=== PATIENT | female | born 1950 | race Caucasian/White ===

== ENCOUNTER 2019-12-04 14:56 | Observation (INO) | payer MEDICARE, MEDICAID, SELFPAY ==
--- NOTE | ~2019-12-04 | XR_ITS ---
EXAMINATION: XR chest 2V DATE: 12/04/2019 16:34 INDICATION: Shortness of breath, cough and intermittent fever TECHNIQUE: frontal and lateral views of the chest were obtained. COMPARISON: None FINDINGS: Fuse increased indistinct interstitial and patchy airspace opacities throughout both lungs. No pleura l effusion or pneumothorax. Cardiomediastinal silhouette within normal limits for AP technique. Debbie cystectomy clips in right upper quadrant. Additional surgical clips project over the right upper lung zone. Instrumented multilevel posterior cervical spinal fusion. IMPRESSION: 1. Bilateral diffuse lung disease which could represent pulmonary edema, pneumonia or combination the reof. Reviewed, dictated and finalized at location [facility] [employer] IMPRESSION: 1. Bilateral diffuse lung disease which could represent pulmonary edema, pneumo ximena or combination thereof.
[2019-12-04 15:00] VITALS: BP 182/77; PULSE 76; RESP 20; TEMP 36.7; O2SAT 96
--- NOTE | 2019-12-04 15:12 | ECG_ITS ---
Measurements Intervals [place] Rate: 66 P: 57 IN: 144 QRS: 50 QRSD: 91 T: 61 QT: 413 QTc: 433 Interpretive Statements SINUS RHYTHM WITH SINUS ARRHYTHMIA NORMAL ECG Electronically Signed On 12-04-2019 15:50:06 BILINGUAL LEGAL ASSISTANT by Rick Bautista D.O.
--- NOTE | 2019-12-04 15:21 | ED.GENADULT ---
HPI - General Adult General Chief complaint: Nausea/Vomiting/Diarrhea Stated complaint: 69 YO female w/ known h.o Steroid and O2 Dependant COPD sec to Tobaccoism sent into ED by [employer] concerned about patient needing to be evalutated for vomiting, and possible pneumonia. Patient was in our ED on 12/01/19 was evaluated w/ COPD w/ mild exacerbation. SHe was discharged to f/u with PMD today. Patient denies fever, chills, Cough, SOB/. She is on her usual baseline need of Oxygen requirement 2-3L when seated and 6-8 L when ambulating. Patient admits to 2 days of N/V associated with ingesting dairy products. Related Data Home Medications Medication Instructions Recorded Confirmed Trelegy Ellipta 1 inh INHALATION DAILY 12/01/19 12/04/19 aspirin [Aspirin Low Dose] 81 mg PO DAILY 12/01/19 12/04/19 baclofen 20 mg PO BID 12/01/19 12/04/19 hydrocodone-acetaminophen [[place]] 1 tablet PO Q6H PRN 12/01/19 12/04/19 lisinopril-hydrochlorothiazide 1 tablet PO DAILY 12/01/19 12/04/19 potassium chloride 20 meq PO EVERY OTHER DAY 12/01/19 12/04/19 pregabalin [Lyrica] 100 mg PO BID 12/01/19 12/04/19 simvastatin 40 mg PO HS 12/01/19 12/04/19 trazodone 50 mg PO HS 12/01/19 12/04/19 albuterol sulfate 90 mcg/actuation 1 puff INHALATION Q4H PRN 12/04/19 12/04/19 aerosol inhaler vortioxetine 20 mg tablet 20 mg PO DAILY 12/04/19 12/04/19 Allergies Allergy/AdvReac Type Severity Reaction Status Date / Time butorphanol [From Stadol] AdvReac Hallucinati Verified 12/10/19 07:04 ng Review of Systems Review of Systems: All systems reviewed & are unremarkable except as noted in HPI and below Constitutional: Constitutional: Reports as per HPI, Reports no additional constitutional complaints, Denies chills, Denies fever(s) and Denies weakness Eyes: Eyes: Reports as per HPI ENT: Reports system reviewed and no additional complaints, except as documented Cardiovascular: Cardiovascular: Reports as per HPI and Denies chest pain Respiratory: Respiratory: Reports as per HPI, Reports no additional respiratory complaints, Denies cough, Reports dyspnea (Chronic on Baseline O2 Requirement) and Denies wheezing Gastrointestinal: Gastrointestinal: Reports as per HPI Genitourinary: Genitourinary: Reports no additional female genitourinary complaints Psychiatric: Psychiatric: Reports no additional psychiatric complaints Endocrine: Endocrine: Reports no additional endocrine complaints PMFSH Past Medical History Medical History Anemia Asthma Chronic pain COPD (chronic obstructive pulmonary disease) COPD with acute exacerbation Dyslipidemia Hypertension Interstitial pulmonary fibrosis Lumbar spondylosis Multiple lung nodules on CT There is a 7 mm right lower lobe nodule. 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 There is an 8 mm right lower lobe nodule Steroid-dependent COPD Surgical History Surgical History H/O abdominoplasty H/O cervical spine surgery H/O: hysterectomy Hx of cholecystectomy Hx of fusion of cervical spine Hx of lumbosacral spine surgery S/P appendectomy Family History Family History Father Acute myocardial infarction Smoker Mother Alzheimer's dementia Social History Social History Social History: quit 3 months ago Smoking packs per day: 1 Smoking cigarettes per day: 20.0 Years smoked: 30 Smoking pack-years: 30.00 Smoking status: Former smoker Tobacco type: cigarettes Second hand tobacco smoke exposure: Yes Alcohol intake: former Substance use: never Substance use type: does not use Additional eduardo
[2019-12-04 15:40] LABS: Basophils Absolute Auto 0.03 K/mm3 (0.00-0.10); Basophils Percent Auto 0.2 % (0.0-1.0); Eosinophils Absolute Auto 0.12 K/mm3 (0.02-0.50); Hemoglobin 10.8 g/dL (11.7-13.8); Immature Granulocyte Absolute 0.08 K/mm3 (0.00-0.00); Immature Granulocyte Percent A 0.7 % (0.0-0.0); Lymphocytes Absolute Auto 2.43 K/mm3 (1.10-4.50); Lymphocytes Percent Auto 20.1 % (18.0-42.0); Mean Corpuscular HGB Conc 30.9 g/dL (32.0-36.0); Mean Corpuscular Hemoglobin 30.5 pg (27.0-31.0); Mean Corpuscular Volume 98.9 fL (78.0-102.0); Mean Platelet Volume 10.2 fl (9.2-11.8); Monocytes Absolute Auto 1.09 K/mm3 (0.10-0.90); Neutrophils Absolute Auto 8.3 K/mm3 (1.7-7.2); Nucleated Red Blood Cells Absolute Auto 0.03 K/mm3 (0.00-0.00); Nucleated Red Blood Cells Perc 0.2 % (0-0.0); Platelet Count Result 287 K/mm3 (150-420); Red Blood Count 3.54 M/mm3 (4.20-5.40); Red Cell Distribution Width 14.3 % (11.6-14.4); White Blood Count 12.1 K/mm3 (4.8-10.8)
[2019-12-04 15:54] LABS: Partial Thromboplastin Time 20.1 SEC (22.3-31.6); Prothrombin Time 10.3 Seconds (9.64-11.0)
[2019-12-04 15:57] LABS: Alanine Aminotransferase 31 U/L (14-59); Alkaline Phosphatase 83 U/L (46-116); Anion Gap 13.7 mmol/L (7-16); Aspartate Amino Transferase 24 U/L (15-37); Bilirubin,Total 0.5 mg/dL (0.00-1.00); Blood Urea Nitrogen 9 mg/dL (7-18); Calcium 8.8 mg/dL (8.5-10.1); Carbon Dioxide 26 mmol/L (21-32); Chloride 105 mmol/L (98-108); Estimated CRCL calculation 64 ml/min; Estimated Glomerular Filt Rate > 60; Glucose 103 mg/dL (70-99); Magnesium 1.8 mg/dL (1.8-2.4); Osmolality Calculated 290 mOsm/kg (285-295); Potassium 3.7 mmol/L (3.5-5.1); Sodium 141 mmol/L (136-145); Total Protein 7.2 g/dL (6.4-8.2)
[2019-12-04 16:01] LABS: BNP 30.8 pg/mL (0-100)
[2019-12-04 16:02] LABS: Troponin I < 0.02 ng/mL (0.00-0.056)
--- NOTE | 2019-12-04 16:10 | PC.NURSE ---
IV attempt x3 to [facility] AC unsuccessful. Lab attempt for ABG x3 by 2 different techs unsuccessful. Pt refusing additional ABG attempts. Dr Reyes aware of inability to obtain IV access in the AC for CTA as well as pt refusal for additional ABG attempts. Verbal order Dr Reyes- Hold additional IV and ABG attempts until review of lab results and CXR. Pt aware, is agreeable to plan.
[2019-12-04 16:18] LABS: Lactic Acid 1.1 mmol/L (0.4-2.0)
[2019-12-04 16:48] VITALS: BP 149/79; PULSE 65; RESP 20; O2SAT 97
--- NOTE | 2019-12-04 17:07 | PC.NURSE ---
Dr Reyes at bedside discussing at length pt's results and plan for dc. Pt and family verbalize understanding and are agreeable to plan.
--- NOTE | 2019-12-04 17:23 | PC.NURSE ---
IV attempt R hand unsuccessful at this time. Pt refuses additional IV attempts. Requesting central line placment. Dr Eric mata.
--- NOTE | 2019-12-04 18:15 | PC.NURSE ---
Awaiting admission orders and central line placement.
--- NOTE | 2019-12-04 19:24 | PC.NURSE ---
Multiple attempts to place central line to bilateral groind by Dr Reyes unsuccessful.
[2019-12-04 19:25] VITALS: BP 179/79; PULSE 85; RESP 20; O2SAT 92
[2019-12-04 19:27] VITALS: BP 147/74; PULSE 70; RESP 20; O2SAT 95
[2019-12-04 20:00] VITALS: BP 132/74; PULSE 70; RESP 20; TEMP 36.1; O2SAT 96
[2019-12-04] MEDS: ONDANSETRON HCL ODT 4 MG TABLET PO (20:10)
[2019-12-04] MEDS: TRAZODONE HCL 50 MG TABLET PO (21:54)
[2019-12-04] MEDS: BACLOFEN 10 MG TABLET 20 MG PO (21:54)
[2019-12-04] MEDS: IPRATROPIUM 0.5 MG/ALBUTEROL SULFATE 2.5 MG AMPUL.NEB 3 ML INHALATION (21:54)
[2019-12-04] MEDS: predniSONE 20 MG TABLET 60 MG PO (21:54)
[2019-12-04] MEDS: SIMVASTATIN 10 MG TABLET 40 MG PO (21:55)
--- NOTE | 2019-12-04 22:00 | PC.NURSE ---
Patient took HS meds and then asked this nurse what dose of Trazodone she is taking. Responded with 50mg. Patient not happy @ all and says she takes 300mg every night. Patient says she has her pills with her and she'll just take hers instead. Told patient that her home meds need to be locked up in med room while she's here and she refused to give them to nurse. This nurse then asked to see the bottle of her Trazodone and patient refused. Explained to patient that all nurse needs to do is look @ the prescription on the bottle and patient still refused. Nurse told patient that patient could hold the bottle and nurse would read the bottle that way and patient continued to refuse. Charge nurse notified of all.
--- NOTE | 2019-12-04 22:15 | PC.NURSE ---
Charge nurse entered room to talk to patient about seeing her medication bottles and that staff needs to lock them in the medication room. Patient lifted up her plastic bag of medications and as nurse attempted to take tne bag she pulled back and yelled don't touch me. Nurse then stated that nurse did not touch her just the bag of medications. Patient then went on to say that the medications were hers and staff had no right to take them. Nurse attempted again to explain that the medications needed to be locked in medication room. Patient again refused to allow nurse to lock meds in medication room. notified of patient behaviors. New orders received.
--- NOTE | 2019-12-04 23:28 | PC.NURSE ---
Notified [facility] to clarify and reorder pt's trazadone and melatonin medications.
--- NOTE | 2019-12-04 23:39 | ADMGEN ---
This patient, Clari Ledesma, was admitted to 2nd Floor Room 205-2. Patient oriented to hospital policies and general routines including ID bracelet, bed and alarms, visiting hours, pain management, procedures, bathroom and other care routines, personal items, smoking policy, room service/diet, and visiting hours. Valuables list includes purse with no wallet, clothing, jacket, glasses, dentures, cell phone and medications in a sack.. Information on how to activate the Rapid Response Team has been discussed. Patient are encouraged to report perceived risks to care and to ask questions if they do not understand what they are told or what they should do.
[2019-12-05] VITALS (13 sets, daily range): BP systolic 104–123; BP diastolic 45–68; PULSE 62–114; RESP 16–20; TEMP 36.3–36.6; O2SAT 84–96; BMI 30.2
[2019-12-05] MEDS: TRAZODONE HCL 50 MG TABLET 150 MG PO (00:34)
--- NOTE | 2019-12-05 00:39 | PC.NURSE ---
Called [facility] again to update and verify orders for melatonin, trazadone and zofran.
[2019-12-05] MEDS: IPRATROPIUM 0.5 MG/ALBUTEROL SULFATE 2.5 MG AMPUL.NEB 3 ML INHALATION ×3 (01:16→11:35)
[2019-12-05 05:14] LABS: Basophils Absolute Auto 0.01 K/mm3 (0.00-0.10); Basophils Percent Auto 0.1 % (0.0-1.0); Hematocrit 29.6 % (35.0-42.0); Hemoglobin 9.4 g/dL (11.7-13.8); Immature Granulocyte Absolute 0.06 K/mm3 (0.00-0.00); Immature Granulocyte Percent A 0.7 % (0.0-0.0); Lymphocytes Absolute Auto 0.85 K/mm3 (1.10-4.50); Lymphocytes Percent Auto 9.7 % (18.0-42.0); Mean Corpuscular HGB Conc 31.8 g/dL (32.0-36.0); Mean Corpuscular Hemoglobin 30.6 pg (27.0-31.0); Mean Corpuscular Volume 96.4 fL (78.0-102.0); Mean Platelet Volume 9.2 fl (9.2-11.8); Monocytes Percent Auto 1.1 % (2.0-11.0); Neutrophils Absolute Auto 7.8 K/mm3 (1.7-7.2); Neutrophils Percent Auto 88.4 % (50.0-70.0); Platelet Count Result 291 K/mm3 (150-420); Red Blood Count 3.07 M/mm3 (4.20-5.40); Red Cell Distribution Width 14.4 % (11.6-14.4); White Blood Count 8.8 K/mm3 (4.8-10.8)
[2019-12-05] MEDS: ASPIRIN 81 MG ENTERIC TABLET PO (09:17)
[2019-12-05] MEDS: MIRABEGRON 25 MG ER TABLET PO (09:17)
[2019-12-05] MEDS: predniSONE 20 MG TABLET 60 MG PO (09:17)
[2019-12-05] MEDS: PREGABALIN 25 MG CAPSULE 100 MG PO (09:18)
[2019-12-05] MEDS: BACLOFEN 10 MG TABLET 20 MG PO (09:18)
[2019-12-05] MEDS: hydroCHLOROthiazide 25 MG TABLET 12.5 MG PO (09:18)
[2019-12-05] MEDS: lisinopriL 20 MG TABLET PO (09:18)
[2019-12-05] MEDS: ENOXAPARIN 40 MG/0.4 ML SYRINGE SUB-Q (09:19)
[2019-12-05 09:46] LABS: Lipase 160 U/L (73-393)
--- NOTE | 2019-12-05 10:31 | PM.IMHP ---
H&P: HPI History of Present Illness Chief complaint: vomiting, possible pneumonia <Roberta Todd NP - Last Filed: 12/05/19 14:28> Narrative: Clari Ledesma is a 69 year old female was admitted yesterday with Nausea, Vomiting, and Diarrhea. Clari was seeing her new primary care provider Blanca Peña NP yesterday, when they sent her to the ED for her 2 days of nausea, vomiting, diarrhea, and possible pneumonia. Patient denied fever, chills, Cough, SOB. She is on her usual baseline need of Oxygen requirement 2-3L when seated and 6-8 L when ambulating. On her CXR in the ED yesterday, she was found to have interstitial and patchy airspace opacities throughout both lungs, bilateral diffuse lung disease which could represent pulmonary edema, pneumonia or combination thereof. She denies ever having a cardiac workup, an ECHO, or a GI work up. In the ED, patient was admitted for N/V, possibly associated with ingesting dairy products. Patient was also in [facility] ED on 12/01/19 found to have COPD-mild exacerbation. She was also recently seen at [facility] and discharged from there on 11/20/2019 for Acute Gastritis, Dehdyration, Multilobar lung infiltrates, Emphysema, Anemia, and HTN. She was treated with Antibx.(Zosyn and Azithr switched to Vanc/Cefepime/Levaquin), steroids, breathing txs. She lives with her sister and has [facility] Home Health services including RN/PT/Aide. She gets her home oxygen supply from [facility] and is ORDERED to be on 2L O2 NC while at rest and 8L O2 NC with exertion/ambulation. TODAY: She had a soft formed BM this morning and had 1 episode of nausea that required PRN zofran for resolution. She has had no vomiting since her admission, none overnight or today. Patient stated that she doesn't think that she has a Lactose intolerance and is wanting Regular Diet now. She denies having had an ECHO, ordered one for today. She wants her Nebulizer and O2 supply to come from [facility] now and feels that she is requiring less than 8L O2 with ambulation, ordered Home O2 study to check her current O2 requirements. Planning for discharge later this afternoon, will have her follow up with [employer] Founder (Dr. Mahoney's office) and [employer]ocomotive Operator (Dr. Higgins's office). She prefers to stay in [place], as close to home as possible, either [place], [place] or [place], [place]. I have given her Specialist provider contact information and she needs to Follow up with these specialist to possibly avoid these multiple hospitalizations for similar s/s. <Roberta Todd NP - Last Filed: 12/05/19 14:28> Review of Systems Review of Systems: Narrative: Clari reported that she is weighing herself DAILY on the scale that the Home Health RN brought to her and that her weight fluctuates greatly day to day. <Roberta Todd NP - Last Filed: 12/05/19 14:28> All systems reviewed & are unremarkable except as noted in HPI and below <Roberta Todd NP - Last Filed: 12/05/19 14:28> Constitutional: Constitutional: Reports as per HPI and Reports no additional constitutional complaints <Roberta Todd NP - Last Filed: 12/05/19 14:28> Eyes: Eyes: Reports as per HPI <Roberta Todd NP - Last Filed: 12/05/19 14:28> ENT: Reports as per HPI, Reports Normal hearing present, Denies nasal congestion and Denies nasal discharge <Roberta Todd NP - Last Filed: 12/05/19 14:28> Cardiovascular: Cardiovascular: Reports as per HPI, Denies chest pain, Denies pedal edema, Denies leg edema and Denies lightheadedness <Roberta Todd NP - Last Filed: 12/05/19 14:28> Respiratory: Respiratory: Reports as per HPI, Reports chest congestion, Denies cough, Denies hemoptysis, Denies dyspnea, Reports dyspnea on exertion and Denies wheezing <Roberta Todd NP - Last Filed: 12/05/19 14:28> Gastrointestinal: Gastrointestinal: Reports as per HPI, Reports abdominal pain, Denies melena, Reports bloating, Denies hematochezia, Denies cons
[2019-12-05 10:43] LABS: Thyroid Stimulating Hormone 0.39 uIU/mL (0.36-3.74)
[2019-12-05 10:44] LABS: Iron 27 ug/dL (50-170); Percent Iron Saturation 10 % (12-57)
[2019-12-05] MEDS: FUROSEMIDE 40 MG TABLET PO (11:04)
[2019-12-05] MEDS: ONDANSETRON HCL ODT 4 MG TABLET PO (11:04)
--- NOTE | 2019-12-05 12:15 | PC.NURSE ---
Patient having ECHO performed at present in bed in room.
--- NOTE | 2019-12-05 12:40 | ECHO_ITS ---
Patient Info Name: Clari Ledesma Age: 69 years : 1950 Gender: Female Ht: 66 in Wt: 187 lbs BSA: 2.01 m2 HR: 73 bpm BP: 140 / 60 mmHg Technical Quality: Good Exam Date: 12/05/2019 12:09 PM Exam Location: [facility] Patient Status: Outpatient Admit Date: 12/04/2019 Staff Ordering Physician: Roberta Todd NP Outdoor Illuminating Engineer: Valeriano Todd, HARSHAD, RT Attending Provider: Bhupinder Reyes MD Referring Physician: Perez KAY; Exam Type: CA echo doppler color flow Study Info Indications R06.02 - Shortness of breath Complete two-dimensional, color flow and Doppler transthoracic echocardiogram is performed. Summary 1. Left ventricular chamber dimension is normal. 2. Left ventricular systolic function is normal, estimated at 60-65%. 3. The left ventricular diastolic function is normal. 4. Tissue doppler is not performed to assess diastolic function. 5. There is mild aortic valve sclerosis. 6. Mild mitral annular calcification. Left Ventricle Tissue doppler is not performed to assess diastolic function. Left ventricular chamber dimension is normal. Left ventricular systolic function is normal, estimated at 60-65%. The left ventricular diastolic function is normal. Right Ventricle Right ventricular chamber dimension is normal. Right ventricular systolic function is normal. Left Atria Left atrial chamber dimension is normal. Right Atria Right atrial chamber dimension is normal. Aortic Valve The aortic valve is trileaflet. There is mild aortic valve sclerosis. There is no aortic valve stenosis. There is no aortic valve regurgitation. Pulmonic Valve There is no pulmonic regurgitation. Mitral Valve Mild mitral annular calcification. There is no mitral valve stenosis. There is no mitral valve regurgitation. Tricuspid Valve There is no tricuspid valve regurgitation. Pericardium/Pleural There is no pericardial effusion. Inferior Vena Cava Normal inferior vena cava with >50% collapse upon inspiration consistent with normal right atrial pressure, 5 mmHg. Aorta The aortic root size at the sinus of Valsalva is normal. Left Ventricular Outflow Tract Name Value Normal LVOT 2D LVOT Diameter 2.1 cm LVOT Doppler LVOT Peak Gradient 3 mmHg LVOT Mean Gradient 2 mmHg LVOT VTI 18 cm LVOT VTI/AV VTI Ratio 0.5 LVOT Stroke Volume 64 ml LVOT CI 0.0 l/min/m2 Pulmonic Valve Name Value Normal PV Doppler PV Peak Gradient 5 mmHg Mitral Valve Name Value Normal MV D
[2019-12-05 13:20] LABS: Add Urine Microscopic? NO; Appearance Urine Clear (Clear); Bilirubin Urine Negative (Negative); Blood Urine Negative (Negative); Color Urine Yellow (Yellow); Glucose Urine UA Negative (Negative); Ketones Urine Negative (Negative); Leukocyte Esterase Ur Negative LEU/UL (Negative); Nitrate Urine Negative (Negative); Protein Urine Negative (Negative); Specific Grav Ur 1.015 (1.010-1.020); Urobilinogen Urine 0.2 mg/dL (0.2-1.0); pH Urine 6.5 (5.0-8.0)
[2019-12-05 13:32] LABS: Amphetamine Screen Urine Negative (Negative); Barbiturate Screen Urine Negative (Negative); Benzodiazepines Screen Urine Negative (Negative); Cannabinoid Screen Urine Negative (Negative); Cocaine Screen Urine Negative (Negative); Methadone Screen Urine Negative (Negative); Opiate Screen Urine Positive (Negative); Phencyclidine Screen Urine Negative (Negative)
[2019-12-05] MEDS: POLYSACCHARIDE IRON COMPLEX 150 MG CAPSULE PO (13:41)
[2019-12-05] MEDS: PANTOPRAZOLE 40 MG TABLET PO (13:42)
[2019-12-05] MEDS: FAMOTIDINE 20 MG TABLET PO (13:42)
--- NOTE | 2019-12-05 13:53 | HOMEO2EVAL ---
Home Oxygen Evaluation RC: Home Oxygen (O2) Evaluation Start: 12/05/19 14:00 Freq: ONCE Status: Active Protocol: RPE Activity Type Activity Date Activity User E-Sign Co-Sign Detail Recorded Client Recorded Date Recorded By Document 12/05/19 13:19 SJB [id number] 12/05/19 13:53 SJB Document 12/05/19 13:20 SJB [id number] 12/05/19 13:53 SJB Document 12/05/19 13:22 SJB [id number] 12/05/19 13:53 SJB Document 12/05/19 13:24 SJB [id number] 12/05/19 13:53 SJB Document 12/05/19 13:43 SJB [id number] 12/05/19 13:53 SJB 12/05/19 12/05/19 12/05/19 13:19 13:20 13:22 Home O2 Evaluation Test Phase Resting Resting Exercise Oxygen Delivery Room Air Nasal Cannula Oxygen Flow Rate (L/min) 2 2 Pulse Oximetry (90-100 %) 84 L 92 88 L Pulse Rate (60-100 beats/min) 106 H 93 114 H Activity Tolerance Fair Fair Rating of Perceived Dyspnea (PD) +2 Mild, Some Difficulty, Noticeable to the Observer Rate of Perceived Exertion (PE) 12 Ambulation Distance (feet) 100 Home Oxygen Evaluation Comments Pt's Sp02 is 92 Pt stopped % on 2 lpm, after 100 ft will begin walk due to 88% Sp02 now. on 2 lpm during exercise . Will now increase oxygen to 3 lpm. Treatment Charges O2 Evaluation 12/05/19 12/05/19 13:24 13:43 Home O2 Evaluation Test Phase Exercise Exercise Oxygen Delivery Nasal Cannula Nasal Cannula Oxygen Flow Rate (L/min) 3 4 Pulse Oximetry (90-100 %) 88 L 92 Pulse Rate (60-100 beats/min) 113 H 112 H Activity Tolerance Fair Fair Rating of Perceived Dyspnea (PD) +3 Moderate +3 Moderate Difficulty, But Difficulty, But Can Continue Can Continue Rate of Perceived Exertion (PE) 13 Somewhat 13 Somewhat Hard Hard Ambulation Distance (feet) 190 350 Home Oxygen Evaluation Comments Pt stopped at Pt completed 190 ft due to the rest of the Sp02 dropping walk on 4 lpm to 88%. Will with a total now increase to distance of 350 4 lpm. ft. Sp02 stayed at 92 % and HR between 111-117. Treatment Charges
--- NOTE | 2019-12-05 14:35 | PM.DS ---
DS: Diagnosis Admitting Diagnosis Admitting Diagnosis: Noninfective gastroenteritis and colitis, unspecified <Roberta Todd NP - Last Filed: 12/05/19 14:38> DS: Summary Time Spent with Patient Time attestation: Total time spent providing and/or coordinating discharge services:>60minutes <Roberta Todd NP - Last Filed: 12/05/19 14:38> Exam Const: General: comfortable and no acute distress <Roberta Todd NP - Last Filed: 12/05/19 14:38> HENMT: Mouth: Yes moist mucous membranes <Roberta Todd NP - Last Filed: 12/05/19 14:38> Eyes: General: appearance normal, both eyes and all related structures <Roberta Todd NP - Last Filed: 12/05/19 14:38> Pupils: Equal, round and reactive pupils present <Roberta Todd NP - Last Filed: 12/05/19 14:38> Resp: Auscultation: clear to auscultation bilaterally and diminished lung sounds <Roberta Todd NP - Last Filed: 12/05/19 14:38> Cardio: Rate: regular rate <Roberta Todd NP - Last Filed: 12/05/19 14:38> Rhythm: regular rhythm <Roberta Todd NP - Last Filed: 12/05/19 14:38> Heart sounds: no murmurs <Roberta Todd NP - Last Filed: 12/05/19 14:38> GI: Inspection: non-distended <Roberta Todd NP - Last Filed: 12/05/19 14:38> GI Palp: Yes Soft to palpation, No Tenderness to palpation present (GI) and No Guarding due to palpation present (GI) <Roberta Todd NP - Last Filed: 12/05/19 14:38> Auscultation: normal bowel sounds <Roberta Todd NP - Last Filed: 12/05/19 14:38> Skin: General skin exam: normal color and no rashes or lesions noted <Roberta Todd NP - Last Filed: 12/05/19 14:38> Neuro: Other: Generalized weakness, in Home Health PT. <Roberta Todd NP - Last Filed: 12/05/19 14:38> Extrem: General: normal to inspection, no edema and no pedal edema <Roberta Todd NP - Last Filed: 12/05/19 14:38> Psych: Appearance: grossly normal <Roberta Todd NP - Last Filed: 12/05/19 14:38> Mental Status: mental status grossly normal <Roberta Todd NP - Last Filed: 12/05/19 14:38> Speech and movement: Normal speech and movement present <Roberta Todd NP - Last Filed: 12/05/19 14:38> Affect: normal affect <Roberta Todd NP - Last Filed: 12/05/19 14:38> Thought content: Yes Normal thought content present <Roberta Todd NP - Last Filed: 12/05/19 14:38> DS: Data Data Completed and Pending Labs on day of discharge: Labs from last 24 hours 12/05/19 12/05/19 12/05/19 13:07 13:07 05:08 WBC RBC Hgb Hct MCV MCH MCHC RDW Plt Count MPV Immature Gran % (Auto) Neut % (Auto) Lymph % (Auto) [place] % (Auto) Eos % (Auto) Baso % (Auto) Lymph # (Auto) [place] # (Auto) Eos # (Auto) Baso # (Auto) Abs Immat Gran (auto) Absolute Neuts (auto) Absolute Nucleated RBC Nucleated RBC % PT INR APTT Sodium Potassium Chloride Carbon Dioxide Anion Gap BUN Creatinine Estim Creat Clear Calc Estimated GFR Glucose Calculated Osmolality Lactic Acid Calcium Magnesium Iron 27 L TIBC 271 % Saturation 10 L Total Bilirubin AST ALT Alkaline Phosphatase Troponin I B-Natriuretic Peptide Total Protein Albumin Lipase Procalcitonin TSH Urine Color Yellow Urine Appearance Clear Urine pH 6.5 Ur Specific [place] 1.015 Urine Protein Negative Urine Glucose (UA) Negative Urine Ketones Negative Ur Blood (Man) Negative Urine Nitrate Negative Urine Bilirubin Negative Urine Urobilinogen 0.2 Leukocyte Esterase Rfl Negative Urine Opiates Screen Positive A Urine Methadone Screen Negative Ur Barbiturates Screen Negative Ur Phencyclidine Scrn Negative Ur Amphetamine Screen Negative U Benzodiazepines Scrn Negative Urine Cocaine Screen Negative U Cannabinoids Screen Negative 12/05/19 12/05/19 12/05/19 05:08 05:08
--- NOTE | 2019-12-06 12:59 | PC.NURSE ---
Discharge call Back Wrong number recorded in the patient chart.
[2019-12-09 09:51] LABS: Procalcitonin <0.10 ng/mL (<0.10)
== END 2019-12-05 16:55 | disposition home health service (06) ==
LOC: CHSED 18:10 → CHS2ND 18:22
PROVIDERS: Nurse Practitioner; Admitting Provider Family Medicine; Emergency Provider Family Medicine; PCP Nurse Practitioner Family; Visit Provider Family Medicine
DX: K52.9 Noninfective gastroenteritis and colitis, unspecified (principal); J44.1 Chronic obstructive pulmonary disease with (acute) exacerbation; J84.10 Pulmonary fibrosis, unspecified; J81.1 Chronic pulmonary edema; D64.9 Anemia, unspecified; E78.5 Hyperlipidemia, unspecified; I10 Essential (primary) hypertension; R91.8 Other nonspecific abnormal finding of lung field; Z99.81 Dependence on supplemental oxygen; Z79.52 Long term (current) use of systemic steroids; Z98.1 Arthrodesis status; Z87.891 Personal history of nicotine dependence; Z79.899 Other long term (current) drug therapy
CPT/HCPCS: C1751; 36415; 36556; 36600; 71046; 80053; 80307; 81003; 83540; 83550; 83605; 83690; 83735; 83880; 84145; 84443; 84484; 85025; 85610; 85730; 87040; 87077; 87086; 87088; 87186; 93005; 93306; 94618; 94640; 96372; 99283; 99285; A9270; G0378; J1650; J7512

== ENCOUNTER 2019-12-24 17:34 | Emergency (ER) | payer MEDICARE, SELFPAY ==
--- NOTE | ~2019-12-24 | CT_ITS ---
EXAMINATION: CT abdomen pelvis w con DATE: 12/24/2019 18:39 INDICATION: Nausea, vomiting and fever. Generalized abdominal pain. TECHNIQUE: Computed tomography (CT) of the abdomen and pelvis was performed with 100 mL Omnipaque-350 intravenous contrast. Automated exposure control and iterative reconstruction technique were employe d. The dose-length product was 454.12 mGy-cm. COMPARISON: 12/01/2019 FINDINGS: Scarring along a suture line at the anterior right middle lobe. Interval improvement in groundglass, reticular and tree-in-bud opacities in the bilateral lower lobes. Unchanged 10 x 7 mm left lower lobe nodule. Heart size is normal. No pericardial or pleural effusion. Aortic valve calcification. Small sliding-type hiatal hernia. Cholecystectomy clips at gallbladder fossa. Liver, pancreas, bilateral adrenal glands and left kidney are normal. 7 mm low-attenuation cyst at the lower pole of the right kidney. Unchanged 8 mm nodule a long the posterior capsule of the otherwise normal-appearing spleen. Moderate to large amount of stoo l in the mid to distal colon. No abnormal bowel wall thickening or obstruction. The appendix is not v isualized. No pericecal inflammatory change to suggest acute appendicitis. Bladder is normal. The chai glenny is not identified and has likely been surgically resected. No free intraperitoneal gas or fluid. No pathologically enlarged abdominal or pelvic lymphadenopathy. Severe lumbar spondylosis with S1 posterior spinal fusion with bilateral vertical lizzie and pedicle sc rew fixation extending from L2 through L4. Bone graft harvest sites at the bilateral posterior iliac spines. Intrathecal catheter with distal tip in the anterior central canal at the level of T11 which extends to a subcutaneous reservoir at the anterior left upper quadrant. IMPRESSION: 1. Interval improvement in bibasilar interstitial and airspace disease most likely representing resol ving pneumonia and/or pulmonary edema which may be superimposed over more chronic interstitial lung d isease. 2. No acute intra-abdominal/pelvic process. 3. Unchanged 10 x 7 mm left lower lobe nodule. Recommend follow-up low-dose chest CT in 3 months. Reviewed, dictated and finalized at location A. NT SERVICE ASSOCIATE IMPRESSION: 1. Interval improvement in bibasilar interstitial and airspace disease most lik carlin representing resolving pneumonia and/or pulmonary edema which may be superi mposed over more chronic interstitial lung disease. 2. No acute intra-abdominal/pelvic process. 3. Unchanged 10 x 7 mm left lower lobe nodule. Recommend follow-up low-dose tina st CT in 3 months.
[2019-12-24 17:37] VITALS: BP 117/72; PULSE 83; RESP 16; TEMP 36.9; O2SAT 100
--- NOTE | 2019-12-24 17:48 | ED.ABDPAIN ---
HPI - Abdominal Pain General Chief Complaint: Abdominal Pain Stated Complaint: VOMITING Time Seen by Provider: 12/24/19 17:42 Source: patient Mode of arrival: ambulatory Limitations: no limitations History of Present Illness HPI narrative: A 69 y/o female presents to the ED with c/o N/V x 3 weeks. Pt reports RLQ ABD pain and a fever over the last 3 days. Her most recent fever prior to arrival was 102 F but has a temperature of 98.4 in the ED. Pt denies taking any pain medications today and has a PSHx of cholecystectomy. MD elicited complaint: abdominal pain Onset (ago): week(s) (3) Location: RLQ Associated symptoms: nausea, vomiting and fever Related Data Home Medications Medication Instructions Recorded Confirmed aspirin [Aspirin Low Dose] 81 mg PO DAILY 12/01/19 12/04/19 baclofen 20 mg PO BID 12/01/19 12/04/19 hydrocodone-acetaminophen [[place]] 1 tablet PO Q6H PRN 12/01/19 12/04/19 lisinopril-hydrochlorothiazide 1 tablet PO DAILY 12/01/19 12/04/19 potassium chloride 20 meq PO EVERY OTHER DAY 12/01/19 12/04/19 pregabalin [Lyrica] 100 mg PO BID 12/01/19 12/04/19 simvastatin 40 mg PO HS 12/01/19 12/04/19 trazodone 50 mg PO HS 12/01/19 12/04/19 albuterol sulfate 90 mcg/actuation 1 puff INHALATION Q4H PRN 12/04/19 12/04/19 aerosol inhaler prochlorperazine maleate 12/24/19 [Compazine] Allergies Allergy/AdvReac Type Severity Reaction Status Date / Time butorphanol [From Stadol] AdvReac Hallucinati Verified 12/24/19 17:40 ng Review of Systems Review of Systems: All systems reviewed & are unremarkable except as noted in HPI and below Constitutional: Constitutional: Reports fever(s) (102F prior to arrival) Gastrointestinal: Gastrointestinal: Reports abdominal pain (RLQ ), Denies diarrhea, Reports nausea and Reports vomiting PMFSH Past Medical History Medical History Anemia Asthma Chronic pain COPD (chronic obstructive pulmonary disease) COPD with acute exacerbation Dyslipidemia Hypertension Interstitial pulmonary fibrosis Lumbar spondylosis Multiple lung nodules on CT There is a 7 mm right lower lobe nodule. 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 There is an 8 mm right lower lobe nodule Steroid-dependent COPD Surgical History Surgical History H/O abdominoplasty H/O cervical spine surgery H/O: hysterectomy Hx of cholecystectomy Hx of fusion of cervical spine Hx of lumbosacral spine surgery S/P appendectomy Social History Social History Social History: quit 3 months ago Smoking packs per day: 1 Smoking cigarettes per day: 20.0 Years smoked: 30 Smoking pack-years: 30.00 Smoking status: Former smoker Tobacco type: cigarettes Second hand tobacco smoke exposure: Yes Alcohol intake: former Substance use: never Substance use type: does not use Additional living arrangements comments: Lives with sister Gender identity (if verbalized by the patient): Female Spiritual care concerns: No Agree to blood products: Yes Exam Narrative: Exam Narrative: APPEARANCE: No acute distress, nontoxic, resting in bed HEENT: Normocephalic, atraumatic, OMM RESPIRATORY: No respiratory distress, clear to auscultation bilaterally with no rhonchi wheezing or rales CARDIOVASCULAR: RRR s murmur ABDOMINAL: Soft, nondistended, tender palpation in epigastric and right upper quadrant left upper quadrant, no tenderness in right lower quadrant left lower quadrant, no rebound or guard MUSCULOSKELETAl: Moves all extremities. No clubbing, cyanosis or edema. NEURO: Awake and alert. Following commands, speech normal, no focal deficits SKIN:: Warm, dry. N
[2019-12-24] MEDS: ONDANSETRON INJ 4 MG/2 ML VIAL IV PUSH (18:00)
[2019-12-24] MEDS: SODIUM CHLORIDE 0.9% IV 1,000 ML 999 ML IV CONT (18:00)
[2019-12-24 18:03] VITALS: BP 111/41; PULSE 80; RESP 18; O2SAT 95
[2019-12-24 18:15] LABS: Basophils Percent Auto 0.2 % (0.2-1.2); Eosinophils Absolute Auto 0.2 K/mm3 (0-0.3); Eosinophils Percent Auto 1.3 % (0-4.4); Hematocrit 38.4 % (37.0-47.0); Hemoglobin 11.8 g/dL (12.0-15.0); Immature Granulocyte Absolute 0.05 K/mm3 (0.00-0.031); Immature Granulocyte Percent A 0.4 % (0-0.5); Lymphocytes Absolute Auto 2.78 K/mm3 (0.9-3.2); Lymphocytes Percent Auto 22.6 % (18.3-44.2); Mean Corpuscular HGB Conc 30.7 g/dl (32-36); Mean Corpuscular Hemoglobin 29.2 pg (26-34); Mean Platelet Volume 9.9 fl (7.4-10.4); Monocytes Absolute Auto 1.4 K/mm3 (0.1-0.6); Monocytes Percent Auto 11.3 % (2.6-8.5); Neutrophils Absolute Auto 7.9 K/mm3 (1.3-6.7); Neutrophils Percent Auto 64.2 % (45.5-73.1); Platelet Count Result 260 k/mm3 (150-375); Red Blood Count 4.04 M/mm3 (4.2-5.4); Red Cell Distribution Width 14.9 % (11.5-14.5); White Blood Count 12.3 K/mm3 (4.5-10.0)
[2019-12-24 18:27] LABS: Alanine Aminotransferase 28 U/L (4-35); Albumin Level 3.7 g/dL (3.5-5.1); Alkaline Phosphatase 83 U/L (38-126); Aspartate Amino Transferase 35 U/L (14-36); Bilirubin,Total 0.5 mg/dL (0.2-1.3); Blood Urea Nitrogen 17 mg/dL (7-17); Carbon Dioxide 21 mmol/L (22-30); Chloride 102 mmol/L (98-107); Estimated CRCL calculation 55 ml/min; Estimated Glomerular Filt Rate > 60; Glucose 117 mg/dL (65-105); Lipase 110 U/L (23-300); Sodium 132 mmol/L (137-145)
[2019-12-24] MEDS: MORPHINE SULFATE 4 MG/ML INJ IV PUSH (19:27)
[2019-12-24 19:28] LABS: Add Urine Microscopic? YES; Appearance Urine Clear (Clear); Bacteria Urine Trace /hpf; Bilirubin Urine Negative (Negative); Blood Urine 1+ (Negative); Color Urine Yellow (Yellow); Glucose Urine UA Negative (Negative); Ketones Urine Negative (Negative); Leukocyte Esterase Ur Negative LEU/UL (Negative); Mucus Urine Rare /lpf; Nitrate Urine Negative (Negative); Protein Urine 1+ mg/dL (Negative); RBC Urine 21-50 /hpf (0-2); Squamous Epithelial Cell Urine Moderate /hpf (Few); Urobilinogen Urine Negative mg/dL (<2.0); WBC Urine 0-3 /hpf
[2019-12-24 19:30] LABS: Specific Grav Ur > 1.060 (1.001-1.035)
[2019-12-24 21:29] VITALS: BP 147/76; PULSE 79; RESP 18; O2SAT 96
== END 2019-12-24 21:30 | disposition home or self-care (01) ==
PROVIDERS: Emergency Medicine; Emergency Provider Emergency Medicine; PCP Nurse Practitioner Family
DX: R10.9 Unspecified abdominal pain (principal); R11.2 Nausea with vomiting, unspecified; Z87.891 Personal history of nicotine dependence; J44.9 Chronic obstructive pulmonary disease, unspecified; E78.5 Hyperlipidemia, unspecified; I10 Essential (primary) hypertension; Z99.81 Dependence on supplemental oxygen; R91.1 Solitary pulmonary nodule
CPT/HCPCS: 36415; 51701; 74177; 80053; 81001; 83690; 85025; 87804; 96365; 96375; 99284; A9270; J0131; J2270; J2405; J7030; Q9967

== ENCOUNTER 2019-12-30 12:04 | Outpatient (CLI) | payer MEDICARE, MEDICAID, SELFPAY ==
[2019-12-30 12:20] LABS: Basophils Absolute Auto 0.01 K/mm3 (0.00-0.10); Basophils Percent Auto 0.1 % (0.0-1.0); Eosinophils Absolute Auto 0.04 K/mm3 (0.02-0.50); Eosinophils Percent Auto 0.3 % (1.0-6.0); Hematocrit 34.1 % (35.0-42.0); Hemoglobin 11.1 g/dL (11.7-13.8); Immature Granulocyte Absolute 0.04 K/mm3 (0.00-0.00); Immature Granulocyte Percent A 0.3 % (0.0-0.0); Lymphocytes Absolute Auto 2.09 K/mm3 (1.10-4.50); Lymphocytes Percent Auto 17.1 % (18.0-42.0); Mean Corpuscular HGB Conc 32.6 g/dL (32.0-36.0); Mean Corpuscular Hemoglobin 29.6 pg (27.0-31.0); Mean Corpuscular Volume 90.9 fL (78.0-102.0); Mean Platelet Volume 9.1 fl (9.2-11.8); Monocytes Absolute Auto 0.62 K/mm3 (0.10-0.90); Monocytes Percent Auto 5.1 % (2.0-11.0); Neutrophils Absolute Auto 9.4 K/mm3 (1.7-7.2); Neutrophils Percent Auto 77.1 % (50.0-70.0); Platelet Count Result 297 K/mm3 (150-420); Red Blood Count 3.75 M/mm3 (4.20-5.40); Red Cell Distribution Width 14.6 % (11.6-14.4); White Blood Count 12.2 K/mm3 (4.8-10.8)
[2019-12-30 12:30] LABS: Anion Gap 15.5 mmol/L (7-16); Blood Urea Nitrogen 10 mg/dL (7-18); Calcium 8.7 mg/dL (8.5-10.1); Carbon Dioxide 25 mmol/L (21-32); Chloride 104 mmol/L (98-108); Estimated Glomerular Filt Rate > 60; Glucose 128 mg/dL (70-99); Osmolality Calculated 293 mOsm/kg (285-295); Potassium 3.5 mmol/L (3.5-5.1); Sodium 141 mmol/L (136-145)
[2019-12-30] MEDS: SODIUM CHLORIDE 0.9% IV 1,000 ML 500 ML IVPB (12:53)
[2019-12-30] MEDS: ONDANSETRON INJ 4 MG/2 ML VIAL IV PUSH (12:57)
[2019-12-30 13:00] VITALS: BP 113/65; PULSE 80; RESP 16; O2SAT 97
[2019-12-30] MEDS: MORPHINE SULFATE 4 MG/ML INJ IV PUSH (14:55)
--- NOTE | 2019-12-30 15:08 | PC.NURSE ---
[address] CRUZ OFFICE FOR 1L N.S., BENADRYL AND ZOFRAN IVP FOR C/O N/V ABD CRAMPING. SEE JAN. 1399 FLUIDS CONTINUE. PATIENT HAVING NO NAUSEA AT PRESENT, BUT HAVING ABDOMEN PAIN 8 ON 1-[address] CALL TO DR. CRUZ.
--- NOTE | 2019-12-30 15:19 | PC.NURSE ---
1455 ORDERED RECEIVED AND PHARMACY VERIFIED TO GIVE MORPHINE 4 MG IVP X1 FOR ABDOMEN PAIN SEE MAR AND PAIN ASSESSMENT. 1500 1 L INFUSED. SALINE LOCKED. WILL OBSERVE PAIN FOR SHORT AWHILE PRIOR TO DISCHARGE.
== END 2019-12-30 12:05 | disposition home or self-care (01) ==
LOC: CHSLAB 12:08
PROVIDERS: PCP Family Medicine; Visit Provider Family Medicine
DX: R11.2 Nausea with vomiting, unspecified (principal)
CPT/HCPCS: 36415; 80048; 85025; 96360; 96361; 96375; J1200; J2405; J7030

== ENCOUNTER 2020-01-04 03:38 | Observation (INO) | payer MEDICARE, MEDICAID, SELFPAY ==
--- NOTE | ~2020-01-04 | CT_ITS ---
EXAMINATION: CT chest wo con DATE: 01/04/2020 13:06 INDICATION: Pneumonia and pulmonary edema TECHNIQUE: Computed tomography (CT) of the chest was performed without intravenous contrast. Addition al 3D reconstructions utilizing coronal maximum intensity projection (MIP) were performed. Automated exposure control and iterative reconstruction technique were employed. The dose-length product was 33 6.23 mGy-cm. COMPARISON: CT abdomen and pelvis dated 12/24/2019 FINDINGS: Mild to moderate emphysema throughout both lungs. Suture line consistent with likely pulmonary wedge resection along the anterior right middle lobe. Diffuse reticular-nodular and tree-in-bud pattern thr oughout much of the right lung with smaller regions in the left lower lobe. At the lung bases were co mparison can be made to study dated 12/01/2019 the superior to have improved. Several scattered larger pulmonary nodules throughout both lungs the largest in the left lower lobe measuring up to 10 mm. Vo lume and architectural distortion with linear opacities in the right lower lobe converging on a small region of peripheral likely pleural-parenchymal scarring. No pleural effusion or pneumothorax. Heart size is normal. Small amount of atherosclerotic coronary artery calcifications. No pericardial effus ion. Small sliding-type hiatal hernia. No pathologically enlarged thoracic lymphadenopathy. Cholecyst ectomy clips at the gallbladder fossa. Diffuse hepatic steatosis. C5-C7 laminectomies with instrument ed cervicothoracic posterior spinal fusion with bilateral vertical lizzie and lateral mass/pedicle screw s extending from at least C5-T2. IMPRESSION: 1. Diffuse reticulonodular and tree-in-bud patterns throughout much of the right lung and left lower lobe with improvement at the lung bases where recent prior imaging is available for comparison. This could be consistent with improving pneumonia possibly superimposed over chronic interstitial lung dis ease or mild pulmonary edema. 2. Several scattered larger pulmonary nodules, the largest measuring up to 10 mm in the left lower lo be. While likely likely related to pneumonia recommend 3 month follow-up low-dose noncontrast chest C T to document resolution/improvement. 3. Small sliding-type hiatal hernia. Reviewed, dictated and finalized at location A. TOMETER OPERATOR IMPRESSION: 1. Diffuse reticulonodular and tree-in-bud patterns throughout much of the righ t lung and left lower lobe with improvement at the lung bases where recent prio r imaging is available for comparison. This could be consistent with improving pneumonia possibly superimposed over chronic interstitial lung disease or mild pulmonary edema. 2. Several scattered larger pulmonary nodules, the largest measuring up to 10 m m in the left lower lobe. While likely likely related to pneumonia recommend 3 month follow-up low-dose noncontrast chest CT to document resolution/improvemen t. 3. Small sliding-type hiatal hernia.
--- NOTE | ~2020-01-04 | XR_ITS ---
EXAMINATION: XR abdomen obstructive series DATE: 01/05/2020 14:55 INDICATION: Unresolved nausea and vomiting TECHNIQUE: Upright and supine views of the abdomen were obtained. COMPARISON: None. FINDINGS: There are airspace opacities of the visualized lung bases. There is no free intraperitoneal gas or evidence of bowel obstruction. The bowel gas pattern is nonspecific. There are cholecystectom y clips of the right upper quadrant. Lumbar fusion hardware is noted. There is moderate hip osteoarth ritis. IMPRESSION: 1. Nonobstructive bowel gas pattern. Reviewed, dictated and finalized at location A. OR PAINTER
[2020-01-04 04:00] VITALS: BP 140/88; PULSE 80; RESP 16; TEMP 36.6; O2SAT 95
--- NOTE | 2020-01-04 04:17 | ED.GENADULT ---
HPI - General Adult General Chief complaint: Unspecified Stated complaint: sick History of Present Illness HPI narrative: 69 y.o female with abdominal pain, nausea and vomiting which started about 6 weeks ago. Arrived at 4 AM c/o not being able to sleep because of the pain and vomiting. Sometimes it's preceded by burping. Smells and taste's often trigger it. She hasn't been able to use ODT Zofran because the taste causes immediate vomiting. Her abdominal pain is diffuse. C/o being very thirsty; has urinated twice today. Seen by Mike 2 - 3 days ago who arranged for upper endoscopy on 01/07. C/o 5 days of watery, sometimes somewhat formed stools, around 5/day. No blood or mucous. CT abomen and pelvis on 12/24 was negative. Labs over the past 2 weeks have shown minor elevation of WBC, negative lipase, hematuria, negative LFTs. For the last 5 - 6 weeks has been having sudden onset of gripping pain, right side of head, which lasts for a few min.; occurs several times daily. Over that time has also started having tremor in left upper extremity. Related Data Home Medications Medication Instructions Recorded Confirmed aspirin [Aspirin Low Dose] 81 mg PO DAILY 12/01/19 12/04/19 baclofen 20 mg PO BID 12/01/19 12/04/19 hydrocodone-acetaminophen [[place]] 1 tablet PO Q6H PRN 12/01/19 12/04/19 lisinopril-hydrochlorothiazide 1 tablet PO DAILY 12/01/19 12/04/19 potassium chloride 20 meq PO EVERY OTHER DAY 12/01/19 12/04/19 pregabalin [Lyrica] 100 mg PO BID 12/01/19 12/04/19 simvastatin 40 mg PO HS 12/01/19 12/04/19 trazodone 50 mg PO HS 12/01/19 12/04/19 albuterol sulfate 90 mcg/actuation 1 puff INHALATION Q4H PRN 12/04/19 12/04/19 aerosol inhaler prochlorperazine maleate 12/24/19 [Compazine] Allergies Allergy/AdvReac Type Severity Reaction Status Date / Time butorphanol [From Stadol] AdvReac Hallucinati Verified 12/27/19 07:52 ng Review of Systems Constitutional: Constitutional: Denies fever(s) ENT: Denies sore throat Cardiovascular: Cardiovascular: Denies chest pain Respiratory: Respiratory: Denies dyspnea Gastrointestinal: Gastrointestinal: Reports as per HPI Genitourinary: Genitourinary: Denies dysuria Musculoskeletal: Comments: chronic low back pain. Integumentary/Breasts: Skin/Breast: Denies rash Neurologic: Reports system reviewed and no additional complaints, except as documented, Denies Abnormal speech present, Denies abnormal gait, Denies behavioral changes, Denies confusion, Denies syncope, Denies lack of coordination, Denies focal weakness and Denies numbness [facility] Past Medical History Medical History Anemia Asthma Chronic pain COPD (chronic obstructive pulmonary disease) COPD with acute exacerbation Dyslipidemia Epigastric pain Hypertension Interstitial pulmonary fibrosis Lumbar spondylosis Multiple lung nodules on CT There is a 7 mm right lower lobe nodule. 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 There is an 8 mm right lower lobe nodule Steroid-dependent COPD Surgical History Surgical History H/O abdominoplasty H/O cervical spine surgery H/O: hysterectomy Hx of cholecystectomy Hx of fusion of cervical spine Hx of lumbosacral spine surgery S/P appendectomy Family History Family History Father Acute myocardial infarction Smoker Mother Alzheimer's dementia Social History Social History Social History: quit 3 months ago Smoking packs per day: 1 Smoking cigarettes per day: 20.0 Years smoked: 30 Smoking pack-years: 30.00 Smoking status: Former smoker Tobacco
--- NOTE | 2020-01-04 04:42 | PC.NURSE ---
patient animal control officer light several times, I need pain meds & zofran. with another patient explain would be with her as soon as possible. No N/V noted No diarrhea since arrival.
[2020-01-04 04:44] VITALS: BP 148/88; PULSE 78; RESP 16
[2020-01-04 05:18] LABS: Basophils Absolute Auto 0.02 K/mm3 (0.00-0.10); Basophils Percent Auto 0.2 % (0.0-1.0); Eosinophils Absolute Auto 0.06 K/mm3 (0.02-0.50); Eosinophils Percent Auto 0.6 % (1.0-6.0); Hematocrit 32.5 % (35.0-42.0); Hemoglobin 10.7 g/dL (11.7-13.8); Immature Granulocyte Absolute 0.03 K/mm3 (0.00-0.00); Immature Granulocyte Percent A 0.3 % (0.0-0.0); Lymphocytes Absolute Auto 1.82 K/mm3 (1.10-4.50); Lymphocytes Percent Auto 17.6 % (18.0-42.0); Mean Corpuscular HGB Conc 32.9 g/dL (32.0-36.0); Mean Platelet Volume 9.1 fl (9.2-11.8); Monocytes Absolute Auto 0.52 K/mm3 (0.10-0.90); Neutrophils Absolute Auto 7.9 K/mm3 (1.7-7.2); Neutrophils Percent Auto 76.3 % (50.0-70.0); Platelet Count Result 299 K/mm3 (150-420); Red Blood Count 3.57 M/mm3 (4.20-5.40); Red Cell Distribution Width 14.5 % (11.6-14.4); White Blood Count 10.3 K/mm3 (4.8-10.8)
--- NOTE | 2020-01-04 05:22 | PC.NURSE ---
requesting IV in foot, states no veins in hands when dehydrated, cont to request pain meds
[2020-01-04] MEDS: SODIUM CHLORIDE 0.9% IV 1,000 ML 999 ML IV CONT (05:30)
[2020-01-04] MEDS: ONDANSETRON INJ 4 MG/2 ML VIAL IV PUSH ×3 (05:31→18:29)
[2020-01-04 05:35] LABS: Anion Gap 14.4 mmol/L (7-16); Blood Urea Nitrogen 6 mg/dL (7-18); Calcium 8.3 mg/dL (8.5-10.1); Carbon Dioxide 25 mmol/L (21-32); Chloride 105 mmol/L (98-108); Estimated CRCL calculation 56 ml/min; Estimated Glomerular Filt Rate > 60; Glucose 125 mg/dL (70-99); Lipase 195 U/L (73-393); Osmolality Calculated 290 mOsm/kg (285-295); Potassium 3.4 mmol/L (3.5-5.1); Sodium 141 mmol/L (136-145)
--- NOTE | 2020-01-04 05:35 | PC.NURSE ---
Patient construction worker light, wants MD to come talk to her about something personal & private. notified
[2020-01-04 05:36] LABS: CRP 1.9 mg/dL (0.0-0.9)
[2020-01-04] MEDS: METOCLOPRAMIDE HCL INJ 10 MG/2 ML VIAL IV PUSH (05:50)
--- NOTE | 2020-01-04 05:52 | PC.NURSE ---
checking patient, giving medications. Demanding IV morphine or states she will take her home [place], she has to have pain medication routinely. notified
--- NOTE | 2020-01-04 06:07 | PC.NURSE ---
with another patient; Clari transportation associate light demanding pain meds.
--- NOTE | 2020-01-04 07:55 | ED.GENADULT ---
HPI - General Adult General Chief complaint: Unspecified Stated complaint: sick Related Data Home Medications Medication Instructions Recorded Confirmed aspirin [Aspirin Low Dose] 81 mg PO DAILY 12/01/19 01/04/20 baclofen 20 mg PO BID 12/01/19 01/04/20 lisinopril-hydrochlorothiazide 1 tablet PO DAILY 12/01/19 01/04/20 albuterol sulfate 90 mcg/actuation 1 puff INHALATION Q4H PRN 12/04/19 01/04/20 aerosol inhaler atorvastatin [Lipitor] See Rx Instructions .ROUTE .COMPLEX 01/04/20 Allergies Allergy/AdvReac Type Severity Reaction Status Date / Time butorphanol [From Stadol] AdvReac Hallucinati Verified 12/27/19 07:52 ng PMF Past Medical History Medical History Anemia Asthma Chronic pain COPD (chronic obstructive pulmonary disease) COPD with acute exacerbation Dyslipidemia Epigastric pain Hypertension Interstitial pulmonary fibrosis Lumbar spondylosis Multiple lung nodules on CT There is a 7 mm right lower lobe nodule. 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 There is an 8 mm right lower lobe nodule Steroid-dependent COPD Surgical History Surgical History H/O abdominoplasty H/O cervical spine surgery H/O: hysterectomy Hx of cholecystectomy Hx of fusion of cervical spine Hx of lumbosacral spine surgery S/P appendectomy Family History Family History Father Acute myocardial infarction Smoker Mother Alzheimer's dementia Social History Social History Social History: quit 3 months ago Smoking packs per day: 1 Smoking cigarettes per day: 20.0 Years smoked: 30 Smoking pack-years: 30.00 Smoking status: Former smoker Tobacco type: cigarettes Second hand tobacco smoke exposure: Yes Alcohol intake: former Substance use: never Substance use type: does not use Additional living arrangements comments: Lives with sister Gender identity (if verbalized by the patient): Female Spiritual care concerns: No Agree to blood products: Yes Course Vital Signs Vital signs: Vital Signs Temperature 36.6 C 01/04/20 04:00 Pulse Rate 80 01/04/20 04:00 Respiratory Rate 16 01/04/20 04:00 Blood Pressure 140/88 01/04/20 04:00 Pulse Oximetry 95 01/04/20 04:00 Temperature 36.6 C 01/04/20 04:00 Pulse Rate 78 01/04/20 04:44 Respiratory Rate 16 01/04/20 04:44 Blood Pressure 148/88 H 01/04/20 04:44 Pulse Oximetry 95 01/04/20 04:00 Medical Decision Making Vital Signs Vital Signs: Vital Signs Temperature 36.6 C 01/04/20 04:00 Pulse Rate 80 01/04/20 04:00 Respiratory Rate 16 01/04/20 04:00 Blood Pressure 140/88 01/04/20 04:00 Pulse Oximetry 95 01/04/20 04:00 Temperature 36.6 C 01/04/20 04:00 Pulse Rate 78 01/04/20 04:44 Respiratory Rate 16 01/04/20 04:44 Blood Pressure 148/88 H 01/04/20 04:44 Pulse Oximetry 95 01/04/20 04:00 Lab Data Result diagrams: 01/04/20 05:14 01/04/20 05:14 Labs: Lab Results 01/04/20 01/04/20 01/04/20 Range/Units 05:14 05:14 05:14 WBC 10.3 (4.8-10.8) K/mm3 RBC 3.57 L (4.20-5.40) M/mm3 Hgb 10.7 L (11.7-13.8) g/dL Hct 32.5 L (35.0-42.0) % MCV 91.0 (78.0-102.0) fL MCH 30.0 (27.0-31.0) pg MCHC 32.9 (32.0-36.0) g/dL RDW 14.5 H (11.6-14.4) % Plt Count 299 (150-420) K/mm3 MPV 9.1 L (9.2-11.8) fl Immature Gran % (Auto) 0.3 H (0.0-0.0) % Neut % (Auto) 76.3 H (50.0-70.0) % Lymph % (Auto) 17.6 L (18.0-42.0) % [place] % (Auto) 5.0 (2.0-11.0) % Eos % (Auto) 0.6 L (1.0-6.0) %
[2020-01-04 08:20] VITALS: BMI 27.1
[2020-01-04 08:59] LABS: Bilirubin Urine Negative (Negative); Blood Urine Negative (Negative); Color Urine Amber (Yellow); Glucose Urine UA Negative (Negative); Ketones Urine Negative (Negative); Leukocyte Esterase Ur Negative (Negative); Nitrate Urine Negative (Negative); Protein Urine Negative (Negative); Urobilinogen Urine 0.2 mg/dL (0.2-1.0)
[2020-01-04 09:01] LABS: Add Urine Microscopic? NO; Appearance Urine Clear (Clear)
[2020-01-04] MEDS: ENOXAPARIN 40 MG/0.4 ML SYRINGE SUB-Q (10:07)
[2020-01-04] MEDS: DEXTROSE 5%/LACTATED RINGERS 1,000 ML 200 ML IV CONT (10:07)
[2020-01-04] MEDS: MORPHINE SULFATE 2 MG/ML INJ IV PUSH ×4 (10:20→23:34)
--- NOTE | 2020-01-04 11:45 | PC.NURSE ---
Patient sitting up in bed for lunch. Denies any needs. Call light at side.
--- NOTE | 2020-01-04 11:45 | ADMGEN ---
This patient, Clari Ledesma, was admitted to 2nd Floor Room 210-1. Patient/family oriented to hospital policies and general routines including ID bracelet, bed and alarms, visiting hours, pain management, procedures, bathroom and other care routines, personal items, smoking policy, room service/diet, and visiting hours. Valuables list has been completed. Information on how to activate the Rapid Response Team has been discussed. Patient/Family are encouraged to report perceived risks to care and to ask questions if they do not understand what they are told or what they should do.
--- NOTE | 2020-01-04 12:00 | PM.IMHP ---
H&P: HPI History of Present Illness Chief complaint: sick Narrative: Clari Ledesma is a 69 year old female that was admitted for abdominal pain, nausea vomiting . Patient has a past medical history anemia, asthma, chronic back pain, COPD, dyslipidemia, epigastric pain, hypertension, pulmonary fibrosis, pulmonary edema and nodules in the. according to patient over 6 weeks ago she was admitted in the hospital for pneumonia and given several antibiotics since then she has display abdominal pain, nausea vomiting and burping with soft stool. she has been unable to hold down any foods or liquids she is being admitted for nausea and vomiting, abdominal pain and dehydration. She did go to her primary care physician Dr. Raya who referred her to a GI doctor Dr. Weldon, she does have a upper endoscopy scheduled for January 07, 2020 while in the ER her CT indicated that pneumonia was resolving with pulmonary edema and a large to moderate amount of stool her white count on admission was 12.2 and is now 10.3 and c-reaction 1.9. She continues to complain of right-sided abdominal pain with nausea vomiting. Review of Systems Constitutional: Constitutional: Reports weakness Cardiovascular: Cardiovascular: Denies leg ulcers, Denies leg edema, Denies dyspnea on exertion and Denies orthopnea Respiratory: Respiratory: Denies pain with cough, Denies dyspnea, Denies dyspnea on exertion and Denies wheezing Gastrointestinal: Gastrointestinal: Reports abdominal pain ( right lower quad), Denies melena, Denies hematochezia, Denies coffee ground emesis, Reports constipation, Reports diarrhea, Reports nausea and Reports vomiting Genitourinary: Genitourinary: Reports no additional female genitourinary complaints Musculoskeletal: Musculoskeletal: Reports no additional musculoskeletal complaints Integumentary/Breasts: Skin/Breast: Reports system reviewed and no additional complaints, except as docu Psychiatric: Psychiatric: Reports no additional psychiatric complaints [facility] Past Medical History Medical History Anemia Asthma Chronic pain COPD (chronic obstructive pulmonary disease) COPD with acute exacerbation Dyslipidemia Epigastric pain Hypertension Interstitial pulmonary fibrosis Lumbar spondylosis Multiple lung nodules on CT There is a 7 mm right lower lobe nodule. 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 There is an 8 mm right lower lobe nodule Steroid-dependent COPD Surgical History Surgical History H/O abdominoplasty H/O cervical spine surgery H/O: hysterectomy Hx of cholecystectomy Hx of fusion of cervical spine Hx of lumbosacral spine surgery S/P appendectomy Family History Family History Father Acute myocardial infarction Smoker Mother Alzheimer's dementia Social History Social History Social History: quit 3 months ago Smoking packs per day: 1 Smoking cigarettes per day: 20.0 Years smoked: 30 Smoking pack-years: 30.00 Smoking status: Former smoker Tobacco type: cigarettes Second hand tobacco smoke exposure: Yes Smoking end date: 11/20/17 Alcohol intake: never Substance use: never Substance use type: does not use Additional living arrangements comments: Lives with sister Gender identity (if verbalized by the patient): Female Spiritual care concerns: No Agree to blood products: Yes Meds Home Medications and Allergies Home Medications Medication Instructions Recorded Confirmed Type aspirin [Aspirin Low Dose] 81 mg PO DAILY 12/01/19 01/04/20 History baclofen 20 mg PO BID
[2020-01-04] MEDS: PROCHLORPERAZINE MALEATE 5 MG TABLET PO (15:20)
[2020-01-04 15:25] VITALS: BP 126/48; PULSE 78; RESP 18; TEMP 36.2; O2SAT 93
[2020-01-04] MEDS: BACLOFEN 10 MG TABLET 20 MG PO (18:29)
--- NOTE | 2020-01-04 19:20 | PC.NURSE ---
Patient requested/given PRN morphine for right abdominal pain rated @ 8 on 0-10 scale. Denies nausea/vomiting. Call light in reach.
--- NOTE | 2020-01-04 19:50 | PC.NURSE ---
Patient appears to be sleeping by the rise and fall of her chest. No evidence of nausea/vomiting or pain @ this time. No distress noted. Call light in reach.
--- NOTE | 2020-01-04 20:00 | PC.NURSE ---
Assessment done. Patient reports abdominal pain @ 7 on 0-10 scale. Denies nausea/vomiting. No distress noted. Call light in reach.
--- NOTE | 2020-01-04 22:57 | PC.NURSE ---
Denies nausea/vomiting.
--- NOTE | 2020-01-04 22:57 | PC.NURSE ---
Neurocheck done and WNL. Call light in reach.
--- NOTE | 2020-01-04 23:35 | PC.NURSE ---
Patient requested/given PRN morphine for abdominal pain rated @ 8 on 0-10 scale. Patient's IV to right foot infiltrated. Denies nausea/vomiting. Call light in reach.
--- NOTE | 2020-01-04 23:55 | PC.NURSE ---
Infiltrated IV removed from right foot with catheter intact. New #24 IV started in left foot by Dae Wiggins RN on first stick. Patient tolerated well.
[2020-01-05] VITALS: BP 116/63; PULSE 58; RESP 18; TEMP 36.1; O2SAT 92
--- NOTE | 2020-01-05 01:19 | PC.NURSE ---
2355 New IV site started to the left foot with a #24 gauge catheter. Pt tolerated procedure well.
[2020-01-05 05:39] LABS: Hematocrit 29.6 % (35.0-42.0); Hemoglobin 9.6 g/dL (11.7-13.8); Mean Corpuscular HGB Conc 32.4 g/dL (32.0-36.0); Mean Corpuscular Hemoglobin 29.8 pg (27.0-31.0); Mean Corpuscular Volume 91.9 fL (78.0-102.0); Mean Platelet Volume 9.1 fl (9.2-11.8); Platelet Count Result 283 K/mm3 (150-420); Red Blood Count 3.22 M/mm3 (4.20-5.40); Red Cell Distribution Width 14.7 % (11.6-14.4); White Blood Count 8.7 K/mm3 (4.8-10.8)
[2020-01-05] MEDS: PANTOPRAZOLE SODIUM IV 40 MG VIAL IV PUSH (05:42)
[2020-01-05] MEDS: MORPHINE SULFATE 2 MG/ML INJ IV PUSH ×5 (05:42→22:24)
[2020-01-05] MEDS: ONDANSETRON INJ 4 MG/2 ML VIAL IV PUSH ×3 (05:43→18:17)
--- NOTE | 2020-01-05 05:50 | PC.NURSE ---
Patient complaining of pain rated 8 on 0-10 scale and requested/given Morphine. Patient also complaining of nausea and requested/given Zofran. Due to nausea patient was informed that her breakfast will be cancelled. Patient verbalized understanding. Call light in reach.
[2020-01-05 05:51] LABS: Alanine Aminotransferase 20 U/L (14-59); Albumin Level 2.4 g/dL (3.4-5.0); Alkaline Phosphatase 59 U/L (46-116); Anion Gap 14.3 mmol/L (7-16); Aspartate Amino Transferase 16 U/L (15-37); Bilirubin,Total 0.2 mg/dL (0.00-1.00); Blood Urea Nitrogen 6 mg/dL (7-18); CRP 0.6 mg/dL (0.0-0.9); Calcium 7.9 mg/dL (8.5-10.1); Carbon Dioxide 24 mmol/L (21-32); Chloride 110 mmol/L (98-108); Estimated CRCL calculation 55 ml/min; Estimated Glomerular Filt Rate > 60; Glucose 97 mg/dL (70-99); Osmolality Calculated 297 mOsm/kg (285-295); Potassium 3.3 mmol/L (3.5-5.1); Sodium 145 mmol/L (136-145); Total Protein 5.7 g/dL (6.4-8.2)
--- NOTE | 2020-01-05 07:35 | PC.NURSE ---
Patient denies pain, would like to try cream of wheat and toast for breakfast, dietary notified,
[2020-01-05 07:40] VITALS: BP 158/78; PULSE 76; RESP 18; TEMP 36.4; O2SAT 95
--- NOTE | 2020-01-05 08:30 | PC.NURSE ---
Did not eat breakfast due to nausea, no emesis
[2020-01-05] MEDS: lisinopriL 20 MG TABLET PO (09:35)
[2020-01-05] MEDS: BACLOFEN 10 MG TABLET 20 MG PO ×2 (09:35→17:12)
[2020-01-05] MEDS: hydroCHLOROthiazide 12.5 MG CAPSULE PO (09:35)
--- NOTE | 2020-01-05 09:44 | PC.NURSE ---
patient reports that she threw up all night, not documented, advised that would have to let us know and or emesis in bag to measure if vomits, agreeable, refused potassium powder and would prefer pills, doctor notified, requesting pain medication if it is due, laying flat in bed,
[2020-01-05] MEDS: ENOXAPARIN 40 MG/0.4 ML SYRINGE SUB-Q (10:00)
[2020-01-05] MEDS: POTASSIUM CHLORIDE 20 MEQ TABLET 40 MEQ PO (10:02)
--- NOTE | 2020-01-05 10:09 | PC.NURSE ---
right eye itching, redness noted, hospitalist to examine
--- NOTE | 2020-01-05 10:17 | PM.IMPN ---
Progress Note: A&P Assessment and Plan (1) Abdominal pain: Qualifiers: Abdominal location: generalized Qualified Code(s): R10.84 - Generalized abdominal pain Code(s): R10.9 - Unspecified abdominal pain Status: Acute Assessment and Plan: continues to have nausea vomiting possibly secondary to gas gastro paresis vs Crohn's vs colitis vs gastroenteritis - C reactive now within normal limits - continue Zofran and Compazine. patient had a negative reaction to Reglan - patient has upper endoscopy on 01/[address] Weldon (2) Acute dehydration: Code(s): E86.0 - Dehydration Status: Acute Assessment and Plan: secondary to nausea vomiting and diarrhea, diarrhea has resolved - encouraged patient to drink plenty of fluids (3) Nausea & vomiting: Qualifiers: Vomiting Intractability: unspecified Vomiting type: unspecified Qualified Code(s): R11.2 - Nausea with vomiting, unspecified Code(s): R11.2 - Nausea with vomiting, unspecified Status: Acute Assessment and Plan: possibly secondary to gas gastro paresis vs Crohn's vs colitis vs gastroenteritis - C reactive now within normal limits - continue Zofran and Compazine. patient had a negative reaction to Reglan - patient has upper endoscopy on 01/[address] Weldon (4) Pulmonary edema: Code(s): J81.1 - Chronic pulmonary edema Status: Acute Assessment and Plan: previous CT indicated-. Interval improvement in bibasilar interstitial and airspace disease most likely representing resolving pneumonia and/or pulmonary edema which may be superimposed over more chronic interstitial lung disease. 2. No acute intra-abdominal/pelvic process. repeat ct pending repeat CT of the chest indicates: 1. Diffuse reticulonodular and tree-in-bud patterns throughout much of the right lung and left lower lobe with improvement at the lung bases where recent prior imaging is available for comparison. This could be consistent with improving pneumonia possibly superimposed over chronic interstitial lung disease or mild pulmonary edema. 2. Several scattered larger pulmonary nodules, the largest measuring up to 10 mm in the left lower lobe. While likely likely related to pneumonia recommend 3 month follow-up low-dose noncontrast chest CT to document resolution/improvement. 3. Small sliding-type hiatal hernia. (5) DVT prophylaxis: Code(s): Z29.9 - Encounter for prophylactic measures, unspecified Status: Acute Assessment and Plan: continue Lovenox (6) COPD (chronic obstructive pulmonary disease): Code(s): J44.9 - Chronic obstructive pulmonary disease, unspecified Status: Acute Assessment and Plan: stable -continue nebulizer and inhaler - patient uses home O2 continue supplement oxygen - continue pulse ox as ordered (7) Hypertension: Qualifiers: Hypertension type: essential hypertension Qualified Code(s): I10 - Essential (primary) hypertension Code(s): I10 - Essential (primary) hypertension Status: Acute Assessment and Plan: blood pressure 158/78 previously 116/63 will continue to monitor and adjust as needed continue lisinopril hydrochlorothiazide - will adjust as needed - continue vital signs as ordered (8) Multiple lung nodules on CT: Code(s): R91.8 - Other nonspecific abnormal finding of lung field Status: Acute Assessment and Plan: repeat CT of the chest indicates that lung nodules have increased possibly secondary to infection patient will follow-up in [address] of the chest (9) Itchy eyes: Code(s): R68.89 - Other general symptoms and signs Status: Acute Assessment and Plan: possibly secondary to allergies - no erythema noted - prescribed antihistamine eyedrops and Claritin. Subjective Date/time seen: 01/05/20 10:17Patient noted that she continue to have nausea vomiting o
--- NOTE | 2020-01-05 10:31 | PC.NURSE ---
Resting in bed, no vomiting at this time, no evidence of pain at this time
[2020-01-05] MEDS: LORATADINE 10 MG TABLET 5 MG PO (11:08)
--- NOTE | 2020-01-05 11:20 | PC.NURSE ---
No vomiting, no evidence of pain, tolerating fluids well, voiding well
--- NOTE | 2020-01-05 12:20 | PC.NURSE ---
zofran given for nausea, eating lunch at this time
--- NOTE | 2020-01-05 12:48 | PC.NURSE ---
ate about 50% of lunch, no emesis. requesting morphine and IV benadryl, reminded patient IV benadryl for bedtime only and that her morphine was given at 0954 and won't be available till 1354
--- NOTE | 2020-01-05 12:59 | PC.NURSE ---
took gown to patient to change in to for imaging, states she took her bra off, is not sure why she needs to take off her shirt and that her pants do not have buttons zippers or snaps, will not put gown on at this time
--- NOTE | 2020-01-05 13:33 | PC.NURSE ---
Up in room ambulating, no distress, gait steady, advised of delay in getting obstructive series
--- NOTE | 2020-01-05 14:18 | PC.NURSE ---
morphine given for neck back and abdominal pain
--- NOTE | 2020-01-05 15:15 | PC.NURSE ---
No emesis, resting in bed
--- NOTE | 2020-01-05 15:40 | PC.NURSE ---
Given red jello per patient request, no nausea voiced, no emesis this shift
--- NOTE | 2020-01-05 15:59 | PC.NURSE ---
Itching is less, no nausea, no vomiting, given ice cream and gricelda crackers per patient request
[2020-01-05 16:00] VITALS: BP 128/59; PULSE 82; RESP 20; TEMP 36.6; O2SAT 95
--- NOTE | 2020-01-05 16:55 | PC.NURSE ---
No vomiting, evening meds administered, advised nausea and pain med not due till after 6pm, voiced understanding, no emesis this shift
--- NOTE | 2020-01-05 17:55 | PC.NURSE ---
ate about 50% of dinner, no vomiting, laying quietly in bed
--- NOTE | 2020-01-05 18:23 | PC.NURSE ---
pain at 7 right now, no vomiting but requested zofran
--- NOTE | 2020-01-05 18:39 | PC.NURSE ---
visiting with sister, no vomiting this shift, has tolerated food and fluids,
--- NOTE | 2020-01-05 19:10 | PC.NURSE ---
Pt resting in bed, denies any nausea at this time, drinking pepsi and snacking on chips
--- NOTE | 2020-01-05 20:15 | PC.NURSE ---
pt sleeping, no evidence of distress noted, belongings and call light within reach.
--- NOTE | 2020-01-05 21:40 | PC.NURSE ---
pt sleeping, no evidence of distress or n/v at this time
--- NOTE | 2020-01-05 22:20 | PC.NURSE ---
Pt reports pain level of 8 and reports need of Benadryl for her right eye due to itchiness, pt denies any nausea or vomiting at this time
--- NOTE | 2020-01-05 23:13 | PM.EVENT ---
Event Note Event Note Event Note: Patient had some more vomiting overnight in spite of her ability to tolerate a sandwich yesterday and some fluids this morning. Nausea persists. She denies abdominal pain this morning. Lungs are clear and cardiac exam is unremarkable. Abdomen is soft and nontender and has positive bowel sounds. Obstruction series is negative Continued observation and will re-evaluate the need for IV fluids in the morning. I have examined the patient and reviewed the chart. I discussed the patient's care with Glenda Moffett APN and agree with her assessment and plan.
--- NOTE | 2020-01-05 23:38 | PC.NURSE ---
pt sleeping, no evidence of distress noted, no evidence of n/v, call light and belongings within reach.
[2020-01-06] VITALS: BP 135/60; PULSE 72; RESP 20; TEMP 37.4; O2SAT 93
--- NOTE | 2020-01-06 00:05 | PC.NURSE ---
pt sleeping, vitals obtained and pt barely woke up to acknowledge rn, no evidence of distress or n/v
--- NOTE | 2020-01-06 01:36 | PC.NURSE ---
pt sleeping, respirations even and regular, no evidence of distress or n/v noted
--- NOTE | 2020-01-06 02:15 | PC.NURSE ---
pt sleeping, respirations even and regular, no evidence of n/v or distress, call light and belongings within reach.
[2020-01-06] MEDS: ONDANSETRON INJ 4 MG/2 ML VIAL IV PUSH ×2 (03:42→11:45)
[2020-01-06] MEDS: MORPHINE SULFATE 2 MG/ML INJ IV PUSH ×2 (03:42→07:59)
--- NOTE | 2020-01-06 03:56 | PC.NURSE ---
pt given nausea medicine with her pain medicine per request, pt reports no vomiting states she just feels a little nausea denies any other needs at this time.
--- NOTE | 2020-01-06 05:25 | PC.NURSE ---
pt sleeping, respirations even and regular, no evidence of distress noted,
[2020-01-06 06:07] LABS: Hematocrit 31.9 % (35.0-42.0); Hemoglobin 10.4 g/dL (11.7-13.8); Mean Corpuscular HGB Conc 32.6 g/dL (32.0-36.0); Mean Corpuscular Hemoglobin 29.7 pg (27.0-31.0); Mean Corpuscular Volume 91.1 fL (78.0-102.0); Mean Platelet Volume 9.8 fl (9.2-11.8); Platelet Count Result 311 K/mm3 (150-420); Red Cell Distribution Width 14.5 % (11.6-14.4); White Blood Count 10.2 K/mm3 (4.8-10.8)
[2020-01-06 06:08] LABS: Anion Gap 13.5 mmol/L (7-16); Blood Urea Nitrogen 7 mg/dL (7-18); Calcium 8.4 mg/dL (8.5-10.1); Carbon Dioxide 26 mmol/L (21-32); Chloride 106 mmol/L (98-108); Estimated CRCL calculation 56 ml/min; Estimated Glomerular Filt Rate > 60; Glucose 104 mg/dL (70-99); Osmolality Calculated 292 mOsm/kg (285-295); Potassium 3.5 mmol/L (3.5-5.1); Sodium 142 mmol/L (136-145)
--- NOTE | 2020-01-06 06:12 | PC.NURSE ---
pt sleeping, no evidence of distress or nausea present, belongings and call light within reach
[2020-01-06 08:00] VITALS: BP 143/66; PULSE 76; RESP 20; TEMP 36.9; O2SAT 96
[2020-01-06] MEDS: LORATADINE 10 MG TABLET PO (10:02)
[2020-01-06] MEDS: hydroCHLOROthiazide 12.5 MG CAPSULE PO (10:02)
[2020-01-06] MEDS: lisinopriL 20 MG TABLET PO (10:02)
[2020-01-06] MEDS: BACLOFEN 10 MG TABLET 20 MG PO (10:02)
[2020-01-06] MEDS: NAPHAZOLINE/PHENIRAM OP SOLN 15 ML BTL 1 DROP EACH EYE ×2 (10:03→13:25)
[2020-01-06] MEDS: PANTOPRAZOLE SODIUM IV 40 MG VIAL IV PUSH (10:03)
[2020-01-06] MEDS: ENOXAPARIN 40 MG/0.4 ML SYRINGE SUB-Q (10:36)
--- NOTE | 2020-01-06 12:39 | PM.DS ---
DS: Diagnosis Admitting Diagnosis Admitting Diagnosis: Generalized abdominal pain Discharge Diagnosis (1) Abdominal pain: Qualifiers: Abdominal location: generalized Qualified Code(s): R10.84 - Generalized abdominal pain Code(s): R10.9 - Unspecified abdominal pain Status: Acute Assessment and Plan: continues to have nausea possibly secondary to gas gastro paresis vs Crohn's vs colitis vs gastroenteritis - C reactive now within normal limits - Obstructive series negative - will DC with Zofran and Compazine. patient had a negative reaction to Reglan - patient has upper endoscopy on 01/[address] Weldon (2) Acute dehydration: Code(s): E86.0 - Dehydration Status: Acute Assessment and Plan: resolved secondary to nausea vomiting and diarrhea, diarrhea has resolved - encouraged patient to drink plenty of fluids (3) Nausea & vomiting: Qualifiers: Vomiting Intractability: unspecified Vomiting type: unspecified Qualified Code(s): R11.2 - Nausea with vomiting, unspecified Code(s): R11.2 - Nausea with vomiting, unspecified Status: Acute Assessment and Plan: possibly secondary to gas gastro paresis vs Crohn's vs colitis vs gastroenteritis - C reactive now within normal limits - discharge with Zofran and Compazine. patient had a negative reaction to Reglan - patient has upper endoscopy on 01/[address] Weldon (4) Pulmonary edema: Code(s): J81.1 - Chronic pulmonary edema Status: Acute Assessment and Plan: previous CT indicated-. Interval improvement in bibasilar interstitial and airspace disease most likely representing resolving pneumonia and/or pulmonary edema which may be superimposed over more chronic interstitial lung disease. 2. No acute intra-abdominal/pelvic process. repeat ct pending repeat CT of the chest indicates: 1. Diffuse reticulonodular and tree-in-bud patterns throughout much of the right lung and left lower lobe with improvement at the lung bases where recent prior imaging is available for comparison. This could be consistent with improving pneumonia possibly superimposed over chronic interstitial lung disease or mild pulmonary edema. 2. Several scattered larger pulmonary nodules, the largest measuring up to 10 mm in the left lower lobe. While likely likely related to pneumonia recommend 3 month follow-up low-dose noncontrast chest CT to document resolution/improvement. 3. Small sliding-type hiatal hernia. (5) DVT prophylaxis: Code(s): Z29.9 - Encounter for prophylactic measures, unspecified Status: Acute Assessment and Plan: continue Lovenox (6) COPD (chronic obstructive pulmonary disease): Code(s): J44.9 - Chronic obstructive pulmonary disease, unspecified Status: Acute Assessment and Plan: stable -continue nebulizer and inhaler - patient uses home O2 continue supplement oxygen (7) Hypertension: Qualifiers: Hypertension type: essential hypertension Qualified Code(s): I10 - Essential (primary) hypertension Code(s): I10 - Essential (primary) hypertension Status: Acute Assessment and Plan: blood pressure stable continue lisinopril hydrochlorothiazide - follow-up with PCP (8) Multiple lung nodules on CT: Code(s): R91.8 - Other nonspecific abnormal finding of lung field Status: Acute Assessment and Plan: repeat CT of the chest indicates that lung nodules have increased possibly secondary to infection patient will follow-up in [address] of the chest (9) Itchy eyes: Code(s): R68.89 - Other general symptoms and signs Status: Acute Assessment and Plan: possibly secondary to allergies - no erythema noted - prescribed antihistamine eyedrops , clear to a and antibiotic drops DS: Summary Hospital Course Hospital Course: admission H&P from 01/04/2020 Clari Ledesma is
[2020-01-06] MEDS: MORPHINE SULFATE 15 MG TABCR PO (13:08)
--- NOTE | 2020-01-06 13:15 | PC.NURSE ---
Patient requested to see Nurse Tub Attendant Hali Stroud RN attended to patient HENRY since Jim Price RN was off the floor at the time. Patient stated I want the Nurse assistant housekeeping manager not you the charge entry specialist, you are not the normal one I see when I complain here. I explained the Nurse assistant housekeeping manager was off the floor currently and that I was able to help her. Patient stated I asked for pain medication 35 minutes ago and have not gotten it yet. I explained The ANP changed your MSO4 from IVP to PO since you are discharging today and your pain has subsided. The order went in with the wrong time attached to it. I am in the process of getting the order changed but as there are critical patients at the moment its not happening as quickly as I'd like it too. As soon as I can we will get you your pain medication. Patient stated I'm ready for discharge as well, I'd like my papers I'm ready to go home.
[2020-01-06] MEDS: TOBRAMYCIN 0.3% OPHTH SOLN 5 ML 1 DROP EACH EYE (13:25)
--- NOTE | 2020-01-12 22:32 | PC.NURSE ---
IV fluids stopped 01/04/2020 at 6am
--- NOTE | 2020-01-20 14:42 | PC.NURSE ---
Discharge call back [phone] No answer message left.
== END 2020-01-06 14:15 | disposition home or self-care (01) ==
LOC: CHSED 06:45 → CHS2ND 08:03
PROVIDERS: Nurse Practitioner; Admitting Provider Emergency Medicine; Emergency Provider Family Medicine; PCP Family Medicine; Visit Provider Emergency Medicine
DX: R10.84 Generalized abdominal pain (principal); R11.2 Nausea with vomiting, unspecified; E86.0 Dehydration; J44.9 Chronic obstructive pulmonary disease, unspecified; E78.5 Hyperlipidemia, unspecified; I10 Essential (primary) hypertension; J84.10 Pulmonary fibrosis, unspecified; M47.816 Spondylosis without myelopathy or radiculopathy, lumbar region; J81.1 Chronic pulmonary edema; R91.8 Other nonspecific abnormal finding of lung field; Z99.81 Dependence on supplemental oxygen; Z87.891 Personal history of nicotine dependence; H57.89 Other specified disorders of eye and adnexa
CPT/HCPCS: 36415; 71250; 74019; 80048; 80053; 81003; 83690; 85025; 85027; 86140; 96361; 96374; 96375; 96376; 99284; 99285; A9270; C9113; G0378; J1200; J1650; J2270; J2405; J2765; J7030; J7121

== ENCOUNTER 2020-01-07 00:40 | Day surgery (SDC) | payer MEDICARE, MEDICAID, SELFPAY ==
[2020-01-06 11:55] VITALS: BMI 26.6
[2020-01-07 06:49] VITALS: BP 105/62; PULSE 95; RESP 16; TEMP 36.4; O2SAT 94; BMI 26.7
--- NOTE | 2020-01-07 07:14 | WPDANESEPPF ---
Anes - Initial Pre Proc Eval Procedure: Operation Date: 01/07/20 07:30 Proposed Procedures p Esophagogastroduodenoscopy - Mario Rodriguez MD Date/Time: 01/07/20 07:14 Surgeon: Mario Rodriguez MD Pre Op Diagnosis: NAUSEA, VOMITING Patient Data Age: 69 Gender: F Height: 5 ft 6 in Weight: 75.1 kg Last Vital Signs Temp 97.6 F 01/07/20 06:49 Pulse 95 01/07/20 06:49 Resp 16 01/07/20 06:49 BP 105/62 01/07/20 06:49 Pulse Ox 94 01/07/20 06:49 Allergies Allergy/AdvReac Type Severity Reaction Status Date / Time butorphanol [From Stadol] AdvReac Hallucinati Verified 01/06/20 11:44 ng Home Medications Medication Instructions Recorded Confirmed Type aspirin [Aspirin Low Dose] 81 mg PO DAILY 12/01/19 01/06/20 History baclofen 20 mg PO BID 12/01/19 01/06/20 History lisinopril-hydrochlorothiazide 1 tablet PO DAILY 12/01/19 01/06/20 History albuterol sulfate 90 mcg/actuation 1 puff INHALATION Q4H PRN 12/04/19 01/06/20 History aerosol inhaler atorvastatin [Lipitor] 10 mg PO DAILY 01/04/20 01/06/20 History naphazoline-pheniramine [Naphcon-A] 1 drp LEFTEYE QID #1 vial 01/06/20 01/07/20 Rx ondansetron 4 mg PO Q6H PRN #30 tablet 01/06/20 01/07/20 Rx prochlorperazine maleate 5 mg PO Q6H PRN #30 tablet 01/06/20 01/07/20 Rx tobramycin 1 drp LEFTEYE Q4HR 10 Days #1 vial 01/06/20 01/07/20 Rx fluoxetine 10 mg PO DAILY 01/07/20 01/07/20 History furosemide 20 mg PO EVERY OTHER DAY PRN 01/07/20 01/07/20 History hydrocodone-acetaminophen 1 tablet PO QID 01/07/20 01/07/20 History ipratropium-albuterol 1 ml INHALATION QID PRN 01/07/20 01/07/20 History mirabegron [Myrbetriq] 25 mg PO HS 01/07/20 01/07/20 History pantoprazole 40 mg PO DAILY 01/07/20 01/07/20 History potassium chloride 10 meq PO EVERY OTHER DAY PRN 01/07/20 01/07/20 History sucralfate 1 g PO QID 01/07/20 01/07/20 History trazodone 150 mg PO HS 01/07/20 01/07/20 History vortioxetine [Trintellix] mg 01/07/20 History Patient hx anesthesia problems: none Family hx anesthesia problems: none [facility] Past Medical History Medical History (Updated 01/05/20 @ 10:27 by YA Collier-Luis) Anemia Asthma Chronic pain COPD (chronic obstructive pulmonary disease) COPD (chronic obstructive pulmonary disease) COPD with acute exacerbation Dyslipidemia Epigastric pain Hypertension Interstitial pulmonary fibrosis Lumbar spondylosis Multiple lung nodules on CT There is a 7 mm right lower lobe nodule. There is an 8 mm right lower lobe nodule Nicotine dependence in remission quit in 2018 On home oxygen therapy Pulmonary edema Solid nodule of lung greater than 8 mm in diameter There is a 7 mm right lower lobe nodule. There is an 8 mm right lower lobe nodule Steroid-dependent COPD Surgical History Surgical History H/O abdominoplasty H/O cervical spine surgery H/O: hysterectomy Hx of cholecystectomy Hx of fusion of cervical spine Hx of lumbosacral spine surgery S/P appendectomy Social History Social History Social History: quit 3 months ago Smoking packs per day: 1 Smoking cigarettes per day: 20.0 Years smoked: 30 Smoking pack-years: 30.00 Smoking status: Former smoker Tobacco type: cigarettes Second hand tobacco smoke exposure: Yes Smoking end date: 11/20/17 Alcohol intake: never Substance use: never Substance use type: does not use Additional living arrangements comments: Lives with sister Gender identity (if verbalized by the patient): Female Spiritual care concerns: No Agree to blood products: Yes Anes - Eval Final PreProcedure Day of Procedure 01/07/20 07:14 Patient weight: overweight Heart: regular rate and rhythm Lungs: clear to auscultation Airway: Mallampati scale class III Neurological: alert and oriented Last oral intake: >/= 8 hours ASA classification: III
[2020-01-07] MEDS: LACTATED RINGERS 1,000 ML 150 ML IV CONT (07:15)
--- NOTE | 2020-01-07 07:35 | WPDHPUPDATE1 ---
History and Physical Update Update Date/Time: 01/07/20 07:35 History and Physical has been reviewed, including an updated exam of the patient. There are NO changes in the patient's condition. Risks, benefits, and alternatives have been discussed and questions answered. Patient agrees to proceed with procedure.
[2020-01-07 07:39] VITALS: BP 98/57; PULSE 81; RESP 16; O2SAT 96
[2020-01-07 07:49] VITALS: BP 104/57; PULSE 77; RESP 16; O2SAT 92
[2020-01-07 07:59] VITALS: BP 109/47; PULSE 76; RESP 16; O2SAT 93
== END 2020-01-07 08:09 | disposition home or self-care (01) ==
PROVIDERS: PCP Family Medicine; Visit Provider Internal Medicine Gastroenterology
PROC: 0DJ08ZZ Inspection of Upper Intestinal Tract, Via Natural or Artificial Opening Endoscopic (ICD-10-PCS; CPT 43235; principal; 2020-01-07 07:30)
DX: K29.50 Unspecified chronic gastritis without bleeding (principal); K44.9 Diaphragmatic hernia without obstruction or gangrene; J44.9 Chronic obstructive pulmonary disease, unspecified; I10 Essential (primary) hypertension; J84.10 Pulmonary fibrosis, unspecified; E78.5 Hyperlipidemia, unspecified; D64.9 Anemia, unspecified; Z99.81 Dependence on supplemental oxygen; Z79.82 Long term (current) use of aspirin; Z98.1 Arthrodesis status; Z87.891 Personal history of nicotine dependence
CPT/HCPCS: 43239; 88305; J2704; J7120

== ENCOUNTER 2020-01-18 12:21 | Observation (INO) | payer MEDICARE, MEDICAID, SELFPAY ==
[2020-01-18] VITALS (13 sets, daily range): BP systolic 94–143; BP diastolic 44–77; PULSE 74–101; RESP 18–20; TEMP 36.7–37; O2SAT 95–96; BMI 25.9
--- NOTE | ~2020-01-18 | CT_ITS ---
EXAMINATION: CT brain wo con DATE: 01/19/2020 12:04 INDICATION: Right-sided headache. TECHNIQUE: Computed tomography (CT) of the head was performed without intravenous contrast. The mA wa s adjusted according to patient size. Iterative reconstruction technique was employed. The dose-lengt h product was 605.33 mGy-cm. COMPARISON: None FINDINGS: There are scattered areas of low attenuation in the cerebral white matter. There is no intr acranial hemorrhage, acute infarction, or abnormal intracranial mass lesion. The ventricles are bibiana l in size. There is mild mucosal thickening in the paranasal sinuses. The orbits are normal. The mast oid air cells are normal. IMPRESSION: 1. Mild nonspecific cerebral white matter disease, which likely represents chronic small vessel ische buck disease. Reviewed, dictated and finalized at location A. MATION DESIGN ENGINEER IMPRESSION: 1. Mild nonspecific cerebral white matter disease, which likely represents radiator mechanic radha small vessel ischemic disease.
--- NOTE | ~2020-01-18 | XR_ITS ---
EXAMINATION: XR chest 2V DATE: 01/18/2020 13:07 INDICATION: Dyspnea and fever. TECHNIQUE: Frontal and lateral views of the chest were obtained. COMPARISON: Chest 2 views 12/04/2019, chest CT 01/04/2020 FINDINGS: There are lucencies in the lungs, consistent with emphysema. There is mild scarring in righ t lower lung zone. There are mild airspace opacities in the lower lung zones. No pleural effusion or pneumothorax. The heart size is normal. There are changes of posterior fusion procedure in cervicotho racic spine. Surgical clips in the right upper quadrant are likely from cholecystectomy. Surgical cli ps overlie right chest. IMPRESSION: 1. Emphysema. 2. Mild scarring in right lower lung zone. 3. Mild airspace opacities in the lower lung zones, likely pneumonia. Reviewed, dictated and finalized at location A. NER TRANSPORT TECHNICIAN
--- NOTE | 2020-01-18 12:48 | ED.FEVER ---
HPI - Fever General Chief Complaint: Nausea/Vomiting/Diarrhea Stated Complaint: wheezing, vomiting Time Seen by Provider: 01/18/20 12:48 Source: patient and family Mode of arrival: ambulatory Limitations: no limitations History of Present Illness HPI Narrative: 69-year-old woman with a history of COPD comes in today complaining of vomiting and diarrhea, fever and cough that started last evening. She states she is wheezing and short of breath. She denies any chest pain but she has had some right upper quadrant pain. She used her inhaler just prior to arrival and it did not seem to help her very much. She has had the flu vaccine this season. She denies travel and sick contacts. MD elicited complaint: fever Onset (ago): day(s) (1) Exacerbating factors: exertion Relieving factors: nothing Associated symptoms: nasal congestion, cough, shortness of breath, nausea, vomiting and diarrhea Treatments prior to arrival fever: other (inhaler) Related Data Home Medications Medication Instructions Recorded Confirmed aspirin [Aspirin Low Dose] 81 mg PO DAILY 12/01/19 01/18/20 lisinopril-hydrochlorothiazide 1 tablet PO DAILY 12/01/19 01/18/20 albuterol sulfate 90 mcg/actuation 1 puff INHALATION Q4H PRN 12/04/19 01/18/20 aerosol inhaler atorvastatin [Lipitor] 10 mg PO DAILY 01/04/20 01/18/20 fluoxetine 10 mg PO DAILY 01/07/20 01/18/20 furosemide 20 mg PO EVERY OTHER DAY PRN 01/07/20 01/18/20 hydrocodone-acetaminophen 1 tablet PO QID 01/07/20 01/18/20 ipratropium-albuterol 1 ml INHALATION QID PRN 01/07/20 01/18/20 mirabegron [Myrbetriq] 25 mg PO HS 01/07/20 01/18/20 pantoprazole 40 mg PO DAILY 01/07/20 01/18/20 potassium chloride 10 meq PO EVERY OTHER DAY PRN 01/07/20 01/18/20 Allergies Allergy/AdvReac Type Severity Reaction Status Date / Time butorphanol [From Stadol] AdvReac Hallucinati Verified 01/10/20 12:01 ng Review of Systems Constitutional: Constitutional: Denies chills, Reports fatigue and Reports fever(s) Eyes: Eyes: Denies change in vision and Denies photophobia ENT: Denies dysphagia, Reports nasal congestion and Denies sore throat Cardiovascular: Cardiovascular: Denies chest pain, Denies rapid heart rate and Denies radiating jaw, neck or arm pain Respiratory: Respiratory: Reports as per HPI, Reports cough, Reports dyspnea and Reports wheezing Gastrointestinal: Gastrointestinal: Reports abdominal pain, Reports diarrhea, Reports nausea and Reports vomiting Genitourinary: Genitourinary: Denies nocturia and Denies dysuria Musculoskeletal: Musculoskeletal: Reports back pain, Reports myalgias, Denies arthralgias and Denies joint swelling Integumentary/Breasts: Skin/Breast: Denies pruritus, Denies erythema and Denies rash Neurologic: Denies vertigo, Denies dizziness and Denies syncope Psychiatric: Psychiatric: Denies anxiety and Denies depression Endocrine: Endocrine: Denies polydipsia and Denies polyuria Hematologic/Lymphatic: Hematologic/Lymphatic: Denies easy bleeding and Denies easy bruising Allergic/Immunologic: Allergic/Immunologic: Denies lip swelling, Denies throat swelling and Reports wheezing PMFSH Past Medical History Medical History Anemia Asthma Chronic pain COPD (chronic obstructive pulmonary disease) COPD (chronic obstructive pulmonary disease) COPD with acute exacerbation Dyslipidemia Epigastric pain Hypertension Interstitial pulmonary fibrosis Lumbar spondylosis Multiple lung nodules on CT There is a 7 mm right lower lobe nodule. 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 There is an 8 mm right lower lobe nodule Steroid-dependent COPD Surgical History Surgical History H/O abdominoplasty H/O cervic
--- NOTE | 2020-01-18 12:55 | ECG_ITS ---
Measurements Intervals [place] Rate: 92 P: 63 DC: 118 QRS: 73 QRSD: 86 T: 82 QT: 364 QTc: 451 Interpretive Statements SINUS RHYTHM WITH SINUS ARRHYTHMIA WITH SHORT DC INTERVAL NONSPECIFIC T-WAVE ABNORMALITY- ANT/LAT LEADS BORDERLINE ECG Electronically Signed On 01-18-2020 17:50:18 TIRE WORKER by Rick Bautista D.O.
[2020-01-18] MEDS: IPRATROPIUM 0.5 MG/ALBUTEROL SULFATE 2.5 MG AMPUL.NEB 3 ML INHALATION ×2 (13:22→17:37)
[2020-01-18 13:27] LABS: Basophils Absolute Auto 0.02 K/mm3 (0.00-0.10); Basophils Percent Auto 0.2 % (0.0-1.0); Eosinophils Absolute Auto 0.04 K/mm3 (0.02-0.50); Eosinophils Percent Auto 0.3 % (1.0-6.0); Hemoglobin 12.6 g/dL (11.7-13.8); Immature Granulocyte Absolute 0.06 K/mm3 (0.00-0.00); Immature Granulocyte Percent A 0.5 % (0.0-0.0); Lymphocytes Absolute Auto 1.93 K/mm3 (1.10-4.50); Lymphocytes Percent Auto 16.2 % (18.0-42.0); Mean Corpuscular HGB Conc 32.3 g/dL (32.0-36.0); Mean Corpuscular Hemoglobin 28.9 pg (27.0-31.0); Mean Corpuscular Volume 89.4 fL (78.0-102.0); Monocytes Absolute Auto 1.17 K/mm3 (0.10-0.90); Monocytes Percent Auto 9.8 % (2.0-11.0); Neutrophils Absolute Auto 8.7 K/mm3 (1.7-7.2); Platelet Count Result 364 K/mm3 (150-420); Red Blood Count 4.36 M/mm3 (4.20-5.40); Red Cell Distribution Width 14.3 % (11.6-14.4); White Blood Count 11.9 K/mm3 (4.8-10.8)
[2020-01-18 13:31] LABS: Add Urine Microscopic? NO; Appearance Urine Clear (Clear); Bilirubin Urine Negative (Negative); Blood Urine Negative (Negative); Color Urine Yellow (Yellow); Glucose Urine UA Negative (Negative); Ketones Urine Negative (Negative); Leukocyte Esterase Ur Negative LEU/UL (Negative); Nitrate Urine Negative (Negative); Protein Urine Negative (Negative); Specific Grav Ur 1.015 (1.010-1.020); Urobilinogen Urine 0.2 mg/dL (0.2-1.0); pH Urine 8.5 (5.0-8.0)
[2020-01-18] MEDS: ALBUTEROL SULFATE NEB 2.5 MG/3 ML INH INHALATION (13:34)
[2020-01-18 13:39] LABS: Partial Thromboplastin Time 26.8 SEC (22.3-31.6); Prothrombin Time 10.7 Seconds (9.64-11.0)
[2020-01-18 13:46] LABS: Influenza Control Valid (Valid)
[2020-01-18] MEDS: ONDANSETRON INJ 4 MG/2 ML VIAL IV PUSH ×2 (13:49→20:41)
[2020-01-18 13:53] LABS: Alanine Aminotransferase 17 U/L (14-59); Albumin Level 3.3 g/dL (3.4-5.0); Alkaline Phosphatase 76 U/L (46-116); Anion Gap 17.8 mmol/L (7-16); Aspartate Amino Transferase 16 U/L (15-37); Bilirubin,Total 0.3 mg/dL (0.00-1.00); Blood Urea Nitrogen 12 mg/dL (7-18); Calcium 9.2 mg/dL (8.5-10.1); Carbon Dioxide 23 mmol/L (21-32); Chloride 101 mmol/L (98-108); Estimated CRCL calculation 40 ml/min; Estimated Glomerular Filt Rate 48; Glucose 131 mg/dL (70-99); Lipase 251 U/L (73-393); Osmolality Calculated 287 mOsm/kg (285-295); Potassium 3.8 mmol/L (3.5-5.1); Sodium 138 mmol/L (136-145); Total Protein 7.6 g/dL (6.4-8.2)
[2020-01-18 13:54] LABS: Troponin I < 0.02 ng/mL (0.00-0.056)
[2020-01-18] MEDS: SODIUM CHLORIDE 0.9% IV 1,000 ML 999 ML IV CONT (14:12)
[2020-01-18] MEDS: HYDROMORPHONE HCL 2 MG/ML VIAL 0.25 MG IV PUSH (14:12)
[2020-01-18] MEDS: methylPREDNISolone SOD SUCC 125 MG VIAL IV PUSH (15:33)
--- NOTE | 2020-01-18 16:24 | PC.NURSE ---
Admitted for pneumonia, has also had n/v for 7 weeks, colonoscopy done and no results at this time, states thinks will have that on monday, states is hungry and would like something to eat, reminded due to nausea would need to check orders, states dilaudid didn't help her pain hoping he changed to morphine, recent admit 2 weeks ago for same complaint s of nausea and vomiting and now having diarrhea, oriented to room
[2020-01-18] MEDS: SODIUM CHLORIDE 0.9% IV 1,000 ML 100 ML IV CONT (17:23)
--- NOTE | 2020-01-18 17:31 | PC.NURSE ---
refuses scheduled norco, states has been vomiting it up and will not take it demanding morphine, advised that dilaudid was ordered and that we would try that first and if no relief we would call doctor to see if it could be changed
[2020-01-18] MEDS: HYDROMORPHONE HCL 2 MG/ML VIAL 0.5 MG IV PUSH ×2 (17:38→20:42)
--- NOTE | 2020-01-18 19:30 | PC.NURSE ---
pt resting in bed watching tv, denies N/V, requested food told pt she is on clear liquid diet, pt reports feeling hungry now that the Zofran has helped , pt given jello per request
--- NOTE | 2020-01-18 20:05 | PC.NURSE ---
ER NURSE REQUESTED THIS NURSE TO BRING PATIENT'S WALKER UP TO PATIENT'S ASSIGNED ROOM SO ER NURSE JUST HAD TO BRING PATIENT UP. SN OBSERVED THAT PATIENT'S PURSE WAS ON THE WALKER AND ASKED PATIENT IF SHE WOULD LIKE TO KEEP HER PURSE WITH HER. PATIENT LOOKED AT NURSE AND SAID NO YOU CAN TAKE IT, I TRUST YOU. SN TOOK WALKER AND PURSE UP TO 2ND FLOOR. SN PUT PURSE IN LOCKED MEDICATION ROOM UNTIL PATIENT ARRIVED IN HER ROOM. ONCE IN HER ROOM HER SN GAVE HER THE PURSE.
[2020-01-18] MEDS: methylPREDNISolone SOD SUCC 40 MG VIAL IV PUSH (20:41)
--- NOTE | 2020-01-18 21:00 | PC.NURSE ---
pt resting in bed watching tv, no evidence of nausea or vomiting
--- NOTE | 2020-01-18 22:50 | PC.NURSE ---
pt given oral medication (per request) and requested ice cream to go with it, pt tolerated well no N/V
[2020-01-18] MEDS: TRAZODONE HCL 50 MG TABLET 300 MG PO (22:52)
--- NOTE | 2020-01-18 23:25 | PC.NURSE ---
pt still able to keep po meds down, no N/V present
[2020-01-19] VITALS (7 sets, daily range): BP systolic 108–110; BP diastolic 50–64; PULSE 82–92; RESP 16–20; TEMP 36.4–36.6; O2SAT 92–94
[2020-01-19] MEDS: HYDROMORPHONE HCL 2 MG/ML VIAL 0.5 MG IV PUSH ×4 (00:01→09:07)
[2020-01-19] MEDS: IPRATROPIUM 0.5 MG/ALBUTEROL SULFATE 2.5 MG AMPUL.NEB 3 ML INHALATION ×3 (00:01→11:37)
--- NOTE | 2020-01-19 00:17 | PC.NURSE ---
pt given pain medication, denies any N/V, watching tv
--- NOTE | 2020-01-19 01:10 | PC.NURSE ---
pt sleeping, no evidence of distress noted, belongings and call light within reach
--- NOTE | 2020-01-19 01:14 | PCDIET ---
pt sleeping, no evidence of distress noted
--- NOTE | 2020-01-19 02:21 | PC.NURSE ---
pt sleeping, no evidence of distress noted at this time
[2020-01-19] MEDS: SODIUM CHLORIDE 0.9% IV 1,000 ML 100 ML IV CONT (03:03)
--- NOTE | 2020-01-19 03:17 | PC.NURSE ---
Pt has eaten ice cream and still able to tolerate, no N/V noted, pt sitting up in bed watching tv, pain medication given see MAR
--- NOTE | 2020-01-19 04:43 | PC.NURSE ---
pt sleeping, respirations even and regular, no evidence of distress noted
--- NOTE | 2020-01-19 05:44 | PC.NURSE ---
lab at bedside
--- NOTE | 2020-01-19 06:05 | PC.NURSE ---
pt requested pain medication, denies any nausea at this time, has not reported any nausea or vomiting all night long
[2020-01-19 06:14] LABS: Hematocrit 32.2 % (35.0-42.0); Hemoglobin 10.1 g/dL (11.7-13.8); Immature Granulocyte Absolute 0.07 K/mm3 (0.00-0.00); Immature Granulocyte Percent A 0.9 % (0.0-0.0); Lymphocytes Absolute Auto 0.84 K/mm3 (1.10-4.50); Lymphocytes Percent Auto 10.3 % (18.0-42.0); Mean Corpuscular HGB Conc 31.4 g/dL (32.0-36.0); Mean Corpuscular Volume 92.5 fL (78.0-102.0); Mean Platelet Volume 10.4 fl (9.2-11.8); Monocytes Absolute Auto 0.32 K/mm3 (0.10-0.90); Monocytes Percent Auto 3.9 % (2.0-11.0); Neutrophils Absolute Auto 6.9 K/mm3 (1.7-7.2); Neutrophils Percent Auto 84.9 % (50.0-70.0); Platelet Count Result 276 K/mm3 (150-420); Red Blood Count 3.48 M/mm3 (4.20-5.40); Red Cell Distribution Width 14.5 % (11.6-14.4); White Blood Count 8.1 K/mm3 (4.8-10.8)
[2020-01-19 06:32] LABS: Alanine Aminotransferase 15 U/L (14-59); Albumin Level 2.7 g/dL (3.4-5.0); Alkaline Phosphatase 56 U/L (46-116); Anion Gap 14.2 mmol/L (7-16); Aspartate Amino Transferase 12 U/L (15-37); Bilirubin,Total 0.1 mg/dL (0.00-1.00); Blood Urea Nitrogen 9 mg/dL (7-18); Calcium 8.5 mg/dL (8.5-10.1); Carbon Dioxide 23 mmol/L (21-32); Chloride 105 mmol/L (98-108); Estimated CRCL calculation 49 ml/min; Estimated Glomerular Filt Rate > 60; Glucose 177 mg/dL (70-99); Osmolality Calculated 288 mOsm/kg (285-295); Potassium 4.2 mmol/L (3.5-5.1); Sodium 138 mmol/L (136-145); Total Protein 6.4 g/dL (6.4-8.2)
--- NOTE | 2020-01-19 08:04 | PC.NURSE ---
Resting in bed, requesting real food, states not nauseated just having pain, no emesis all night and none this am
--- NOTE | 2020-01-19 09:05 | PC.NURSE ---
discussed with patient diet and pain medication, last IV med given, advised now will switch to oral due to tolerating oral fluids/food and no vomiting since admit, agreeable, also educated on CTA that will be done, due to the contrast can cause nausea, will given IV zofran to prevent this from occurring, patient agreeable to this as well, fluids infusing at this time, does ambulate well on own with walker to bathroom, gait steady, telemetry SR
[2020-01-19] MEDS: ONDANSETRON INJ 4 MG/2 ML VIAL IV PUSH (09:10)
[2020-01-19] MEDS: PANTOPRAZOLE 40 MG TABLET PO (09:12)
[2020-01-19] MEDS: FLUOXETINE HCL 10 MG CAPSULE PO (09:12)
[2020-01-19] MEDS: ATORVASTATIN 10 MG TABLET PO (09:12)
[2020-01-19] MEDS: ASPIRIN 81 MG ENTERIC TABLET PO (09:13)
[2020-01-19] MEDS: NAPHAZOLINE/PHENIRAM OP SOLN 15 ML BTL 1 DROP EACH EYE (09:13)
[2020-01-19] MEDS: hydroCHLOROthiazide 12.5 MG CAPSULE PO (09:13)
[2020-01-19] MEDS: methylPREDNISolone SOD SUCC 40 MG VIAL IV PUSH (09:13)
[2020-01-19] MEDS: lisinopriL 20 MG TABLET PO (09:13)
[2020-01-19] MEDS: TOBRAMYCIN 0.3% OPHTH SOLN 5 ML 1 DROP EACH EYE (09:13)
--- NOTE | 2020-01-19 10:30 | PC.NURSE ---
No distress noted, no emesis
--- NOTE | 2020-01-19 11:28 | PC.NURSE ---
No emesis after breakfast or med pass, states does feel like her breathing might be becoming more labored, no acute distress noted, is able to lay flat
--- NOTE | 2020-01-19 11:59 | PC.NURSE ---
CT head completed, no distress noted, did complain of right occipital pain this am, no vision disturbance, no altered mental status or altered gait
--- NOTE | 2020-01-19 12:28 | PC.NURSE ---
Eating lunch, no emesis
--- NOTE | 2020-01-19 13:21 | PC.NURSE ---
Telemetry discontinued, saline lock discontinued, patient dressed self, tolerated well, sister here to take her home
--- NOTE | 2020-01-19 13:28 | PM.DS ---
DS: Diagnosis Discharge Diagnosis (1) Vomiting: Qualifiers: Nausea presence: with nausea Vomiting Intractability: intractable Vomiting type: unspecified Qualified Code(s): R11.2 - Nausea with vomiting, unspecified <MATILDE Collier - Last Filed: 01/19/20 14:06> Code(s): R11.10 - Vomiting, unspecified <MATILDE Collier - Last Filed: 01/19/20 14:06> Status: Acute <MATILDE Collier - Last Filed: 01/19/20 14:06> Assessment and Plan: Patient has a GI doctor Dr. Weldon- recently completed a EGD indicated gastritis patient will have a follow up gastric emptying study. has an appointment with Dr. Weldon tomorrow for results of biopsy. continue to take Zofran and eat a bland diet. patient thought that her right-sided headache pain could cause her to have nausea vomiting. CT of the head completed and unremarkable patient will follow-up with GI <MATILDE Collier - Last Filed: 01/19/20 14:06> (2) Pneumonia: Qualifiers: Laterality: right Lung location: lower lobe of lung Pneumonia type: due to unspecified organism Qualified Code(s): J18.9 - Pneumonia, unspecified organism <MATILDE Collier - Last Filed: 01/19/20 14:06> Code(s): J18.9 - Pneumonia, unspecified organism <MATILDE Collier - Last Filed: 01/19/20 14:06> Status: Acute <MATILDE Coliler - Last Filed: 01/19/20 14:06> Assessment and Plan: stable - chest x-ray indicated pneumonia - patient will discharge home with antibiotics, steroids, decongestant medication, cough suppressant she will continue her nebulizer treatment - blood cultures pending <MATILDE Collier - Last Filed: 01/19/20 14:06> (3) COPD (chronic obstructive pulmonary disease): Code(s): J44.9 - Chronic obstructive pulmonary disease, unspecified <MATILDE Collier - Last Filed: 01/19/20 14:06> Status: Acute <MATILDE Collier - Last Filed: 01/19/20 14:06> Assessment and Plan: stable -worsened due to pneumonia - continue nebulizers, steroids, antibiotics - blood cultures pending white blood cells within normal limits <MATILDE Collier - Last Filed: 01/19/20 14:06> (4) Abdominal pain: Qualifiers: Abdominal location: generalized Qualified Code(s): R10.84 - Generalized abdominal pain <Jasmin Moffett MATILDE - Last Filed: 01/19/20 14:06> Code(s): R10.9 - Unspecified abdominal pain <Jasmin Bañuelos Zuhair MATILDE - Last Filed: 01/19/20 14:06> Status: Acute <MATILDE Collier - Last Filed: 01/19/20 14:06> Assessment and Plan: possibly related to gastritis patient will follow-up with GI doctor results to EGD pending further testing scheduled continue home pain medication <Jasmin Moffett MATILDE - Last Filed: 01/19/20 14:06> (5) Head pain: Code(s): R51 - Headache <Jasmin Moffett MATILDE - Last Filed: 01/19/20 14:06> Status: Acute <MATILDE Collier - Last Filed: 01/19/20 14:06> Assessment and Plan: patient has chronic head pain. she thought that it could be the cause of her nausea vomiting. CT of the head completed indicate Mild nonspecific cerebral white matter disease, which likely represents chronic small vessel ischemic disease. <Jasmin Moffett MATILDE - Last Filed: 01/19/20 14:06> DS: Summary Hospital Course Reason for hospitalization: admitted for pneumonia <Jasmin Moffett GAS UTILITY WORKERIsaacLuis - Last Filed: 01/19/20 14:06> Hospital Course: this patient was admitted yesterday with complaints nausea vomiting , shortness of breath ,fevers and a cough. Patient has a past medical history anemia, asthma COPD, dyslipidemia epigastric, pulmonary fibrosis, lumbar spondylosis, multiple lung nodules and gastritis. patient is a frequent Flyer of this hospital, has been admitted raquel
--- NOTE | 2020-01-19 13:45 | PC.NURSE ---
discharge to home with personal items and home medications, no questions upon discussion of discharge instructions
--- NOTE | 2020-01-20 07:31 | PM.EVENT ---
Event Note Event Note Event Note: For this patient encounter, I reviewed Jhon Moffett NP's documentation, treatment plan, and medical decision making; and I had irpl-sn-tnoc time with this patient. Bibasilar rales on exam.
--- NOTE | 2020-01-22 14:35 | PC.NURSE ---
Discharge call back [phone] Patient stated she understood her discharge instructions but is currently still wheezing when she breathes. [facility] and if pat becomes SOB to come to ER.
== END 2020-01-19 13:45 | disposition home or self-care (01) ==
LOC: CHSED 15:36 → CHS2ND 15:57
PROVIDERS: Admitting Provider Emergency Medicine; Emergency Provider Emergency Medicine; PCP Family Medicine; Visit Provider Emergency Medicine
DX: J18.9 Pneumonia, unspecified organism (principal); J44.9 Chronic obstructive pulmonary disease, unspecified; R11.2 Nausea with vomiting, unspecified; E78.5 Hyperlipidemia, unspecified; I10 Essential (primary) hypertension; J84.10 Pulmonary fibrosis, unspecified; M47.816 Spondylosis without myelopathy or radiculopathy, lumbar region; R91.8 Other nonspecific abnormal finding of lung field; Z87.891 Personal history of nicotine dependence
CPT/HCPCS: 36415; 70450; 71046; 80053; 81003; 83690; 84484; 85025; 85610; 85730; 87040; 87804; 93005; 94640; 96361; 96365; 96375; 96376; 99285; A9270; G0378; J1170; J1956; J2405; J2920; J2930; J7030

== ENCOUNTER 2020-01-24 14:44 | Outpatient (CLI) | payer MEDICARE, MEDICAID, SELFPAY ==
[2020-01-24] MEDS: SODIUM CHLORIDE 0.9% IV 1,000 ML 400 ML IVPB (16:07)
[2020-01-24] MEDS: MORPHINE SULFATE 4 MG/ML INJ IV PUSH (16:08)
[2020-01-24] MEDS: ONDANSETRON INJ 4 MG/2 ML VIAL IV PUSH (16:08)
[2020-01-24] MEDS: methylPREDNISolone SOD SUCC 125 MG VIAL IV PUSH (16:09)
--- NOTE | 2020-01-24 16:10 | PC.NURSE ---
Patient here to receive IV Fluids and IV push medications. Positioned self in bed with no assist. Tolerated IV start well. Provided with snack. IV infusion of NS started per order. Pt. denies any needs. Call light at side.
--- NOTE | 2020-01-24 17:30 | PC.NURSE ---
Patient resting quietly in bed. IV fluids continue per order. Patient tolerating well. Denies any needs.
--- NOTE | 2020-01-24 18:20 | PC.NURSE ---
Patient tolerated infusion and medications well. IV site removed, tip intact. Dressing applied to site. All belongings sent home with patient. Patient denies any questions or concerns at time of discharge. Left ambulatory.
== END 2020-01-24 14:45 | disposition home or self-care (01) ==
LOC: CHSLAB 14:49 → CHSTREATRM 14:50
PROVIDERS: PCP Family Medicine; Visit Provider Family Medicine
DX: R10.9 Unspecified abdominal pain (principal)
CPT/HCPCS: 96360; 96361; J2270; J2405; J2930; J7030

== ENCOUNTER 2020-02-07 10:03 | Outpatient (CLI) | payer MEDICARE, MEDICAID, SELFPAY ==
--- NOTE | ~2020-02-07 | XR_ITS ---
EXAMINATION: XR chest 2V EXAM DATE: 02/07/2020 10:38 INDICATION: Cough for one month. TECHNIQUE: Frontal and lateral projections of the chest obtained and reviewed. Comparison is made to prior examination from 01/18/2020, 12/04/2019. FINDINGS: Small amount of right-sided peripheral airspace disease with more diffuse bilateral interlo bular septal thickening, probably some chronic infection or postinfectious residua from the more exte nsive bilateral pneumonia seen in November, superimposed on chronic interstitial lung disease. No conf luent consolidation. Cervical fusion hardware. There are no pleural effusions. The cardiomediastinal silhouette is within normal limits. There is no pneumothorax suspected. Thoracolumbar fusion hardw are. There are cholecystectomy clips. There are no osseous abnormalities identified. IMPRESSION: Some scattered more chronic appearing lung opacities bilaterally likely postinfectious re sidua superimposed on interstitial lung disease. Reviewed, dictated and finalized at location A. IMPRESSION: Some scattered more chronic appearing lung opacities bilaterally li rabia postinfectious residua superimposed on interstitial lung disease.
[2020-02-07 10:35] LABS: Basophils Absolute Auto 0.02 K/mm3 (0.00-0.10); Basophils Percent Auto 0.2 % (0.0-1.0); Eosinophils Absolute Auto 0.09 K/mm3 (0.02-0.50); Eosinophils Percent Auto 0.8 % (1.0-6.0); Hematocrit 35.3 % (35.0-42.0); Immature Granulocyte Absolute 0.06 K/mm3 (0.00-0.00); Immature Granulocyte Percent A 0.6 % (0.0-0.0); Lymphocytes Absolute Auto 2.32 K/mm3 (1.10-4.50); Lymphocytes Percent Auto 21.5 % (18.0-42.0); Mean Corpuscular HGB Conc 31.2 g/dL (32.0-36.0); Mean Corpuscular Volume 93.1 fL (78.0-102.0); Mean Platelet Volume 9.8 fl (9.2-11.8); Monocytes Absolute Auto 0.64 K/mm3 (0.10-0.90); Monocytes Percent Auto 5.9 % (2.0-11.0); Neutrophils Absolute Auto 7.7 K/mm3 (1.7-7.2); Platelet Count Result 299 K/mm3 (150-420); Red Blood Count 3.79 M/mm3 (4.20-5.40); Red Cell Distribution Width 14.7 % (11.6-14.4); White Blood Count 10.8 K/mm3 (4.8-10.8)
[2020-02-07 11:02] VITALS: BP 127/65; PULSE 78; RESP 16; TEMP 36.6; O2SAT 95
[2020-02-07] MEDS: SODIUM CHLORIDE 0.9% IV 1,000 ML 1000 ML IVPB (11:06)
[2020-02-07 11:35] LABS: Anion Gap 15.9 mmol/L (7-16); Blood Urea Nitrogen 13 mg/dL (7-18); Calcium 8.8 mg/dL (8.5-10.1); Carbon Dioxide 26 mmol/L (21-32); Chloride 102 mmol/L (98-108); Estimated Glomerular Filt Rate 58; Glucose 109 mg/dL (70-99); Osmolality Calculated 291 mOsm/kg (285-295); Potassium 3.9 mmol/L (3.5-5.1); Sodium 140 mmol/L (136-145)
--- NOTE | 2020-02-07 12:57 | PC.NURSE ---
PATIENT HERE FOR 1 L OF NORMAL SALINE. SENT OVER FROM DR. CRUZ'S OFFICE. 1 L NS ADMINISTERED WITHOUT DIFFICULTY. NO CONCERNS VOICED. TOLERATED INFUSION WELL. SAFE EXIT OF HOSPITAL.
== END 2020-02-07 10:04 | disposition home or self-care (01) ==
LOC: CHSLAB 10:15 → CHSTREATRM 10:57
PROVIDERS: PCP Family Medicine; Visit Provider Family Medicine
DX: R05 Cough (principal)
CPT/HCPCS: 36415; 71046; 80048; 85025; 96360; 96361; J7030

== ENCOUNTER 2020-02-18 13:51 | Outpatient (CLI) | payer MEDICARE, MEDICAID, SELFPAY ==
--- NOTE | ~2020-02-18 | XR_ITS ---
EXAMINATION: XR_CERV2-3V_CR EXAM DATE: 02/18/2020 14:34 INDICATION: Right-sided neck pain, surgery 1.5 years ago. TECHNIQUE: Frontal and lateral projections of the cervical spine. Open-mouth odontoid projection. IMPRESSION: There is posterior fusion hardware from C3 through T2, with hardware intact. There are l aminectomies along these levels as well. There is mild to moderate disc disease at C6-7, mild at the other cervical levels. The odontoid process is intact. The lateral masses of C1 line up with C2. Pre vertebral soft tissue and pre-dens space are within normal limits. The vertebral bodies are aligned in the AP dimension. Overall moderate cervical facet arthropathy. IMPRESSION: Intact cervical thoracic fusion hardware. Moderate cervical arthropathy. Reviewed, dictated and finalized at location A. IMPRESSION: There is posterior fusion hardware from C3 through T2, with hardwa re intact. There are laminectomies along these levels as well. There is mild to moderate disc disease at C6-7, mild at the other cervical levels. The odontoid process is intact. The lateral masses of C1 line up with C2. Prevertebral sof t tissue and pre-dens space are within normal limits. The vertebral bodies are aligned in the AP dimension. Overall moderate cervical facet arthropathy. IMPRESSION: Intact cervical thoracic fusion hardware. Moderate cervical arthro radha.
[2020-02-18 14:25] LABS: Hematocrit 37.6 % (35.0-42.0); Hemoglobin 11.8 g/dL (11.7-13.8); Mean Corpuscular HGB Conc 31.4 g/dL (32.0-36.0); Mean Corpuscular Hemoglobin 29.1 pg (27.0-31.0); Mean Corpuscular Volume 92.6 fL (78.0-102.0); Platelet Count Result 314 K/mm3 (150-420); Red Blood Count 4.06 M/mm3 (4.20-5.40); Red Cell Distribution Width 14.6 % (11.6-14.4); White Blood Count 10.3 K/mm3 (4.8-10.8)
[2020-02-18 15:05] LABS: Alanine Aminotransferase 20 U/L (14-59); Albumin Level 3.5 g/dL (3.4-5.0); Alkaline Phosphatase 96 U/L (46-116); Anion Gap 16.9 mmol/L (7-16); Aspartate Amino Transferase 27 U/L (15-37); Bilirubin,Total 0.2 mg/dL (0.00-1.00); Blood Urea Nitrogen 11 mg/dL (7-18); Carbon Dioxide 22 mmol/L (21-32); Chloride 104 mmol/L (98-108); Estimated Glomerular Filt Rate > 60; Glucose 93 mg/dL (70-99); Osmolality Calculated 287 mOsm/kg (285-295); Potassium 3.9 mmol/L (3.5-5.1); Sodium 139 mmol/L (136-145); Total Protein 6.9 g/dL (6.4-8.2)
[2020-02-18] MEDS: ONDANSETRON INJ 4 MG/2 ML VIAL IV PUSH (15:25)
[2020-02-18] MEDS: SODIUM CHLORIDE 0.9% IV 1,000 ML 1000 ML IVPB (15:25)
--- NOTE | 2020-02-18 17:54 | PC.NURSE ---
Patient dislodged IV. Patient stated that she is done. She wants to go home. 200ml left in 1000NS.
== END 2020-02-18 13:52 | disposition home or self-care (01) ==
PROVIDERS: PCP Family Medicine; Visit Provider Family Medicine
DX: R10.13 Epigastric pain (principal); R11.2 Nausea with vomiting, unspecified
CPT/HCPCS: 36415; 72040; 80053; 85027; 87077; 87086; 87088; 87186; 96360; 96361; 96365; 96374; J2405; J7030

== ENCOUNTER 2020-02-24 15:16 | Inpatient (IN) | payer MEDICARE, MEDICAID, SELFPAY ==
--- NOTE | ~2020-02-24 | XR_ITS ---
XR shoulder RT min 2V 02/27/2020 15:17 Indication: Right shoulder pain after fall Procedure: 4 views right shoulder Comparison: No prior studies for comparison. Findings: Osteopenia. Postsurgical changes present in the right thorax. 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 No acute fracture or traumatic malalignment. No significant soft tissue abnormality. Impression: 1: No acute fracture. Reviewed, dictated and finalized at location A. Impression: 1: No acute fracture.
--- NOTE | ~2020-02-24 | CT_ITS ---
EXAMINATION: CT brain wo [facility] EXAM DATE: 02/27/2020 15:07 INDICATION: Fall, right posterior head injury. TECHNIQUE: Spiral CT of the head was performed without contrast. Axial, coronal and sagittal images were reviewed. The dose-length product (DLP) for this examination was 605.33 mGy-cm. The exposure w as tailored according to patient size, and iterative reconstruction (ASIR) was used as additional dos e reduction technique. Comparison is made to prior examination from 02/18/2020. FINDINGS: There is no acute intraparenchymal hemorrhage. No evidence of intraparenchymal brain mass lesion. No evidence of acute infarction. Please note that initial head CT has limited sensitivity f or small or acute infarctions. There is mild periventricular and subcortical hypodensity, nonspecific but probably related to small vessel ischemic disease. There is intracranial carotid arteriosclero sis. There are no extra-axial collections. There is no mass effect or midline shift. The orbits ar e unremarkable. Soft tissue is unremarkable. The visualized sinuses and mastoid air cells are well aerated. IMPRESSION: 1. No acute intracranial findings. 2. Chronic age related findings. Reviewed, dictated and finalized at location A.
--- NOTE | ~2020-02-24 | CT_ITS ---
EXAMINATION: CTA chest PE protocol DATE: 02/27/2020 11:19 INDICATION: Shortness of breath. TECHNIQUE: 75 mL Omnipaque-350 intravenous contrast was administered IV, and the IV infiltrated. Scou t images were obtained. No CT was performed. The DLP was 32 mGy-cm. COMPARISON: Chest 2 views 02/26/2020 FINDINGS: The phytopathologist images demonstrate mild atelectasis at right lung base. Surgical clips in the rig ht upper quadrant are likely from cholecystectomy. There are changes of posterior fusion procedures i n cervical thoracic spine and lumbar spine. IMPRESSION: 1. IV infiltration. The patient described pain, but no new numbness or tingling in the extremity. The CT was not performed. Reviewed, dictated and finalized at location A.
--- NOTE | ~2020-02-24 | NM_ITS ---
NM pulmonary perfusion INDICATION: Redness of breath TECHNIQUE: Ventilation scan not performed. 5.1 MCi Tc 99m MAA was injected intravenously for perfusio n images. Multiple images were then acquired. COMPARISON: Chest x-ray dated 02/26/2020 FINDINGS: The comparison chest radiograph demonstrates to basilar infiltrates. The perfusion scan dem onstrates moderate perfusion defects in the right middle lobe and left upper lobe. Without ventilatio n images quantification for probability of pulmonary embolism cannot be performed. IMPRESSION: 1: Moderate size bilateral perfusion defects. Reviewed, dictated and finalized at location A.
--- NOTE | ~2020-02-24 | XR_ITS ---
XR chest 2V DATE: 02/26/2020 15:13 INDICATION: Shortness of breath, wheezing, intermittent fever, cough. COPD. TECHNIQUE: 2 views COMPARISON: 02/07/2020 PA and lateral chest view chest 01/04/2020 CT chest 12/04/2019 AP and lateral chest FINDINGS: Normal heart size. There is interval new patchy infiltrate primarily in the left lower lobe since 02/07/2020. There are probable chronic bilateral interstitial lung changes. Surgical clips are noted in the anteromedial right upper thoracic cavity. Status post posterior cervical spine fusion. Osteopenia. IMPRESSION: Mild new patchy infiltrate, left lower lobe, suggesting possible pneumonia Chronic bilateral pulmonary interstitial infiltrates Reviewed, dictated and finalized at location A.
--- NOTE | ~2020-02-24 | XR_ITS ---
EXAMINATION: XR hip RT 2V w AP pelvis DATE: 02/28/2020 13:55 INDICATION: Pelvis injury. TECHNIQUE: An anteroposterior view of the pelvis on 2 radiographs and 2 views of right hip were obtai erika. COMPARISON: CT abdomen and pelvis 12/24/2019 FINDINGS: Bone alignment is normal. No fracture. The hip joint spaces are normal. There are changes o f posterior fusion procedure in lumbar spine. IMPRESSION: 1. No fracture. Reviewed, dictated and finalized at location A. IMPRESSION: 1. No fracture.
--- NOTE | ~2020-02-24 | US_ITS ---
EXAMINATION: US abdomen duplex complete DATE: 02/26/2020 12:00 INDICATION: Abdominal pain. TECHNIQUE: Multiple grayscale and Doppler ultrasound images of the abdomen were obtained. COMPARISON: CT abdomen and pelvis 12/24/2019 FINDINGS: The visualized portions of the head and body of the pancreas are normal. Abdominal aorta is normal in caliber. Inferior vena cava is normal. There is diffuse hepatic steatosis. No liver surfac e nodularity. There is normal flow in main portal vein. The gallbladder is absent. The common duct is normal and measures 5 mm. The spleen is normal in size. The kidneys are normal in size. IMPRESSION: 1. Diffuse hepatic steatosis. Reviewed, dictated and finalized at location A.
--- NOTE | 2020-02-24 15:02 | PM.IMHP ---
H&P: HPI History of Present Illness Chief complaint: UTI Narrative: Clari Ledesma is a 69 year old female admitted to treat an acute and unresolving Enterococcus faecalis UTI and dehydration. She has a history of dehydration, neck/shoulder pain, and multiple or re-current UTIs. On 12/05/19 and 02/18/20, Clari's Urine cultures grew: Enterococcus faecalis. She has been following up with PCP Dr. Raya who tried to treat her UTI with oral macrobid, but due to her N/V she has been unable to successfully treat herself with oral antibiotics at home. She has now become dehydrated and will need hospitalization for IV antibiotics as well as IVFs for re-hydration. Per PCP Dr. Raya's note: She had urgency and now it hurts to urinate. She was given macrobid but she was unable to keep any of the pills down 2/2 her chronic nausea and vomiting. She now has dysuria, right flank pain, and is not able to tolerate PO.She also has concerns of depression. She has felt down and hopeless since losing her two children. She denies SI/HI but generally has a poor mood. It is not adequately relieved with Prozac.She also has chronic pain in her neck after a fusion a couple years ago with some pain radiates to her left arm. Today, at my exam, she confirmed the above observations of her PCP. Will order medications to relieve and treat her s/s, monitor her, and while treating her UTI and dehydration. Review of Systems Review of Systems: All systems reviewed & are unremarkable except as noted in HPI and below Constitutional: Constitutional: Reports as per HPI, Denies body ache(s), Denies chills, Denies fatigue, Reports lethargy, Denies night sweats and Reports weakness Eyes: Eyes: Reports as per HPI, Denies blurry vision and Denies photophobia ENT: Reports as per HPI, Reports Normal hearing present, Denies epistaxis, Denies nasal congestion, Denies nasal discharge and Denies tinnitus Cardiovascular: Cardiovascular: Reports as per HPI, Denies chest pain, Denies diaphoresis, Denies pedal edema, Denies leg edema, Denies lightheadedness and Denies palpitations Respiratory: Respiratory: Reports as per HPI, Denies chest congestion, Denies cough, Denies hemoptysis, Denies dyspnea, Denies dyspnea on exertion and Denies wheezing Gastrointestinal: Gastrointestinal: Reports as per HPI, Reports abdominal pain, Denies melena, Denies bloating, Denies hematochezia, Denies constipation, Reports heartburn, Reports diarrhea, Reports nausea, Reports vomiting and Denies hematemesis Genitourinary: Genitourinary: Reports as per HPI, Reports nocturia, Reports dysuria, Denies pelvic pain, Denies flank pain, Denies urinary incontinence, Reports urinary hesitancy, Reports urinary urgency and Denies vaginal discharge Musculoskeletal: Musculoskeletal: Reports as per HPI, Reports back pain, Reports neck pain (noted below in ROS) and Reports stiffness Integumentary/Breasts: Skin/Breast: Reports as per HPI, Denies breast pain, Reports dry skin, Reports pruritus, Denies erythema, Denies rash (patient feels like she has a rash, but none found on examination), Reports skin pain (posteriorly above her past neck incision, pain with palpation), Denies unusual bruising and Reports wounds (healed cervical & lumbar incision from past surgeries) Neurologic: Reports as per HPI, Denies Abnormal speech present, Reports abnormal gait (untested at this time), Denies confusion, Denies headache(s) and Reports numbness (right hand 4th and 5th fingers with numbness/tingling ) Psychiatric: Psychiatric: Reports as per HPI, Reports anxiety, Denies behavioral changes, Denies confusion, Denies depression, Denies homicidal ideation and Denies suicidal ideation [facility] Social History Social History Social History: quit 3 months ago Smoking packs per day: 1 Smoking cigarettes per day: 20.0 Years smoked: 30 Smoking pack-years: 30.00 Smoking status: Current every day smoker T
[2020-02-24 16:00] VITALS: BP 127/85; PULSE 72; RESP 18; TEMP 36.6; O2SAT 97; BMI 27.7
[2020-02-24 16:20] LABS: Basophils Absolute Auto 0.01 K/mm3 (0.00-0.10); Basophils Percent Auto 0.1 % (0.0-1.0); Eosinophils Absolute Auto 0.12 K/mm3 (0.02-0.50); Eosinophils Percent Auto 1.1 % (1.0-6.0); Hemoglobin 9.9 g/dL (11.7-13.8); Immature Granulocyte Absolute 0.03 K/mm3 (0.00-0.00); Immature Granulocyte Percent A 0.3 % (0.0-0.0); Lymphocytes Absolute Auto 3.14 K/mm3 (1.10-4.50); Lymphocytes Percent Auto 29.6 % (18.0-42.0); Mean Corpuscular HGB Conc 30.9 g/dL (32.0-36.0); Mean Corpuscular Volume 90.4 fL (78.0-102.0); Mean Platelet Volume 9.9 fl (9.2-11.8); Monocytes Absolute Auto 1.02 K/mm3 (0.10-0.90); Monocytes Percent Auto 9.6 % (2.0-11.0); Neutrophils Absolute Auto 6.3 K/mm3 (1.7-7.2); Neutrophils Percent Auto 59.3 % (50.0-70.0); Platelet Count Result 325 K/mm3 (150-420); Red Blood Count 3.54 M/mm3 (4.20-5.40); Red Cell Distribution Width 14.5 % (11.6-14.4); White Blood Count 10.6 K/mm3 (4.8-10.8)
[2020-02-24 16:30] LABS: Alanine Aminotransferase 11 U/L (14-59); Albumin Level 2.7 g/dL (3.4-5.0); Alkaline Phosphatase 78 U/L (46-116); Anion Gap 13.1 mmol/L (7-16); Aspartate Amino Transferase 14 U/L (15-37); Bilirubin,Total 0.1 mg/dL (0.00-1.00); Blood Urea Nitrogen 10 mg/dL (7-18); Calcium 8.3 mg/dL (8.5-10.1); Carbon Dioxide 24 mmol/L (21-32); Chloride 108 mmol/L (98-108); Estimated Glomerular Filt Rate > 60; Glucose 97 mg/dL (70-99); Magnesium 1.7 mg/dL (1.8-2.4); Osmolality Calculated 293 mOsm/kg (285-295); Phosphorus 2.4 mg/dL (2.6-4.7); Potassium 3.1 mmol/L (3.5-5.1); Sodium 142 mmol/L (136-145); Total Protein 6.1 g/dL (6.4-8.2)
[2020-02-24] MEDS: SUCRALFATE SUSP 100 MG/ML 10 ML UDC 1000 MG PO (16:31)
[2020-02-24] MEDS: SODIUM CHLORIDE 0.9% IV 500 ML IV CONT (16:35)
[2020-02-24 16:37] LABS: BNP 76.1 pg/mL (0-100)
[2020-02-24] MEDS: LIDOCAINE 5% PATCH 3 PATCH TRANSDERM (16:45)
[2020-02-24] MEDS: NAPHAZOLINE/PHENIRAM OP SOLN 15 ML BTL 1 DROP EACH EYE (17:16)
[2020-02-24] MEDS: TOBRAMYCIN 0.3% OPHTH SOLN 5 ML 1 DROP EACH EYE (17:16)
[2020-02-24] MEDS: ONDANSETRON INJ 4 MG/2 ML VIAL IV PUSH ×2 (17:27→21:41)
[2020-02-24] MEDS: SODIUM CHLORIDE 0.9% IV 1,000 ML 100 ML IV CONT (17:44)
--- NOTE | 2020-02-24 19:10 | PC.NURSE ---
In room for bedside report. Patient stating that she is nauseous and inquiring as to when she can have Zofran again, patient was informed of when it was next due.. Patient has call light within reach.
--- NOTE | 2020-02-24 20:37 | PC.NURSE ---
Patient stating that she is having nausea and pain. She was informed that her PRN Zofran could be given every 4 hours that she had pain medication scheduled. She is refusing to take all PO medication including her pain medication. She is angry and speaking at ad writer in a loud verbal volume. She is stating I want IV pain medication She is also stating that she wants to talk to Dr. Pryor about her medication orders. Charge nurse informed.
--- NOTE | 2020-02-24 20:47 | PC.NURSE ---
notified at 1700 that patient was angry that she did not have IV pain medication ordered. MD aware. Patient does have pain medication available to her, but was angry with staff because she wanted Morphine IV push.
--- NOTE | 2020-02-24 21:40 | PC.NURSE ---
Patient having nausea but has had no emesis since being on the floor. Patient refused all medication except PRN zofran. She states that the Zofran does not help her nausea but she is requesting it anyway stating, it has to eventually help . Boat Captain informed the patient that there are other medications and that the doctor could be called if it is not working and the patient refused, she stated that she has been dealing with nausea for weeks and that she has taken other medications and they do not work either and she stated that she did not want mortgage underwriter to call the doctor to get another order. Boat Captain offered crackers with her medication to see if that would help keep them from upsetting her stomach and she continued to refuse all scheduled medication, even the eye drops. Patient is also angry that IV pain medication has not been ordered, she states I feel like it is abandonment .. She states that she wants to leave AMA but she stated that she is going to wait until the morning to talk to the SCHOOL PHOTOGRAPHS DETAILER and get her records from the facility and get her records from Dr. Raya's office. She then asked Did Dr. Canas say not not to give me IV Morphine, one of the nurses said something about that today? Boat Captain expressed that she was unaware if that had been said. Charge nurse made aware.
[2020-02-24 21:50] VITALS: BP 130/71; PULSE 84; RESP 18; TEMP 36.8; O2SAT 94
--- NOTE | 2020-02-24 22:15 | PC.NURSE ---
Urine specimen collected. Patient resting in bed. She has a pepsi and a serria mist st bed side. Call light is within reach.
[2020-02-24 22:39] LABS: Add Urine Microscopic? NO; Appearance Urine Clear (Clear); Bilirubin Urine Negative (Negative); Blood Urine Negative (Negative); Color Urine Yellow (Yellow); Glucose Urine UA Negative (Negative); Ketones Urine Negative (Negative); Leukocyte Esterase Ur Negative LEU/UL (Negative); Nitrate Urine Negative (Negative); Protein Urine Negative (Negative); Specific Grav Ur 1.025 (1.010-1.020); Urobilinogen Urine 0.2 mg/dL (0.2-1.0); pH Urine 6.5 (5.0-8.0)
--- NOTE | 2020-02-24 23:00 | PC.NURSE ---
Patient resting in bed. She reports that she is still having nausea and that the Zofran has not helped. She stated that she has tried other medications for nausea before and none of them have helped either. Patient stated that she did not want to try any other medication for her nausea.
[2020-02-25] MEDS: TOBRAMYCIN 0.3% OPHTH SOLN 5 ML 1 DROP EACH EYE ×3 (01:18→18:19)
--- NOTE | 2020-02-25 01:26 | PC.NURSE ---
Patient continues to request to talk to the doctor to get IV pain medication. Patient agreeable to scheduled eye drops at this time. Charge nurse notified.
--- NOTE | 2020-02-25 01:44 | PC.NURSE ---
0120 Pt c/o having back and neck pain and questioned why she couldnt have IV pain medication instead of PO pain medication. Explained to pt that the doctor ordered her pain medication to be given PO. Pt said she wouldnt take the PO pain medication because she would vomit again. Pt insisted that Dr Pryor be called and an explanation be given as to why she cant have IV pain medication. Dr. Pryor notified of pt's request and an order for Ativan 0.5 mg PO x1 be given. Staff told pt that Dr. Pryor ordered Ativan PO to be given and pt refused it. She said that she knew her rights as a patient and that she was being abandoned by the doctor. I hope Dr. Pryor and Dr. Raya have allergist/pediatric pulmonologist because I have been abandoned by them . Pt states that she will leave AMA first thing in the morning.
--- NOTE | 2020-02-25 01:53 | PC.NURSE ---
Patient called up to desk requesting [place] now. Charge nurse notified since it is scheduled and patient refused 2100 dose.
[2020-02-25] MEDS: ONDANSETRON INJ 4 MG/2 ML VIAL IV PUSH ×4 (02:00→21:31)
--- NOTE | 2020-02-25 02:05 | PC.NURSE ---
0156 Dr. Pryor notified of pt's c/o back and neck pain and pt's request for [place]. New orders received and noted.
[2020-02-25] MEDS: SODIUM CHLORIDE 0.9% IV 1,000 ML 100 ML IV CONT ×2 (03:55→14:45)
--- NOTE | 2020-02-25 03:59 | PC.NURSE ---
Patient ate a packet of saltine crackers when she took her pain medication and she has drank about a fourth of a can of soda. Patient has had no emesis. Patient appears to be sleeping at this time
[2020-02-25] MEDS: PANTOPRAZOLE 40 MG TABLET PO (05:57)
[2020-02-25 06:00] VITALS: BP 129/92; PULSE 61; RESP 20; TEMP 36.4; O2SAT 95
[2020-02-25 07:40] VITALS: BP 124/67; PULSE 60; RESP 16; TEMP 36.6; O2SAT 92
--- NOTE | 2020-02-25 08:08 | PC.NURSE ---
Breakfast tray delivered and set up. Nurse encouraged patient to drink fluids and see ow her stomach is tolerating food. Pt. states understanding, denies any needs at this time.
[2020-02-25] MEDS: ATORVASTATIN 10 MG TABLET PO (08:44)
[2020-02-25] MEDS: FAMOTIDINE 20 MG TABLET PO ×2 (08:44→21:25)
[2020-02-25] MEDS: ENOXAPARIN 40 MG/0.4 ML SYRINGE SUB-Q (08:44)
[2020-02-25] MEDS: lisinopriL 20 MG TABLET PO (08:44)
[2020-02-25] MEDS: hydroCHLOROthiazide 12.5 MG CAPSULE PO (08:45)
[2020-02-25] MEDS: ASPIRIN 81 MG ENTERIC TABLET PO (08:45)
[2020-02-25] MEDS: SACCHAROMYCES BOULARDII 250 MG CAPSULE PO ×2 (08:45→18:18)
--- NOTE | 2020-02-25 10:35 | PC.NURSE ---
FREDA Granados and Dr. Morrow in room to see patient. Patient resting in bed, shows no signs of distress. IV fluids continue per order. Tolerating oral fluids with no issues. Patient ate crackers and applesauce with medication, has had no issues keeping it down. Denies any need at this time.
--- NOTE | 2020-02-25 11:33 | PM.IMPN ---
Progress Note: A&P Assessment and Plan (1) Chronic neck pain: Code(s): M54.2 - Cervicalgia; G89.29 - Other chronic pain <Roberta Todd NP - Last Filed: 02/25/20 13:05> Status: Acute <Roberta Todd NP - Last Filed: 02/25/20 13:05> Assessment and Plan: CHRONIC. She also has chronic pain in her neck after a fusion a couple years ago with some pain radiates to her left arm. -Suspect acute on chronic pain - Given normal exam, normal radiographs, and previously normal labs do not suspect hardware infection or dislocation - unable to get MRI due to hardware. numbness/tingling to right 4th and 5th fingers as well as lateral right hand a healed surgical incision from many years ago located vertically along her cervical spine from her past laminectomies and fusion completed in [place] many years ago. Cervical xray on 02/18/20 shows intact cervical thoracic fusion hardware with overall moderate cervical arthoropathy. The hardware is intact, there is mild to moderate disc disease at C6-7, the spacing is WNL, and the vertebral bodies are aligned in AP dimension. Clari sees a cork painter and grader on a routine basis for her pain control due to her chronic pain in her neck, cervical spine, and lower back. She sees Dr. Jazmine Toribio at the [facility] office or one of his providers, such as [facility] or [facility]. Her last office visit was on February 01, she was seen by [facility], for a medication check. She was prescribed for the month of January and the month of February to take [place] 325/10 mg 1 tab Q 6 hours as needed. She has also received from that office over the past 5-6 months prescriptions for Lyrica 150 mg BID in September 2019 and Baclofen 10mg TID PRN for additional pain control. In order to avoid any IV opiod or narcotic use, I have ordered those medications to be used while she is in the hospital and will continue her home [place] dose. Both myself and Dr. Morrow encouraged Clari to get out of bed for the last two days, to ambulate and walk hourly around the 2nd floor (advised her that nursing staff would assist her as needed and gave her a mask and gloves to do so as well), and to spend more time out of bed - all in efforts to improve her back and neck discomfort. But despite Clari verbally agreeing that would help, the patient has yet to do so. Ordered PT and OT to see and evaluate patient today. <Roberta Todd NP - Last Filed: 02/25/20 13:05> (2) DVT prophylaxis: Code(s): Z29.9 - Encounter for prophylactic measures, unspecified <Roberta Todd NP - Last Filed: 02/25/20 13:05> Status: Acute <Roberta Todd NP - Last Filed: 02/25/20 13:05> Assessment and Plan: Lovenox SQ dosing ordered/continued <Roberta Todd NP - Last Filed: 02/25/20 13:05> (3) Acute dehydration: Code(s): E86.0 - Dehydration <Roberta Todd NP - Last Filed: 02/25/20 13:05> Status: Acute <Roberta Todd NP - Last Filed: 02/25/20 13:05> Assessment and Plan: ACUTE. IMPROVING. history of dehydration and multiple or re-current UTIs. due to her N/V she has been unable to successfully treat herself with oral antibiotics at home. She has now become dehydrated and will need hospitalization for IV antibiotics as well as IVFs for re-hydration. Chronic Nausea and Vomiting no current N/V at the time of my examination ordered Pepcid Q12, continued home protonix, PRN Zofran ordered ordered Carafate before meals (complaining of burning pain with meals/swallowing due to history of vomiting) - Patient refusing to take. per PCP Dr. Raya, In the process of GI workup, will resume after COVID19. ordered orthostatic BPs in the morning. Continue to monitor her for complete resolution of Nausea and Vomiting, monitor her for keeping up with her hydration using oral fluids. Will continue her maintenance IVFs. no vom
--- NOTE | 2020-02-25 11:35 | PC.NURSE ---
Patient resting in bed. Nurse noted patient has several bottles of medications in purse. Patient refused allow nurse to look at/take medication to med room with execption of Symbicort inhaler. PRODUCE BUYER notified. Patient instructed that she is to only take the medication we give her. Patient states understanding. Patient denies any pain/nausea to nurse. call light at side. IV fluids continue.
--- NOTE | 2020-02-25 11:38 | PHAR ---
02/25/20 - VERIFIED PT'S OWN SUPPLY SYMBICORT. TLS
[2020-02-25] MEDS: BUDESONIDE/FORMOTEROL (*SP) 160-4.5 MCG 6 GM INH 2 PUFF INHALATION ×2 (11:59→21:33)
[2020-02-25] MEDS: PREGABALIN 50 MG CAPSULE 150 MG PO ×2 (13:34→21:25)
[2020-02-25 15:50] VITALS: BP 114/69; PULSE 62; RESP 16; TEMP 36.3; O2SAT 95
--- NOTE | 2020-02-25 17:30 | PC.NURSE ---
Patient ate 100% of supper. Reports feeling some nausea/too full feeling. States she would like to wait a little longer before taking medications. Resting in bed with hob elevated. IV fluids cont. per order. Call at side.
[2020-02-25] MEDS: NAPHAZOLINE/PHENIRAM OP SOLN 15 ML BTL 1 DROP EACH EYE (18:19)
--- NOTE | 2020-02-25 18:20 | PC.NURSE ---
Patient took medications with no issues. States she still feels really full but denies any further nausea at present. Patient has call light and belongings at side. Resting quietly in bed.
--- NOTE | 2020-02-25 19:45 | PC.NURSE ---
Patient woke up and went to bathroom,states she got SOB/coughing. Patient encouraged to purse lip breath. PRN albuterol inhaler used. Patient sitting up at side of bed, recovered within 5 minutes. Denies any needs. Pt. sitting up resting with call light and belongings at side.
[2020-02-25 20:30] VITALS: O2SAT 95
[2020-02-25] MEDS: TRAZODONE HCL 50 MG TABLET 300 MG PO (21:24)
[2020-02-25] MEDS: MIRABEGRON 25 MG ER TABLET PO (21:33)
--- NOTE | 2020-02-25 22:40 | PC.NURSE ---
Patient sleeping quietly in bed. No signs of distress noted. Breathing even and unlabored. IV fluids infusing per order. Call light and belongings at side.
--- NOTE | 2020-02-25 23:10 | PC.NURSE ---
Patient appears to be sleeping by the rise and fall of her chest. Respirations even and unlabored. IV NS infusing to site in LFA. No distress noted. Call light in reach.
[2020-02-26] VITALS: BP 109/65; PULSE 74; RESP 20; TEMP 37; O2SAT 97
--- NOTE | 2020-02-26 00:05 | PC.NURSE ---
Patient awakened for VS but remained drowsy. Respirations even and unlabored. IV NS infusing without difficulty to site in LFA. No distress noted. Call light in reach.
--- NOTE | 2020-02-26 00:06 | P.PNCROSS_ITS ---
Event Note Event Note Event Note: Attestation note from 02-25-2020 For this patient encounter, I reviewed the TOBACCO ROLLER documentation, treatment plan, and medical decision making; and I had [id number] time with this patient. She has a midline cervical spine scar. Her tendernes is primarily over the right superior trapezius ridge. Pain clinic will be contacted to discuss pain management while in the e.d. If pt's able to eat without vomiting, d.c. home after 3rd vancomycin dose tomorrow.
[2020-02-26] MEDS: SODIUM CHLORIDE 0.9% IV 1,000 ML 100 ML IV CONT (00:55)
[2020-02-26] MEDS: TOBRAMYCIN 0.3% OPHTH SOLN 5 ML 1 DROP EACH EYE ×4 (01:24→17:01)
--- NOTE | 2020-02-26 01:30 | PC.NURSE ---
Patient awakened easily for eye drops. Patient then told nurse not to wake her up for 5am dose of eye drops. No distress noted. Call light in reach.
[2020-02-26 05:34] LABS: Basophils Absolute Auto 0.02 K/mm3 (0.00-0.10); Basophils Percent Auto 0.2 % (0.0-1.0); Eosinophils Absolute Auto 0.15 K/mm3 (0.02-0.50); Eosinophils Percent Auto 1.6 % (1.0-6.0); Hematocrit 31.7 % (35.0-42.0); Hemoglobin 9.9 g/dL (11.7-13.8); Immature Granulocyte Absolute 0.03 K/mm3 (0.00-0.00); Immature Granulocyte Percent A 0.3 % (0.0-0.0); Lymphocytes Percent Auto 21.1 % (18.0-42.0); Mean Corpuscular HGB Conc 31.2 g/dL (32.0-36.0); Mean Corpuscular Hemoglobin 28.7 pg (27.0-31.0); Mean Corpuscular Volume 91.9 fL (78.0-102.0); Mean Platelet Volume 9.7 fl (9.2-11.8); Monocytes Absolute Auto 0.75 K/mm3 (0.10-0.90); Monocytes Percent Auto 7.9 % (2.0-11.0); Neutrophils Absolute Auto 6.5 K/mm3 (1.7-7.2); Neutrophils Percent Auto 68.9 % (50.0-70.0); Platelet Count Result 305 K/mm3 (150-420); Red Blood Count 3.45 M/mm3 (4.20-5.40); Red Cell Distribution Width 14.7 % (11.6-14.4); White Blood Count 9.5 K/mm3 (4.8-10.8)
[2020-02-26] MEDS: PANTOPRAZOLE 40 MG TABLET PO (05:35)
[2020-02-26 05:59] LABS: Alanine Aminotransferase 13 U/L (14-59); Albumin Level 2.5 g/dL (3.4-5.0); Alkaline Phosphatase 78 U/L (46-116); Anion Gap 14.6 mmol/L (7-16); Aspartate Amino Transferase 14 U/L (15-37); Blood Urea Nitrogen 6 mg/dL (7-18); Carbon Dioxide 25 mmol/L (21-32); Chloride 111 mmol/L (98-108); Estimated CRCL calculation 67 ml/min; Estimated Glomerular Filt Rate > 60; Glucose 116 mg/dL (70-99); Osmolality Calculated 302 mOsm/kg (285-295); Potassium 3.6 mmol/L (3.5-5.1); Sodium 147 mmol/L (136-145); Total Protein 5.2 g/dL (6.4-8.2)
--- NOTE | 2020-02-26 06:00 | PC.NURSE ---
Patient sitting on side of bed watching tv. NS infusing without difficulty. No distress noted. Call light in reach.
[2020-02-26 06:11] LABS: Bilirubin,Total < 0.1 mg/dL (0.00-1.00)
--- NOTE | 2020-02-26 07:15 | PC.NURSE ---
shakey this am, feels it is lyrica that is the cause, tremors/shakey noted to arms and legs, unable to tolerate orthostatic vitals signs at this time, will attempt later today, no dizzyness, just shakey this am, nausea, no emesis, pain in neck 06/29
--- NOTE | 2020-02-26 07:40 | PC.NURSE ---
Physical therapy in to work with patient
[2020-02-26 07:50] VITALS: BP 101/46; PULSE 87; RESP 18; TEMP 36.9; O2SAT 95
[2020-02-26] MEDS: BUDESONIDE/FORMOTEROL (*SP) 160-4.5 MCG 6 GM INH 2 PUFF INHALATION ×2 (08:48→21:15)
[2020-02-26] MEDS: NAPHAZOLINE/PHENIRAM OP SOLN 15 ML BTL 1 DROP EACH EYE ×3 (08:49→17:01)
[2020-02-26] MEDS: ENOXAPARIN 40 MG/0.4 ML SYRINGE SUB-Q (08:49)
--- NOTE | 2020-02-26 08:56 | PC.NURSE ---
Given pain med with approval from imaging services, to have ultrasound this am, all other oral meds held at this time
--- NOTE | 2020-02-26 09:39 | PC.NURSE ---
waiting for ultrasound to be completed
--- NOTE | 2020-02-26 11:00 | PC.NURSE ---
Ultrasound at the bedside doing testing
[2020-02-26] MEDS: ATORVASTATIN 10 MG TABLET PO (11:37)
[2020-02-26] MEDS: ASPIRIN 81 MG ENTERIC TABLET PO (11:37)
[2020-02-26] MEDS: FAMOTIDINE 20 MG TABLET PO ×2 (11:38→21:17)
[2020-02-26] MEDS: FLUOXETINE HCL 10 MG CAPSULE 60 MG PO (11:38)
--- NOTE | 2020-02-26 11:38 | P.PNIM_ITS ---
Progress Note: A&P Assessment and Plan (1) Chronic neck pain: Code(s): M54.2 - Cervicalgia; G89.29 - Other chronic pain Status: Acute Assessment and Plan: CHRONIC. * She also has chronic pain in her neck after a fusion a couple years ago with some pain radiates to her left arm. * Suspect acute on chronic pain * Cervical xray on 02/18/20 shows intact cervical thoracic fusion hardware with overall moderate cervical arthoropathy. The hardware is intact, there is mild to moderate disc disease at C6-7, the spacing is WNL, and the vertebral bodies are aligned in AP dimension. * Clari sees a hand paint mixer on a routine basis for her pain control due to her chronic pain in her neck, cervical spine, and lower back. She sees Dr. Jazmine Toribio at the [facility] office . Her last office visit was on February 01. She has also received from that office over the past 5-6 months prescriptions for Lyrica 150 mg BID in September 2019 and Baclofen 10mg TID PRN for additional pain control. patient's Lyrica was decreased to 150 mg daily due to tremors * I have notified Dr Toribio office at [phone] to notify them that Clari is reporting tremors with the use of her lyrica. awaiting call back. (2) DVT prophylaxis: Code(s): Z29.9 - Encounter for prophylactic measures, unspecified Status: Acute Assessment and Plan: Lovenox SQ dosing ordered/continued (3) Acute dehydration: Code(s): E86.0 - Dehydration Status: Acute Assessment and Plan: * ACUTE. IMPROVING. * history of dehydration and multiple or re-current UTIs. * due to her N/V she has been unable to successfully treat herself with oral antibiotics at home. She has now become dehydrated and will need hospitali zation for IV antibiotics as well as IVFs for re-hydration. * Chronic Nausea and Vomiting * no current N/V at the time of my examination * ordered Pepcid Q12, * continued home protonix, * PRN Zofran ordered * ordered Carafate before meals (complaining of burning pain with meals/swallowing due to history of vomiting) - Patient refusing to take. * per PCP Dr. Raya, In the process of GI workup, will resume after COVID19. * Continue to monitor her for complete resolution of Nausea and Vomiting, * patient able to tolerate all med * continue PT and OT to see and evaluate patient today. (4) Enterococcus UTI: Code(s): N39.0 - Urinary tract infection, site not specified; B95.2 - Enterococcus as the cause of diseases classified elsewhere Status: Acute Assessment and Plan: admitted to treat re-current and symptomatic Enterococcus faecalis UTI * She has a history of dehydration and multiple or re-current UTIs. * On 12/05/19 and 02/18/20, Clari's Urine cultures grew: Enterococcus faecalis. * She has been following up with PCP Dr. Raya who tried to treat her UTI with oral macrobid, but due to her N/V she has been unable to successfully treat herself with oral antibiotics at home. * Stable CMP, CBC at admission, will repeat labs on possible discharge day. * continueIV Vanc per pharmacy dosing for UTI. bag #3. will start p.o. antibiotics and today to see if patient can tolerate and discharge in the a.m. * needs to follow up with PCP Dr. Raya or another provider in his clinic after her discharge; * patient will discharge with Augmentin times 10 days if tolerated (5) Vomiting: Qualifiers: Nausea presence: with nausea Vomiting Intractability: intractable Vomiting type: unspecified Qualified Code(s): R11.2 - Nausea with vomiting, unspecified
--- NOTE | 2020-02-26 11:38 | PM.IMPN ---
Progress Note: A&P Assessment and Plan (1) Chronic neck pain: Code(s): M54.2 - Cervicalgia; G89.29 - Other chronic pain Status: Acute Assessment and Plan: CHRONIC. She also has chronic pain in her neck after a fusion a couple years ago with some pain radiates to her left arm. Suspect acute on chronic pain Cervical xray on 02/18/20 shows intact cervical thoracic fusion hardware with overall moderate cervical arthoropathy. The hardware is intact, there is mild to moderate disc disease at C6-7, the spacing is WNL, and the vertebral bodies are aligned in AP dimension. Clari sees a automobile painter on a routine basis for her pain control due to her chronic pain in her neck, cervical spine, and lower back. She sees Dr. Jazmine Toribio at the [facility] office . Her last office visit was on February 01. She has also received from that office over the past 5-6 months prescriptions for Lyrica 150 mg BID in September 2019 and Baclofen 10mg TID PRN for additional pain control. patient's Lyrica was decreased to 150 mg daily due to tremors I have notified Dr Toribio office at [phone] to notify them that Clari is reporting tremors with the use of her lyrica. awaiting call back. (2) DVT prophylaxis: Code(s): Z29.9 - Encounter for prophylactic measures, unspecified Status: Acute Assessment and Plan: Lovenox SQ dosing ordered/continued (3) Acute dehydration: Code(s): E86.0 - Dehydration Status: Acute Assessment and Plan: ACUTE. IMPROVING. history of dehydration and multiple or re-current UTIs. due to her N/V she has been unable to successfully treat herself with oral antibiotics at home. She has now become dehydrated and will need hospitalization for IV antibiotics as well as IVFs for re-hydration. Chronic Nausea and Vomiting no current N/V at the time of my examination ordered Pepcid Q12, continued home protonix, PRN Zofran ordered ordered Carafate before meals (complaining of burning pain with meals/swallowing due to history of vomiting) - Patient refusing to take. per PCP Dr. Raya, In the process of GI workup, will resume after COVID19. Continue to monitor her for complete resolution of Nausea and Vomiting, patient able to tolerate all med continue PT and OT to see and evaluate patient today. (4) Enterococcus UTI: Code(s): N39.0 - Urinary tract infection, site not specified; B95.2 - Enterococcus as the cause of diseases classified elsewhere Status: Acute Assessment and Plan: admitted to treat re-current and symptomatic Enterococcus faecalis UTI She has a history of dehydration and multiple or re-current UTIs. On 12/05/19 and 02/18/20, Clari's Urine cultures grew: Enterococcus faecalis. She has been following up with PCP Dr. Raya who tried to treat her UTI with oral macrobid, but due to her N/V she has been unable to successfully treat herself with oral antibiotics at home. Stable CMP, CBC at admission, will repeat labs on possible discharge day. continueIV Vanc per pharmacy dosing for UTI. bag #3. will start p.o. antibiotics and today to see if patient can tolerate and discharge in the a.m. needs to follow up with PCP Dr. Raya or another provider in his clinic after her discharge; patient will discharge with Augmentin times 10 days if tolerated (5) Vomiting: Qualifiers: Nausea presence: with nausea Vomiting Intractability: intractable Vomiting type: unspecified Qualified Code(s): R11.2 - Nausea with vomiting, unspecified Code(s): R11.10 - Vomiting, unspecified Status: Acute Assessment and Plan: patient is being followed by Dr. Weldon GI patient has a history of gastritis patient nausea has resolved, possibly secondary to antibiotic treatment ultrasound of the gallbladder and kidneys are pending Subjective Date/time seen: 02/26/20 11:38
[2020-02-26] MEDS: hydroCHLOROthiazide 12.5 MG CAPSULE PO (11:39)
[2020-02-26] MEDS: lisinopriL 20 MG TABLET PO (11:39)
--- NOTE | 2020-02-26 11:42 | PC.NURSE ---
sonogram completed, am meds given
--- NOTE | 2020-02-26 12:57 | PC.NURSE ---
Resting in bed, denies needs, no change in pain today, no emesis today, fluids discontinued at this time
[2020-02-26] MEDS: SUCRALFATE SUSP 100 MG/ML 10 ML UDC 1000 MG PO (13:01)
[2020-02-26] MEDS: AMOXICILLIN/CLAVULANATE K 500-125 MG TAB 0.5 TABLET PO ×2 (14:10→21:15)
--- NOTE | 2020-02-26 14:30 | PC.NURSE ---
No vomiting, nausea and pain unchanged today, is able to eat and drink IV fluids were discontinued today, discharge tomorrow on oral abx, vancomycin to be given as scheduled with trough 30 min prior to hanging
[2020-02-26 15:58] VITALS: BP 120/62; PULSE 86; RESP 18; TEMP 37.7; O2SAT 93
--- NOTE | 2020-02-26 16:11 | PC.NURSE ---
pt has requested that if her ct shows pneumonia that she be transferred to another facility, chronic back pain at 7, pt resting in bed
[2020-02-26 17:53] LABS: Vancomycin Trough 4.6 ug/mL (10.0-15.0)
--- NOTE | 2020-02-26 18:44 | PC.NURSE ---
pt is unhappy that er nurse was unavailable to come start iv, floor nurse able to get new line in, pt states next time i ask for an er nurse i want an er nurse , pt requests dr marcelo come up to see that she is still dehydrated, call light in reach
[2020-02-26] MEDS: TRAZODONE HCL 50 MG TABLET 300 MG PO (21:16)
[2020-02-26] MEDS: MIRABEGRON 25 MG ER TABLET PO (21:17)
[2020-02-26] MEDS: ONDANSETRON INJ 4 MG/2 ML VIAL IV PUSH (21:21)
--- NOTE | 2020-02-26 22:52 | PC.NURSE ---
pt requests another pepsi, 2 additional cans discarded, iv wrapped in koban
--- NOTE | 2020-02-26 23:47 | PM.EVENT ---
Event Note Event Note Event Note: Staff states that she has been eating and drinking without difficulty however the patient states that she cannot eat. Intake has been documented. Complaint of right upper quadrant and right flank pain persists. Mucous membranes moist. Alert and oriented. Schueler late expiratory wheezes present. Heart regular rate and rhythm without murmur or gallop. Abdomen is mildly tender in the right upper quadrant right flank but no rebound, guarding, rigidity or masses. Ultrasound revealed no nephric or hepatic source for her pain, However pyelonephritis is presumed. Change to oral medications today and discharg tomorrow. I have reviewed the chart and examined the patient. I discussed the patient's care with Glenda Moffett APN and agree with her assessment and plan.
[2020-02-27] VITALS (7 sets, daily range): BP systolic 103–128; BP diastolic 40–73; PULSE 74–88; RESP 16–20; TEMP 36.6–36.9; O2SAT 87–98
[2020-02-27] MEDS: TOBRAMYCIN 0.3% OPHTH SOLN 5 ML 1 DROP EACH EYE ×6 (00:51→20:56)
[2020-02-27 05:26] LABS: Hemoglobin 8.8 g/dL (11.7-13.8); Mean Corpuscular HGB Conc 30.3 g/dL (32.0-36.0); Mean Corpuscular Hemoglobin 27.8 pg (27.0-31.0); Mean Corpuscular Volume 91.8 fL (78.0-102.0); Mean Platelet Volume 9.5 fl (9.2-11.8); Platelet Count Result 268 K/mm3 (150-420); Red Blood Count 3.16 M/mm3 (4.20-5.40); Red Cell Distribution Width 14.5 % (11.6-14.4); White Blood Count 10.2 K/mm3 (4.8-10.8)
[2020-02-27 05:37] LABS: Anion Gap 8.8 mmol/L (7-16); Blood Urea Nitrogen 7 mg/dL (7-18); Calcium 7.8 mg/dL (8.5-10.1); Carbon Dioxide 28 mmol/L (21-32); Chloride 108 mmol/L (98-108); Estimated CRCL calculation 62 ml/min; Estimated Glomerular Filt Rate > 60; Glucose 141 mg/dL (70-99); Osmolality Calculated 294 mOsm/kg (285-295); Potassium 2.8 mmol/L (3.5-5.1); Sodium 142 mmol/L (136-145)
[2020-02-27] MEDS: AMOXICILLIN/CLAVULANATE K 500-125 MG TAB 0.5 TABLET PO ×3 (05:41→20:57)
[2020-02-27] MEDS: PANTOPRAZOLE 40 MG TABLET PO (05:42)
--- NOTE | 2020-02-27 06:40 | PC.NURSE ---
Patient given saltine crackers with PO antibiotics this morning. Patient is not reporting any nausea at this time.
[2020-02-27] MEDS: ONDANSETRON INJ 4 MG/2 ML VIAL IV PUSH (08:15)
[2020-02-27 09:03] LABS: D Dimer 1.05 mg/L (0.19-0.50)
[2020-02-27] MEDS: FLUOXETINE HCL 10 MG CAPSULE 60 MG PO (09:15)
[2020-02-27] MEDS: AZITHROMYCIN 250 MG TABLET 500 MG PO (09:15)
[2020-02-27] MEDS: POTASSIUM CHLORIDE 20 MEQ TABLET 40 MEQ PO (09:15)
[2020-02-27] MEDS: BENZONATATE 100 MG CAPSULE 200 MG PO ×3 (09:15→16:58)
[2020-02-27] MEDS: ATORVASTATIN 10 MG TABLET PO (09:16)
[2020-02-27] MEDS: PREGABALIN 50 MG CAPSULE 150 MG PO (09:16)
[2020-02-27] MEDS: hydroCHLOROthiazide 12.5 MG CAPSULE PO (09:16)
[2020-02-27] MEDS: lisinopriL 20 MG TABLET PO (09:16)
[2020-02-27] MEDS: FAMOTIDINE 20 MG TABLET PO ×2 (09:16→20:55)
[2020-02-27] MEDS: ENOXAPARIN 40 MG/0.4 ML SYRINGE SUB-Q (09:17)
[2020-02-27] MEDS: BUDESONIDE/FORMOTEROL (*SP) 160-4.5 MCG 6 GM INH 2 PUFF INHALATION ×2 (09:17→20:54)
[2020-02-27] MEDS: NAPHAZOLINE/PHENIRAM OP SOLN 15 ML BTL 1 DROP EACH EYE ×4 (09:17→20:56)
[2020-02-27] MEDS: ASPIRIN 81 MG ENTERIC TABLET PO (09:17)
[2020-02-27] MEDS: LIDOCAINE 5% PATCH 3 PATCH TRANSDERM (09:18)
[2020-02-27] MEDS: SACCHAROMYCES BOULARDII 250 MG CAPSULE PO ×2 (09:44→16:58)
--- NOTE | 2020-02-27 11:05 | PC.NURSE ---
Patient off floor to radiology
--- NOTE | 2020-02-27 11:20 | PC.NURSE ---
Patient returned to floor from radiology
[2020-02-27] MEDS: SUCRALFATE SUSP 100 MG/ML 10 ML UDC 1000 MG PO (11:43)
--- NOTE | 2020-02-27 14:19 | P.DS_ITS ---
DS: Diagnosis Admitting Diagnosis Admitting Diagnosis: Cervicalgia Discharge Diagnosis (1) Chronic neck pain: Code(s): M54.2 - Cervicalgia; G89.29 - Other chronic pain Status: Acute Assessment and Plan: CHRONIC. * She also has chronic pain in her neck after a fusion a couple years ago with some pain radiates to her left arm. * Suspect acute on chronic pain * Cervical xray on 02/18/20 shows intact cervical thoracic fusion hardware with overall moderate cervical arthoropathy. The hardware is intact, there is mild to moderate disc disease at C6-7, the spacing is WNL, and the vertebral bodies are aligned in AP dimension. * Clari sees a automatic paint sprayer operator on a routine basis for her pain control due to her chronic pain in her neck, cervical spine, and lower back. She sees Dr. Jazmine Toribio at the [facility] office . Her last office visit was on February 01. She has also received from that office over the past 5-6 months prescriptions for Lyrica 150 mg BID in September 2019 and Baclofen 10mg TID PRN for additional pain control. patient's Lyrica was decreased to 150 mg daily due to tremors * I have notified Dr Toribio office at [phone] to notify them that Clari is reporting tremors with the use of her lyrica. Lyrica decreased to 150 mg daily instead of b.i.d. * she will need to follow-up with pain management on discharge (2) Acute dehydration: Code(s): E86.0 - Dehydration Status: Acute Assessment and Plan: * ACUTE. IMPROVING. * history of dehydration and multiple or re-current UTIs. * due to her N/V she has been unable to successfully treat herself with oral antibiotics at home. She has now become dehydrated and will need hospitalization for IV antibiotics as well as IVFs for re-hydration. * Chronic Nausea and Vomiting * no current N/V at the time of my examination * ordered Pepcid Q12, * continued home protonix, * PRN Zofran ordered * ordered Carafate before meals (complaining of burning pain with meals/swallowing due to history of vomiting) - Patient refusing to take. * per PCP Dr. Raya, In the process of GI workup, will resume after COVID19. * Continue to monitor her for complete resolution of Nausea and Vomiting, * patient able to tolerate all med * continue PT and OT to see and evaluate patient today. (3) Enterococcus UTI: Code(s): N39.0 - Urinary tract infection, site not specified; B95.2 - Enterococcus as the cause of diseases classified elsewhere Status: Acute Assessment and Plan: admitted to treat re-current and symptomatic Enterococcus faecalis UTI * She has a history of dehydration and multiple or re-current UTIs. * On 12/05/19 and 02/18/20, Clari's Urine cultures grew: Enterococcus faecalis. * She has been following up with PCP Dr. Raya who tried to treat her UTI with oral macrobid, but due to her N/V she has been unable to successfully treat herself with oral antibiotics at home. * Stable CMP, CBC at admission, will repeat labs on possible discharge day. * continueIV Vanc per pharmacy dosing for UTI. bag #3. will start p.o. antibiotics and today to see if patient can tolerate and discharge in the a.m. * needs to follow up with PCP Dr. Raya or another provider in his clinic after her discharge; * * (4) Vomiting: Qualifiers: Nausea presence: with nausea Vomiting Intractability: intractable Vomiting type: unspecified Qualified Code(s): R11.2 - Nausea with vomiting, unspecified Code(s): R11.10 - Vomiting, unspecified Status: Acute Assessme
--- NOTE | 2020-02-27 14:19 | PM.DS ---
DS: Diagnosis Admitting Diagnosis Admitting Diagnosis: Cervicalgia Discharge Diagnosis (1) Chronic neck pain: Code(s): M54.2 - Cervicalgia; G89.29 - Other chronic pain Status: Acute Assessment and Plan: CHRONIC. She also has chronic pain in her neck after a fusion a couple years ago with some pain radiates to her left arm. Suspect acute on chronic pain Cervical xray on 02/18/20 shows intact cervical thoracic fusion hardware with overall moderate cervical arthoropathy. The hardware is intact, there is mild to moderate disc disease at C6-7, the spacing is WNL, and the vertebral bodies are aligned in AP dimension. Clari sees a mirror painter on a routine basis for her pain control due to her chronic pain in her neck, cervical spine, and lower back. She sees Dr. Jazmine Toribio at the [facility] office . Her last office visit was on February 01. She has also received from that office over the past 5-6 months prescriptions for Lyrica 150 mg BID in September 2019 and Baclofen 10mg TID PRN for additional pain control. patient's Lyrica was decreased to 150 mg daily due to tremors I have notified Dr Toribio office at [phone] to notify them that Clari is reporting tremors with the use of her lyrica. Lyrica decreased to 150 mg daily instead of b.i.d. she will need to follow-up with pain management on discharge (2) Acute dehydration: Code(s): E86.0 - Dehydration Status: Acute Assessment and Plan: ACUTE. IMPROVING. history of dehydration and multiple or re-current UTIs. due to her N/V she has been unable to successfully treat herself with oral antibiotics at home. She has now become dehydrated and will need hospitalization for IV antibiotics as well as IVFs for re-hydration. Chronic Nausea and Vomiting no current N/V at the time of my examination ordered Pepcid Q12, continued home protonix, PRN Zofran ordered ordered Carafate before meals (complaining of burning pain with meals/swallowing due to history of vomiting) - Patient refusing to take. per PCP Dr. Raya, In the process of GI workup, will resume after COVID19. Continue to monitor her for complete resolution of Nausea and Vomiting, patient able to tolerate all med continue PT and OT to see and evaluate patient today. (3) Enterococcus UTI: Code(s): N39.0 - Urinary tract infection, site not specified; B95.2 - Enterococcus as the cause of diseases classified elsewhere Status: Acute Assessment and Plan: admitted to treat re-current and symptomatic Enterococcus faecalis UTI She has a history of dehydration and multiple or re-current UTIs. On 12/05/19 and 02/18/20, Clari's Urine cultures grew: Enterococcus faecalis. She has been following up with PCP Dr. Raya who tried to treat her UTI with oral macrobid, but due to her N/V she has been unable to successfully treat herself with oral antibiotics at home. Stable CMP, CBC at admission, will repeat labs on possible discharge day. continueIV Vanc per pharmacy dosing for UTI. bag #3. will start p.o. antibiotics and today to see if patient can tolerate and discharge in the a.m. needs to follow up with PCP Dr. Raya or another provider in his clinic after her discharge; (4) Vomiting: Qualifiers: Nausea presence: with nausea Vomiting Intractability: intractable Vomiting type: unspecified Qualified Code(s): R11.2 - Nausea with vomiting, unspecified Code(s): R11.10 - Vomiting, unspecified Status: Acute Assessment and Plan: patient is being followed by Dr. Weldon GI patient has a history of gastritis patient nausea has resolved, possibly secondary to antibiotic treatment ultrasound of the gallbladder and kidneys are Indicates fatty liver (5) Pneumonia: Code(s): J18.9 - Pneumonia, unspecified organism Status: Acute Assessment and Plan: mykel
--- NOTE | 2020-02-27 15:22 | PM.EVENT ---
Event Note Event Note Event Note: I have reviewed the chart, discussed with the N.P. hospitalist and discussed a plan. Pt. has had no urinary or systemic symptoms since transition from Vanco to Augmentin. New onset SOB with LLL infiltrate. Pt is alert without labored,fever or fast respirations. Diffuse wheezes on physical exam; no rales. Elevated d-dimer; unable to obtain large bore IV access; V/Q scan pending. Pt has been eating without vomiting. Will be eval. a for dumping syndrome after Covid precautions are lifed. D.C. on on azithromycin + Augmentin + oral steroids. + albuterol MDI + ipratropium MDI. F/u with Dr. Raya.
--- NOTE | 2020-02-27 18:20 | P.PNCROSS_ITS ---
Event Note Event Note Event Note: Pt fell after attempting to sit on the toilet, landing on her right shoulder, hitting the back of her head. Pain in the right shoulder and right occiput. CT of head and right shoulder without acute findings. P.T. evaluated pt.after her fall. He states pt would not do well to [facility] hospital care and return home. She would do well to transition to a swing bedcare status or seek rehab facility status or seek rehab facility... . Pt states she has not been ambulating because of a tremor. Pt developed a cough and SOB yesterday; x ray shows LLL infiltrate. No documented fever. Elevated d-dimer. Unable to insert large bore IV for CTA of chest. Perfusion scan done without ventilation. Unable to assess for P.E. Pt. is alert and oriented. No labored respirations. Hematoma right lateral occiput. Tender. No abrasion or ecchymosis. Tender over right scapula and suba cromial region. ROM of left is same as right shoulder. Breath sounds are with a few inspiratory wheezes in bases, rales left base. Because pt. developed pneumonia and is hospitalized, will check Covid test. She is otherwise low risk. No high risk contacts. No Covid cases in [facility] or with providers. Will start Covid precautions until results of test return.
[2020-02-27] MEDS: TRAZODONE HCL 50 MG TABLET 300 MG PO (20:56)
[2020-02-27] MEDS: MIRABEGRON 25 MG ER TABLET PO (20:56)
--- NOTE | 2020-02-27 23:41 | PM.EVENT ---
Event Note Event Note Event Note: Powerport access obtained but failed when IV contrast injection attempted for CTA r/o P.E. Check ventilation and perfusion scan for evidence of PE. Await report prior to swing bed orders.
[2020-02-28] VITALS: BP 119/56; PULSE 87; RESP 18; TEMP 36.8; O2SAT 98
[2020-02-28] MEDS: TOBRAMYCIN 0.3% OPHTH SOLN 5 ML 1 DROP EACH EYE ×6 (00:58→21:07)
[2020-02-28] MEDS: PANTOPRAZOLE 40 MG TABLET PO (05:52)
[2020-02-28] MEDS: AMOXICILLIN/CLAVULANATE K 500-125 MG TAB 0.5 TABLET PO ×3 (05:53→21:04)
[2020-02-28 07:55] VITALS: BP 101/50; PULSE 80; RESP 18; TEMP 37.4; O2SAT 95
--- NOTE | 2020-02-28 08:14 | PC.NURSE ---
Patient instructed not to get up on her own. Call for assistance with any transfers or ambulation. Verbalizes understanding.
[2020-02-28] MEDS: ONDANSETRON INJ 4 MG/2 ML VIAL IV PUSH (08:53)
[2020-02-28] MEDS: ENOXAPARIN 40 MG/0.4 ML SYRINGE SUB-Q (08:53)
[2020-02-28] MEDS: BUDESONIDE/FORMOTEROL (*SP) 160-4.5 MCG 6 GM INH 2 PUFF INHALATION ×2 (08:58→21:06)
[2020-02-28] MEDS: NAPHAZOLINE/PHENIRAM OP SOLN 15 ML BTL 1 DROP EACH EYE ×4 (08:59→21:06)
[2020-02-28] MEDS: SACCHAROMYCES BOULARDII 250 MG CAPSULE PO ×2 (09:01→17:08)
[2020-02-28] MEDS: FLUOXETINE HCL 10 MG CAPSULE 60 MG PO (09:02)
[2020-02-28] MEDS: BENZONATATE 100 MG CAPSULE 200 MG PO ×3 (09:02→17:07)
[2020-02-28] MEDS: ASPIRIN 81 MG ENTERIC TABLET PO (09:04)
[2020-02-28] MEDS: PREGABALIN 50 MG CAPSULE 150 MG PO (09:05)
[2020-02-28] MEDS: FAMOTIDINE 20 MG TABLET PO ×2 (09:05→21:05)
[2020-02-28] MEDS: hydroCHLOROthiazide 12.5 MG CAPSULE PO (09:05)
[2020-02-28] MEDS: ATORVASTATIN 10 MG TABLET PO (09:05)
--- NOTE | 2020-02-28 09:18 | PC.NURSE ---
Patient requested zofran for nausea. PRN zofran given. Patient insisted on taking PO medications at this time. Patient refused lidocaine patches, carafet.
[2020-02-28 09:55] LABS: Basophils Absolute Auto 0.01 K/mm3 (0.00-0.10); Basophils Percent Auto 0.1 % (0.0-1.0); Eosinophils Absolute Auto 0.16 K/mm3 (0.02-0.50); Hematocrit 30.1 % (35.0-42.0); Hemoglobin 9.3 g/dL (11.7-13.8); Immature Granulocyte Absolute 0.08 K/mm3 (0.00-0.00); Immature Granulocyte Percent A 0.5 % (0.0-0.0); Lymphocytes Percent Auto 9.7 % (18.0-42.0); Mean Corpuscular HGB Conc 30.9 g/dL (32.0-36.0); Mean Corpuscular Hemoglobin 28.3 pg (27.0-31.0); Mean Corpuscular Volume 91.5 fL (78.0-102.0); Mean Platelet Volume 9.9 fl (9.2-11.8); Monocytes Absolute Auto 1.18 K/mm3 (0.10-0.90); Monocytes Percent Auto 7.1 % (2.0-11.0); Neutrophils Absolute Auto 13.5 K/mm3 (1.7-7.2); Neutrophils Percent Auto 81.6 % (50.0-70.0); Platelet Count Result 280 K/mm3 (150-420); Red Blood Count 3.29 M/mm3 (4.20-5.40); Red Cell Distribution Width 14.8 % (11.6-14.4); White Blood Count 16.6 K/mm3 (4.8-10.8)
[2020-02-28 10:15] LABS: Alanine Aminotransferase 16 U/L (14-59); Albumin Level 2.5 g/dL (3.4-5.0); Alkaline Phosphatase 76 U/L (46-116); Anion Gap 11.4 mmol/L (7-16); Aspartate Amino Transferase 16 U/L (15-37); Bilirubin,Total 0.3 mg/dL (0.00-1.00); Blood Urea Nitrogen 7 mg/dL (7-18); Calcium 8.2 mg/dL (8.5-10.1); Carbon Dioxide 27 mmol/L (21-32); Chloride 105 mmol/L (98-108); Estimated CRCL calculation 61 ml/min; Estimated Glomerular Filt Rate > 60; Glucose 121 mg/dL (70-99); Magnesium 1.7 mg/dL (1.8-2.4); Osmolality Calculated 289 mOsm/kg (285-295); Potassium 3.4 mmol/L (3.5-5.1); Sodium 140 mmol/L (136-145)
[2020-02-28] MEDS: AZITHROMYCIN 250 MG TABLET PO (10:21)
--- NOTE | 2020-02-28 10:24 | PC.NURSE ---
Patient ambulated from chair to bed without assistance. Instructed patient to call for assistance.
--- NOTE | 2020-02-28 10:51 | P.PNIM_ITS ---
Progress Note: A&P Assessment and Plan (1) Chronic neck pain: Code(s): M54.2 - Cervicalgia; G89.29 - Other chronic pain Status: Acute Assessment and Plan: CHRONIC. * She also has chronic pain in her neck after a fusion a couple years ago with some pain radiates to her left arm. * Suspect acute on chronic pain * Cervical xray on 02/18/20 shows intact cervical thoracic fusion hardware with overall moderate cervical arthoropathy. The hardware is intact, there is mild to moderate disc disease at C6-7, the spacing is WNL, and the vertebral bodies are aligned in AP dimension. * Clari sees a spray painter on a routine basis for her pain control due to her chronic pain in her neck, cervical spine, and lower back. She sees Dr. Jazmine Toribio at the [facility] office . Her last office visit was on February 01. She has also received from that office over the past 5-6 months prescriptions for Lyrica 150 mg BID in September 2019 and Baclofen 10mg TID PRN for additional pain control. patient's Lyrica was decreased to 150 mg daily due to tremors * I have notified Dr Toribio office at [phone] to notify them that Clari is reporting tremors with the use of her lyrica. Lyrica decreased to 150 mg daily instead of b.i.d. * she will need to follow-up with pain management on discharge (2) Acute dehydration: Code(s): E86.0 - Dehydration Status: Acute Assessment and Plan: * * resolved * history of dehydration and multiple or re-current UTIs. * due to her N/V she has been unable to successfully treat herself with oral antibiotics at home. She has now become dehydrated and will need hospitalization for IV antibiotics as well as IVFs for re-hydration. * Chronic Nausea and Vomiting * no current N/V at the time of my examination * ordered Pepcid Q12, * continued home protonix, * PRN Zofran ordered * ordered Carafate before meals (complaining of burning pain with meals/swallowing due to history of vomiting) - Patient refusing to take. * per PCP Dr. Raya, In the process of GI workup, will resume after COVID19. * Continue to monitor her for complete resolution of Nausea and Vomiting, * patient able to tolerate all med * continue PT and OT . will eventually transition to swing bed (3) Enterococcus UTI: Code(s): N39.0 - Urinary tract infection, site not specified; B95.2 - Enterococcus as the cause of diseases classified elsewhere Status: Acute Assessment and Plan: admitted to treat re-current and symptomatic Enterococcus faecalis UTI * She has a history of dehydration and multiple or re-current UTIs. * On 12/05/19 and 02/18/20, Clari's Urine cultures grew: Enterococcus faecalis. * She has been following up with PCP Dr. Raya who tried to treat her UTI with oral macrobid, but due to her N/V she has been unable to successfully treat herself with oral antibiotics at home. * Stable CMP, CBC at admission, will repeat labs on possible discharge day. * start p.o. antibiotics Augmentin and azithromycin patient is tolerating without nausea vomiting (4) Vomiting: Qualifiers: Nausea presence: with nausea Vomiting Intractability: intractable Vomiting type: unspecified Qualified Code(s): R11.2 - Nausea with vomiting, unspecified Code(s): R11.10 - Vomiting, unspecified Status: Acute Assessment and Plan: * has resolved * patient is being followed by Dr. Weldon GI * patient has a history of gastritis * patient nausea has resolved, possibly secondary to antibiotic treatment * ultrasound o
--- NOTE | 2020-02-28 10:51 | PM.IMPN ---
Progress Note: A&P Assessment and Plan (1) Chronic neck pain: Code(s): M54.2 - Cervicalgia; G89.29 - Other chronic pain Status: Acute Assessment and Plan: CHRONIC. She also has chronic pain in her neck after a fusion a couple years ago with some pain radiates to her left arm. Suspect acute on chronic pain Cervical xray on 02/18/20 shows intact cervical thoracic fusion hardware with overall moderate cervical arthoropathy. The hardware is intact, there is mild to moderate disc disease at C6-7, the spacing is WNL, and the vertebral bodies are aligned in AP dimension. Clari sees a painting technician on a routine basis for her pain control due to her chronic pain in her neck, cervical spine, and lower back. She sees Dr. Jazmine Toribio at the [facility] office . Her last office visit was on February 01. She has also received from that office over the past 5-6 months prescriptions for Lyrica 150 mg BID in September 2019 and Baclofen 10mg TID PRN for additional pain control. patient's Lyrica was decreased to 150 mg daily due to tremors I have notified Dr Toribio office at [phone] to notify them that Clari is reporting tremors with the use of her lyrica. Lyrica decreased to 150 mg daily instead of b.i.d. she will need to follow-up with pain management on discharge (2) Acute dehydration: Code(s): E86.0 - Dehydration Status: Acute Assessment and Plan: resolved history of dehydration and multiple or re-current UTIs. due to her N/V she has been unable to successfully treat herself with oral antibiotics at home. She has now become dehydrated and will need hospitalization for IV antibiotics as well as IVFs for re-hydration. Chronic Nausea and Vomiting no current N/V at the time of my examination ordered Pepcid Q12, continued home protonix, PRN Zofran ordered ordered Carafate before meals (complaining of burning pain with meals/swallowing due to history of vomiting) - Patient refusing to take. per PCP Dr. Raya, In the process of GI workup, will resume after COVID19. Continue to monitor her for complete resolution of Nausea and Vomiting, patient able to tolerate all med continue PT and OT . will eventually transition to swing bed (3) Enterococcus UTI: Code(s): N39.0 - Urinary tract infection, site not specified; B95.2 - Enterococcus as the cause of diseases classified elsewhere Status: Acute Assessment and Plan: admitted to treat re-current and symptomatic Enterococcus faecalis UTI She has a history of dehydration and multiple or re-current UTIs. On 12/05/19 and 02/18/20, Clari's Urine cultures grew: Enterococcus faecalis. She has been following up with PCP Dr. Raya who tried to treat her UTI with oral macrobid, but due to her N/V she has been unable to successfully treat herself with oral antibiotics at home. Stable CMP, CBC at admission, will repeat labs on possible discharge day. start p.o. antibiotics Augmentin and azithromycin patient is tolerating without nausea vomiting (4) Vomiting: Qualifiers: Nausea presence: with nausea Vomiting Intractability: intractable Vomiting type: unspecified Qualified Code(s): R11.2 - Nausea with vomiting, unspecified Code(s): R11.10 - Vomiting, unspecified Status: Acute Assessment and Plan: has resolved patient is being followed by Dr. Weldon GI patient has a history of gastritis patient nausea has resolved, possibly secondary to antibiotic treatment ultrasound of the gallbladder and kidneys are Indicates fatty liver (5) Pneumonia: Code(s): J18.9 - Pneumonia, unspecified organism Status: Acute Assessment and Plan: continue azithromycin p.o. patient chest x-ray indicated possible pneumonia white count slightly elevated if white count is elevated will start patient on IV antibiotics. COVID-19 pen
[2020-02-28] MEDS: POTASSIUM CHLORIDE 20 MEQ TABLET 40 MEQ PO (12:35)
[2020-02-28] MEDS: MAGNESIUM OXIDE 400 MG TABLET PO (12:35)
--- NOTE | 2020-02-28 13:00 | PC.NURSE ---
Patient resting in recliner, watching TV. NO s/s SOB noted or stated. Instructed patient to call for assistance with ambulation
--- NOTE | 2020-02-28 14:13 | PC.NURSE ---
Patient resting in recliner, watching TV. call light in reach.
[2020-02-28 16:00] VITALS: BP 102/58; PULSE 78; RESP 20; TEMP 36.6; O2SAT 97
[2020-02-28 20:00] VITALS: O2SAT 91
--- NOTE | 2020-02-28 20:24 | PM.EVENT ---
Event Note Event Note Event Note: Patient fell last night injuring her right hip. PT evaluation suggest that she is too weak to perform self cares at home. Very elbow reports on intake were as she takes as little as 25% meal but is eating snacks like chips in between meals and drinking Pepsi. Denies complaints other than the above-mentioned right hip pain. She has not been on oxygen until yesterday. Alert and oriented. Mild acute distress. Bilateral justice expiratory wheezing on expiration. Minimal increased work of breathing. Regular rate and rhythm without murmur rub or gallop. Extremities are warm dry and pink. She has mild tenderness over the right lateral greater trochanter and the right iliac crest. Currently being treated for UTI and suspected community-acquired pneumonia. White count is increased today. If her white count stabilizes and her COVID-19 test proves negative (as Physical therapy will not treat PUI or COVID positive patients), will admit her to a swing bed and began physical therapy. I have examined the patient and reviewed the chart. I discussed patient's care with Glenda Moffett APN and agree with her assessment and plan.
[2020-02-28] MEDS: TRAZODONE HCL 50 MG TABLET 300 MG PO (21:04)
[2020-02-28] MEDS: MIRABEGRON 25 MG ER TABLET PO (21:04)
[2020-02-29] VITALS: BP 115/52; PULSE 79; RESP 18; TEMP 36.6; O2SAT 97
[2020-02-29] MEDS: TOBRAMYCIN 0.3% OPHTH SOLN 5 ML 1 DROP EACH EYE ×4 (01:30→21:09)
[2020-02-29] MEDS: AMOXICILLIN/CLAVULANATE K 500-125 MG TAB 0.5 TABLET PO ×3 (05:43→21:09)
[2020-02-29] MEDS: PANTOPRAZOLE 40 MG TABLET PO (05:43)
[2020-02-29 06:31] LABS: Basophils Absolute Auto 0.02 K/mm3 (0.00-0.10); Basophils Percent Auto 0.2 % (0.0-1.0); Eosinophils Percent Auto 1.9 % (1.0-6.0); Hematocrit 29.6 % (35.0-42.0); Hemoglobin 9.2 g/dL (11.7-13.8); Immature Granulocyte Absolute 0.05 K/mm3 (0.00-0.00); Immature Granulocyte Percent A 0.5 % (0.0-0.0); Lymphocytes Absolute Auto 1.81 K/mm3 (1.10-4.50); Lymphocytes Percent Auto 16.8 % (18.0-42.0); Mean Corpuscular HGB Conc 31.1 g/dL (32.0-36.0); Mean Corpuscular Hemoglobin 28.6 pg (27.0-31.0); Mean Corpuscular Volume 91.9 fL (78.0-102.0); Mean Platelet Volume 9.7 fl (9.2-11.8); Monocytes Absolute Auto 0.98 K/mm3 (0.10-0.90); Monocytes Percent Auto 9.1 % (2.0-11.0); Neutrophils Absolute Auto 7.7 K/mm3 (1.7-7.2); Neutrophils Percent Auto 71.5 % (50.0-70.0); Platelet Count Result 279 K/mm3 (150-420); Red Blood Count 3.22 M/mm3 (4.20-5.40); White Blood Count 10.8 K/mm3 (4.8-10.8)
[2020-02-29 06:43] LABS: Alanine Aminotransferase 15 U/L (14-59); Albumin Level 2.3 g/dL (3.4-5.0); Alkaline Phosphatase 74 U/L (46-116); Anion Gap 9.8 mmol/L (7-16); Aspartate Amino Transferase 14 U/L (15-37); Bilirubin,Total 0.2 mg/dL (0.00-1.00); Blood Urea Nitrogen 8 mg/dL (7-18); Carbon Dioxide 29 mmol/L (21-32); Chloride 107 mmol/L (98-108); Estimated CRCL calculation 68 ml/min; Estimated Glomerular Filt Rate > 60; Glucose 95 mg/dL (70-99); Magnesium 1.8 mg/dL (1.8-2.4); Osmolality Calculated 292 mOsm/kg (285-295); Potassium 3.8 mmol/L (3.5-5.1); Sodium 142 mmol/L (136-145); Total Protein 5.6 g/dL (6.4-8.2)
[2020-02-29 06:44] LABS: CRP 15.3 mg/dL (0.0-0.9)
[2020-02-29 07:09] LABS: Lactic Acid 1.3 mmol/L (0.4-2.0)
[2020-02-29 07:20] VITALS: BP 107/38; PULSE 74; RESP 18; TEMP 36.7; O2SAT 96
[2020-02-29] MEDS: ONDANSETRON INJ 4 MG/2 ML VIAL IV PUSH (08:11)
[2020-02-29] MEDS: FLUOXETINE HCL 10 MG CAPSULE 60 MG PO (09:19)
[2020-02-29] MEDS: ASPIRIN 81 MG ENTERIC TABLET PO (09:19)
[2020-02-29] MEDS: BENZONATATE 100 MG CAPSULE 200 MG PO ×3 (09:19→18:22)
[2020-02-29] MEDS: lisinopriL 20 MG TABLET PO (09:20)
[2020-02-29] MEDS: ATORVASTATIN 10 MG TABLET PO (09:20)
[2020-02-29] MEDS: PREGABALIN 50 MG CAPSULE 150 MG PO (09:20)
[2020-02-29] MEDS: MAGNESIUM OXIDE 400 MG TABLET PO (09:20)
[2020-02-29] MEDS: hydroCHLOROthiazide 12.5 MG CAPSULE PO (09:20)
[2020-02-29] MEDS: ENOXAPARIN 40 MG/0.4 ML SYRINGE SUB-Q (09:21)
[2020-02-29] MEDS: AZITHROMYCIN 250 MG TABLET PO (09:21)
[2020-02-29] MEDS: BUDESONIDE/FORMOTEROL (*SP) 160-4.5 MCG 6 GM INH 2 PUFF INHALATION ×2 (09:21→21:08)
[2020-02-29] MEDS: FAMOTIDINE 20 MG TABLET PO ×2 (09:21→21:08)
[2020-02-29] MEDS: NAPHAZOLINE/PHENIRAM OP SOLN 15 ML BTL 1 DROP EACH EYE ×2 (09:22→21:09)
[2020-02-29] MEDS: SACCHAROMYCES BOULARDII 250 MG CAPSULE PO ×2 (09:22→18:23)
--- NOTE | 2020-02-29 10:30 | PC.NURSE ---
Patient resting in bed,hob elevated. States she is going to try and take a nap. Denies any nausea at this time. Call light within reach. FREDA Castellanos in room to see patient.
--- NOTE | 2020-02-29 11:14 | P.PNIM_ITS ---
Progress Note: A&P Assessment and Plan (1) Chronic neck pain: Code(s): M54.2 - Cervicalgia; G89.29 - Other chronic pain Status: Acute Assessment and Plan: CHRONIC. * She also has chronic pain in her neck after a fusion a couple years ago with some pain radiates to her left arm. * Suspect acute on chronic pain * Cervical xray on 02/18/20 shows intact cervical thoracic fusion hardware with overall moderate cervical arthoropathy. The hardware is intact, there is mild to moderate disc disease at C6-7, the spacing is WNL, and the vertebral bodies are aligned in AP dimension. * Clari sees a automotive painter on a routine basis for her pain control due to her chronic pain in her neck, cervical spine, and lower back. She sees Dr. Jazmine Toribio at the [facility] office . Her last office visit was on February 01. She has also received from that office over the past 5-6 months prescriptions for Lyrica 150 mg BID in September 2019 and Baclofen 10mg TID PRN for additional pain control. patient's Lyrica was decreased to 150 mg daily due to tremors * I have notified Dr Toribio office at [phone] to notify them that Clari is reporting tremors with the use of her lyrica. Lyrica decreased to 150 mg daily instead of b.i.d. * she will need to follow-up with pain management on discharge (2) Acute dehydration: Code(s): E86.0 - Dehydration Status: Acute Assessment and Plan: * * resolved * history of dehydration and multiple or re-current UTIs. * due to her N/V she has been unable to successfully treat herself with oral antibiotics at home. She has now become dehydrated and will need hospitalization for IV antibiotics as well as IVFs for re-hydration. * Chronic Nausea and Vomiting * no current N/V at the time of my examination * ordered Pepcid Q12, * continued home protonix, * PRN Zofran ordered * ordered Carafate before meals (complaining of burning pain with meals/swallowing due to history of vomiting) - Patient refusing to take. * per PCP Dr. Raya, In the process of GI workup, will resume after COVID19. * Continue to monitor her for complete resolution of Nausea and Vomiting, * patient able to tolerate all med * continue PT and OT . will eventually transition to swing bed (3) Enterococcus UTI: Code(s): N39.0 - Urinary tract infection, site not specified; B95.2 - Enterococcus as the cause of diseases classified elsewhere Status: Acute Assessment and Plan: admitted to treat re-current and symptomatic Enterococcus faecalis UTI * She has a history of dehydration and multiple or re-current UTIs. * On 12/05/19 and 02/18/20, Clari's Urine cultures grew: Enterococcus faecalis. * She has been following up with PCP Dr. Raya who tried to treat her UTI with oral macrobid, but due to her N/V she has been unable to successfully treat herself with oral antibiotics at home. * Stable CMP, CBC at admission, will repeat labs on possible discharge day. * cont p.o. antibiotics Augmentin and azithromycin patient is tolerating without nausea vomiting (4) Vomiting: Qualifiers: Nausea presence: with nausea Vomiting Intractability: intractable Vomiting type: unspecified Qualified Code(s): R11.2 - Nausea with vomiting, unspecified Code(s): R11.10 - Vomiting, unspecified Status: Acute Assessment and Plan: * has resolved * patient is being followed by Dr. Weldon GI * patient has a history of gastritis * patient nausea has resolved, possibly secondary to antibiotic treatment * ultrasound of
--- NOTE | 2020-02-29 11:14 | PM.IMPN ---
Progress Note: A&P Assessment and Plan (1) Chronic neck pain: Code(s): M54.2 - Cervicalgia; G89.29 - Other chronic pain Status: Acute Assessment and Plan: CHRONIC. She also has chronic pain in her neck after a fusion a couple years ago with some pain radiates to her left arm. Suspect acute on chronic pain Cervical xray on 02/18/20 shows intact cervical thoracic fusion hardware with overall moderate cervical arthoropathy. The hardware is intact, there is mild to moderate disc disease at C6-7, the spacing is WNL, and the vertebral bodies are aligned in AP dimension. Clari sees a stage setting painter apprentice on a routine basis for her pain control due to her chronic pain in her neck, cervical spine, and lower back. She sees Dr. Jazmine Toribio at the [facility] office . Her last office visit was on February 01. She has also received from that office over the past 5-6 months prescriptions for Lyrica 150 mg BID in September 2019 and Baclofen 10mg TID PRN for additional pain control. patient's Lyrica was decreased to 150 mg daily due to tremors I have notified Dr Toribio office at [phone] to notify them that Clari is reporting tremors with the use of her lyrica. Lyrica decreased to 150 mg daily instead of b.i.d. she will need to follow-up with pain management on discharge (2) Acute dehydration: Code(s): E86.0 - Dehydration Status: Acute Assessment and Plan: resolved history of dehydration and multiple or re-current UTIs. due to her N/V she has been unable to successfully treat herself with oral antibiotics at home. She has now become dehydrated and will need hospitalization for IV antibiotics as well as IVFs for re-hydration. Chronic Nausea and Vomiting no current N/V at the time of my examination ordered Pepcid Q12, continued home protonix, PRN Zofran ordered ordered Carafate before meals (complaining of burning pain with meals/swallowing due to history of vomiting) - Patient refusing to take. per PCP Dr. Raya, In the process of GI workup, will resume after COVID19. Continue to monitor her for complete resolution of Nausea and Vomiting, patient able to tolerate all med continue PT and OT . will eventually transition to swing bed (3) Enterococcus UTI: Code(s): N39.0 - Urinary tract infection, site not specified; B95.2 - Enterococcus as the cause of diseases classified elsewhere Status: Acute Assessment and Plan: admitted to treat re-current and symptomatic Enterococcus faecalis UTI She has a history of dehydration and multiple or re-current UTIs. On 12/05/19 and 02/18/20, Clari's Urine cultures grew: Enterococcus faecalis. She has been following up with PCP Dr. Raya who tried to treat her UTI with oral macrobid, but due to her N/V she has been unable to successfully treat herself with oral antibiotics at home. Stable CMP, CBC at admission, will repeat labs on possible discharge day. cont p.o. antibiotics Augmentin and azithromycin patient is tolerating without nausea vomiting (4) Vomiting: Qualifiers: Nausea presence: with nausea Vomiting Intractability: intractable Vomiting type: unspecified Qualified Code(s): R11.2 - Nausea with vomiting, unspecified Code(s): R11.10 - Vomiting, unspecified Status: Acute Assessment and Plan: has resolved patient is being followed by Dr. Weldon GI patient has a history of gastritis patient nausea has resolved, possibly secondary to antibiotic treatment ultrasound of the gallbladder and kidneys are Indicates fatty liver (5) Pneumonia: Code(s): J18.9 - Pneumonia, unspecified organism Status: Acute Assessment and Plan: continue azithromycin p.o. patient chest x-ray indicated possible pneumonia white count slightly elevated if white count is elevated will start patient on IV antibiotics. COVID-19 pend
--- NOTE | 2020-02-29 11:45 | PC.NURSE ---
Patient refused to take carafate. Resting in bed. Denies any needs. Reports nausea is much better than this morning.
--- NOTE | 2020-02-29 14:30 | PC.NURSE ---
patient resting quietly in bed. Shows no signs of distress. Breathing unlabored.Call light at side.
[2020-02-29 15:45] VITALS: BP 115/60; PULSE 80; RESP 18; TEMP 36.8; O2SAT 97
[2020-02-29] MEDS: MIRABEGRON 25 MG ER TABLET PO (21:08)
[2020-02-29] MEDS: TRAZODONE HCL 50 MG TABLET 300 MG PO (21:09)
[2020-02-29 21:31] VITALS: BP 144/60; PULSE 74; RESP 18; TEMP 36.7; O2SAT 94
--- NOTE | 2020-02-29 23:17 | PC.NURSE ---
Pt sleeping, respirations even and regular, no evidence of distress noted
--- NOTE | 2020-03-01 01:15 | PC.NURSE ---
Pt sleeping, respirations even and regular, no evidence of distress noted
--- NOTE | 2020-03-01 02:20 | PC.NURSE ---
Pt sleeping, respirations even and regular, no evidence of distress noted, call light and belongings within reach
--- NOTE | 2020-03-01 03:50 | PC.NURSE ---
pt reports waking up feeling nausea, medication given, no other complaints or needs at this time
[2020-03-01] MEDS: ONDANSETRON INJ 4 MG/2 ML VIAL IV PUSH ×2 (03:55→09:38)
[2020-03-01] MEDS: AMOXICILLIN/CLAVULANATE K 500-125 MG TAB 0.5 TABLET PO (05:35)
[2020-03-01] MEDS: TOBRAMYCIN 0.3% OPHTH SOLN 5 ML 1 DROP EACH EYE (05:35)
[2020-03-01] MEDS: PANTOPRAZOLE 40 MG TABLET PO (05:35)
[2020-03-01 05:41] LABS: Hematocrit 30.8 % (35.0-42.0); Hemoglobin 9.4 g/dL (11.7-13.8); Mean Corpuscular HGB Conc 30.5 g/dL (32.0-36.0); Mean Corpuscular Hemoglobin 27.9 pg (27.0-31.0); Mean Corpuscular Volume 91.4 fL (78.0-102.0); Platelet Count Result 323 K/mm3 (150-420); Red Blood Count 3.37 M/mm3 (4.20-5.40); Red Cell Distribution Width 14.8 % (11.6-14.4); White Blood Count 10.9 K/mm3 (4.8-10.8)
[2020-03-01 06:29] LABS: Alanine Aminotransferase 12 U/L (14-59); Albumin Level 2.4 g/dL (3.4-5.0); Alkaline Phosphatase 80 U/L (46-116); Anion Gap 11.9 mmol/L (7-16); Aspartate Amino Transferase 14 U/L (15-37); Bilirubin,Total 0.3 mg/dL (0.00-1.00); Blood Urea Nitrogen 8 mg/dL (7-18); Calcium 8.4 mg/dL (8.5-10.1); Carbon Dioxide 28 mmol/L (21-32); Chloride 105 mmol/L (98-108); Estimated CRCL calculation 71 ml/min; Estimated Glomerular Filt Rate > 60; Glucose 102 mg/dL (70-99); Osmolality Calculated 290 mOsm/kg (285-295); Potassium 3.9 mmol/L (3.5-5.1); Sodium 141 mmol/L (136-145); Total Protein 6.1 g/dL (6.4-8.2)
[2020-03-01 07:45] VITALS: BP 133/37; PULSE 80; RESP 18; TEMP 36.7; O2SAT 94
[2020-03-01] MEDS: BUDESONIDE/FORMOTEROL (*SP) 160-4.5 MCG 6 GM INH 2 PUFF INHALATION (09:38)
[2020-03-01] MEDS: SACCHAROMYCES BOULARDII 250 MG CAPSULE PO (09:38)
[2020-03-01] MEDS: ENOXAPARIN 40 MG/0.4 ML SYRINGE SUB-Q (09:38)
[2020-03-01] MEDS: FLUOXETINE HCL 10 MG CAPSULE 60 MG PO (09:39)
[2020-03-01] MEDS: MAGNESIUM OXIDE 400 MG TABLET PO (09:39)
[2020-03-01] MEDS: AZITHROMYCIN 250 MG TABLET PO (09:39)
[2020-03-01] MEDS: PREGABALIN 50 MG CAPSULE 150 MG PO (09:39)
[2020-03-01] MEDS: hydroCHLOROthiazide 12.5 MG CAPSULE PO (09:39)
[2020-03-01] MEDS: lisinopriL 20 MG TABLET PO (09:40)
[2020-03-01] MEDS: FAMOTIDINE 20 MG TABLET PO (09:40)
[2020-03-01] MEDS: BENZONATATE 100 MG CAPSULE 200 MG PO (09:40)
[2020-03-01] MEDS: ATORVASTATIN 10 MG TABLET PO (09:40)
[2020-03-01] MEDS: ASPIRIN 81 MG ENTERIC TABLET PO (09:40)
--- NOTE | 2020-03-01 10:30 | PC.NURSE ---
Patient states that she is feeling much better. Denies any nausea at present. Resting in bed with hob elevated. Reports no needs at this time. Call light and belongings within reach.
--- NOTE | 2020-03-01 11:49 | P.DS_ITS ---
DS: Diagnosis Admitting Diagnosis Admitting Diagnosis: Cervicalgia Discharge Diagnosis (1) Chronic neck pain: Code(s): M54.2 - Cervicalgia; G89.29 - Other chronic pain Status: Acute Assessment and Plan: CHRONIC. * She also has chronic pain in her neck after a fusion a couple years ago with some pain radiates to her left arm. * Suspect acute on chronic pain * Cervical xray on 02/18/20 shows intact cervical thoracic fusion hardware with overall moderate cervical arthoropathy. The hardware is intact, there is mild to moderate disc disease at C6-7, the spacing is WNL, and the vertebral bodies are aligned in AP dimension. * Clari sees a automatic paint sprayer operator on a routine basis for her pain control due to her chronic pain in her neck, cervical spine, and lower back. She sees Dr. Jazmine Toribio at the [facility] office . Her last office visit was on February 01. She has also received from that office over the past 5-6 months prescriptions for Lyrica 150 mg BID in September 2019 and Baclofen 10mg TID PRN for additional pain control. patient's Lyrica was decreased to 150 mg daily due to tremors * I have notified Dr Toribio office at [phone] to notify them that Clari is reporting tremors with the use of her lyrica. Lyrica decreased to 150 mg daily instead of b.i.d. * she will need to follow-up with pain management on discharge (2) Acute dehydration: Code(s): E86.0 - Dehydration Status: Acute Assessment and Plan: * * resolved * history of dehydration and multiple or re-current UTIs. * due to her N/V she has been unable to successfully treat herself with oral antibiotics at home. She has now become dehydrated and will need hospitalization for IV antibiotics as well as IVFs for re-hydration. * Chronic Nausea and Vomiting * no current N/V at the time of my examination * ordered Pepcid Q12, * continued home protonix, * PRN Zofran ordered * ordered Carafate before meals (complaining of burning pain with meals/swallowing due to history of vomiting) - Patient refusing to take. * per PCP Dr. Raya, In the process of GI workup, will resume after COVID19. * Continue to monitor her for complete resolution of Nausea and Vomiting, * patient able to tolerate all med * continue PT and OT . will eventually transition to swing bed (3) Enterococcus UTI: Code(s): N39.0 - Urinary tract infection, site not specified; B95.2 - Enterococcus as the cause of diseases classified elsewhere Status: Acute Assessment and Plan: admitted to treat re-current and symptomatic Enterococcus faecalis UTI * She has a history of dehydration and multiple or re-current UTIs. * On 12/05/19 and 02/18/20, Clari's Urine cultures grew: Enterococcus faecalis. * She has been following up with PCP Dr. Raya who tried to treat her UTI with oral macrobid, but due to her N/V she has been unable to successfully treat herself with oral antibiotics at home. * Stable CMP, CBC at admission, will repeat labs on possible discharge day. * cont p.o. antibiotics Augmentin and azithromycin patient is tolerating without nausea vomiting (4) Vomiting: Qualifiers: Nausea presence: with nausea Vomiting Intractability: intractable Vomiting type: unspecified Qualified Code(s): R11.2 - Nausea with vomiting, unspecified Code(s): R11.10 - Vomiting, unspecified Status: Acute Assessment and Plan: * has resolved * patient is being followed by Dr. Weldon GI * patient has a history of gastritis * patient nausea has resolved,
--- NOTE | 2020-03-01 11:49 | PM.DS ---
DS: Diagnosis Admitting Diagnosis Admitting Diagnosis: Cervicalgia Discharge Diagnosis (1) Chronic neck pain: Code(s): M54.2 - Cervicalgia; G89.29 - Other chronic pain Status: Acute Assessment and Plan: CHRONIC. She also has chronic pain in her neck after a fusion a couple years ago with some pain radiates to her left arm. Suspect acute on chronic pain Cervical xray on 02/18/20 shows intact cervical thoracic fusion hardware with overall moderate cervical arthoropathy. The hardware is intact, there is mild to moderate disc disease at C6-7, the spacing is WNL, and the vertebral bodies are aligned in AP dimension. Clari sees a buildings painter on a routine basis for her pain control due to her chronic pain in her neck, cervical spine, and lower back. She sees Dr. Jazmine Toribio at the [facility] office . Her last office visit was on February 01. She has also received from that office over the past 5-6 months prescriptions for Lyrica 150 mg BID in September 2019 and Baclofen 10mg TID PRN for additional pain control. patient's Lyrica was decreased to 150 mg daily due to tremors I have notified Dr Toribio office at [phone] to notify them that Clari is reporting tremors with the use of her lyrica. Lyrica decreased to 150 mg daily instead of b.i.d. she will need to follow-up with pain management on discharge (2) Acute dehydration: Code(s): E86.0 - Dehydration Status: Acute Assessment and Plan: resolved history of dehydration and multiple or re-current UTIs. due to her N/V she has been unable to successfully treat herself with oral antibiotics at home. She has now become dehydrated and will need hospitalization for IV antibiotics as well as IVFs for re-hydration. Chronic Nausea and Vomiting no current N/V at the time of my examination ordered Pepcid Q12, continued home protonix, PRN Zofran ordered ordered Carafate before meals (complaining of burning pain with meals/swallowing due to history of vomiting) - Patient refusing to take. per PCP Dr. Raya, In the process of GI workup, will resume after COVID19. Continue to monitor her for complete resolution of Nausea and Vomiting, patient able to tolerate all med continue PT and OT . will eventually transition to swing bed (3) Enterococcus UTI: Code(s): N39.0 - Urinary tract infection, site not specified; B95.2 - Enterococcus as the cause of diseases classified elsewhere Status: Acute Assessment and Plan: admitted to treat re-current and symptomatic Enterococcus faecalis UTI She has a history of dehydration and multiple or re-current UTIs. On 12/05/19 and 02/18/20, Clari's Urine cultures grew: Enterococcus faecalis. She has been following up with PCP Dr. Raya who tried to treat her UTI with oral macrobid, but due to her N/V she has been unable to successfully treat herself with oral antibiotics at home. Stable CMP, CBC at admission, will repeat labs on possible discharge day. cont p.o. antibiotics Augmentin and azithromycin patient is tolerating without nausea vomiting (4) Vomiting: Qualifiers: Nausea presence: with nausea Vomiting Intractability: intractable Vomiting type: unspecified Qualified Code(s): R11.2 - Nausea with vomiting, unspecified Code(s): R11.10 - Vomiting, unspecified Status: Acute Assessment and Plan: has resolved patient is being followed by Dr. Weldon GI patient has a history of gastritis patient nausea has resolved, possibly secondary to antibiotic treatment ultrasound of the gallbladder and kidneys are Indicates fatty liver (5) Pneumonia: Code(s): J18.9 - Pneumonia, unspecified organism Status: Acute Assessment and Plan: continue azithromycin p.o. patient chest x-ray indicated possible pneumonia white count slightly elevated if white count is elevated wi
== END 2020-03-01 11:49 | disposition swing bed (61) | DRG 689 ==
PROVIDERS: Nurse Practitioner; Admitting Provider Emergency Medicine; PCP Family Medicine; Visit Provider Emergency Medicine
DX: N39.0 Urinary tract infection, site not specified (principal); J18.9 Pneumonia, unspecified organism; E86.0 Dehydration; Z20.828 Contact with and (suspected) exposure to other viral communicable diseases; M54.2 Cervicalgia; G89.28 Other chronic postprocedural pain; R11.2 Nausea with vomiting, unspecified; J44.9 Chronic obstructive pulmonary disease, unspecified; E78.5 Hyperlipidemia, unspecified; J84.10 Pulmonary fibrosis, unspecified; R91.8 Other nonspecific abnormal finding of lung field; R25.1 Tremor, unspecified; M47.816 Spondylosis without myelopathy or radiculopathy, lumbar region; S00.03XA Contusion of scalp, initial encounter; M25.511 Pain in right shoulder; M25.551 Pain in right hip; Y92.231 Patient bathroom in hospital as the place of occurrence of the external cause; W18.30XA Fall on same level, unspecified, initial encounter; F17.210 Nicotine dependence, cigarettes, uncomplicated
CPT/HCPCS: 36415; 70450; 71046; 73030; 73521; 78580; 80048; 80053; 80202; 81003; 83605; 83735; 83880; 84100; 85025; 85027; 85380; 86140; 87040; 87077; 87086; 87088; 87186; 93978; 96361; 96365; 96366; 96372; 96375; 96376; 97161; 97165; 97530; 97535; A9270; A9540; G0378; G0379; J1650; J2405; J3370; J7030; J7040; Q9965

== ENCOUNTER 2020-03-01 11:50 | Inpatient (IN) | payer MEDICARE, MEDICAID, SELFPAY ==
[2020-03-01 11:50] VITALS: BMI 27.7
--- NOTE | 2020-03-01 13:01 | PM.IMHP ---
H&P: HPI History of Present Illness Chief complaint: improvement Narrative: Clari Ledesma is a 69 year old female admitted to treat an acute and unresolving Enterococcus faecalis UTI and dehydration. She has a history of dehydration, neck/shoulder pain, and multiple or re-current UTIs. On 12/05/19 and 02/18/20, Clari's Urine cultures grew: Enterococcus faecalis. She has been following up with PCP Dr. Raya who tried to treat her UTI with oral macrobid, but due to her N/V she has been unable to successfully treat herself with oral antibiotics at home. She has now become dehydrated and will need hospitalization for IV antibiotics as well as IVFs for re-hydration. Per PCP Dr. Raya's note: She had urgency and now it hurts to urinate. She was given macrobid but she was unable to keep any of the pills down 2/2 her chronic nausea and vomiting. She now has dysuria, right flank pain, and is not able to tolerate PO.She also has concerns of depression. She has felt down and hopeless since losing her two children. She denies SI/HI but generally has a poor mood. It is not adequately relieved with Prozac.She also has chronic pain in her neck after a fusion a couple years ago with some pain radiates to her left arm. as inpatient her chest x-ray indicated pneumonia she is currently on azithromycin for that. she is also taking Augmentin for her UTI. patient is able to tolerate antibiotics at this time. she has been educated several times about the eating before taking her antibiotic. patient was to discharge on 02/27/2020 and fill before discharge. it was determined by physical therapy that she was not safe to return home alone patient is now going to a swing bed. Patient admitted in swing bed for rehabilitation due to decreased balance decreased mobility in severe limited function endurant and/or mobility. Review of Systems Constitutional: Constitutional: Reports no additional constitutional complaints and Reports weakness Cardiovascular: Cardiovascular: Reports no additional cardiovascular complaints and Reports dyspnea ( chronic COPD and current smoker, use home O2) Respiratory: Respiratory: Reports cough ( nonproductive), Reports dyspnea ( chronic) and Reports wheezing Gastrointestinal: Gastrointestinal: Reports nausea ( on occasion chronic) and Reports vomiting ( on occasion chronic) Genitourinary: Genitourinary: Reports no additional female genitourinary complaints, Denies hematuria and Denies nocturia Musculoskeletal: Musculoskeletal: Reports no additional musculoskeletal complaints, Denies muscle weakness and Denies numbness Integumentary/Breasts: Skin/Breast: Reports system reviewed and no additional complaints, except as docu Neurologic: Reports system reviewed and no additional complaints, except as documented, Denies confusion, Denies vertigo, Denies dizziness and Denies syncope Psychiatric: Psychiatric: Reports other ( depression due to the loss of 2 children) Endocrine: Endocrine: Reports no additional endocrine complaints Hematologic/Lymphatic: Hematologic/Lymphatic: Reports no additional hematologic/lymphatic complaints Allergic/Immunologic: Allergic/Immunologic: Reports no additional allergic/immunologic complaints [facility] Social History Social History Social History: quit 3 months ago Smoking packs per day: 0.25 Smoking cigarettes per day: 5.0 Years smoked: 30 Smoking pack-years: 7.50 Smoking status: Current every day smoker Tobacco type: cigarettes Second hand tobacco smoke exposure: No Alcohol intake: never Substance use: never Substance use type: does not use Additional living arrangements comments: Lives with sister Gender identity (if verbalized by the patient): Female Spiritual care concerns: No Agree to blood products: Yes Meds Home Medications and Allergies Home Medications Medication Instructions Recorded Confir
--- NOTE | 2020-03-01 14:24 | ADMGEN ---
This patient, Clari Ledesma, was admitted to 2nd Floor Room 205-1. Patient/family oriented to hospital policies and general routines including ID bracelet, bed and alarms, visiting hours, pain management, procedures, bathroom and other care routines, personal items, smoking policy, room service/diet, and visiting hours. Valuables list has been completed. Information on how to activate the Rapid Response Team has been discussed. Patient/Family are encouraged to report perceived risks to care and to ask questions if they do not understand what they are told or what they should do.
--- NOTE | 2020-03-01 14:30 | PC.NURSE ---
Patient sitting up in bed resting. Denies any needs. Patient has call light and belongings within reach.
[2020-03-01] MEDS: predniSONE 20 MG TABLET 60 MG PO (14:46)
[2020-03-01] MEDS: AMOXICILLIN/CLAVULANATE K 500-125 MG TAB 0.5 TABLET PO ×2 (14:46→21:13)
[2020-03-01 15:20] VITALS: BP 103/37; PULSE 74; RESP 18; TEMP 36.8; O2SAT 95
[2020-03-01] MEDS: SODIUM CHLORIDE 0.9% IV 500 ML IV CONT (15:37)
[2020-03-01] MEDS: BENZONATATE 100 MG CAPSULE 200 MG PO (16:52)
[2020-03-01] MEDS: SACCHAROMYCES BOULARDII 250 MG CAPSULE PO (16:52)
[2020-03-01] MEDS: SUCRALFATE 1 GM TABLET PO ×2 (16:52→21:12)
--- NOTE | 2020-03-01 18:39 | PC.NURSE ---
Patient sitting up in bed resting. Reports no need at this time Call light and belongings at side.
[2020-03-01] MEDS: BUDESONIDE/FORMOTEROL (*SP) 160-4.5 MCG 6 GM INH 2 PUFF INHALATION (21:11)
[2020-03-01] MEDS: MIRABEGRON 25 MG ER TABLET PO (21:11)
[2020-03-01] MEDS: TRAZODONE HCL 50 MG TABLET 300 MG PO (21:12)
[2020-03-01] MEDS: FAMOTIDINE 20 MG TABLET PO (21:12)
[2020-03-01 21:36] VITALS: BP 148/62; PULSE 65; RESP 18; TEMP 36.7; O2SAT 95
--- NOTE | 2020-03-01 23:10 | PM.EVENT ---
Event Note Event Note Event Note: Patient states that she still has a lot amount of nausea. She does however states that she has been able to eat some of her meal. Although not yet this morning. Alert and oriented. Mucous memranes moist. Regular rate rhythm without murmur or gallop. Late expiratory wheezing throughout with very mild increased work of breathing. No retractions or sensory muscle use. Abdomen is soft and tender in the right flank and right upper quadrant. White count is normalizing.Will make her swing status today in hopes that she will regain her strength and able to return to her usual activities. I have examined the patient reviewed the chart. I discussed the Patient's care with Glenda Moffett APN and agree with her assessment and plan.
--- NOTE | 2020-03-02 01:10 | PC.NURSE ---
pt sleeping, respirations even and regular, no evidence of distress noted at this time.
--- NOTE | 2020-03-02 03:41 | PC.NURSE ---
pt sleeping, respirations even and regular, no evidence of distress noted at this time.
[2020-03-02] MEDS: AMOXICILLIN/CLAVULANATE K 500-125 MG TAB 0.5 TABLET PO ×3 (05:34→21:23)
[2020-03-02] MEDS: SUCRALFATE 1 GM TABLET PO ×4 (05:34→21:22)
[2020-03-02 08:00] VITALS: BP 122/58; PULSE 81; RESP 18; TEMP 37.1; O2SAT 93
--- NOTE | 2020-03-02 08:15 | PC.NURSE ---
Patient instructed to call for assistance with transfers and ambulation. Patient ambulated from chair to restroom back to chair by self. Patient stated that no one had told her not to call for assistance. Border Patrol Agent had patient MondayFebruary 27. Instructed patient during 7-3 shift to not transfer or ambulate without assistance. Patient verbalized understanding.
[2020-03-02] MEDS: ENOXAPARIN 40 MG/0.4 ML SYRINGE SUB-Q (08:57)
[2020-03-02] MEDS: BENZONATATE 100 MG CAPSULE 200 MG PO ×3 (08:57→16:17)
[2020-03-02] MEDS: FAMOTIDINE 20 MG TABLET PO ×2 (08:57→21:15)
[2020-03-02] MEDS: PANTOPRAZOLE 40 MG TABLET PO (08:57)
[2020-03-02] MEDS: AZITHROMYCIN 250 MG TABLET PO (08:59)
[2020-03-02] MEDS: hydroCHLOROthiazide 12.5 MG CAPSULE PO (08:59)
[2020-03-02] MEDS: PREGABALIN 50 MG CAPSULE 150 MG PO (08:59)
[2020-03-02] MEDS: lisinopriL 20 MG TABLET PO (09:00)
[2020-03-02] MEDS: ATORVASTATIN 10 MG TABLET PO (09:00)
[2020-03-02] MEDS: predniSONE 20 MG TABLET 40 MG PO (09:00)
[2020-03-02] MEDS: ASPIRIN 81 MG ENTERIC TABLET PO (09:00)
[2020-03-02] MEDS: FLUOXETINE HCL 10 MG CAPSULE 60 MG PO (09:02)
[2020-03-02] MEDS: BUDESONIDE/FORMOTEROL (*SP) 160-4.5 MCG 6 GM INH 2 PUFF INHALATION ×2 (09:03→21:14)
[2020-03-02] MEDS: SACCHAROMYCES BOULARDII 250 MG CAPSULE PO ×2 (09:03→16:19)
[2020-03-02] MEDS: TOBRAMYCIN 0.3% OPHTH SOLN 5 ML 1 DROP EACH EYE ×3 (09:04→21:27)
[2020-03-02] MEDS: NAPHAZOLINE/PHENIRAM OP SOLN 15 ML BTL 1 DROP EACH EYE ×4 (09:04→21:27)
[2020-03-02 16:00] VITALS: BP 131/76; PULSE 77; RESP 20; TEMP 37.2; O2SAT 93
--- NOTE | 2020-03-02 16:34 | PC.NURSE ---
Patient removed hat from toilet. Unable to measure void. Instructed patient to call for assistance with ambulation and transfers. Patient refuses to call
--- NOTE | 2020-03-02 20:44 | PC.NURSE ---
Patient requested sandwich. Provided. Patient lying in bed watching TV. Relaxed wwitha rm behind head and legs crossed at ankle. Sat up without difficulty. UP indepndently No signs or symptoms of pain
[2020-03-02] MEDS: TRAZODONE HCL 50 MG TABLET 300 MG PO (21:22)
[2020-03-02] MEDS: MIRABEGRON 25 MG ER TABLET PO (21:23)
--- NOTE | 2020-03-02 22:26 | PC.NURSE ---
Patient walked up to nurses station independently with wheeled walker to request ask. Gair steady. When ice given to patient patient opened pepsi not provided by staff.
[2020-03-03] VITALS: BP 126/48; PULSE 64; RESP 20; TEMP 36.6; O2SAT 95
--- NOTE | 2020-03-03 02:18 | PC.NURSE ---
Sleeping, resp deep & even. Needed objects in reach.
--- NOTE | 2020-03-03 03:25 | PC.NURSE ---
Sleeping, resp deep & even. Needed objects in reach.
[2020-03-03 05:33] LABS: Hematocrit 30.9 % (35.0-42.0); Hemoglobin 9.7 g/dL (11.7-13.8); Mean Corpuscular HGB Conc 31.4 g/dL (32.0-36.0); Mean Corpuscular Hemoglobin 28.5 pg (27.0-31.0); Mean Corpuscular Volume 90.9 fL (78.0-102.0); Platelet Count Result 354 K/mm3 (150-420); Red Cell Distribution Width 14.8 % (11.6-14.4); White Blood Count 10.1 K/mm3 (4.8-10.8)
[2020-03-03 05:55] LABS: Alanine Aminotransferase 11 U/L (14-59); Albumin Level 2.5 g/dL (3.4-5.0); Alkaline Phosphatase 73 U/L (46-116); Anion Gap 12.8 mmol/L (7-16); Aspartate Amino Transferase 10 U/L (15-37); Bilirubin,Total 0.1 mg/dL (0.00-1.00); Blood Urea Nitrogen 12 mg/dL (7-18); Calcium 8.7 mg/dL (8.5-10.1); Carbon Dioxide 27 mmol/L (21-32); Chloride 107 mmol/L (98-108); Estimated CRCL calculation 65 ml/min; Estimated Glomerular Filt Rate > 60; Glucose 118 mg/dL (70-99); Osmolality Calculated 296 mOsm/kg (285-295); Potassium 3.8 mmol/L (3.5-5.1); Sodium 143 mmol/L (136-145); Total Protein 6.2 g/dL (6.4-8.2)
[2020-03-03] MEDS: SUCRALFATE 1 GM TABLET PO ×4 (06:15→21:45)
[2020-03-03] MEDS: AMOXICILLIN/CLAVULANATE K 500-125 MG TAB 0.5 TABLET PO ×3 (06:15→21:40)
[2020-03-03 08:00] VITALS: BP 132/65; PULSE 67; RESP 18; TEMP 37.1; O2SAT 96
[2020-03-03] MEDS: FAMOTIDINE 20 MG TABLET PO ×2 (09:12→21:39)
[2020-03-03] MEDS: FLUOXETINE HCL 10 MG CAPSULE 60 MG PO (09:12)
[2020-03-03] MEDS: hydroCHLOROthiazide 12.5 MG CAPSULE PO (09:12)
[2020-03-03] MEDS: SACCHAROMYCES BOULARDII 250 MG CAPSULE PO ×2 (09:12→17:07)
[2020-03-03] MEDS: ENOXAPARIN 40 MG/0.4 ML SYRINGE SUB-Q (09:12)
[2020-03-03] MEDS: PANTOPRAZOLE 40 MG TABLET PO (09:13)
[2020-03-03] MEDS: ASPIRIN 81 MG ENTERIC TABLET PO (09:13)
[2020-03-03] MEDS: ATORVASTATIN 10 MG TABLET PO (09:13)
[2020-03-03] MEDS: AZITHROMYCIN 250 MG TABLET PO (09:13)
[2020-03-03] MEDS: predniSONE 20 MG TABLET 40 MG PO (09:13)
[2020-03-03] MEDS: PREGABALIN 50 MG CAPSULE 150 MG PO (09:13)
[2020-03-03] MEDS: lisinopriL 20 MG TABLET PO (09:14)
[2020-03-03] MEDS: NAPHAZOLINE/PHENIRAM OP SOLN 15 ML BTL 1 DROP EACH EYE ×3 (09:14→21:38)
[2020-03-03] MEDS: BENZONATATE 100 MG CAPSULE 200 MG PO ×3 (09:14→16:13)
[2020-03-03] MEDS: BUDESONIDE/FORMOTEROL (*SP) 160-4.5 MCG 6 GM INH 2 PUFF INHALATION ×2 (09:15→21:38)
[2020-03-03] MEDS: TOBRAMYCIN 0.3% OPHTH SOLN 5 ML 1 DROP EACH EYE ×3 (09:16→21:38)
--- NOTE | 2020-03-03 10:55 | P.PNCROSS_ITS ---
Event Note Event Note Event Note: spoke with pt/ot patient will discharge tomorrow home to [facility] with pt/ot.
--- NOTE | 2020-03-03 10:55 | PM.EVENT ---
Event Note Event Note Event Note: spoke with pt/ot patient will discharge tomorrow home to [facility] with pt/ot.
[2020-03-03 16:00] VITALS: BP 125/61; PULSE 62; RESP 18; TEMP 37.1; O2SAT 93
[2020-03-03] MEDS: ONDANSETRON HCL ODT 4 MG TABLET PO (19:23)
[2020-03-03] MEDS: MIRABEGRON 25 MG ER TABLET PO (21:39)
[2020-03-03] MEDS: TRAZODONE HCL 50 MG TABLET 300 MG PO (21:39)
[2020-03-04] VITALS: BP 120/58; PULSE 66; RESP 16; TEMP 36.3; O2SAT 95
--- NOTE | 2020-03-04 00:51 | PC.NURSE ---
Manual Lathe Operator in to take vital signs. Patients purse was open on the foot of the bed and junior underwriter could see 2 pill bottles in her purse. Manual Lathe Operator asked if patient had pills in her room and patient denied. Manual Lathe Operator then asked what was in the pill bottle in her purse and she stated Trazadone. Manual Lathe Operator asked if she had taken any and the patient denied. Manual Lathe Operator asked if the patient had any other medications in her purse and she denied. Manual Lathe Operator then asked what was in the second pill bottle and the patient stated that it was a muscle relaxer she was unsure of the name of the medication. Manual Lathe Operator asked if junior underwriter could look at the pill bottles and patient refused. Manual Lathe Operator stated that the pills needed to be removed from the room for her safety and the patient refused to let junior underwriter take them. She denies that there are narcotics in her room. Patient also denies taking of her own medications. Patient also refused scheduled eyedrops at this time. Charge nurse notified.
--- NOTE | 2020-03-04 01:31 | PC.NURSE ---
0108 Talked to pt about medications in pt's purse. Pt immediatly stated you cant have them and if you take my purse, Im leaving . Explained to pt that we would have to call administration regarding this matter and she said go right ahead and call them . Deondre Price, nurser manager wireless, notified of the incident.
--- NOTE | 2020-03-04 02:30 | PC.NURSE ---
Patient appears to be sleeping. No signs of distress are observed. Call light and belongings are within reach.
--- NOTE | 2020-03-04 04:30 | PC.NURSE ---
Patient appears to be sleeping. No signs of distress are observed. Call light and belongings are within reach.
[2020-03-04] MEDS: AMOXICILLIN/CLAVULANATE K 500-125 MG TAB 0.5 TABLET PO (06:24)
[2020-03-04] MEDS: SUCRALFATE 1 GM TABLET PO (06:24)
[2020-03-04 08:00] VITALS: BP 110/53; PULSE 60; RESP 18; TEMP 36.6; O2SAT 96
[2020-03-04] MEDS: SACCHAROMYCES BOULARDII 250 MG CAPSULE PO (08:54)
[2020-03-04] MEDS: predniSONE 20 MG TABLET 40 MG PO (08:54)
[2020-03-04] MEDS: FAMOTIDINE 20 MG TABLET PO (08:55)
[2020-03-04] MEDS: FLUOXETINE HCL 10 MG CAPSULE 60 MG PO (08:55)
[2020-03-04] MEDS: ASPIRIN 81 MG ENTERIC TABLET PO (08:55)
[2020-03-04] MEDS: hydroCHLOROthiazide 12.5 MG CAPSULE PO (08:55)
[2020-03-04] MEDS: PANTOPRAZOLE 40 MG TABLET PO (08:55)
[2020-03-04] MEDS: BUDESONIDE/FORMOTEROL (*SP) 160-4.5 MCG 6 GM INH 2 PUFF INHALATION (08:55)
[2020-03-04] MEDS: PREGABALIN 50 MG CAPSULE 150 MG PO (08:55)
[2020-03-04] MEDS: ENOXAPARIN 40 MG/0.4 ML SYRINGE SUB-Q (08:56)
[2020-03-04] MEDS: ATORVASTATIN 10 MG TABLET PO (08:56)
[2020-03-04] MEDS: BENZONATATE 100 MG CAPSULE 200 MG PO (08:56)
[2020-03-04] MEDS: lisinopriL 20 MG TABLET PO (08:56)
[2020-03-04] MEDS: TOBRAMYCIN 0.3% OPHTH SOLN 5 ML 1 DROP EACH EYE (08:57)
[2020-03-04] MEDS: NAPHAZOLINE/PHENIRAM OP SOLN 15 ML BTL 1 DROP EACH EYE (08:57)
--- NOTE | 2020-03-04 12:23 | PM.DS ---
DS: Diagnosis Admitting Diagnosis Admitting Diagnosis: Pneumonia, unspecified organism <Roberta Todd NP - Last Filed: 03/04/20 14:01> Discharge Diagnosis (1) Pneumonia: Code(s): J18.9 - Pneumonia, unspecified organism <Roberta Todd NP - Last Filed: 03/04/20 14:01> Status: Acute <Roberta Todd NP - Last Filed: 03/04/20 14:01> Assessment and Plan: Clari has received IV vancomycin and IV azithromycin and also oral Augmentin over 7+ days. patient chest x-ray indicated possible pneumonia at admission on . Today's exam: lung ausculatation was clear, no wheezing and no crackles noted. Much improved. Taking deep breathing with no coughing and ambulating independently in hallway with no SOB or dyspnea. Talking while ambulating. patient white count now within normal limits and afebrile <Roberta Todd NP - Last Filed: 03/04/20 14:01> (2) Enterococcus UTI: Code(s): N39.0 - Urinary tract infection, site not specified; B95.2 - Enterococcus as the cause of diseases classified elsewhere <Roberta Todd NP - Last Filed: 03/04/20 14:01> Status: Acute <Roberta Todd NP - Last Filed: 03/04/20 14:01> Assessment and Plan: She has a history of dehydration and multiple or re-current UTIs. On 12/05/19 and 02/18/20, Clari's Urine cultures grew: Enterococcus faecalis. She has been following up with PCP Dr. Raya who tried to treat her UTI with oral macrobid, but due to her N/V she has been unable to successfully treat herself with oral antibiotics at home. Started Augmentin patient able to tolerate, per pharmacy report, received 7 days of antibiotic therapy. Will discharge her with outpatient orders to get a urine culture completed in 3-7 days for confirmation that UTI has been fully treated and not returned. needs to follow up with PCP Dr. Raya or another provider in his clinic after her discharge; <Roberta Todd NP - Last Filed: 03/04/20 14:01> (3) Abdominal pain: Qualifiers: Abdominal location: generalized Qualified Code(s): R10.84 - Generalized abdominal pain <Roberta Todd NP - Last Filed: 03/04/20 14:01> Code(s): R10.9 - Unspecified abdominal pain <Roberta Todd NP - Last Filed: 03/04/20 14:01> Status: Acute <Roberta Todd NP - Last Filed: 03/04/20 14:01> Assessment and Plan: chronic patient is being followed by Dr. Shiraz LEBLANC patient has a history of gastritis patient nausea has resolved, possibly secondary to antibiotic treatment ultrasound of the gallbladder and kidneys are Indicates fatty liver controlled and not complaining of N/V/diarrhea/pain today. <Roberta Todd NP - Last Filed: 03/04/20 14:01> (4) Nausea & vomiting: Qualifiers: Vomiting Intractability: unspecified Vomiting type: unspecified Qualified Code(s): R11.2 - Nausea with vomiting, unspecified <Roberta Todd NP - Last Filed: 03/04/20 14:01> Code(s): R11.2 - Nausea with vomiting, unspecified <Roberta Todd NP - Last Filed: 03/04/20 14:01> Status: Acute <Roberta Todd NP - Last Filed: 03/04/20 14:01> Assessment and Plan: chronic patient is being followed by Dr. Weldon [facility] patient has a history of gastritis patient nausea has resolved, possibly secondary to antibiotic treatment ultrasound of the gallbladder and kidneys are Indicates fatty liver controlled and not complaining of N/V/diarrhea/pain today. <Roberta Todd NP - Last Filed: 03/04/20 14:01> (5) Hypertension: Qualifiers: Hypertension type: essential hypertension Qualified Code(s): I10 - Essential (primary) hypertension <Roberta Todd NP - Last Filed: 03/04/20 14:01> Code(s): I10 - Essential (primary) hypertension <Roberta Todd NP - Last Filed: 03/04/20 14:01> Status: Acute <Roberta Todd NP - Last Filed: 02/18
--- NOTE | 2020-03-17 15:48 | PC.NURSE ---
DISCHARGE FOLLOW UP CALL: Has provided follow up urine spec to PMD. States she is feeling a little bit better. States her admission was great, staff were wonderful, food was not good, states I think it comes out of cans. PT/OT are coming to her house. Discharge instructions were clear and thorough, she verbalized clear understanding.
== END 2020-03-04 13:15 | disposition home or self-care (01) | DRG 689 ==
PROVIDERS: Nurse Practitioner; Admitting Provider Emergency Medicine; PCP Family Medicine; Visit Provider Emergency Medicine
DX: N39.0 Urinary tract infection, site not specified (principal); J18.9 Pneumonia, unspecified organism; E86.0 Dehydration; R53.1 Weakness; B95.2 Enterococcus as the cause of diseases classified elsewhere; R11.2 Nausea with vomiting, unspecified; I10 Essential (primary) hypertension; M54.2 Cervicalgia; G89.28 Other chronic postprocedural pain; F17.210 Nicotine dependence, cigarettes, uncomplicated
CPT/HCPCS: 36415; 80053; 85027; 97110; 97161; 97165; 97530; 97535; A9270; J1650; J7040; J7512

== ENCOUNTER 2020-03-11 15:35 | Outpatient (CLI) | payer MEDICARE, MEDICAID, SELFPAY ==
[2020-03-11] MEDS: SODIUM CHLORIDE 0.9% IV 1,000 ML 500 ML IVPB (16:00)
[2020-03-11] MEDS: ONDANSETRON INJ 4 MG/2 ML VIAL IV PUSH (16:00)
== END 2020-03-11 15:36 | disposition home or self-care (01) ==
PROVIDERS: PCP Family Medicine; Visit Provider Family Medicine
DX: E86.0 Dehydration (principal)
CPT/HCPCS: 96360; 96361; 96375; J2405; J7030

== ENCOUNTER 2020-03-23 15:24 | Outpatient (CLI) | payer MEDICARE, MEDICAID, SELFPAY ==
[2020-03-23 15:45] LABS: Hematocrit 37.6 % (35.0-42.0); Hemoglobin 11.4 g/dL (11.7-13.8); Mean Corpuscular HGB Conc 30.3 g/dL (32.0-36.0); Mean Corpuscular Hemoglobin 28.3 pg (27.0-31.0); Mean Corpuscular Volume 93.3 fL (78.0-102.0); Mean Platelet Volume 10.1 fl (9.2-11.8); Platelet Count Result 314 K/mm3 (150-420); Red Blood Count 4.03 M/mm3 (4.20-5.40); Red Cell Distribution Width 15.6 % (11.6-14.4); White Blood Count 8.8 K/mm3 (4.8-10.8)
[2020-03-23 16:17] LABS: Anion Gap 16.2 mmol/L (7-16); Blood Urea Nitrogen 12 mg/dL (7-18); Calcium 9.2 mg/dL (8.5-10.1); Carbon Dioxide 26 mmol/L (21-32); Chloride 104 mmol/L (98-108); Estimated Glomerular Filt Rate > 60; Glucose 80 mg/dL (70-99); Osmolality Calculated 292 mOsm/kg (285-295); Potassium 4.2 mmol/L (3.5-5.1); Sodium 142 mmol/L (136-145)
[2020-03-23] MEDS: ONDANSETRON INJ 4 MG/2 ML VIAL IV PUSH (16:31)
[2020-03-23] MEDS: SODIUM CHLORIDE 0.9% IV 1,000 ML 500 ML IVPB (16:32)
[2020-03-25 20:39] LABS: Prealbumin 26 mg/dL (17-34)
== END 2020-03-23 15:25 | disposition home or self-care (01) ==
PROVIDERS: PCP Family Medicine; Visit Provider Family Medicine
DX: R11.2 Nausea with vomiting, unspecified (principal); R53.83 Other fatigue; E86.0 Dehydration
CPT/HCPCS: 36415; 80048; 84134; 85027; J2405; J7030

== ENCOUNTER 2020-04-14 12:28 | Outpatient (CLI) | payer MEDICARE, MEDICAID, SELFPAY ==
[2020-04-14] MEDS: SODIUM CHLORIDE 0.9% IV 1,000 ML 500 ML IVPB (13:25)
[2020-04-14 15:49] LABS: Add Urine Microscopic? NO; Appearance Urine Clear (Clear); Bilirubin Urine Negative (Negative); Blood Urine Negative (Negative); Color Urine Yellow (Yellow); Glucose Urine UA Negative (Negative); Ketones Urine Negative (Negative); Leukocyte Esterase Ur Negative (Negative); Nitrate Urine Negative (Negative); Protein Urine Negative (Negative); Urobilinogen Urine 0.2 mg/dL (0.2-1.0)
== END 2020-04-14 12:29 | disposition home or self-care (01) ==
PROVIDERS: PCP Family Medicine; Visit Provider Family Medicine
DX: E86.0 Dehydration (principal); K52.9 Noninfective gastroenteritis and colitis, unspecified; R10.13 Epigastric pain
CPT/HCPCS: 81003; 87086; 87088; 96360; 96361; J7030

== ENCOUNTER 2020-06-26 09:30 | Outpatient (CLI) | payer MEDICARE, MEDICAID, SELFPAY ==
[2020-06-26] MEDS: SODIUM CHLORIDE 0.9% IV 1,000 ML 500 ML IVPB (10:10)
--- NOTE | 2020-06-26 10:15 | PC.NURSE ---
PT ARRIVE TO THE UNIT FOR IV HYDRAION FROM MD'S OFFICE. IV #22 INSERTED LEFT FOREARM WITHOUT DIFFICULTY. PT RESTING PER BED, REQUESTING A SANDWICH AND DRINK, PROVIDED. WATCHING TV.
[2020-06-26 10:29] VITALS: BP 122/64; PULSE 65; RESP 18; TEMP 36.7; O2SAT 97
--- NOTE | 2020-06-26 11:06 | PC.NURSE ---
pt resting per bed, iv infusing as ordered. call light in reach. no needs at present.
== END 2020-06-26 09:31 | disposition home or self-care (01) ==
LOC: CHSTREATRM 09:34
PROVIDERS: PCP Family Medicine; Visit Provider Family Medicine
DX: E86.0 Dehydration (principal); K52.9 Noninfective gastroenteritis and colitis, unspecified
CPT/HCPCS: 87045; 87046; 87177; 87209; 87324; 87427; 96360; 96361; J7030

== ENCOUNTER 2020-09-11 13:05 | Outpatient (CLI) | payer MEDICARE, MEDICAID, SELFPAY ==
[2020-09-11 13:25] LABS: Hematocrit 45.2 % (35.0-42.0); Hemoglobin 14.7 g/dL (11.7-13.8); Mean Corpuscular HGB Conc 32.5 g/dL (32.0-36.0); Mean Corpuscular Hemoglobin 32.6 pg (27.0-31.0); Mean Corpuscular Volume 100.2 fL (78.0-102.0); Mean Platelet Volume 9.5 fl (9.2-11.8); Platelet Count Result 290 K/mm3 (150-420); Red Blood Count 4.51 M/mm3 (4.20-5.40)
[2020-09-11 13:41] LABS: Add Urine Microscopic? YES; Appearance Urine Clear (Clear); Bilirubin Urine 1+ (Negative); Blood Urine Negative (Negative); Color Urine Yellow (Yellow); Glucose Urine UA Negative (Negative); Ketones Urine Negative (Negative); Leukocyte Esterase Ur Negative LEU/UL (Negative); Nitrate Urine Negative (Negative); Protein Urine Negative (Negative); Specific Grav Ur >= 1.030 (1.010-1.020)
[2020-09-11 14:01] LABS: RBC Urine 0-2 /hpf (0-2); Squamous Epithelial Cell Urine Moderate /hpf (Few); WBC Urine 0-3 /hpf (0-3)
[2020-09-11 14:02] LABS: Bacteria Urine 1+ /hpf; Mucus Urine Moderate /lpf
[2020-09-11 14:34] LABS: Alanine Aminotransferase 52 U/L (14-59); Albumin Level 3.8 g/dL (3.4-5.0); Alkaline Phosphatase 117 U/L (46-116); Anion Gap 10 mmol/L (8-16); Aspartate Amino Transferase 34 U/L (15-37); Bilirubin,Total 0.4 mg/dL (0.00-1.00); Blood Urea Nitrogen 17 mg/dL (7-18); Calcium 9.6 mg/dL (8.5-10.1); Carbon Dioxide 25 mmol/L (21-32); Chloride 102 mmol/L (98-108); Estimated Glomerular Filt Rate > 60; Glucose 90 mg/dL (70-99); Osmolality Calculated 285 mOsm/kg (285-295); Potassium 3.9 mmol/L (3.5-5.1); Sodium 137 mmol/L (136-145); Total Protein 7.6 g/dL (6.4-8.2)
[2020-09-11] MEDS: SODIUM CHLORIDE 0.9% IV 1,000 ML 500 ML IVPB (14:38)
[2020-09-11] MEDS: ONDANSETRON INJ 4 MG/2 ML VIAL IV PUSH (14:38)
== END 2020-09-11 13:06 | disposition home or self-care (01) ==
PROVIDERS: PCP Family Medicine; Visit Provider Family Medicine
DX: K52.9 Noninfective gastroenteritis and colitis, unspecified (principal)
CPT/HCPCS: 36415; 80053; 81001; 85027; 96361; 96374; J2405; J7030

== ENCOUNTER 2020-09-14 16:22 | Emergency (ER) | payer MEDICARE, MEDICAID, SELFPAY ==
--- NOTE | ~2020-09-14 | CT_ITS ---
EXAMINATION: CT abdomen pelvis w con DATE: 09/14/2020 18:23 INDICATION: Right upper quadrant abdominal pain TECHNIQUE: Computed tomography (CT) of the abdomen and pelvis was performed with 100 cc Omnipaque 350 intravenous contrast. The dose-length product was 753.89 mGy-cm. Automated exposure control and iter ative reconstruction technique were employed. COMPARISON: CT dated 12/24/2019. FINDINGS: Lung bases are unremarkable. Heart size normal. No significant pleural or pericardial effus ion. Mild atherosclerosis. There are cholecystectomy clips. There is intrahepatic biliary dilatation. Small exophytic lesion posterior aspect of the spleen most likely chronic subcapsular hematoma. No s ignificant change. The pancreas is unremarkable. There is intrahepatic biliary dilatation, most likel y due to prior cholecystectomy. Nonobstructive bowel gas pattern. Colonic diverticula without evidenc e for diverticulitis. Nonobstructive bowel gas pattern. No free air or free fluid. Status post hyster ectomy. No hydronephrosis. There is an intrathecal catheter overlying the lower thoracic spine with t he reservoir in the left upper anterior abdominal wall. There are bone marrow donor sites along the l ateral aspect of the ilium bilaterally. There are spinal fusion changes of the lumbar spine. IMPRESSION: 1. No acute abdominal abnormality. Reviewed, dictated and finalized at location A.
[2020-09-14 17:05] VITALS: BP 131/73; PULSE 69; RESP 16; TEMP 36.8; O2SAT 97
[2020-09-14] MEDS: SODIUM CHLORIDE 0.9% IV 1,000 ML 999 ML (17:10)
--- NOTE | 2020-09-14 17:15 | ECG_ITS ---
Measurements Intervals [place] Rate: 63 P: 60 [place]: 128 QRS: 64 QRSD: 93 T: 51 QT: 420 QTc: 430 Interpretive Statements SINUS RHYTHM WITH MARKED SINUS ARRHYTHMIA NONSPECIFIC T-WAVE ABNORMALITY- ANT/HIGH LAT LEADS BASELINE ARTIFACT- I, II, III, AVR, AVL, V3-V6 BORDERLINE ECG Electronically Signed On 09-14-2020 20:23:49 CDT by Rick Bautista D.O.
[2020-09-14] MEDS: MORPHINE SULFATE (*CRX) 4 MG/ML INJ IV PUSH (17:23)
[2020-09-14] MEDS: ONDANSETRON INJ 4 MG/2 ML VIAL IV PUSH (17:25)
[2020-09-14 17:40] LABS: Basophils Absolute Auto 0.01 K/mm3 (0.00-0.10); Basophils Percent Auto 0.1 % (0.0-1.0); Eosinophils Absolute Auto 0.06 K/mm3 (0.02-0.50); Eosinophils Percent Auto 0.7 % (1.0-6.0); Hematocrit 35.5 % (35.0-42.0); Hemoglobin 11.8 g/dL (11.7-13.8); Immature Granulocyte Absolute 0.03 K/mm3 (0.00-0.00); Immature Granulocyte Percent A 0.3 % (0.0-0.0); Lymphocytes Absolute Auto 2.57 K/mm3 (1.10-4.50); Lymphocytes Percent Auto 28.9 % (18.0-42.0); Mean Corpuscular HGB Conc 33.2 g/dL (32.0-36.0); Mean Corpuscular Volume 99.2 fL (78.0-102.0); Mean Platelet Volume 9.9 fl (9.2-11.8); Monocytes Absolute Auto 0.85 K/mm3 (0.10-0.90); Monocytes Percent Auto 9.6 % (2.0-11.0); Neutrophils Absolute Auto 5.4 K/mm3 (1.7-7.2); Neutrophils Percent Auto 60.4 % (50.0-70.0); Platelet Count Result 213 K/mm3 (150-420); Red Blood Count 3.58 M/mm3 (4.20-5.40); Red Cell Distribution Width 12.9 % (11.6-14.4); White Blood Count 8.9 K/mm3 (4.8-10.8)
[2020-09-14 18:05] LABS: Alanine Aminotransferase 40 U/L (14-59); Albumin Level 2.7 g/dL (3.4-5.0); Alkaline Phosphatase 85 U/L (46-116); Anion Gap 11 mmol/L (8-16); Aspartate Amino Transferase 22 U/L (15-37); Bilirubin,Total 0.3 mg/dL (0.00-1.00); Blood Urea Nitrogen 13 mg/dL (7-18); Calcium 7.9 mg/dL (8.5-10.1); Carbon Dioxide 21 mmol/L (21-32); Chloride 108 mmol/L (98-108); Estimated Glomerular Filt Rate > 60; Glucose 100 mg/dL (70-99); Lipase 222 U/L (73-393); Osmolality Calculated 290 mOsm/kg (285-295); Potassium 3.5 mmol/L (3.5-5.1); Sodium 140 mmol/L (136-145); Total Protein 5.9 g/dL (6.4-8.2)
[2020-09-14 18:08] LABS: Troponin I < 0.02 ng/mL (0.00-0.056)
[2020-09-14 18:11] LABS: Lactic Acid Reflex 1.1 mmol/L (0.4-2.0)
--- NOTE | 2020-09-14 18:36 | ED.GENADULT ---
HPI - General Adult General Chief complaint: Abdominal Pain Stated complaint: trouble urinating,pain in abd/dr silviaing sent pt History of Present Illness HPI narrative: this is a 70-year-old female presents with a 2 week episode of nausea and intermittent vomiting with loose watery stools with some crampy abdominal pain has been off and on for the last couple of weeks with no fever chills no chest pain no shortness of breath on the patient has a history of of GERD hyperlipidemia COPD. The patient currently feels pretty comfortable but has been having some crampy abdominal pain with no dysuria no hematuria no flank pain no fever chills her vitals are stable. Onset (ago): day(s) Radiation: abdomen Severity scale (1-10): 5 Pain Consistency: intermittent Relieving factors: none Exacerbating factors: none Associated symptoms: nausea/vomiting Related Data Home Medications Medication Instructions Recorded Confirmed brimonidine-timolol [Combigan] 1 drp OPHTHALMIC (EYE) DAILY 09/14/20 09/14/20 dorzolamide 1 drp OPHTHALMIC (EYE) DAILY 09/14/20 09/14/20 trazodone 300 mg PO DAILY 09/14/20 09/14/20 Allergies Allergy/AdvReac Type Severity Reaction Status Date / Time butorphanol [From Stadol] AdvReac Hallucinati Verified 09/11/20 07:49 ng Review of Systems Review of Systems: All systems reviewed & are unremarkable except as noted in HPI and below PMFSH Past Medical History Medical History Anemia Asthma Chronic pain COPD (chronic obstructive pulmonary disease) COPD with acute exacerbation Depression Dyslipidemia Epigastric pain Gastroenteritis Hypertension Interstitial pulmonary fibrosis Lumbar spondylosis Multiple lung nodules on CT There is a 7 mm right lower lobe nodule. 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 There is an 8 mm right lower lobe nodule Steroid-dependent COPD Surgical History Surgical History H/O abdominoplasty H/O cervical spine surgery H/O: hysterectomy Hx of cholecystectomy Hx of fusion of cervical spine Hx of lumbosacral spine surgery S/P appendectomy Family History Family History Father Acute myocardial infarction Smoker Mother Alzheimer's dementia Social History Social History Social History: quit 3 months ago Smoking packs per day: 0.25 Smoking cigarettes per day: 5.0 Years smoked: 30 Smoking pack-years: 7.50 Smoking status: Former smoker Tobacco type: cigarettes Second hand tobacco smoke exposure: No Alcohol intake: never Substance use: never Substance use type: does not use Additional living arrangements comments: Lives with sister Gender identity (if verbalized by the patient): Female Spiritual care concerns: No Agree to blood products: Yes Exam Const: General: no acute distress and alert Orientation/consciousness: patient oriented x3 HENMT: Head: normal to inspection Eyes: Conjunctivae: conjunctivae normal Pupils: Equal, round and reactive pupils present Neck: Neck: normal visual inspection, no lymphadenopathy and no meningeal signs Chest: Chest palpation & inspection: normal inspection of the chest Resp: Effort & Inspection: normal respiratory effort Auscultation: clear to auscultation bilaterally Cardio: Rate: regular rate Rhythm: regular rhythm GI: GI Palp: Yes Soft to palpation and Yes Tenderness to palpation present (GI) Auscultation: normal bowel sounds : General: Yes no CVA tenderness Urinary Catheter: Urinary Catheter: patent and draining Back/Spine/Pelvis: Back: no CVA tenderness Skin
[2020-09-14 18:43] VITALS: BP 110/69
== END 2020-09-14 18:47 | disposition home or self-care (01) ==
PROVIDERS: Emergency Provider Emergency Medicine; PCP Family Medicine
DX: K52.9 Noninfective gastroenteritis and colitis, unspecified (principal)
CPT/HCPCS: 36415; 74177; 80053; 83605; 83690; 84484; 85025; 87040; 93005; 96361; 96374; 96375; 99283; 99284; J2270; J2405; J7030; Q9965

== ENCOUNTER 2020-09-29 12:43 | Outpatient (CLI) | payer MEDICARE, MEDICAID, SELFPAY ==
--- NOTE | 2020-09-29 13:00 | PC.NURSE ---
Here for OP IV therapy, requesting sandwich and soda
[2020-09-29] MEDS: SODIUM CHLORIDE 0.9% IV 1,000 ML 500 ML IVPB (13:11)
--- NOTE | 2020-09-29 14:06 | PC.NURSE ---
Ate half of a sandwich, fluids infusing, no n/v noted
--- NOTE | 2020-09-29 15:07 | PC.NURSE ---
Discharge to home, fludis infused and cathlon removed in tact, tolerated well.
== END 2020-09-29 12:44 | disposition home or self-care (01) ==
LOC: CHSTREATRM 12:46
PROVIDERS: PCP Family Medicine; Visit Provider Family Medicine
DX: E86.0 Dehydration (principal)
CPT/HCPCS: 96360; J7030

== ENCOUNTER 2020-10-02 12:40 | Outpatient (CLI) | payer MEDICARE, MEDICAID, SELFPAY ==
[2020-10-02 13:35] VITALS: BP 110/60; PULSE 78; RESP 14; TEMP 36.6; O2SAT 97
[2020-10-02] MEDS: SODIUM CHLORIDE 0.9% IV 1,000 ML 500 ML IVPB (13:43)
--- NOTE | 2020-10-02 13:48 | PC.NURSE ---
Patient here for 1 Liter of Normal saline for dehydration and upcoming surgery. No concerns voiced. 1 Liter normal saline administered.
== END 2020-10-02 12:41 | disposition home or self-care (01) ==
LOC: CHSTREATRM 12:43
PROVIDERS: PCP Family Medicine; Visit Provider Family Medicine
DX: E86.0 Dehydration (principal)
CPT/HCPCS: 96360; 96361; J7030

== ENCOUNTER 2020-10-26 13:15 | Outpatient (CLI) | payer MEDICARE, MEDICAID, SELFPAY ==
[2020-10-26] MEDS: SODIUM CHLORIDE 0.9% IV 1,000 ML 200 ML IVPB (13:41)
[2020-10-26 13:48] VITALS: BP 114/63; PULSE 68; RESP 14; O2SAT 97
--- NOTE | 2020-10-26 16:34 | PC.NURSE ---
Patient's IV infiltrated. MD notified that 2 nurses tried to restart infusion and were unable to obtain access. MD stated to stop IV and encourage p.o. fluids. Nurse explained orders to patient who stated understanding. IV access removed and pressure dressing applied. Nurse explained care and monitoring of IV site. Patient stated understanding. Nurse took patient to lobby in wheelchair. Patient stated her ride would take a little while and she would just wait in lobby. Nurse asked patient several times if patient wanted nurse to stay with her. Patient refused.
== END 2020-10-26 13:16 | disposition home or self-care (01) ==
LOC: CHSTREATRM 13:18
PROVIDERS: PCP Family Medicine; Visit Provider Family Medicine
DX: E86.0 Dehydration (principal)
CPT/HCPCS: 96360; 96361; J7030

== ENCOUNTER 2020-10-30 07:54 | Outpatient (CLI) | payer MEDICARE, MEDICAID, SELFPAY ==
--- NOTE | ~2020-10-30 | US_ITS ---
EXAMINATION: US abdomen limited DATE: 10/30/2020 08:25 INDICATION: Abdominal wall swelling, mass and lump TECHNIQUE: Multiple grayscale ultrasound images of the abdomen were obtained in the area of clinical concern. COMPARISON: CT, 02/26/2020 FINDINGS: There is a 7.0 x 5.1 x 1.7 cm complex heterogeneous mass in the anterior left abdominal wal l corresponding to the area of clinical concern. When compared to prior CT examination, this correlat es to the site previously occupied by a morphine pain pump. The remnant pump tubing is seen within th e cavity. No suspicious mass is identified. IMPRESSION: 1. Remnant cavity from a removed morphine pain pump. No suspicious mass seen. Reviewed, dictated and finalized at location A. TECH
--- NOTE | ~2020-10-30 | CT_ITS ---
EXAMINATION: CT chest wo con DATE: 10/30/2020 08:12 INDICATION: R91.1 - Solitary pulmonary nodule PULMONARY NODULE FOLLOW UP,CHRONIC SOB TECHNIQUE: Computed tomography (CT) of the chest was performed without intravenous contrast. Addition al 3D reconstructions utilizing coronal maximum intensity projection (MIP) were performed. Automated exposure control and iterative reconstruction technique were employed. The dose-length product was 17 1.46 mGy-cm. COMPARISON: 01/04/2020 FINDINGS: Mild emphysema. Postoperative change of prior pulmonary wedge resection with suture line along the an terior right upper and middle lobes. Marked improvement in the prior diffuse reticulonodular pattern and groundglass opacities previously seen throughout both lungs. There are multiple residual tiny denise trilobular nodules scattered throughout both lungs which appear significantly decreased in both size and number. The more concerning prior 1 cm left lower lobe nodule has resolved. New 4 mm left apical nodule. No pleural effusion. Heart size is normal. Small amount of atherosclerotic coronary artery ca lcification and aortic valve calcification. No pericardial effusion. Thoracic aorta is normal in jai marvin. No pathologically enlarged thoracic lymphadenopathy. Small sliding-type hiatal hernia. Cholecyst ectomy clips the gallbladder fossa. C7 laminectomy with partially visualized instrumented cervicothor acic posterior spinal fusion with bilateral vertical rods with pedicle screws at T1 and T2 and a vert ical rods extending past C7 and beyond the cephalad margin of the [id number]. Instrumented lumbar posterior spinal fusion as seen on the broach trouble shooter images. Distal tip of a likely intrathecal pain pump is seen in the central canal at the level of T11. The catheter which extends towards the left side of th e abdomen on the broach trouble shooter images appears to be disconnected with no evident associated pain pump. Cholec ystectomy clips in the right upper quadrant. IMPRESSION: 1. Significant improvement in bilateral diffuse reticulonodular lung disease which likely was related to pneumonia or this includes resolution of the prior 1 cm left lower lobe nodule of concern. 2. New 4 mm nodule at the left apex also likely infectious/inflammatory in etiology but could conside r optional one-year follow-up low-dose noncontrast chest CT. 3. Mild emphysema. 4. Small sliding-type hiatal hernia. Reviewed, dictated and finalized at location A. P ACCOUNT DIRECTOR IMPRESSION: 1. Significant improvement in bilateral diffuse reticulonodular lung disease wh ich likely was related to pneumonia or this includes resolution of the prior 1 cm left lower lobe nodule of concern. 2. New 4 mm nodule at the left apex also likely infectious/inflammatory in etio logy but could consider optional one-year follow-up low-dose noncontrast chest CT. 3. Mild emphysema. 4. Small sliding-type hiatal hernia.
== END 2020-10-30 07:55 | disposition home or self-care (01) ==
LOC: CHSIMG 07:57
PROVIDERS: PCP Family Medicine; Visit Provider Family Medicine
DX: R91.1 Solitary pulmonary nodule (principal); R19.00 Intra-abdominal and pelvic swelling, mass and lump, unspecified site
CPT/HCPCS: 71250; 76705

== ENCOUNTER 2020-12-02 13:16 | Outpatient (CLI) | payer MEDICARE, MEDICAID, SELFPAY ==
--- NOTE | 2020-12-02 13:45 | PC.NURSE ---
Here for outpatient infusion
[2020-12-02] MEDS: SODIUM CHLORIDE 0.9% IV 1,000 ML 500 ML IVPB (13:57)
[2020-12-02] MEDS: ONDANSETRON INJ 4 MG/2 ML VIAL IV PUSH (13:58)
--- NOTE | 2020-12-02 16:22 | PC.NURSE ---
IV infusion completed. IV removed, pressure applied. Folded gauze and tape applied. Patient denies any dizziness, weakness.
== END 2020-12-02 13:17 | disposition home or self-care (01) ==
PROVIDERS: PCP Family Medicine; Visit Provider Family Medicine
DX: R11.2 Nausea with vomiting, unspecified (principal); E86.0 Dehydration
CPT/HCPCS: 96361; 96365; 96366; 96374; J2405; J7030

== ENCOUNTER 2020-12-03 13:57 | Outpatient (CLI) | payer MEDICARE, SELFPAY ==
[2020-12-03 14:26] LABS: Basophils Absolute Auto 0.01 K/mm3 (0.00-0.10); Basophils Percent Auto 0.1 % (0.0-1.0); Eosinophils Absolute Auto 0.07 K/mm3 (0.02-0.50); Eosinophils Percent Auto 0.7 % (1.0-6.0); Hematocrit 37.1 % (35.0-42.0); Hemoglobin 12.3 g/dL (11.7-13.8); Immature Granulocyte Absolute 0.03 K/mm3 (0.00-0.00); Immature Granulocyte Percent A 0.3 % (0.0-0.0); Lymphocytes Absolute Auto 2.88 K/mm3 (1.10-4.50); Lymphocytes Percent Auto 27.6 % (18.0-42.0); Mean Corpuscular HGB Conc 33.2 g/dL (32.0-36.0); Mean Corpuscular Hemoglobin 33.6 pg (27.0-31.0); Mean Corpuscular Volume 101.4 fL (78.0-102.0); Mean Platelet Volume 9.8 fl (9.2-11.8); Monocytes Absolute Auto 1.05 K/mm3 (0.10-0.90); Monocytes Percent Auto 10.1 % (2.0-11.0); Neutrophils Absolute Auto 6.4 K/mm3 (1.7-7.2); Neutrophils Percent Auto 61.2 % (50.0-70.0); Platelet Count Result 277 K/mm3 (150-420); Red Blood Count 3.66 M/mm3 (4.20-5.40); Red Cell Distribution Width 13.5 % (11.6-14.4); White Blood Count 10.4 K/mm3 (4.8-10.8)
[2020-12-03 14:46] LABS: INR 0.9; Partial Thromboplastin Time 26.9 SEC (23.90-30.70); Prothrombin Time 10.2 Seconds (9.50-12.10)
[2020-12-03 15:49] LABS: Anion Gap 10 mmol/L (8-16); Blood Urea Nitrogen 14 mg/dL (7-18); Calcium 8.6 mg/dL (8.5-10.1); Carbon Dioxide 22 mmol/L (21-32); Chloride 105 mmol/L (98-108); Estimated Glomerular Filt Rate > 60; Glucose 80 mg/dL (70-99); Osmolality Calculated 283 mOsm/kg (285-295); Potassium 4.4 mmol/L (3.5-5.1); Sodium 137 mmol/L (136-145)
== END 2020-12-03 13:58 | disposition home or self-care (01) ==
LOC: CHSLAB 13:59
PROVIDERS: PCP Family Medicine; Visit Provider Anesthesiology
DX: R11.2 Nausea with vomiting, unspecified (principal); I10 Essential (primary) hypertension; R79.89 Other specified abnormal findings of blood chemistry; Z01.818 Encounter for other preprocedural examination; R10.9 Unspecified abdominal pain; E86.0 Dehydration
CPT/HCPCS: 36415; 80048; 85025; 85610; 85730

== ENCOUNTER 2020-12-04 00:31 | Outpatient (CLI) | payer MEDICARE, SELFPAY ==
[2020-12-04 18:46] LABS: SARS-CoV-2 RNA PCR Negative
== END 2020-12-04 00:32 | disposition home or self-care (01) ==
LOC: ANHCOVIDDT 00:32
PROVIDERS: PCP Family Medicine; Visit Provider Surgery
DX: Z01.812 Encounter for preprocedural laboratory examination (principal); Z20.822 Contact with and (suspected) exposure to COVID-19
CPT/HCPCS: C9803; U0003; U0005

== ENCOUNTER 2020-12-07 02:42 | Day surgery (SDC) | payer MEDICARE, MEDICAID, SELFPAY ==
[2020-12-02 14:53] VITALS: BMI 26.3
--- NOTE | ~2020-12-07 | XR_ITS ---
EXAMINATION: XR fl guide central line place DATE: 12/07/2020 10:52 INDICATION: Port catheter insertion TECHNIQUE: A single fluoroscopic spot image of the upper chest was obtained during procedure performe d by Dr. Ortiz. Radiologist was not present for the imaging or procedure. The amount of fluoroscopy time used during this procedure was 0.4 minutes. FINDINGS: Right internal jugular central venous port catheter with distal tip project over the caudal superior vena cava. Visualized portions of the upper lung zones appear clear. No pneumothorax. A few surgical clips are seen along the right lateral margin of the superior mediastinum. Also seen is bilateral maikel tical lizzie and lateral mass screw fixation for cervical posterior spinal fusion with associated lexis ctomies. IMPRESSION: 1. Right internal jugular central venous port catheter with distal tip in the caudal superior vena ca va. Reviewed, dictated and finalized at location A. R LEADER IMPRESSION: 1. Right internal jugular central venous port catheter with distal tip in the c audal superior vena cava.
--- NOTE | ~2020-12-07 | XR_ITS ---
EXAMINATION: XR chest port-a-cath/central EXAM DATE: 12/07/2020 11:06 INDICATION: You catheter insertion. TECHNIQUE: Portable AP frontal chest x-ray was obtained. Comparison is made to prior examination from 02/26/2020. FINDINGS: There is a right-sided portacatheter. No evidence of postprocedural pneumothorax. No conflu ent consolidation, pneumothorax or pleural effusion suspected. Cardiomediastinal silhouette is normal . Cervical posterior fusion, laminectomies. IMPRESSION: No evidence postprocedure pneumothorax. Reviewed, dictated and finalized at location A. TICS ENGINEER
[2020-12-07 08:31] VITALS: BP 126/76; PULSE 64; RESP 14; TEMP 36.8; O2SAT 97
[2020-12-07] MEDS: LACTATED RINGERS 1,000 ML 30 ML IV CONT (09:15)
[2020-12-07] MEDS: KETOROLAC 15 MG/ML VIAL (*BKC) IV PUSH (09:18)
--- NOTE | 2020-12-07 09:58 | WPDANESEPPF ---
Anes - Initial Pre Proc Eval Procedure: Operation Date: 12/07/20 10:30 Proposed Procedures p Insertion You Cath - Anson Ortiz DO Date/Time: 12/07/20 09:58 Surgeon: Anson Ortiz DO Pre Op Diagnosis: Chronic Nausea, Vomiting, Poor Veins for I.V.s Patient Data Age: 70 Gender: F Height: 5 ft 5 in Weight: 67.6 kg Last Vital Signs Temp 98.2 F 12/07/20 08:31 Pulse 64 12/07/20 08:31 Resp 14 12/07/20 08:31 BP 126/76 12/07/20 08:31 Pulse Ox 97 12/07/20 08:31 Allergies Allergy/AdvReac Type Severity Reaction Status Date / Time butorphanol [From Stadol] AdvReac Hallucinati Verified 12/07/20 08:58 ng Home Medications Medication Instructions Recorded Confirmed Type albuterol sulfate [ProAir HFA] 1 puff INHALATION Q4H PRN #1 g 02/27/20 12/07/20 Rx ipratropium-albuterol 1 ml INHALATION QID PRN #1 ml 02/27/20 12/07/20 Rx lisinopril 20 1 tablet PO DAILY #90 tablet 04/27/20 12/07/20 Rx mg-hydrochlorothiazide 12.5 mg tablet atorvastatin 10 mg tablet See Rx Instructions .ROUTE 09/01/20 12/07/20 Rx .COMPLEX #90 tablet brimonidine-timolol [Combigan] 1 drp OPHTHALMIC (EYE) DAILY 09/14/20 12/07/20 History dorzolamide 1 drp OPHTHALMIC (EYE) DAILY 09/14/20 12/07/20 History buspirone 10 mg tablet 10 mg PO TID PRN #90 tablet 09/29/20 12/07/20 Rx fluoxetine 60 mg tablet 60 mg PO DAILY #90 tablet 09/29/20 12/07/20 Rx mirabegron 25 mg tablet,extended See Rx Instructions .ROUTE 10/14/20 12/07/20 Rx release 24 hr .COMPLEX #90 tablet ondansetron HCl 4 mg tablet 4 mg PO Q6H PRN #10 tablet 12/01/20 12/07/20 Rx furosemide 20 mg PO PRN PRN 12/02/20 12/07/20 History hydrocodone-acetaminophen 1 tablet PO PRN MDD PAIN 12/02/20 12/07/20 History trazodone 450 mg PO HS 12/02/20 12/07/20 History Patient hx anesthesia problems: none Family hx anesthesia problems: none PMFSH Past Medical History Medical History Anemia Asthma Chronic pain COPD (chronic obstructive pulmonary disease) COPD with acute exacerbation Depression Dyslipidemia Epigastric pain Gastroenteritis Hypertension Interstitial pulmonary fibrosis Lumbar spondylosis Multiple lung nodules on CT There is a 7 mm right lower lobe nodule. 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 There is an 8 mm right lower lobe nodule Steroid-dependent COPD Surgical History Surgical History H/O abdominoplasty H/O cervical spine surgery H/O: hysterectomy Hx of cholecystectomy Hx of fusion of cervical spine Hx of lumbosacral spine surgery S/P appendectomy Family History Family History Father Acute myocardial infarction Smoker Mother Alzheimer's dementia Social History Social History Social History: quit 3 months ago Smoking packs per day: 0.25 Smoking cigarettes per day: 5.0 Years smoked: 30 Smoking pack-years: 7.50 Smoking status: Former smoker Tobacco type: cigarettes Second hand tobacco smoke exposure: No Alcohol intake: never Substance use: never Substance use type: does not use Living arrangements: with family Additional living arrangements comments: Lives with sister Gender identity (if verbalized by the patient): Female Spiritual care concerns: No Agree to blood products: Yes Anes - Eval Final PreProcedure Day of Procedure 12/07/20 09:58 Patient weight: normal Heart: regular rate and rhythm Lungs: clear to auscultation Airway: Mallampati scale class II Neurological: alert and oriented Last oral intake: >/= 8 hours ASA classification: III Emergent: no Anesthetic plan:
--- NOTE | 2020-12-07 10:05 | PM.IMHP ---
H&P: HPI History of Present Illness Date/Time: 12/07/20 10:05 Chief Complaint: Chronic nausea and vomiting Narrative: Clari Ledesma is a 70 year old female who presents with chronic nausea and is in need of residential IV access. She has to get infusions in the hospital frequently and has poor IV access. Review of Systems Review of Systems: All systems reviewed & are unremarkable except as noted in HPI and below Constitutional: Constitutional: Denies chills, Denies fever(s), Denies headache(s) and Denies weight loss Eyes: Eyes: Denies change in vision ENT: Denies dizziness, Denies headache(s), Denies neck mass and Denies throat swelling Cardiovascular: Cardiovascular: Denies chest pain, Denies lightheadedness and Denies dyspnea Respiratory: Respiratory: Denies cough, Denies dyspnea and Denies wheezing Gastrointestinal: Gastrointestinal: Denies abdominal pain, Denies change in bowel habits, Denies nausea and Denies vomiting Genitourinary: Genitourinary: Denies hematuria and Denies dysuria Musculoskeletal: Musculoskeletal: Reports as per HPI Integumentary/Breasts: Skin/Breast: Reports as per HPI Neurologic: Denies dizziness and Denies headache(s) Allergic/Immunologic: Allergic/Immunologic: Denies throat swelling and Denies wheezing [facility] Past Medical History Medical History Anemia Asthma Chronic pain COPD (chronic obstructive pulmonary disease) COPD with acute exacerbation Depression Dyslipidemia Epigastric pain Gastroenteritis Hypertension Interstitial pulmonary fibrosis Lumbar spondylosis Multiple lung nodules on CT There is a 7 mm right lower lobe nodule. 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 There is an 8 mm right lower lobe nodule Steroid-dependent COPD Surgical History Surgical History H/O abdominoplasty H/O cervical spine surgery H/O: hysterectomy Hx of cholecystectomy Hx of fusion of cervical spine Hx of lumbosacral spine surgery S/P appendectomy Family History Family History Father Acute myocardial infarction Smoker Mother Alzheimer's dementia Social History Social History Social History: quit 3 months ago Smoking packs per day: 0.25 Smoking cigarettes per day: 5.0 Years smoked: 30 Smoking pack-years: 7.50 Smoking status: Former smoker Tobacco type: cigarettes Second hand tobacco smoke exposure: No Alcohol intake: never Substance use: never Substance use type: does not use Living arrangements: with family Additional living arrangements comments: Lives with sister Gender identity (if verbalized by the patient): Female Spiritual care concerns: No Agree to blood products: Yes Meds Home Medications and Allergies Home Medications Medication Instructions Recorded Confirmed Type albuterol sulfate [ProAir HFA] 1 puff INHALATION Q4H PRN #1 g 02/27/20 12/07/20 Rx ipratropium-albuterol 1 ml INHALATION QID PRN #1 ml 02/27/20 12/07/20 Rx lisinopril 20 1 tablet PO DAILY #90 tablet 04/27/20 12/07/20 Rx mg-hydrochlorothiazide 12.5 mg tablet atorvastatin 10 mg tablet See Rx Instructions .ROUTE 09/01/20 12/07/20 Rx .COMPLEX #90 tablet brimonidine-timolol [Combigan] 1 drp OPHTHALMIC (EYE) DAILY 09/14/20 12/07/20 History dorzolamide 1 drp OPHTHALMIC (EYE) DAILY 09/14/20 12/07/20 History buspirone 10 mg tablet 10 mg PO TID PRN #90 tablet 09/29/20 12/07/20 Rx fluoxetine 60 mg tablet 60 mg PO DAILY #90 tablet 09/29/20 12/07/20 Rx mirabegron 25 mg tablet,extended See Rx Instructions .ROUTE 10/14/20 12/07/20 Rx release 24 hr .
--- NOTE | 2020-12-07 10:09 | WPDHPUPDATE1 ---
History and Physical Update Update Date/Time: 12/07/20 10:09 History and Physical has been reviewed, including an updated exam of the patient. There are NO changes in the patient's condition. Risks, benefits, and alternatives have been discussed and questions answered. Patient agrees to proceed with procedure.
[2020-12-07] MEDS: ceFAZolin 2 GM/D5W 50 ML 2 GM/50 ML BAG IVPB (10:12)
[2020-12-07] MEDS: LIDO 1%/EPINEPHRINE 1:100,000 50 ML VIAL 20 ML INFILTRATE (10:34)
[2020-12-07] MEDS: HEPARIN SODIUM 5,000 UNITS/ML VIAL 5000 UNITS IRRIGATION (10:35)
--- NOTE | 2020-12-07 10:54 | PM.PROC ---
Procedure Note - Detailed Date of procedure: 12/07/20 Pre-op diagnosis: Chronic Nausea, Vomiting, Poor Veins for I.V.s Post-op diagnosis: same Procedure performed: Right internal jugular Port-A-Cath placement using ultrasound and fluoroscopic guidance Description of procedure: Procedure as well as risks, benefits, and alternatives were discussed with patient. Written consent was obtained and placed in chart prior to procedure. Patient was brought back to surgical suite. Was placed supine on operating table. Time-out was done confirm patient procedure. IV sedation was then administered by the Anesthesia Department. The chest and neck area was prepped and draped in sterile fashion using chlorhexidine prep. Patient was placed in Trendelenburg position. SonoSite ultrasound was used to identify the right internal jugular vein. It was visualized as a compressible vessel just lateral to the carotid artery. 1% lidocaine with epinephrine was infiltrated directly over the vessel under ultrasound guidance. An 18 gauge introducer needle was then advanced under ultrasound guidance directly into the right internal jugular vein. Dark nonpulsatile blood was aspirated. A 0.035 in guidewire was then advanced through the needle under fluoroscopic guidance. The guidewire was visualized advancing all the way down into the superior vena cava. 1% lidocaine with epinephrine was then infiltrated on the right anterior chest and along the tract up to the guidewire insertion site. A 3 cm incision was made with a 15 blade scalpel, and electrocautery was then used for dissection down through the subcutaneous tissue to the pectoral fascia. A pocket was created just inferior to the incision using blunt dissection. A small juliet incision was then also made at the insertion site at the neck. The tunneler was then advanced from the chest incision up to the neck incision and the catheter tubing was brought up through this tract. The dilator and sheath were then advanced over the guidewire under fluoroscopic visualization. The dilator and guidewire were then removed leaving the sheath in place. The catheter tubing was then advanced through the sheath under fluoroscopic guidance. The sheath was unsnapped and carefully peeled away. The catheter tubing was released underneath the neck incision. Fluoroscopy was used to confirm proper placement of the catheter tubing and no kinks along its path. The catheter was then cut to proper length and secured to the port. The port was then accessed with a Robles needle and aspirated and flushed with heparinized saline. The port function with ease. The port was then hep-locked with Hep-Lock solution. The port was then placed within the pocket that was created, and was secured to the fascia using 3 0 Prolene simple interrupted sutures. The patient was flattened out in bed. Loreta's fascia was reapproximated using 3 0 Vicryl simple interrupted sutures. The skin of the incisions was then approximated using 4-0 Monocryl subcuticular suture. Exofin glue was then applied on top. The patient was then awakened from anesthesia and transferred to recovery. Implants: Smart Port CT port Anesthesia: MAC and local (1% lidocaine with epinephrine) Surgeon: Anson Ortiz DO Estimated blood loss (mL): 5 Complications: No immediate complications Condition: stable Disposition: same day Findings: This is a 70-year-old woman who was referred for a port placement due to chronic nausea and vomiting. She has frequent needs for IV fluids and IV antiemetics but has very poor peripheral IV access. She has to go to the hospital for infusions frequently. Her primary care physician recommended proceeding with Port-A-Cath placement. I discussed the procedure with the patient in detail and decision was made to proceed with Port-A-Cath placement. Right internal jugular port placed under ultrasound and fluoroscopic guidance. SonoSite ultrasound was used to identify the ri
[2020-12-07 10:55] VITALS: BP 94/51; PULSE 73; RESP 15; O2SAT 97
[2020-12-07] MEDS: fentaNYL CITRATE INJ (*CRX) 100 MCG/2 ML VIAL 25 MCG IV PUSH (11:06)
--- NOTE | 2020-12-07 11:13 | SUR.PHASEII ---
1110- cxr done. waiting for result prior to getting up in chair. medicated for pain . c/o chronic back pain, exacerbated by lying on hard surface.
[2020-12-07 11:25] VITALS: BP 99/49; PULSE 59; RESP 15
[2020-12-07] MEDS: oxyCODONE HCL (*CRX) 5 MG TAB IR PO (11:32)
[2020-12-07 11:50] VITALS: BP 122/49; PULSE 61; RESP 15
[2020-12-07 12:20] VITALS: BP 121/58; PULSE 69; RESP 15
== END 2020-12-07 12:35 | disposition home or self-care (01) ==
PROVIDERS: PCP Family Medicine; Visit Provider Surgery
PROC: (CPT 36561; principal; 2020-12-07 10:30)
DX: R11.2 Nausea with vomiting, unspecified (principal); I87.2 Venous insufficiency (chronic) (peripheral); Z79.51 Long term (current) use of inhaled steroids; D64.9 Anemia, unspecified; J45.909 Unspecified asthma, uncomplicated; J44.9 Chronic obstructive pulmonary disease, unspecified; K52.9 Noninfective gastroenteritis and colitis, unspecified; I10 Essential (primary) hypertension; J84.10 Pulmonary fibrosis, unspecified; M47.816 Spondylosis without myelopathy or radiculopathy, lumbar region; J81.1 Chronic pulmonary edema; Z87.891 Personal history of nicotine dependence
CPT/HCPCS: 36561; 77001; A9270; C1788; J0690; J1644; J1885; J2704; J3010; J7120

== ENCOUNTER 2020-12-15 10:45 | Outpatient (CLI) | payer MEDICARE, MEDICAID, SELFPAY ==
[2020-12-15] MEDS: ONDANSETRON INJ 4 MG/2 ML VIAL IV PUSH (11:15)
[2020-12-15] MEDS: SODIUM CHLORIDE 0.9% IV 1,000 ML 500 ML IVPB (11:15)
[2020-12-15 13:25] VITALS: BP 129/70; PULSE 68; RESP 14; TEMP 36.9; O2SAT 98
--- NOTE | 2020-12-15 13:28 | PC.NURSE ---
Patient tolerated 1 L Normal saline infusion well. No concerns voiced. Denies nausea after zofran administered. Safe exit of hospital.
== END 2020-12-15 10:46 | disposition home or self-care (01) ==
LOC: CHSTREATRM 10:48
PROVIDERS: PCP Family Medicine; Visit Provider Family Medicine
DX: E86.0 Dehydration (principal)
CPT/HCPCS: 96360; 96361; 96374; J2405; J7030

== ENCOUNTER 2021-01-01 09:29 | Outpatient (CLI) | payer MEDICARE, SELFPAY ==
[2021-01-01 23:53] LABS: SARS-CoV-2 RNA PCR Negative
== END 2021-01-01 09:30 | disposition home or self-care (01) ==
LOC: CHSLAB 09:32
PROVIDERS: PCP Family Medicine; Visit Provider Surgery
DX: Z01.818 Encounter for other preprocedural examination (principal); Z20.822 Contact with and (suspected) exposure to COVID-19
CPT/HCPCS: C9803; U0003; U0005

== ENCOUNTER 2021-01-06 09:12 | Outpatient (CLI) | payer MEDICARE, SELFPAY ==
[2021-01-06 23:23] LABS: SARS-CoV-2 RNA PCR Negative
== END 2021-01-06 09:13 | disposition home or self-care (01) ==
LOC: CHSLAB 09:17
PROVIDERS: PCP Family Medicine; Visit Provider Surgery
DX: Z01.818 Encounter for other preprocedural examination (principal); Z20.822 Contact with and (suspected) exposure to COVID-19
CPT/HCPCS: C9803; U0003; U0005

== ENCOUNTER 2021-01-08 00:24 | Day surgery (SDC) | payer MEDICARE, MEDICAID, SELFPAY ==
[2020-12-28 14:14] VITALS: BMI 24.2
--- NOTE | 2020-12-28 14:32 | PC.NURSE ---
PHONE INTERVIEW WITH PT 12/28/20. PT STATES HEALTH STATUS AND MEDS UNCHANGED FROM LAST VISIT.
[2021-01-08] MEDS: LACTATED RINGERS 1,000 ML 30 ML IV CONT (11:25)
[2021-01-08 11:26] VITALS: BP 129/49; PULSE 86; RESP 18; TEMP 36.7; O2SAT 98
--- NOTE | 2021-01-08 12:22 | WPDANESEPPF ---
Anes - Initial Pre Proc Eval Procedure: Operation Date: 01/08/21 13:00 Proposed Procedures p Excision Of Left Upper Quadrant Abdominal Wall Mass - Anson Ortiz DO Date/Time: 01/08/21 12:22 Surgeon: Anson Ortiz DO Pre Op Diagnosis: 7 cm Abdominal Wall Mass Patient Data Age: 70 Gender: F Height: 5 ft 6 in Weight: 70.9 kg Last Vital Signs Temp 98.0 F 01/08/21 11:26 Pulse 86 01/08/21 11:26 Resp 18 01/08/21 11:26 BP 129/49 L 01/08/21 11:26 Pulse Ox 98 01/08/21 11:26 Allergies Allergy/AdvReac Type Severity Reaction Status Date / Time butorphanol [From Stadol] AdvReac Hallucinati Verified 01/08/21 11:16 ng Home Medications Medication Instructions Recorded Confirmed Type albuterol sulfate [ProAir HFA] 1 puff INHALATION Q4H PRN #1 g 02/27/20 01/08/21 Rx ipratropium-albuterol 1 ml INHALATION QID PRN #1 ml 02/27/20 01/08/21 Rx lisinopril 20 1 tablet PO DAILY #90 tablet 04/27/20 01/08/21 Rx mg-hydrochlorothiazide 12.5 mg tablet Combigan 1 drp OPHTHALMIC (EYE) DAILY 09/14/20 01/08/21 History dorzolamide 1 drp OPHTHALMIC (EYE) DAILY 09/14/20 01/08/21 History fluoxetine 60 mg tablet 60 mg PO DAILY #90 tablet 09/29/20 01/08/21 Rx mirabegron 25 mg tablet,extended See Rx Instructions .ROUTE 10/14/20 01/08/21 Rx release 24 hr .COMPLEX #90 tablet ondansetron HCl 4 mg tablet 4 mg PO Q6H PRN #10 tablet 12/01/20 01/08/21 Rx furosemide 20 mg PO PRN PRN 12/02/20 01/08/21 History trazodone 150 mg tablet 450 mg PO HS #30 tablet 01/05/21 01/08/21 Rx atorvastatin 10 mg PO QACLUNCH 01/06/21 01/08/21 History buspirone 10 mg PO TID 01/06/21 01/08/21 History Patient hx anesthesia problems: none Family hx anesthesia problems: none [facility] [place] Past Medical History Medical History Anemia Asthma Chronic pain COPD (chronic obstructive pulmonary disease) COPD with acute exacerbation Depression Dyslipidemia Hypertension Interstitial pulmonary fibrosis Lumbar spondylosis Multiple lung nodules on CT There is a 7 mm right lower lobe nodule. 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 There is an 8 mm right lower lobe nodule Steroid-dependent COPD Surgical History Surgical History H/O abdominoplasty H/O cervical spine surgery H/O: hysterectomy Hx of cholecystectomy Hx of fusion of cervical spine Hx of lumbosacral spine surgery Port-A-Cath in place S/P appendectomy Family History Family History Father Acute myocardial infarction Smoker Mother Alzheimer's dementia Social History Social History Social History: quit 3 months ago Smoking packs per day: 0.25 Smoking cigarettes per day: 5.0 Years smoked: 30 Smoking pack-years: 7.50 Smoking status: Current every day smoker Tobacco type: cigarettes Second hand tobacco smoke exposure: No Alcohol intake: never Substance use: never Substance use type: does not use Living arrangements: with family Additional living arrangements comments: Lives with sister Gender identity (if verbalized by the patient): Female Spiritual care concerns: No Agree to blood products: Yes Anes - Eval Final PreProcedure Day of Procedure 01/08/21 12:22 Patient weight: overweight Heart: regular rate and rhythm Lungs: clear to auscultation Airway: Mallampati scale class II Neurological: alert and oriented Last oral intake: >/= 8 hours ASA classification: III Emergent: no Anesthetic plan: proceed Anesthesia type and monitoring: general GIVS and standard monitoring Informed Consent: The patient's anesthetic plan and its attendant risks and b
--- NOTE | 2021-01-08 12:33 | WPDHPUPDATE1 ---
History and Physical Update Update Date/Time: 01/08/21 12:33 History and Physical has been reviewed, including an updated exam of the patient. There are NO changes in the patient's condition. Risks, benefits, and alternatives have been discussed and questions answered. Patient agrees to proceed with procedure.
[2021-01-08] MEDS: ceFAZolin 2 GM/D5W 50 ML 2 GM/50 ML BAG IVPB (13:20)
[2021-01-08] MEDS: LIDO 1%/EPINEPHRINE 1:100,000 50 ML VIAL 27 ML INFILTRATE (13:20)
--- NOTE | 2021-01-08 13:57 | P.OP_ITS ---
Procedure Note - Detailed Date of procedure: 01/08/21 Pre-op diagnosis: Abdominal Wall Mass Post-op diagnosis: same (9 cm LUQ abdominal wall mass) Procedure performed: 1. Excision of 9 cm left upper quadrant subcutaneous abdominal wall mass 2. Layered closure Description of procedure: * Procedure as well as risks, benefits, and alternatives were discussed with the patient. Written consent was obtained and placed in chart prior to procedure. Patient was brought back to surgical suite. She was placed in supine position on the operating table. Time-out was done to confirm patient and procedure. IV sedation was then administered by the Anesthesia Department. Her abdomen was prepped and draped in sterile fashion using chlorhexidine prep. 1% lidocaine with epinephrine was infiltrated locally around the left upper quadrant abdominal wall mass. A 9 cm transverse incision was made in the left upper quadrant overlying the palpable mass. Electrocautery was used for hemostasis and for dissection through the subcutaneous adipose tissue. The mass was identified and carefully dissected free from the surrounding subcu attachments. The mass was sitting on top of the external oblique aponeuroses but did not appear to be extending intramuscular. Electrocautery was used to carefully free up the entire mass. Along the left lateral edge of the mass, a small silicone tubing was identified. An 0 silk tie was placed around this tubing and it was transected proximal to the mass. The mass was then completely excised intact and was sent to the lab for pathology. The cavity was inspected and hemostasis appeared adequate. There was a wide subcu cavity left behind after this was excised. Decision was made to place a 15 round Paul drain within this cavity through a counter incision just inferior to the skin incision. The drain was secured in place using a 3 0 nylon drain stitch. Loreta's fascia was then reapproximated using 3 0 Vicryl simple interrupted sutures. The skin was then approximated using 4 Monocryl running subcuticular suture. Exofin glue was applied on top. A drain sponge was then placed around the drain followed by tape. The patient was then awakened from anesthesia and transferred to recovery. Anesthesia: MAC and local (1% lidocaine with epinephrine) Surgeon: Anson Ortiz DO Estimated blood loss (mL): 5 Drains: Yes (15 round Paul) Pathology: yes (9 cm subcutaneous left upper quadrant mass) Complications: No immediate complications Condition: stable Disposition: same day Findings: * The 9 cm left upper quadrant abdominal wall mass was excised completely. This appeared to be a chronic seroma and mesh foreign body from a prior pain pump that was in this location. The tubing from the prior pain pump was extending into this mass and this was ligated proximally with an 0 silk suture. No attempt was made to completely remove the catheter tubing as this tracked all the way posteriorly to her spine. There was a wide subcutaneous cavity remaining after the mass was excised, therefore decision was made to place a 15 round Paul drain to prevent large seroma from forming. This will be managed by patient at home and will be removed in the office. The 9 cm subcu mass was sent to the lab for pathology.
[2021-01-08 14:02] VITALS: BP 99/33; PULSE 80; RESP 16
[2021-01-08 14:25] VITALS: BP 97/36; PULSE 73; RESP 16
[2021-01-08 14:35] VITALS: BP 96/45; PULSE 79; RESP 16
--- NOTE | 2021-01-08 14:40 | SUR.PHASEII ---
1440- Patient complaining of itching to bilateral arms and pain to neck/back. Call to Dr. Landrum to request medication for itching and complaints of pain. Per Dr. Landrum give 25MG Benadryl IVP once for itching and 5MG oxycodone PO once for pain. Notified Dr. Landrum patient's BP running soft at this time but patient reports BP runs soft at times at baseline. Okay to order with butorphanol reaction of hallucinating and with patient's current BP.
[2021-01-08] MEDS: diphenhydrAMINE HCl INJ 50 MG/ML VIAL 25 MG IV PUSH (14:44)
[2021-01-08] MEDS: oxyCODONE HCL (*CRX) 5 MG TAB IR PO (14:51)
[2021-01-08 15:00] VITALS: BP 122/40; PULSE 70; RESP 16
== END 2021-01-08 15:15 | disposition home or self-care (01) ==
PROVIDERS: PCP Family Medicine; Visit Provider Surgery
PROC: (CPT 22903; principal; 2021-01-08 13:00)
DX: M79.5 Residual foreign body in soft tissue (principal); M79.89 Other specified soft tissue disorders; Z79.51 Long term (current) use of inhaled steroids; D64.9 Anemia, unspecified; J45.909 Unspecified asthma, uncomplicated; J44.9 Chronic obstructive pulmonary disease, unspecified; F32.9 Major depressive disorder, single episode, unspecified; E78.5 Hyperlipidemia, unspecified; I10 Essential (primary) hypertension; J84.10 Pulmonary fibrosis, unspecified; M47.816 Spondylosis without myelopathy or radiculopathy, lumbar region; Z98.1 Arthrodesis status; F17.210 Nicotine dependence, cigarettes, uncomplicated
CPT/HCPCS: 22903; 88304; A9270; J0690; J1200; J2250; J2704; J3010; J7120

== ENCOUNTER 2021-01-19 14:56 | Emergency (ER) | payer MEDICARE, MEDICAID, SELFPAY ==
--- NOTE | ~2021-01-19 | XR_ITS ---
EXAMINATION: XR chest 2V EXAM DATE: 01/19/2021 16:15 INDICATION: Cough, short of breath, fever, recent surgery on LUQ. TECHNIQUE: Portable AP frontal chest x-ray was obtained. Comparison is made to prior examination from 12/07/2020. FINDINGS: There is a right-sided portacatheter. Cervical fusion hardware. Chronic tenting of the righ t hemidiaphragm likely result of prior partial pneumonectomy. There are cholecystectomy clips. No evidence of acute airspace disease, pneumothorax or pleural effusion. Cardiomediastinal silhouette is normal. IMPRESSION: No acute cardiopulmonary findings. Reviewed, dictated and finalized at location A. ICE DEPARTMENT MANAGER
--- NOTE | ~2021-01-19 | CT_ITS ---
EXAMINATION: CT abdomen pelvis w con INDICATION: Left upper quadrant pain TECHNIQUE: Computed tomographic images of the abdomen and pelvis were obtained after the administrati on of 100 cc of Omnipaque 350 intravenous contrast. The dose-length product (DLP) was 680.01 mGy-cm. Automated exposure control and iterative reconstruction technique were employed. COMPARISON: 09/14/2020 FINDINGS: Minimal dependent atelectasis is present in the lung bases. The heart size is normal. The g allbladder is surgically absent. There is mild enlargement of the common bile duct and central intrah epatic ducts which is likely due to post cholecystectomy state. The liver, pancreas, and adrenal glan ds are normal. There is a stable 8 mm soft tissue density along the posterior margin of the otherwise normal-appearing spleen. There is a 7 mm cyst of the right kidney. The left kidney is unremarkable. No pathologically enlarged abdominal or pelvic lymph nodes are identified. There is calcified atheros clerosis of the aorta and many of the other arteries. There is no free intraperitoneal gas or evidenc e of bowel obstruction. Colonic diverticulosis is present without evidence of diverticulitis. A surgi radha drain is present in the anterior abdominal wall of the left upper quadrant at a site previously o ccupied by a remnant cavity from a removed morphine pain pump. This has essentially collapsed since t he comparison CT. There are changes of posterior fusion from L2 through L4. Severe lumbar spondylosis is noted. IMPRESSION: 1. Surgical drain in the anterior abdominal wall of the left upper quadrant at the site previously oc cupied by a remnant cavity from a removed morphine pain pump. Overall [facility] Reviewed, dictated and finalized at location A. EATION FACILITY MANAGER IMPRESSION: 1. Surgical drain in the anterior abdominal wall of the left upper quadrant at the site previously occupied by a remnant cavity from a removed morphine pain p ump. Overall size is decreased since the comparison CT examination.
[2021-01-19 15:16] VITALS: BP 117/57; PULSE 83; RESP 20; TEMP 36.7; O2SAT 95
--- NOTE | 2021-01-19 15:21 | ED.ABDPAIN ---
HPI - Abdominal Pain General Chief Complaint: Abdominal Pain Stated Complaint: infection in stomach Time Seen by Provider: 01/19/21 15:21 Source: patient Mode of arrival: ambulatory Limitations: no limitations History of Present Illness HPI narrative: 70-year-old woman comes in today complaining of increasing left-sided abdominal pain over the last few days. Patient states that over the last 24 hours she has been vomiting and unable to keep anything down. On January 08 she underwent surgery of her left abdominal wall to remove a mass present there since a pain pump was removed years ago. A drain was placed. Her pain began to get worse a week after the surgery (4 days ago). She states she had a temperature of a 100.5? at home. She denies blood in her stools, diarrhea, cough or cold symptoms, sore throat and recent sick exposures. MD elicited complaint: abdominal pain Pertinent past history: other (Recent surgery) Onset (ago): day(s) (4) Pain Consistency: constant Location: LUQ Severity: severe Quality: sharp Radiation: none Migration to: no migration Exacerbating factors: movement and other (palpation) Relieving factors: nothing Context: confirms recent antibiotic use and confirms recent surgery/procedure Associated symptoms: nausea, vomiting and fever Related Data Home Medications Medication Instructions Recorded Confirmed Combigan 1 drp OPHTHALMIC (EYE) DAILY 09/14/20 01/18/21 dorzolamide 1 drp OPHTHALMIC (EYE) DAILY 09/14/20 01/18/21 furosemide 20 mg PO PRN PRN 12/02/20 01/18/21 atorvastatin 10 mg PO QACLUNCH 01/06/21 01/18/21 buspirone 10 mg PO TID 01/06/21 01/18/21 Allergies Allergy/AdvReac Type Severity Reaction Status Date / Time butorphanol [From Stadol] AdvReac Hallucinati Verified 01/18/21 10:40 ng Review of Systems Constitutional: Constitutional: Denies chills, Reports fever(s) and Denies weakness ENT: Denies nasal congestion and Denies sore throat Cardiovascular: Cardiovascular: Denies chest pain and Denies radiating jaw, neck or arm pain Respiratory: Respiratory: Denies cough and Denies dyspnea Gastrointestinal: Gastrointestinal: Reports as per HPI, Reports abdominal pain, Denies diarrhea, Reports nausea and Reports vomiting Genitourinary: Genitourinary: Denies hematuria, Denies nocturia and Reports dysuria Musculoskeletal: Musculoskeletal: Denies back pain, Denies arthralgias and Denies joint swelling Integumentary/Breasts: Skin/Breast: Denies pruritus, Denies erythema and Denies rash Neurologic: Denies vertigo, Denies dizziness and Denies syncope Hematologic/Lymphatic: Hematologic/Lymphatic: Denies easy bleeding and Denies easy bruising Allergic/Immunologic: Allergic/Immunologic: Denies lip swelling and Denies throat swelling PMFSH Past Medical History Medical History Anemia Asthma Chronic pain COPD (chronic obstructive pulmonary disease) COPD with acute exacerbation Depression Dyslipidemia Hypertension Interstitial pulmonary fibrosis Lumbar spondylosis Multiple lung nodules on CT There is a 7 mm right lower lobe nodule. 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 There is an 8 mm right lower lobe nodule Steroid-dependent COPD Surgical History Surgical History H/O abdominoplasty H/O cervical spine surgery H/O: hysterectomy History of excision of mass 01/08/21 Excision of 9 cm left upper quadrant subcutaneous abdominal wall mass, Layered closure Hx of cholecystectomy Hx of fusion of cervical spine Hx of lumbosacral spine surgery Port-A-Cath in place S/P appendectomy Family History Family History Father Acute myocardial infarction Smoker Mother Deceas
[2021-01-19 15:56] LABS: Basophils Absolute Auto 0.01 K/mm3 (0.00-0.10); Basophils Percent Auto 0.1 % (0.0-1.0); Eosinophils Absolute Auto 0.19 K/mm3 (0.02-0.50); Hematocrit 36.5 % (35.0-42.0); Hemoglobin 11.8 g/dL (11.7-13.8); Immature Granulocyte Absolute 0.03 K/mm3 (0.00-0.00); Immature Granulocyte Percent A 0.3 % (0.0-0.0); Lymphocytes Absolute Auto 2.02 K/mm3 (1.10-4.50); Lymphocytes Percent Auto 20.8 % (18.0-42.0); Mean Corpuscular HGB Conc 32.3 g/dL (32.0-36.0); Mean Corpuscular Hemoglobin 33.9 pg (27.0-31.0); Mean Corpuscular Volume 104.9 fL (78.0-102.0); Mean Platelet Volume 9.8 fl (9.2-11.8); Monocytes Absolute Auto 0.64 K/mm3 (0.10-0.90); Monocytes Percent Auto 6.6 % (2.0-11.0); Neutrophils Absolute Auto 6.8 K/mm3 (1.7-7.2); Neutrophils Percent Auto 70.2 % (50.0-70.0); Platelet Count Result 273 K/mm3 (150-420); Red Blood Count 3.48 M/mm3 (4.20-5.40); Red Cell Distribution Width 13.7 % (11.6-14.4); White Blood Count 9.7 K/mm3 (4.8-10.8)
[2021-01-19 16:12] LABS: Alanine Aminotransferase 21 U/L (14-59); Albumin Level 2.7 g/dL (3.4-5.0); Alkaline Phosphatase 65 U/L (46-116); Anion Gap 6 mmol/L (8-16); Aspartate Amino Transferase 26 U/L (15-37); Bilirubin,Total 0.3 mg/dL (0.00-1.00); Blood Urea Nitrogen 11 mg/dL (7-18); CRP 6.8 mg/dL (0.0-0.9); Calcium 8.5 mg/dL (8.5-10.1); Carbon Dioxide 27 mmol/L (21-32); Chloride 106 mmol/L (98-108); Estimated CRCL calculation 52 ml/min; Estimated Glomerular Filt Rate > 60; Glucose 144 mg/dL (70-99); Osmolality Calculated 290 mOsm/kg (285-295); Potassium 3.6 mmol/L (3.5-5.1); Sodium 139 mmol/L (136-145); Total Protein 6.4 g/dL (6.4-8.2)
[2021-01-19] MEDS: SODIUM CHLORIDE 0.9% IV 1,000 ML 999 ML IV CONT ×2 (16:16→18:38)
[2021-01-19 16:17] LABS: Lactic Acid Reflex 1.6 mmol/L (0.4-2.0)
[2021-01-19] MEDS: HYDROmorphone HCL INJ (*CRX) 2 MG/ML VIAL 0.5 MG IV PUSH ×2 (16:17→17:22)
[2021-01-19] MEDS: ONDANSETRON INJ 4 MG/2 ML VIAL IV PUSH ×2 (16:17→18:39)
[2021-01-19 16:56] LABS: Add Urine Microscopic? YES; Appearance Urine Clear (Clear); Bilirubin Urine 1+ (Negative); Blood Urine Negative (Negative); Color Urine Yellow (Yellow); Glucose Urine UA Negative (Negative); Ketones Urine Trace (Negative); Leukocyte Esterase Ur Negative LEU/UL (Negative); Nitrate Urine Negative (Negative); Protein Urine Trace (Negative); Specific Grav Ur >= 1.030 (1.010-1.020); pH Urine 6.5 (5.0-8.0)
[2021-01-19 17:05] LABS: Bacteria Urine Trace /hpf; Mucus Urine Moderate /lpf; RBC Urine 0-2 /hpf (0-2); Squamous Epithelial Cell Urine Rare /hpf (Few); WBC Urine 0-3 /hpf (0-3)
[2021-01-19 19:30] VITALS: BP 112/101; PULSE 66; RESP 20; O2SAT 98
== END 2021-01-19 19:40 | disposition home or self-care (01) ==
PROVIDERS: Emergency Provider Emergency Medicine; PCP Family Medicine
DX: T81.40XD Infection following a procedure, unspecified, subsequent encounter (principal); E78.5 Hyperlipidemia, unspecified; I10 Essential (primary) hypertension; Z87.891 Personal history of nicotine dependence
CPT/HCPCS: 36415; 71046; 74177; 80053; 81001; 83605; 85025; 86140; 87040; 96361; 96374; 96375; 96376; 99283; 99284; J1170; J2405; J7030; Q9967

== ENCOUNTER 2021-01-26 13:33 | Outpatient (CLI) | payer MEDICARE, MEDICAID, SELFPAY ==
[2021-01-26] MEDS: SODIUM CHLORIDE 0.9% IV 1,000 ML 500 ML IVPB (13:58)
--- NOTE | 2021-01-26 14:00 | PC.NURSE ---
Here for OP infusion, port accessed and fluids initiated, patient reports that she was suposed to have order for zofran, will call office.
[2021-01-26] MEDS: ONDANSETRON INJ 4 MG/2 ML VIAL IV PUSH (14:13)
[2021-01-26] MEDS: HEPARIN SOD FLUSH 500 UNITS/5 ML SYRINGE IV PUSH (14:15)
--- NOTE | 2021-01-26 14:28 | PC.NURSE ---
soda and sandwich given for complaint of hunger, better since iv zofran
--- NOTE | 2021-01-26 16:18 | PC.NURSE ---
Patient completed IV hydration therapy. Port flushed with Heparin Flush and deaccessed. Patient tolerated well. No c/o offered.
== END 2021-01-26 13:34 | disposition home or self-care (01) ==
LOC: CHSTREATRM 13:36
PROVIDERS: PCP Family Medicine; Visit Provider Family Medicine
DX: E86.0 Dehydration (principal)
CPT/HCPCS: 96360; 96361; J2405; J7030

== ENCOUNTER 2021-02-16 14:20 | Emergency (ER) | payer MEDICARE, MEDICAID, SELFPAY ==
[2021-02-16 14:47] VITALS: BP 130/59; PULSE 67; RESP 20; TEMP 36.3; O2SAT 96
[2021-02-16 15:23] LABS: Basophils Absolute Auto 0.02 K/mm3 (0.00-0.10); Basophils Percent Auto 0.2 % (0.0-1.0); Eosinophils Absolute Auto 0.02 K/mm3 (0.02-0.50); Eosinophils Percent Auto 0.2 % (1.0-6.0); Hematocrit 38.9 % (35.0-42.0); Hemoglobin 13.2 g/dL (11.7-13.8); Immature Granulocyte Absolute 0.04 K/mm3 (0.00-0.00); Immature Granulocyte Percent A 0.4 % (0.0-0.0); Lymphocytes Absolute Auto 2.71 K/mm3 (1.10-4.50); Mean Corpuscular HGB Conc 33.9 g/dL (32.0-36.0); Mean Corpuscular Volume 100.3 fL (78.0-102.0); Mean Platelet Volume 9.7 fl (9.2-11.8); Monocytes Absolute Auto 0.74 K/mm3 (0.10-0.90); Monocytes Percent Auto 7.1 % (2.0-11.0); Neutrophils Absolute Auto 6.9 K/mm3 (1.7-7.2); Neutrophils Percent Auto 66.1 % (50.0-70.0); Platelet Count Result 269 K/mm3 (150-420); Red Blood Count 3.88 M/mm3 (4.20-5.40); Red Cell Distribution Width 12.7 % (11.6-14.4); White Blood Count 10.4 K/mm3 (4.8-10.8)
[2021-02-16] MEDS: SODIUM CHLORIDE 0.9% IV 1,000 ML 999 ML IV CONT (15:29)
[2021-02-16] MEDS: ONDANSETRON INJ 4 MG/2 ML VIAL 8 MG IV PUSH (15:30)
[2021-02-16 15:38] LABS: Acetaminophen 4 ug/mL (10-30); Alanine Aminotransferase 18 U/L (14-59); Albumin Level 3.2 g/dL (3.4-5.0); Alkaline Phosphatase 74 U/L (46-116); Anion Gap 13 mmol/L (8-16); Aspartate Amino Transferase 12 U/L (15-37); Bilirubin,Total 0.3 mg/dL (0.00-1.00); Blood Urea Nitrogen 14 mg/dL (7-18); Calcium 8.7 mg/dL (8.5-10.1); Carbon Dioxide 25 mmol/L (21-32); Chloride 101 mmol/L (98-108); Estimated CRCL calculation 47 ml/min; Estimated Glomerular Filt Rate > 60; Glucose 100 mg/dL (70-99); Osmolality Calculated 288 mOsm/kg (285-295); Potassium 3.5 mmol/L (3.5-5.1); Salicylate 4.2 mg/dL (2.8-20.0); Sodium 139 mmol/L (136-145); Total Protein 7.3 g/dL (6.4-8.2)
[2021-02-16 15:41] LABS: Ethanol < 3 mg/dL (0-6)
[2021-02-16 16:00] VITALS: BP 117/38; PULSE 56; RESP 20; O2SAT 98
--- NOTE | 2021-02-16 16:03 | ED.GENADULT ---
HPI - General Adult General Chief complaint: Weakness Stated complaint: weakness shortness of breath Source: patient Mode of arrival: ambulatory Limitations: no limitations History of Present Illness HPI narrative: Pt is a 70yo female who has used opioids for last 40 years. She states she was tired of being dependant on them and threw them all aways 3 days ago. She states that she is feeling very ill and needs help. Onset (ago): day(s) Severity: moderate Pain Consistency: constant Relieving factors: none Exacerbating factors: none Associated symptoms: diaphoresis, headaches, loss of appetite, nausea/vomiting, weakness and other (shakyness) Related Data Home Medications Medication Instructions Recorded Confirmed Combigan 1 drp OPHTHALMIC (EYE) DAILY 09/14/20 02/16/21 dorzolamide 1 drp OPHTHALMIC (EYE) DAILY 09/14/20 02/16/21 atorvastatin 10 mg PO QACLUNCH 01/06/21 02/16/21 Allergies Allergy/AdvReac Type Severity Reaction Status Date / Time butorphanol [From Stadol] AdvReac Hallucinati Verified 02/16/21 12:10 ng Review of Systems Constitutional: Constitutional: Reports chills, Reports fatigue, Denies fever(s) and Reports weakness Eyes: Eyes: Reports no additional eye complaints ENT: Reports system reviewed and no additional complaints, except as documented Cardiovascular: Cardiovascular: Reports no additional cardiovascular complaints Respiratory: Respiratory: Reports no additional respiratory complaints Gastrointestinal: Gastrointestinal: Reports no additional gastrointestinal complaints Musculoskeletal: Musculoskeletal: Reports no additional musculoskeletal complaints Integumentary/Breasts: Skin/Breast: Reports system reviewed and no additional complaints, except as docu Neurologic: Reports system reviewed and no additional complaints, except as documented and Reports weakness Comments: shakyness Psychiatric: Psychiatric: Reports no additional psychiatric complaints Endocrine: Endocrine: Reports no additional endocrine complaints Hematologic/Lymphatic: Hematologic/Lymphatic: Reports no additional hematologic/lymphatic complaints [facility] Past Medical History Medical History Anemia Asthma Chronic pain COPD (chronic obstructive pulmonary disease) COPD with acute exacerbation Depression Dyslipidemia Hypertension Interstitial pulmonary fibrosis Lumbar spondylosis Multiple lung nodules on CT There is a 7 mm right lower lobe nodule. 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 There is an 8 mm right lower lobe nodule Steroid-dependent COPD Surgical History Surgical History H/O abdominoplasty H/O cervical spine surgery H/O: hysterectomy History of excision of mass 01/08/21 Excision of 9 cm left upper quadrant subcutaneous abdominal wall mass, Layered closure Hx of cholecystectomy Hx of fusion of cervical spine Hx of lumbosacral spine surgery Port-A-Cath in place S/P appendectomy Family History Family History Father Acute myocardial infarction Smoker Mother Alzheimer's dementia Social History Social History Social History: quit 3 months ago Smoking packs per day: 0.25 Smoking cigarettes per day: 5.0 Years smoked: 30 Smoking pack-years: 7.50 Smoking status: Former smoker Tobacco type: cigarettes Second hand tobacco smoke exposure: No Alcohol intake: never Substance use: never Substance use type: does not use Additional living arrangements comments: Lives with sister Gender identity (if verbalized by the patient): Female Spiritual care concerns: No Agree to blood prod
[2021-02-16] MEDS: clonazePAM (*CRX) 0.5 MG TABLET 1 MG PO ×2 (16:50→19:09)
[2021-02-16 17:00] VITALS: BP 118/59; PULSE 88; RESP 20; O2SAT 95
[2021-02-16 18:00] VITALS: BP 119/76; PULSE 61; RESP 20; O2SAT 92
[2021-02-16 19:00] VITALS: BP 138/73; PULSE 76; RESP 20; TEMP 36.7; O2SAT 98
[2021-02-16 19:41] VITALS: BP 135/70; PULSE 79; RESP 20; TEMP 36.7; O2SAT 99
== END 2021-02-16 19:45 | disposition home or self-care (01) ==
PROVIDERS: Emergency Provider Emergency Medicine; PCP Family Medicine
DX: F11.23 Opioid dependence with withdrawal (principal); J44.9 Chronic obstructive pulmonary disease, unspecified; E78.5 Hyperlipidemia, unspecified; I10 Essential (primary) hypertension; Z87.891 Personal history of nicotine dependence
CPT/HCPCS: 36415; 80053; 80307; 85025; 96361; 96374; 96375; 99283; 99284; A9270; J1642; J2405; J7030

== ENCOUNTER 2021-02-18 14:15 | Outpatient (CLI) | payer MEDICARE, SELFPAY ==
[2021-02-18 14:32] LABS: Hematocrit 41.5 % (35.0-42.0); Hemoglobin 13.7 g/dL (11.7-13.8); Mean Corpuscular Hemoglobin 33.2 pg (27.0-31.0); Mean Corpuscular Volume 100.5 fL (78.0-102.0); Mean Platelet Volume 9.5 fl (9.2-11.8); Platelet Count Result 271 K/mm3 (150-420); Red Blood Count 4.13 M/mm3 (4.20-5.40); Red Cell Distribution Width 12.7 % (11.6-14.4); White Blood Count 9.9 K/mm3 (4.8-10.8)
[2021-02-18 14:48] LABS: Alanine Aminotransferase 25 U/L (14-59); Albumin Level 3.5 g/dL (3.4-5.0); Alkaline Phosphatase 80 U/L (46-116); Anion Gap 10 mmol/L (8-16); Aspartate Amino Transferase 24 U/L (15-37); Bilirubin,Total 0.4 mg/dL (0.00-1.00); Blood Urea Nitrogen 12 mg/dL (7-18); Carbon Dioxide 23 mmol/L (21-32); Chloride 102 mmol/L (98-108); Estimated Glomerular Filt Rate > 60; Glucose 98 mg/dL (70-99); Osmolality Calculated 279 mOsm/kg (285-295); Potassium 3.5 mmol/L (3.5-5.1); Sodium 135 mmol/L (136-145); Total Protein 7.7 g/dL (6.4-8.2)
== END 2021-02-18 14:16 | disposition home or self-care (01) ==
LOC: CHSLAB 14:16
PROVIDERS: PCP Family Medicine; Visit Provider Family Medicine
DX: R11.2 Nausea with vomiting, unspecified (principal)
CPT/HCPCS: 36415; 80053; 85027

== ENCOUNTER 2021-02-18 15:12 | Observation (INO) | payer MEDICARE, MEDICAID, SELFPAY ==
[2021-02-18] VITALS (7 sets, daily range): BP systolic 97–131; BP diastolic 48–74; PULSE 58–65; RESP 18; TEMP 36.4–36.8; O2SAT 96–99; BMI 24.7
[2021-02-18] MEDS: SODIUM CHLORIDE 0.9% IV 1,000 ML 999 ML IV CONT (15:48)
--- NOTE | 2021-02-18 16:01 | ED.WEAKNESS ---
HPI - Weakness General Chief complaint: Weakness Stated complaint: dehydration,unable to eat or drink Source: patient History of Present Illness HPI Narrative: this is a 70-year-old female presented her doctor's office with generalized weakness. The patient denies any chest pain with no shortness of breath no abdominal pain has a history of opioid withdrawal with some decreased urine output with a history of depression chronic pain and anxiety, with a history of COPD pulmonary fibrosis and hypertension. Complaint: generalized weakness Onset (ago): day(s) Duration: constant Location: generalized Migration: none Severity: moderate Quality: tingling and aching Relieving factors: none Exacerbating factors: none Related Data Home Medications Medication Instructions Recorded Confirmed Combigan 1 drp OPHTHALMIC (EYE) DAILY 09/14/20 02/18/21 dorzolamide 1 drp OPHTHALMIC (EYE) DAILY 09/14/20 02/18/21 atorvastatin 10 mg PO QACLUNCH 01/06/21 02/18/21 Allergies Allergy/AdvReac Type Severity Reaction Status Date / Time butorphanol [From Stadol] AdvReac Hallucinati Verified 02/18/21 13:17 ng Review of Systems Review of Systems: All systems reviewed & are unremarkable except as noted in HPI and below PMFSH Past Medical History Medical History Anemia Asthma Chronic pain COPD (chronic obstructive pulmonary disease) COPD with acute exacerbation Depression Dyslipidemia Hypertension Interstitial pulmonary fibrosis Lumbar spondylosis Multiple lung nodules on CT There is a 7 mm right lower lobe nodule. 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 There is an 8 mm right lower lobe nodule Steroid-dependent COPD Surgical History Surgical History H/O abdominoplasty H/O cervical spine surgery H/O: hysterectomy History of excision of mass 01/08/21 Excision of 9 cm left upper quadrant subcutaneous abdominal wall mass, Layered closure Hx of cholecystectomy Hx of fusion of cervical spine Hx of lumbosacral spine surgery Port-A-Cath in place S/P appendectomy Family History Family History Father Acute myocardial infarction Smoker Mother Alzheimer's dementia Social History Social History Social History: quit 3 months ago Smoking packs per day: 0.25 Smoking cigarettes per day: 5.0 Years smoked: 30 Smoking pack-years: 7.50 Smoking status: Former smoker Tobacco type: cigarettes Second hand tobacco smoke exposure: No Alcohol intake: never Substance use: never Substance use type: does not use Additional living arrangements comments: Lives with sister Gender identity (if verbalized by the patient): Female Spiritual care concerns: No Agree to blood products: Yes Exam Const: General: no acute distress Orientation/consciousness: patient oriented x3 HENMT: Head: normal to inspection Eyes: Conjunctivae: conjunctivae normal Pupils: Equal, round and reactive pupils present Neck: Neck: normal visual inspection, no lymphadenopathy and no meningeal signs Chest: Chest palpation & inspection: normal inspection of the chest Resp: Effort & Inspection: normal respiratory effort Auscultation: diminished lung sounds Cardio: Rate: regular rate Rhythm: regular rhythm GI: GI Palp: Yes Soft to palpation : General: Yes no CVA tenderness Back/Spine/Pelvis: Back: no CVA tenderness Skin: General skin exam: normal color Neuro: General: patient oriented x3 and moves all extremities Extrem: General: normal to inspection Psych: Mental Status: mental status grossly normal Affect: Anxious affect present
--- NOTE | 2021-02-18 16:10 | PC.NURSE ---
2nd floor meteorologist in charge contacted to get room assignment for observation admit.
[2021-02-18] MEDS: LORazepam INJ (*CRX) 2 MG/ML VIAL 0.5 MG IV PUSH ×2 (16:50→21:09)
[2021-02-18] MEDS: KETOROLAC 30 MG/ML VIAL (*BKC) IV PUSH (16:50)
--- NOTE | 2021-02-18 17:00 | ADMGEN ---
This patient, Clari Ledesma, was admitted to 2nd Floor Room 204-2. Patient/family oriented to hospital policies and general routines including ID bracelet, bed and alarms, visiting hours, pain management, procedures, bathroom and other care routines, personal items, smoking policy, room service/diet, and visiting hours. Information on how to activate the Rapid Response Team has been discussed. Patient/Family are encouraged to report perceived risks to care and to ask questions if they do not understand what they are told or what they should do.
[2021-02-18] MEDS: busPIRone HCL 5 MG TABLET 10 MG PO (18:01)
[2021-02-18] MEDS: LACTATED RINGERS 1,000 ML 100 ML IV CONT (18:01)
[2021-02-18] MEDS: SUCRALFATE 1 GM TABLET BY MOUTH (18:01)
--- NOTE | 2021-02-19 01:23 | PC.NURSE ---
Called Dr. Talbert to clarify medication orders on pt; he said to defer orders to the nurse practitioner in the morning.
--- NOTE | 2021-02-19 02:16 | PC.NURSE ---
Patient asleep. No apparent distress. Call light and needed items within reach.
[2021-02-19] MEDS: LACTATED RINGERS 1,000 ML 100 ML IV CONT (03:48)
--- NOTE | 2021-02-19 03:54 | PC.NURSE ---
Patient sleeping. New bag of IV fluids hung and infusing as ordered. No apparent distress. Call light and needed items within reach.
[2021-02-19 04:00] VITALS: BP 105/48; PULSE 58; RESP 18; TEMP 36.7; O2SAT 96
[2021-02-19 05:31] LABS: Basophils Absolute Auto 0.01 K/mm3 (0.00-0.10); Basophils Percent Auto 0.1 % (0.0-1.0); Eosinophils Absolute Auto 0.06 K/mm3 (0.02-0.50); Eosinophils Percent Auto 0.9 % (1.0-6.0); Hematocrit 34.8 % (35.0-42.0); Hemoglobin 11.4 g/dL (11.7-13.8); Immature Granulocyte Absolute 0.02 K/mm3 (0.00-0.00); Immature Granulocyte Percent A 0.3 % (0.0-0.0); Lymphocytes Absolute Auto 2.41 K/mm3 (1.10-4.50); Lymphocytes Percent Auto 34.7 % (18.0-42.0); Mean Corpuscular HGB Conc 32.8 g/dL (32.0-36.0); Mean Corpuscular Hemoglobin 33.3 pg (27.0-31.0); Mean Corpuscular Volume 101.8 fL (78.0-102.0); Mean Platelet Volume 9.7 fl (9.2-11.8); Monocytes Absolute Auto 0.74 K/mm3 (0.10-0.90); Monocytes Percent Auto 10.6 % (2.0-11.0); Neutrophils Absolute Auto 3.7 K/mm3 (1.7-7.2); Neutrophils Percent Auto 53.4 % (50.0-70.0); Platelet Count Result 242 K/mm3 (150-420); Red Blood Count 3.42 M/mm3 (4.20-5.40)
--- NOTE | 2021-02-19 05:34 | PC.NURSE ---
Patient getting labs drawn. She states she is having some pain, I offered her Tylenol, she declined. States she will discuss with the doctor today getting something else for pain. She has been asleep each time I have checked on her. Call light and needed items within reach.
[2021-02-19 05:47] LABS: Anion Gap 7 mmol/L (8-16); Carbon Dioxide 25 mmol/L (21-32); Chloride 107 mmol/L (98-108); Potassium 3.3 mmol/L (3.5-5.1); Sodium 139 mmol/L (136-145)
[2021-02-19 06:25] LABS: Alanine Aminotransferase 27 U/L (14-59); Albumin Level 2.6 g/dL (3.4-5.0); Alkaline Phosphatase 64 U/L (46-116); Aspartate Amino Transferase 22 U/L (15-37); Bilirubin,Total 0.4 mg/dL (0.00-1.00); Blood Urea Nitrogen 9 mg/dL (7-18); Calcium 8.1 mg/dL (8.5-10.1); Estimated CRCL calculation 60 ml/min; Estimated Glomerular Filt Rate > 60; Glucose 89 mg/dL (70-99); Osmolality Calculated 285 mOsm/kg (285-295); Total Protein 5.8 g/dL (6.4-8.2)
[2021-02-19 08:00] VITALS: BP 145/71; PULSE 66; RESP 18; TEMP 36.8; O2SAT 96
[2021-02-19] MEDS: MONTELUKAST SODIUM 10 MG TABLET BY MOUTH (08:55)
[2021-02-19] MEDS: hydroCHLOROthiazide 12.5 MG CAPSULE PO (08:56)
[2021-02-19] MEDS: ATORVASTATIN 10 MG TABLET PO (08:56)
[2021-02-19] MEDS: SUCRALFATE 1 GM TABLET BY MOUTH ×3 (08:56→16:30)
[2021-02-19] MEDS: busPIRone HCL 5 MG TABLET 10 MG PO ×3 (08:57→16:29)
[2021-02-19] MEDS: lisinopriL 20 MG TABLET PO (08:59)
[2021-02-19] MEDS: FLUoxetine HCL 10 MG CAPSULE 60 MG PO (08:59)
[2021-02-19] MEDS: ONDANSETRON INJ 4 MG/2 ML VIAL IV PUSH (09:02)
[2021-02-19] MEDS: LORazepam INJ (*CRX) 2 MG/ML VIAL 0.5 MG IV PUSH ×2 (09:06→18:39)
--- NOTE | 2021-02-19 11:00 | PC.NURSE ---
Resting quietly in bed
--- NOTE | 2021-02-19 11:07 | PC.NURSE ---
Cecilia Bland contacted for referal, to call back
--- NOTE | 2021-02-19 11:38 | PC.NURSE ---
Resting quietly in bed,
[2021-02-19] MEDS: ACETAMINOPHEN 325 MG TABLET 650 MG PO (11:45)
[2021-02-19] MEDS: POTASSIUM CHLORIDE 20 MEQ TABLET 40 MEQ PO (11:54)
[2021-02-19 12:00] VITALS: BP 121/77; PULSE 56; RESP 18; TEMP 37.4; O2SAT 96
--- NOTE | 2021-02-19 12:18 | PC.NURSE ---
[facility] here for evaluation
[2021-02-19 14:13] LABS: SARS-CoV-2 RNA PCR Negative (Negative)
--- NOTE | 2021-02-19 14:42 | PM.SD2 ---
Same Day Admit/Disch: HPI History of Present Illness Chief complaint: WEAKNESS DEHYDRATION Narrative: Clari Ledesma is a 70 year old female who was sent to the ER by her PCP opioid withdrawal. Per the PCP note the Pt's sister saw signs of opioid withdrawal such as N/V. She was also reported to have said she had thoughts of hurting herself because she cannot go on like this referring to her long use of opioids. Pt states she was taking opioids for about 40 years and about 6 years ago she had her Morphine pump removed and then had surgery for the voided area which the pump was removed from. Pt visited the ER on 02/16/2021 and at that time she had thrown her [place] away 3 days prior informing the ER physician that she did not want them anymore. Pt states that she may have had a seizure at some point sighting that her sister saw her possibly having a seizure once. Since being here in the hospital she has not had a seizure. Pt states that she and her PCP had a plan to send the Pt to inpatient Rehabilitation however after contacting the PCP, Dr. Raya, I was informed that the Pt did not want inpatient rehabilitation at that time. On the topic of the Pt stating she wanted to hurt herself I asked if she had thoughts of killing herself and she stated YES. When the Pt was asked how she planned on killilng herself she stated by taking PILLS and that she saw something on the TV about how taking Visine and drinking an eye dropper container that is would kill a person. She quickly stated that she would not do this because she is a [employer] and has had some children of her in the past and stated she wants to be able to see them. She said later that she would never kill herself because she wants to see her children again. Nazanin from [facility] was in the room when the Pt admitted to the statement above regarding killing herself and having a plan and her stating that she wanted to change her mind regarding those statements. At this time I informed the Pt that it was too late and I could not send her home knowing she has suicidal ideation with a plan. [facility] Past Medical History Medical History Anemia Asthma Chronic pain COPD (chronic obstructive pulmonary disease) COPD with acute exacerbation Depression Dyslipidemia Hypertension Interstitial pulmonary fibrosis Lumbar spondylosis Multiple lung nodules on CT There is a 7 mm right lower lobe nodule. 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 There is an 8 mm right lower lobe nodule Steroid-dependent COPD Surgical History Surgical History H/O abdominoplasty H/O cervical spine surgery H/O: hysterectomy History of excision of mass 01/08/21 Excision of 9 cm left upper quadrant subcutaneous abdominal wall mass, Layered closure Hx of cholecystectomy Hx of fusion of cervical spine Hx of lumbosacral spine surgery Port-A-Cath in place S/P appendectomy Family History Family History Father Acute myocardial infarction Smoker Mother Alzheimer's dementia Social History Social History Social History: quit 3 months ago Smoking packs per day: 0.25 Smoking cigarettes per day: 5.0 Years smoked: 30 Smoking pack-years: 7.50 Smoking status: Former smoker Tobacco type: cigarettes Second hand tobacco smoke exposure: No Alcohol intake: never Substance use: never Substance use type: does not use Additional living arrangements comments: Lives with sister Gender identity (if verbalized by the patient): Female Sexual Orientation (if Verbalized by the Patient): Straight or Heterosexual Spiritual care concerns: No Agree
[2021-02-19 16:23] VITALS: BP 130/54; PULSE 93; RESP 18; TEMP 36.7; O2SAT 96
[2021-02-19] MEDS: traMADol HCL (*CRX) 50 MG TABLET 100 MG PO (16:30)
--- NOTE | 2021-02-19 19:42 | PC.NURSE ---
Report called to Arlene at [facility], [place] . Patient will be accepted to the psychiatric floor under the care of Dr. Ventura
[2021-02-19 20:00] VITALS: BP 136/58; PULSE 88; RESP 18; TEMP 36.7; O2SAT 95
[2021-02-19] MEDS: HYDROcodone/acetaminophen (*CRX) 5-325 MG TABLET 1 TAB PO (20:04)
--- NOTE | 2021-02-19 20:05 | PC.NURSE ---
Asked patient for urine sample per Dr Day's order. Patient agreed but says she doesn't have to go right now. Patient's chest port de-accessed without difficulty. Patient requested [place] for back pain rated @ 9 perDr Day's 1 x order. Asked patient if she will cooperate when ambulance comes to get her for transfer and she said no very adamentally. Patient asked why she was going and nurse explained to her that transfer is do to her having a plan for suicide. Patient said well, I'm not going so you might as well not call them . Let patient know that if she cannot cooperate that the police will be called and she still says she's not going.
--- NOTE | 2021-02-19 20:52 | PC.NURSE ---
EMS here for transport and asking for medication to calm patient down before they will transport, Dr Marie called and orders received
[2021-02-19] MEDS: ALPRAZolam (*CRX) 0.5 MG TABLET 1 MG PO (20:56)
--- NOTE | 2021-02-19 21:00 | PC.NURSE ---
Ambulance here and patient continues to say she will not go on the ambulance. Patient has all her belongings packed and says she is going home, not to a psych place. Police also here. forest fire management officer spoke with patient and patient agreed to go. Dr Marie ordered patient Gabriella and she took it voluntarily. Patient got on stretcher independently. Patient leaving building on ambulance stretcher @ this time.
--- NOTE | 2021-02-19 21:26 | PC.NURSE ---
Arlene @ [employer] updated on patient leaving and that she agreed to go once police spoke with her and of patient not giving urine sample for UA and of her taking Xanax 1mg po prior to leaving.
== END 2021-02-19 21:00 ==
LOC: CHSED 16:05 → CHS2ND 16:21
PROVIDERS: Nurse Practitioner Family; Admitting Provider Emergency Medicine; Emergency Provider Emergency Medicine; PCP Family Medicine; Visit Provider Emergency Medicine
DX: E86.0 Dehydration (principal); R45.851 Suicidal ideations; E87.6 Hypokalemia; J44.9 Chronic obstructive pulmonary disease, unspecified; I10 Essential (primary) hypertension; J84.10 Pulmonary fibrosis, unspecified; R91.8 Other nonspecific abnormal finding of lung field; G89.29 Other chronic pain; F41.9 Anxiety disorder, unspecified; F32.9 Major depressive disorder, single episode, unspecified; Z20.822 Contact with and (suspected) exposure to COVID-19; Z90.710 Acquired absence of both cervix and uterus; Z90.49 Acquired absence of other specified parts of digestive tract; Z98.1 Arthrodesis status
CPT/HCPCS: 36415; 80053; 85025; 85027; 96361; 96374; 96375; 96376; 99285; A9270; C9803; G0378; J1885; J2060; J2405; J7030; J7120; U0003; U0005

== ENCOUNTER 2021-02-26 12:10 | Outpatient (CLI) | payer MEDICARE, MEDICAID, SELFPAY ==
[2021-02-26] MEDS: SODIUM CHLORIDE 0.9% IV 1,000 ML 500 ML IVPB (12:40)
[2021-02-26] MEDS: ONDANSETRON INJ 4 MG/2 ML VIAL IV PUSH (12:41)
== END 2021-02-26 12:11 | disposition home or self-care (01) ==
LOC: CHSTREATRM 12:13
PROVIDERS: PCP Family Medicine; Visit Provider Family Medicine
DX: E86.0 Dehydration (principal)
CPT/HCPCS: 96360; 96361; 96374; J2405; J7030

== ENCOUNTER 2021-03-23 13:25 | Outpatient (CLI) | payer MEDICARE, MEDICAID, SELFPAY ==
--- NOTE | ~2021-03-23 | XR_ITS ---
EXAMINATION: XR chest 1V portable DATE: 03/23/2021 16:11 INDICATION: Right chest swelling. Port infiltration. TECHNIQUE: A single frontal view of the chest was obtained. COMPARISON: Chest single view 01/19/2021, chest CT 10/30/2020 FINDINGS: There is mild atelectasis versus scarring in the lower lung zones. No pleural effusion or p neumothorax. There is a staple line in right lung. The heart size is normal. There is a right interna l jugular port with tip in superior vena cava. There are changes of posterior fusion procedure in cer vicothoracic spine. There are changes of posterior fusion procedure in lumbar spine. IMPRESSION: 1. Mild atelectasis versus scarring in the lower lung zones. Reviewed, dictated and finalized at location A.
--- NOTE | 2021-03-23 13:35 | PC.NURSE ---
Presents for OP fluids and IV zofran for dehydration, has food with her, to bed with side rails up and call light in reach
[2021-03-23] MEDS: SODIUM CHLORIDE 0.9% IV 1,000 ML 500 ML IVPB (14:00)
[2021-03-23] MEDS: ONDANSETRON INJ 4 MG/2 ML VIAL IV PUSH (14:33)
--- NOTE | 2021-03-23 15:00 | PC.NURSE ---
pt resting per bed, termostat turned up. pt complaint cold in room. warm blankets applied. call lamar in reach. no concerns voiced per pt.
--- NOTE | 2021-03-23 15:47 | PC.NURSE ---
1545 went to room to check pt. pt complaint of discomfort to right chest. observed chest, noted large infiltrate to right chest. Had another nurse observe chest/breast region. confirmed infiltration. Ivfluids stopped at this time. pt states , when the nurse accessed my port it really burned and hurt, but he said it would be fine. 1550 charge nurse notified and called to speak with dr pablo. Pt states, my chest is just tender. no respiratory distress noted or other complaints voiced per pt.
--- NOTE | 2021-03-23 16:08 | PC.NURSE ---
explained to pt new orders for chest xray and 1 hour observation. pt agreeable and calling sister to notified for medicinal plant picker.
--- NOTE | 2021-03-23 16:16 | PC.NURSE ---
Chest xray completed. pt watching tv. no complaints of shortness of breath, states, my chest is just really tender .
--- NOTE | 2021-03-23 16:18 | PC.NURSE ---
Dr. Raya notified that port infiltrated and edema observed in right side of chest and breast and general status update. New order for chest xray and to observe patient for an hour to be sure there is no SOB/resp difficulties.
--- NOTE | 2021-03-23 16:35 | PC.NURSE ---
pt continues watching tv. resp even and unlabored. no resp distress noted.
--- NOTE | 2021-03-23 16:54 | PC.NURSE ---
pt continues to deny shortness of breath or any respiratory complications related to infiltration of right chest port. pt instructed to return to emergency room if any difficulty with breathing.
--- NOTE | 2021-03-23 17:17 | PC.NURSE ---
1705 to room 202 to take pt to lower lobby for discharge. pt not in room , found pt sitting in lobby waiting for sister to brain picker . instructed if any shortness of breath to return to [facility] room for evaluation. pt voiced understanding.
== END 2021-03-23 17:05 | disposition home or self-care (01) ==
LOC: CHSTREATRM 13:28
PROVIDERS: PCP Family Medicine; Visit Provider Family Medicine
DX: E86.0 Dehydration (principal); T80.89XA Other complications following infusion, transfusion and therapeutic injection, initial encounter
CPT/HCPCS: 71045; 96360; 96361; 96374; J2405; J7030

== ENCOUNTER 2021-06-22 09:11 | Outpatient (CLI) | payer MEDICARE, MEDICAID, SELFPAY ==
[2021-06-22] MEDS: HEPARIN SODIUM LOCK FLUSH 500 UNITS/5 ML SYRINGE IV PUSH (09:34)
== END 2021-06-22 09:12 | disposition home or self-care (01) ==
PROVIDERS: PCP Family Medicine; Visit Provider Family Medicine
DX: Z45.2 Encounter for adjustment and management of vascular access device (principal)
CPT/HCPCS: 96523

== ENCOUNTER 2021-08-15 09:33 | Emergency (ER) | payer MEDICARE, MEDICAID, SELFPAY ==
[2021-08-15 09:48] VITALS: BP 51/39; PULSE 72; RESP 22; TEMP 37.2; O2SAT 98
[2021-08-15 09:50] VITALS: BP 60/40; PULSE 60
[2021-08-15 09:55] VITALS: BP 80/56; PULSE 60
[2021-08-15 10:10] VITALS: BP 80/40; PULSE 64
[2021-08-15 10:15] VITALS: BP 74/56; PULSE 68
--- NOTE | 2021-08-15 10:24 | ED.GENADULT ---
HPI - General Adult General Chief complaint: Upper Respiratory Infection Stated complaint: sore throat,ear ache Source: patient Mode of arrival: ambulatory Limitations: no limitations History of Present Illness HPI narrative: Patient presents for evaluation of sore throat. She indicates her symptoms started 5 days ago. She feels like there is something stuck in her throat. She is associated cervical lymphadenopathy. She states she has had a nonproductive cough for the last 3 weeks. She has had episodes of dizziness as of late. She lives in an assisted nursing facility and states that she fell secondary to dizziness about a week ago. She was evaluated at [facility] at that time. She states she had a CT of her head which was negative. She denies any fever, chills, chest pain. She has some shortness of breath both at rest and with exertion, and some fatigue which has been quite bothersome. No history of Covid. No recent sick contacts to her knowledge. She has received both doses of her Covid vaccination. No additional complaints or concerns. Related Data Home Medications Medication Instructions Recorded Confirmed Combigan 1 drp OPHTHALMIC (EYE) DAILY 09/14/20 02/18/21 dorzolamide 1 drp OPHTHALMIC (EYE) DAILY 09/14/20 02/18/21 hydrocodone 10 mg-acetaminophen 1 tablet PO QID PRN tablet 04/21/21 325 mg tablet Allergies Allergy/AdvReac Type Severity Reaction Status Date / Time butorphanol [From Stadol] AdvReac Hallucinati Verified 08/15/21 10:07 ng Review of Systems Review of Systems: CONSTITUTIONAL: Denies fever, chills, or sweats. EYES: Denies visual changes, redness, or discharge. ENT: Reports sore throat. Denies rhinorrhea, congestion, or otalgia. CARDIOVASCULAR: Denies chest pain, palpitations, or edema. RESPIRATORY: Reports cough and shortness of breath. GASTROINTESTINAL: Denies abdominal pain, nausea, vomiting, or diarrhea. GENITOURINARY: Denies dysuria or hematuria. SKIN: Denies rash or itching. MUSCULOSKELETAL: Denies back pain, joint pain, or myalgia. NEUROLOGIC: Reports episodes of dizziness. Denies headache, numbness, dizziness, or weakness. PSYCHIATRIC: Denies anxiety or depression. [facility] Past Medical History Medical History Anemia COPD (chronic obstructive pulmonary disease) COPD with acute exacerbation Depression Hypertension Interstitial pulmonary fibrosis Lumbar spondylosis Multiple lung nodules on CT There is a 7 mm right lower lobe nodule. 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 There is an 8 mm right lower lobe nodule Steroid-dependent COPD Surgical History Surgical History H/O abdominoplasty H/O cervical spine surgery H/O: hysterectomy History of excision of mass 01/08/21 Excision of 9 cm left upper quadrant subcutaneous abdominal wall mass, Layered closure Hx of cholecystectomy Hx of fusion of cervical spine Hx of lumbosacral spine surgery Port-A-Cath in place S/P appendectomy Family History Family History Father Acute myocardial infarction Smoker Mother Alzheimer's dementia Social History Social History Social History: quit 3 months ago Smoking packs per day: 0.25 Smoking cigarettes per day: 5.0 Years smoked: 30 Smoking pack-years: 7.50 Smoking status: Former smoker Tobacco type: cigarettes Second hand tobacco smoke exposure: No Alcohol intake: never Substance use: never Substance use type: does not use Additional living arrangements comments: Lives with sister Gender identity (if verbalized by the patient): Female Sexual Orientation (if
[2021-08-15 10:25] VITALS: BP 80/56; PULSE 68; RESP 20
--- NOTE | 2021-08-15 10:28 | ECG_ITS ---
Measurements Intervals [place] Rate: 61 P: 54 VT: 112 QRS: 71 QRSD: 88 T: 63 QT: 403 QTc: 407 Interpretive Statements SINUS RHYTHM WITH MARKED SINUS ARRHYTHMIA WITH SHORT VT INTERVAL BASELINE ARTIFACT- I, III, AVR, AVL, V5-V6 BORDERLINE ECG Electronically Signed On 08-16-2021 13:55:24 CDT by Rick Bautista D.O.
--- NOTE | 2021-08-15 18:09 | PC.NURSE ---
Addendum entered by Isha Augustine RN 08/15/21 19:39: 1015 noted pt continues to refused iv peripheral access and iv fluids, stating has port-a-cath because veins can not be used. noted ambulance here, risk consultant at bedside. continues to deny dizziness, change in status. Original Note: 1615 noted pt refused iv peripheral access, stating has portacath because veins can not be used. noted ambulance here, risk consultant at bedside.
--- NOTE | 2021-08-15 19:18 | PC.NURSE ---
Addendum entered by Isha Augustine RN 08/15/21 19:27: 1010 pt refused sl, states has bad veins so has port-a-cath. continues to deny dizziness/nausea/change in neuro status/cp. Original Note: pt refused saline lock
== END 2021-08-15 10:25 | disposition short-term general hospital (02) ==
PROVIDERS: Emergency Provider Nurse Practitioner; PCP Family Medicine
DX: I95.9 Hypotension, unspecified (principal); R00.1 Bradycardia, unspecified; J02.9 Acute pharyngitis, unspecified; Z87.891 Personal history of nicotine dependence; J44.9 Chronic obstructive pulmonary disease, unspecified; I10 Essential (primary) hypertension; M47.816 Spondylosis without myelopathy or radiculopathy, lumbar region; J84.10 Pulmonary fibrosis, unspecified
CPT/HCPCS: 93005; 99215; G0463

== ENCOUNTER 2021-12-27 13:31 | Outpatient (CLI) | payer OTHER, SELFPAY ==
--- NOTE | ~2021-12-27 | CT_ITS ---
EXAMINATION:CT lung screening DATE: 12/27/2021 14:05 INDICATION: Personal history of nicotine dependence. Smoker who quit less than 1 ago with 30 pack yea r history. TECHNIQUE: Computed tomography (CT) of the chest was performed without intravenous contrast. Automate d exposure control and iterative reconstruction technique were employed. The dose-length product (DLP ) was 93.82 mGy-cm. COMPARISON: Chest CT 10/30/2020 FINDINGS: Again seen is a 5 mm nodule in left upper lobe. There is mild emphysema. There is a staple line involving right upper lobe and right middle lobe. There is a new 4 mm nodule in left upper lobe. There is a stable 4 mm nodule in left upper lobe. There is mild atelectasis in right lower lobe. No pleural effusion. There is a right internal jugular port with tip at superior cavoatrial junction. Th e heart size is normal. There are coronary artery calcifications. No pericardial effusion. There are changes of posterior fusion procedure from cervical spine to T2. There are changes of posterior fusio n procedure in lumbar spine. There is an intrathecal catheter. There is moderate thoracic spondylosis and severe lumbar spondylosis. IMPRESSION: 1. Lung-RADS category 3: Probably benign. Further evaluation is recommended with noncontrast low-dose chest CT in 6 months. Reviewed, dictated and finalized at location E. [employer]ING PERFORMANCE SPECIALIST IMPRESSION: 1. Lung-RADS category 3: Probably benign. Further evaluation is recommended wit h noncontrast low-dose chest CT in 6 months.
== END 2021-12-27 13:32 | disposition home or self-care (01) ==
LOC: CHSIMG 13:33
PROVIDERS: PCP Family Medicine; Visit Provider Family Medicine
DX: Z12.2 Encounter for screening for malignant neoplasm of respiratory organs (principal); Z87.891 Personal history of nicotine dependence
CPT/HCPCS: 71271

== ENCOUNTER 2022-04-25 02:17 | Day surgery (SDC) | payer MEDICARE, MEDICAID, SELFPAY ==
[2022-04-14 12:08] VITALS: BMI 21.3
--- NOTE | 2022-04-25 09:15 | WPDANESEPPF ---
Anes - Initial Pre Proc Eval Procedure: Operation Date: 04/25/22 11:30 Proposed Procedures p Colonoscopy - Mario Rodriguez MD Date/Time: 04/25/22 09:15 Surgeon: Mario Rodriguez MD Pre Op Diagnosis: Positive Cologuard Patient Data Age: 71 Gender: F Height: 1.68 m Weight: 60 kg Allergies Allergy/AdvReac Type Severity Reaction Status Date / Time butorphanol [From Stadol] AdvReac Hallucinati Verified 04/25/22 10:16 ng Home Medications Medication Instructions Recorded Confirmed Type ipratropium 0.5 mg-albuterol 3 mg 1 ml inhalation QID PRN Shortness 02/27/20 04/14/22 Rx (2.5 mg base)/3 mL nebulization Of Breath Or Wheezing #1 mL soln brimonidine 0.2 %-timolol 0.5 % 1 drp ophthalmic (eye) DAILY 09/14/20 04/14/22 History eye drops (Combigan) dorzolamide 2 % eye drops 1 drp ophthalmic (eye) DAILY 09/14/20 04/14/22 History hydrocodone 10 mg-acetaminophen 1 tablet PO QID PRN Pain 04/21/21 04/14/22 History 325 mg tablet atropine 1 % eye drops 1 drp PO Q4-6H PRN secretions #15 07/30/21 04/14/22 Rx mL atorvastatin 40 mg tablet 40 mg PO DAILY 08/15/21 04/14/22 History trazodone 150 mg tablet See Rx Instructions .Route 09/06/21 04/14/22 Rx .COMPLEX #270 tabs duloxetine 60 mg capsule,delayed See Rx Instructions .Route 09/29/21 04/14/22 Rx release .COMPLEX #30 caps albuterol sulfate 90 mcg/actuation 1 inh inhalation Q4H PRN shortness 10/05/21 04/14/22 Rx aerosol inhaler of breath or wheezing #8.5 grams baclofen 10 mg tablet See Rx Instructions .Route 10/05/21 04/14/22 Rx .COMPLEX PRN muscle spasm #90 tabs buspirone 10 mg tablet See Rx Instructions .Route 10/05/21 04/14/22 Rx .COMPLEX PRN anxiety #90 tabs fluticasone fur. 200 mcg-umeclid 1 inh inhalation DAILY #60 ea 10/05/21 04/14/22 Rx 62.5 mcg-vilant 25 mcg inhalat.powder (Trelegy Ellipta) nystatin 100,000 unit/mL oral 1 ml PO DAILY #60 mL 10/05/21 04/14/22 Rx suspension lisinopril 10 mg tablet See Rx Instructions .Route 01/21/22 04/14/22 Rx .COMPLEX #90 tabs montelukast 10 mg tablet See Rx Instructions .Route 01/21/22 04/14/22 Rx .COMPLEX #90 tabs benzonatate 200 mg capsule 200 mg PO TID PRN cough #90 caps 03/03/22 04/14/22 Rx ondansetron HCl 4 mg tablet See Rx Instructions .Route 03/31/22 04/14/22 Rx .COMPLEX #30 tabs Patient hx anesthesia problems: none Family hx anesthesia problems: none Results Review: All pre-operative results and documents have been reviewed as part of the pre-operative evaluation. [facility] Past Medical History Medical History Anemia COPD (chronic obstructive pulmonary disease) COPD with acute exacerbation Depression Hypertension Interstitial pulmonary fibrosis Lumbar spondylosis Multiple lung nodules on CT There is a 7 mm right lower lobe nodule. 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 There is an 8 mm right lower lobe nodule Steroid-dependent COPD Surgical History Surgical History H/O abdominoplasty H/O cervical spine surgery H/O: hysterectomy History of excision of mass 01/08/21 Excision of 9 cm left upper quadrant subcutaneous abdominal wall mass, Layered closure Hx of cholecystectomy Hx of fusion of cervical spine Hx of lumbosacral spine surgery Port-A-Cath in place S/P appendectomy Family History Family History Father Acute myocardial infarction Smoker Mother Alzheimer's dementia Social History Social History Social History: quit 3 months ago Smoking packs per day: 0.25 Smoking cigarettes per day: 5.0 Years smoked: 40 Smoking pack-years: 10.00 Smoking
[2022-04-25 10:18] VITALS: BP 101/65; PULSE 62; RESP 20; TEMP 36.4; O2SAT 98
[2022-04-25] MEDS: LACTATED RINGERS 1,000 ML 150 ML IV CONT (10:36)
--- NOTE | 2022-04-25 11:00 | PM.HPGS ---
History of Present Illness History of Present Illness Consent: Risks, benefits, and alternatives have been discussed and questions answered. Patient agrees to proceed with procedure. Chief complaint: Positive Cologuard Narrative: Clari Ledesma is a 71 year old female with + cologuard, last colonoscopy about 20 years ago. Also has been dealing with diarrhea for almost 6 weeks. Review of Systems Constitutional: Constitutional: Denies headache(s) and Denies weakness Eyes: Eyes: Denies blurry vision ENT: Reports Normal hearing present, Denies headache(s) and Denies neck pain Cardiovascular: Cardiovascular: Denies chest pain and Denies dyspnea Respiratory: Respiratory: Denies dyspnea Gastrointestinal: Gastrointestinal: Reports no additional gastrointestinal complaints Genitourinary: Genitourinary: Denies dysuria Musculoskeletal: Musculoskeletal: Denies neck pain Integumentary/Breasts: Skin/Breast: Denies dry skin Neurologic: Reports Normal hearing present, Denies headache(s) and Denies weakness Psychiatric: Psychiatric: Denies anxiety Endocrine: Endocrine: Denies change in body appearance Hematologic/Lymphatic: Hematologic/Lymphatic: Denies easy bleeding Allergic/Immunologic: Allergic/Immunologic: Denies urticaria PMFSH Past Medical History Medical History (Updated 04/25/22 @ 11:01 by Mario Rodriguez MD) Anemia COPD (chronic obstructive pulmonary disease) COPD with acute exacerbation Depression Diarrhea Hypertension Interstitial pulmonary fibrosis Lumbar spondylosis Multiple lung nodules on CT There is a 7 mm right lower lobe nodule. 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 There is an 8 mm right lower lobe nodule Steroid-dependent COPD Surgical History Surgical History H/O abdominoplasty H/O cervical spine surgery H/O: hysterectomy History of excision of mass 01/08/21 Excision of 9 cm left upper quadrant subcutaneous abdominal wall mass, Layered closure Hx of cholecystectomy Hx of fusion of cervical spine Hx of lumbosacral spine surgery Port-A-Cath in place S/P appendectomy Family History Family History Father Acute myocardial infarction Smoker Mother Alzheimer's dementia Social History Social History Social History: quit 3 months ago Smoking packs per day: 0.25 Smoking cigarettes per day: 5.0 Years smoked: 40 Smoking pack-years: 10.00 Smoking status: Current every day smoker Tobacco type: cigarettes Second hand tobacco smoke exposure: No Alcohol intake: never Substance use: never Substance use type: does not use Living arrangements: with family Additional living arrangements comments: Lives with sister Gender identity (if verbalized by the patient): Female Sexual Orientation (if Verbalized by the Patient): Straight or Heterosexual Spiritual care concerns: No Agree to blood products: Yes Meds Home Medications and Allergies Home Medications Medication Instructions Recorded Confirmed Type ipratropium 0.5 mg-albuterol 3 mg 1 ml inhalation QID PRN Shortness 02/27/20 04/14/22 Rx (2.5 mg base)/3 mL nebulization Of Breath Or Wheezing #1 mL soln brimonidine 0.2 %-timolol 0.5 % 1 drp ophthalmic (eye) DAILY 09/14/20 04/14/22 History eye drops (Combigan) dorzolamide 2 % eye drops 1 drp ophthalmic (eye) DAILY 09/14/20 04/14/22 History hydrocodone 10 mg-acetaminophen 1 tablet PO QID PRN Pain 04/21/21 04/14/22 History 325 mg tablet atropine 1 % eye drops 1 drp PO Q4-6H PRN secretions #15 07/30/21 04/14/22 Rx mL atorvastatin 40 mg tablet 40 mg PO DAILY 08/15/21 04/14/22 History trazodone 150 mg tablet See Rx Ins
[2022-04-25 11:24] VITALS: BP 83/46; PULSE 61; RESP 23; O2SAT 100
[2022-04-25 11:34] VITALS: BP 87/57; PULSE 64; RESP 23; O2SAT 100
[2022-04-25] MEDS: HEPARIN SODIUM LOCK FLUSH 500 UNITS/5 ML VIAL IV PUSH (11:36)
[2022-04-25 11:38] VITALS: BP 91/48; PULSE 60; RESP 18; O2SAT 100
[2022-04-25 11:48] VITALS: BP 108/70; PULSE 60; RESP 20; O2SAT 100
== END 2022-04-25 11:57 | disposition home or self-care (01) ==
PROVIDERS: PCP Family Medicine; Visit Provider Internal Medicine Gastroenterology
PROC: 0DJD8ZZ Inspection of Lower Intestinal Tract, Via Natural or Artificial Opening Endoscopic (ICD-10-PCS; CPT 45378; principal; 2022-04-25 11:30)
DX: K57.30 Diverticulosis of large intestine without perforation or abscess without bleeding (principal); D12.0 Benign neoplasm of cecum; J44.9 Chronic obstructive pulmonary disease, unspecified; F32.A Depression, unspecified; I10 Essential (primary) hypertension; J84.10 Pulmonary fibrosis, unspecified; Z87.891 Personal history of nicotine dependence; Z79.51 Long term (current) use of inhaled steroids; Z98.1 Arthrodesis status
CPT/HCPCS: 45385; 88305; J1642; J2704; J7120

== ENCOUNTER 2023-01-05 13:39 | Outpatient (CLI) | payer MEDICARE, MEDICAID, SELFPAY ==
[2023-01-05 13:55] LABS: Hematocrit 43.4 % (35.0-42.0); Hemoglobin 13.5 g/dL (11.7-13.8); Mean Corpuscular HGB Conc 31.1 g/dL (32.0-36.0); Mean Corpuscular Hemoglobin 32.7 pg (27.0-31.0); Mean Corpuscular Volume 105.1 fL (78.0-102.0); Mean Platelet Volume 9.4 fl (9.2-11.8); Platelet Count Result 353 K/mm3 (150-420); Red Blood Count 4.13 M/mm3 (4.20-5.40); Red Cell Distribution Width 13.2 % (11.6-14.4); White Blood Count 9.6 K/mm3 (4.8-10.8)
[2023-01-05 14:45] LABS: Thyroid Stimulating Hormone Reflex 1.63 u/IU/mL (0.36-3.74)
[2023-01-05 14:48] LABS: Alanine Aminotransferase 10 U/L (14-59); Albumin Level 3.8 g/dL (3.4-5.0); Alkaline Phosphatase 97 U/L (46-116); Anion Gap 6 mmol/L (8-16); Aspartate Amino Transferase 21 U/L (15-37); Bilirubin,Total 0.4 mg/dL (0.00-1.00); Blood Urea Nitrogen 15 mg/dL (7-18); Carbon Dioxide 27 mmol/L (21-32); Chloride 102 mmol/L (98-108); Estimated Glomerular Filt Rate > 60; Ferritin 79 ng/mL (8-252); Glucose 93 mg/dL (70-99); Osmolality Calculated 280 mOsm/kg (285-295); Potassium 4.2 mmol/L (3.5-5.1); Sodium 135 mmol/L (136-145); Total Protein 7.1 g/dL (6.4-8.2)
== END 2023-01-05 13:40 | disposition home or self-care (01) ==
LOC: CHSLAB 13:42
PROVIDERS: PCP Family Medicine; Visit Provider Family Medicine
DX: I10 Essential (primary) hypertension (principal); E11.9 Type 2 diabetes mellitus without complications; D50.9 Iron deficiency anemia, unspecified; J18.9 Pneumonia, unspecified organism
CPT/HCPCS: 36415; 80053; 82728; 84443; 85027

== ENCOUNTER 2023-02-16 19:52 | Outpatient (CLI) | payer MEDICARE, MEDICAID, SELFPAY ==
--- NOTE | 2023-03-08 08:58 | WPDSLEEPSTUD ---
Sleep Study Date of Study: 02/16/23 Ordering Provider: Inocente Raya DO Interpreting Physician: Fadia Mahoney MD Sleep Study Type: Polysomnogram Height: 1.68 m Weight: 58.967 kg Body Mass Index: 20.9 Neck Circumference (inches): 14 [place]: 7 Reason for Sleep Study Excessive daytime sleepiness Sleep History Clari Ledesma is a 72-year-old woman who complaints of not feeling rested after waking. She has difficulty falling asleep, she wakes during the night and wakes up earlier in the morning than desired. She occasionally awakens from sleep feeling short of breath. She does not awaken at night with heartburn, belching or coughing. She rarely snores rarely loud enough that others complain about it. She frequently has difficulty sleeping with a cold. She occasionally wakes up gasping for breath at night. She occasionally has breathing problems at night observed by others. She rarely sweats excessively at night. She rarely notices her heart pounding or beating irregularly at night. She frequently falls asleep during the day. She rarely falls asleep involuntarily. She does not fall asleep while driving. There was no loss of muscle tone with strong emotion. She is retired so there is no difficulty with interruption of her job responsibilities. She occasionally feels paralyzed on waking or falling asleep. She rarely has vivid dreamlike scenes on waking or falling asleep. She does not feel afraid to go to sleep. She rarely has nightmares. She does not remember her dreams. She rarely has racing thoughts, feelings of sadness depression or anxiety. She occasionally has muscular tension. She rarely notices parts of her body jerking. She occasionally kicks at night. She usually has crawling and aching feelings in her legs at night. She rarely has morning jaw pain. She does not grind her teeth during sleep. She constantly is bothered by pain during the day and frequently awakened by pain at night. She occasionally wakes up feeling stiff in the morning, frequently wakes with sore achy muscles. Constantly wakes with pain in the neck and spine. She has memory problems, fatigue, depression and insomnia. SHE has tried sleeping pills to help with Getting to sleep and staying asleep. Normal bedtime is 9-10 p.m. falling asleep within 30 minutes, typically waking 2-3 times during the night; while awake she may watch television or read. Her normal wake time is 6:00 a.m.. She takes naps in the afternoon or evening. A short nap lasting 10 or 15 minutes is not refreshing. She is tired and sleepy after waking for 2 hours. She feels better in the morning compared to other times of day. She frequently has excessive daytime sleepiness. In her office visit with her primary care she reported sleeping up to 20 hours a day. This is different and a much greater amount of sleep compared to her sleep questionnaire. She occasionally has morning headaches. She rarely awakens feeling refreshed. Habits: Tobacco half pack per day. Caffeine 2 servings a day. No alcohol or recreational substances. [facility] Past Medical History Medical History Anemia COPD (chronic obstructive pulmonary disease) COPD with acute exacerbation Depression Diarrhea Hypertension Interstitial pulmonary fibrosis Lumbar spondylosis Multiple lung nodules on CT There is a 7 mm right lower lobe nodule. 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 There is an 8 mm right lower lobe nodule Steroid-dependent COPD Surgical History Surgical History H/O abdominoplasty H/O cervical spine surgery H/O: hysterectomy History of excision of mass 01/08/21 Excision of 9 cm left upper quadrant subcutaneous abdominal wall mass, Layered closure
[2023-03-08 11:01] VITALS: BMI 20.9
== END 2023-02-17 06:49 | disposition home or self-care (01) ==
PROVIDERS: PCP Family Medicine; Visit Provider Family Medicine
DX: R06.83 Snoring (principal); G47.10 Hypersomnia, unspecified; R40.0 Somnolence; G47.30 Sleep apnea, unspecified; I10 Essential (primary) hypertension
CPT/HCPCS: 95810

== ENCOUNTER 2023-04-24 09:50 | Emergency (ER) | payer MEDICARE, MEDICAID, SELFPAY ==
--- NOTE | ~2023-04-24 | XR_ITS ---
EXAMINATION: XR chest 2V DATE: 04/24/2023 10:29 INDICATION: Cough. TECHNIQUE: Frontal and lateral views of the chest were obtained. COMPARISON: Chest single view 03/23/2021, chest CT 12/27/2021 FINDINGS: There is mild volume loss of right hemithorax. A staple line and surgical clips overlie rig ht lung. There are airspace opacities in right mid and lower lung zones. No pleural effusion or pneum othorax. The heart size is normal. There is a right internal jugular port with tip in superior vena c luis. There are changes of posterior fusion procedures in cervicothoracic spine and lumbar spine. Surg ical clips in the right upper quadrant are likely from cholecystectomy. IMPRESSION: 1. Mild airspace opacities in right mid and lower lung zones, consistent with atelectasis/scarring ve rsus pneumonia. Reviewed, dictated and finalized at location A. IMPRESSION: 1. Mild airspace opacities in right mid and lower lung zones, consistent with a telectasis/scarring versus pneumonia.
[2023-04-24 09:57] VITALS: BP 146/74; PULSE 77; RESP 20; TEMP 36.6; O2SAT 99
--- NOTE | 2023-04-24 09:57 | ED.URI ---
HPI - URI/Sore Throat General Chief Complaint: Upper Respiratory Infection Stated Complaint: has pnuemonia/sob Time Seen by Provider: 04/24/23 09:57 Source: patient and RN notes reviewed History of Present Illness HPI Narrative: Patient is a 80-year-old female who presents to urgent care with complaints of shortness of breath and intermittent coughing. Patient states that she does have a history of COPD. States that she was seen at [facility] in [place] and discharge herself against medical advice due to a family emergency. Patient states that she did get 2 doses of IV antibiotics and was on steroids. Believes that her pneumonia was on the left side. Patient states that they would not give her prescriptions for outpatient treatment and she is unable to get a hold of her PCP. Patient states that currently her shortness of breath is typical with her history of COPD. Denies any fever. No other acute complaints. No acute distress noted. Patient aware of the plan of care. Some parts of this dictation were generated by voice recognition software and may contain typographical and/or grammatical inaccuracies. Related Data Home Medications Medication Instructions Recorded Confirmed brimonidine 0.2 %-timolol 0.5 % 1 drp ophthalmic (eye) DAILY 09/14/20 04/14/22 eye drops (Combigan) dorzolamide 2 % eye drops 1 drp ophthalmic (eye) DAILY 09/14/20 04/14/22 hydrocodone 10 mg-acetaminophen 1 tablet PO QID PRN Pain 04/21/21 04/14/22 325 mg tablet aspirin 81 mg tablet,delayed 81 mg PO DAILY 12/22/22 release pregabalin 150 mg capsule (Lyrica) 150 mg PO DAILY 12/22/22 Allergies Allergy/AdvReac Type Severity Reaction Status Date / Time butorphanol [From Stadol] AdvReac Hallucinati Verified 01/05/23 07:52 ng Review of Systems Review of Systems: CONSTITUTIONAL: Denies fever, chills, or sweats. EYES: Denies visual changes, redness, or discharge. ENT: Denies rhinorrhea, congestion, sore throat, or otalgia. CARDIOVASCULAR: Denies chest pain, palpitations, or edema. RESPIRATORY: Reports of mild cough and some dyspnea on exertion GASTROINTESTINAL: Denies abdominal pain, nausea, vomiting, or diarrhea. GENITOURINARY: Denies dysuria or hematuria. SKIN: Denies rash or itching. MUSCULOSKELETAL: Denies back pain, joint pain, or myalgia. NEUROLOGIC: Denies headache, numbness, or weakness. All other systems reviewed are negative, except as documented in HPI. [facility] Past Medical History Medical History Anemia COPD (chronic obstructive pulmonary disease) COPD with acute exacerbation Depression Diarrhea Hypertension Interstitial pulmonary fibrosis Lumbar spondylosis Multiple lung nodules on CT There is a 7 mm right lower lobe nodule. 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 There is an 8 mm right lower lobe nodule Steroid-dependent COPD Surgical History Surgical History H/O abdominoplasty H/O cervical spine surgery H/O: hysterectomy History of excision of mass 01/08/21 Excision of 9 cm left upper quadrant subcutaneous abdominal wall mass, Layered closure Hx of cholecystectomy Hx of fusion of cervical spine Hx of lumbosacral spine surgery Port-A-Cath in place S/P appendectomy Family History Family History Father Acute myocardial infarction Smoker Mother Alzheimer's dementia Social History Social History Social History: quit 3 months ago Smoking packs per day: 0.25 Smoking cigarettes per day: 5.0 Years smoked: 40 Smoking pack-years: 10.00 Smoking status: Current every day smoker Tobacco type: cigarettes Second hand toba
== END 2023-04-24 10:57 | disposition home or self-care (01) ==
PROVIDERS: Emergency Provider Nurse Practitioner Family
DX: J44.9 Chronic obstructive pulmonary disease, unspecified (principal); Z87.891 Personal history of nicotine dependence; I10 Essential (primary) hypertension; Z79.82 Long term (current) use of aspirin
CPT/HCPCS: 71046; 99213; G0463

== ENCOUNTER 2023-08-07 11:42 | Emergency (ER) | payer MEDICARE, MEDICAID, SELFPAY ==
--- NOTE | ~2023-08-07 | XR_ITS ---
EXAMINATION: XR chest 2V DATE: 08/07/2023 12:15 INDICATION: Cough and congestion TECHNIQUE: PA and lateral views of the chest are obtained. COMPARISON: 04/24/2023 FINDINGS: The lungs are free of acute opacities. No pleural effusion or pneumothorax. The cardiomedia stinal silhouette is normal. There is moderate thoracic spondylosis. A right internal jugular Port-A- Cath ends with its tip in the superior vena cava. There are surgical clips in the right suprahilar re gion. There are partially imaged surgical changes of the cervicothoracic spine. Surgical clips in the right upper quadrant are likely from prior cholecystectomy. IMPRESSION: 1. No acute cardiopulmonary abnormality. Reviewed, dictated and finalized at location B.
[2023-08-07 11:50] VITALS: BP 105/57; PULSE 77; RESP 20; TEMP 36.9; O2SAT 97
--- NOTE | 2023-08-07 12:27 | ED.URI ---
HPI - URI/Sore Throat General Chief Complaint: Upper Respiratory Infection Stated Complaint: Chest Congestion/Sore Throat/Cough Time Seen by Provider: 08/07/23 12:20 Source: patient, RN notes reviewed and old records reviewed Mode of arrival: ambulatory Limitations: no limitations History of Present Illness HPI Narrative: 73 year old female presents to [facility] care with complaints of 2 weeks of cough and increasing congestion with concern for pneumonia, 2-3 days SOB history of COPD with recent sore throat. Patient reports that she has used her inhalers as prescribed and has taken some Tylenol for her discomfort. Patient lives in community setting with no known ill exposure. Patient reports no known fevers, chills or sweats or any body aches. MD elicited complaint: cough and sore throat Pertinent past history: pneumonia and COPD Onset (ago): week(s) (2 weeks cough and congestion dyspnea 2-3 days increased) Able to tolerate fluids by mouth: Yes Treatments prior to arrival: acetaminophen and other (inhalers as prescribed.) Related Data Home Medications Medication Instructions Recorded Confirmed brimonidine 0.2 %-timolol 0.5 % 1 drp ophthalmic (eye) DAILY 09/14/20 08/07/23 eye drops (Combigan) dorzolamide 2 % eye drops 1 drp ophthalmic (eye) DAILY 09/14/20 08/07/23 aspirin 81 mg tablet,delayed 81 mg PO DAILY 12/22/22 08/07/23 release pregabalin 150 mg capsule (Lyrica) 150 mg PO DAILY 12/22/22 08/07/23 atorvastatin 40 mg tablet 40 mg PO DAILY 08/07/23 08/07/23 lisinopril 10 mg tablet 10 mg PO DAILY 08/07/23 08/07/23 montelukast 10 mg tablet 10 mg PO DAILY 08/07/23 08/07/23 trazodone 150 mg tablet 150 mg PO TID 08/07/23 08/07/23 Allergies Allergy/AdvReac Type Severity Reaction Status Date / Time butorphanol [From Stadol] AdvReac Hallucinati Verified 08/07/23 11:58 ng Review of Systems Review of Systems: CONSTITUTIONAL: Denies malaise, chills, sweats, or fever. EYES: Denies visual changes, redness, or discharge. ENT: Reports rhinorrhea, congestion,no sinus pain,no otalgia positive for sore throat. CARDIOVASCULAR: Denies chest pain, palpitations, or edema. RESPIRATORY: Reports cough and congestion.? Reports dyspnea. GASTROINTESTINAL: Denies abdominal pain, nausea, vomiting, diarrhea SKIN: Denies rash or itching. MUSCULOSKELETAL: Denies myalgia. NEUROLOGIC: Denies headache. All systems reviewed & are unremarkable except as noted in HPI and below PMFSH Past Medical History Medical History Anemia COPD (chronic obstructive pulmonary disease) COPD with acute exacerbation Depression Diarrhea Hypertension Interstitial pulmonary fibrosis Lumbar spondylosis Multiple lung nodules on CT There is a 7 mm right lower lobe nodule. 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 There is an 8 mm right lower lobe nodule Steroid-dependent COPD Surgical History Surgical History H/O abdominoplasty H/O cervical spine surgery H/O: hysterectomy History of excision of mass 01/08/21 Excision of 9 cm left upper quadrant subcutaneous abdominal wall mass, Layered closure Hx of cholecystectomy Hx of fusion of cervical spine Hx of lumbosacral spine surgery Port-A-Cath in place S/P appendectomy Family History Family History Father Acute myocardial infarction Smoker Mother Alzheimer's dementia Social History Social History Social History: quit 3 months ago Smoking packs per day: 0.25 Smoking cigarettes per day: 5.0 Years smoked: 40 Smoking pack-years: 10.00 Smoking status: Current every day smoker Tobacco type: cigarettes Se
== END 2023-08-07 12:42 | disposition home or self-care (01) ==
PROVIDERS: Emergency Provider Registered Nurse; PCP Family Medicine
DX: J44.1 Chronic obstructive pulmonary disease with (acute) exacerbation (principal); J06.9 Acute upper respiratory infection, unspecified; Z20.822 Contact with and (suspected) exposure to COVID-19; Z87.891 Personal history of nicotine dependence; I10 Essential (primary) hypertension; J84.10 Pulmonary fibrosis, unspecified; Z79.82 Long term (current) use of aspirin; F32.A Depression, unspecified
CPT/HCPCS: 71046; 87426; 99213; C9803; G0463

== ENCOUNTER 2023-08-23 11:31 | Outpatient (CLI) | payer MEDICARE, MEDICAID, SELFPAY ==
[2023-08-23 11:47] LABS: Basophils Absolute Auto 0.02 K/mm3 (0.00-0.10); Basophils Percent Auto 0.2 % (0.0-1.0); Eosinophils Absolute Auto 0.09 K/mm3 (0.02-0.50); Eosinophils Percent Auto 0.8 % (1.0-6.0); Hematocrit 41.1 % (35.0-42.0); Hemoglobin 13.1 g/dL (11.7-13.8); Immature Granulocyte Absolute 0.04 K/mm3 (0.00-0.00); Immature Granulocyte Percent A 0.4 % (0.0-0.0); Lymphocytes Absolute Auto 2.33 K/mm3 (1.10-4.50); Lymphocytes Percent Auto 21.2 % (18.0-42.0); Mean Corpuscular HGB Conc 31.9 g/dL (32.0-36.0); Mean Corpuscular Hemoglobin 33.1 pg (27.0-31.0); Mean Corpuscular Volume 103.8 fL (78.0-102.0); Mean Platelet Volume 9.4 fl (9.2-11.8); Monocytes Absolute Auto 0.53 K/mm3 (0.10-0.90); Monocytes Percent Auto 4.8 % (2.0-11.0); Neutrophils Percent Auto 72.6 % (50.0-70.0); Platelet Count Result 246 K/mm3 (150-420); Red Blood Count 3.96 M/mm3 (4.20-5.40); Red Cell Distribution Width 13.2 % (11.6-14.4)
[2023-08-23 12:35] LABS: Alanine Aminotransferase 9 U/L (14-59); Albumin Level 3.3 g/dL (3.4-5.0); Alkaline Phosphatase 70 U/L (46-116); Anion Gap 10 mmol/L (8-16); Aspartate Amino Transferase 11 U/L (15-37); Bilirubin,Total 0.3 mg/dL (0.00-1.00); Blood Urea Nitrogen 10 mg/dL (7-18); Calcium 9.2 mg/dL (8.5-10.1); Carbon Dioxide 24 mmol/L (21-32); Chloride 109 mmol/L (98-108); Estimated Glomerular Filt Rate > 60; Folic Acid 16.1 ng/mL (8.6->20); Glucose 139 mg/dL (70-99); Magnesium 1.9 mg/dL (1.8-2.4); Osmolality Calculated 297 mOsm/kg (285-295); Potassium 3.6 mmol/L (3.5-5.1); Sodium 143 mmol/L (136-145); Total Protein 6.2 g/dL (6.4-8.2); Vitamin B12 263 pg/mL (193-986)
[2023-08-23 12:36] LABS: CRP < 0.5 mg/dL (0.0-0.9)
[2023-08-23 12:37] LABS: Thyroid Stimulating Hormone Reflex 1.02 u/IU/mL (0.36-3.74)
== END 2023-08-23 11:32 | disposition home or self-care (01) ==
LOC: CHSLAB 11:34
PROVIDERS: PCP Family Medicine; Visit Provider Family Medicine
DX: E53.8 Deficiency of other specified B group vitamins (principal); E11.9 Type 2 diabetes mellitus without complications; F32.9 Major depressive disorder, single episode, unspecified
CPT/HCPCS: 36415; 80053; 82607; 82746; 83735; 84443; 85025; 86140

== ENCOUNTER 2023-12-29 11:25 | Emergency (ER) | payer MEDICARE, MEDICAID, SELFPAY ==
[2023-12-29 11:39] VITALS: BP 105/54; PULSE 95; RESP 16; TEMP 36.8; O2SAT 97
--- NOTE | 2023-12-29 11:46 | ED.WOUNDLAC ---
HPI - Wound/Laceration General Chief Complaint: Wound/Laceration Stated Complaint: Left Hand Injury/Dog Scratch Source: patient Mode of arrival: ambulatory Limitations: no limitations History of Present Illness HPI narrative: 73-year-old female presented for complaint of wound to the top of the hand sustained about a week ago. She states her dog scratched her hand with claws. Endorses tenderness and redness and occasional drainage. Denies decreased range of motion, numbness, tingling, weakness. Has been cleansing the site, using Neosporin and keeping it covered. Related Data Home Medications Medication Instructions Recorded Confirmed brimonidine 0.2 %-timolol 0.5 % 1 drp ophthalmic (eye) DAILY 09/14/20 08/07/23 eye drops (Combigan) dorzolamide 2 % eye drops 1 drp ophthalmic (eye) DAILY 09/14/20 08/07/23 pregabalin 150 mg capsule (Lyrica) 150 mg PO DAILY 12/22/22 08/07/23 atorvastatin 40 mg tablet 40 mg PO DAILY 08/07/23 08/07/23 lisinopril 10 mg tablet 10 mg PO DAILY 08/07/23 08/07/23 montelukast 10 mg tablet 10 mg PO DAILY 08/07/23 08/07/23 Allergies Allergy/AdvReac Type Severity Reaction Status Date / Time butorphanol [From Stadol] AdvReac Hallucinati Verified 09/27/23 07:36 ng Review of Systems Review of Systems: CONSTITUTIONAL: Denies body aches, fever, chills, or sweats. EYES: Denies visual changes, redness, or discharge. ENT: Denies rhinorrhea, congestion CARDIOVASCULAR: Denies chest pain, palpitations, or edema. RESPIRATORY: Denies cough or dyspnea. GASTROINTESTINAL: Denies abdominal pain, nausea, vomiting, or diarrhea. SKIN: left hand wound MUSCULOSKELETAL: Denies back pain, joint pain, or myalgia. NEUROLOGIC: Denies headache, numbness, tingling, or weakness. [facility] Past Medical History Medical History Anemia COPD (chronic obstructive pulmonary disease) COPD with acute exacerbation Depression Diarrhea Hypertension Interstitial pulmonary fibrosis Lumbar spondylosis Multiple lung nodules on CT There is a 7 mm right lower lobe nodule. 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 There is an 8 mm right lower lobe nodule Steroid-dependent COPD Surgical History Surgical History H/O abdominoplasty H/O cervical spine surgery H/O: hysterectomy History of excision of mass 01/08/21 Excision of 9 cm left upper quadrant subcutaneous abdominal wall mass, Layered closure Hx of cholecystectomy Hx of fusion of cervical spine Hx of lumbosacral spine surgery Port-A-Cath in place S/P appendectomy Family History Family History Father Acute myocardial infarction Smoker Mother Alzheimer's dementia Social History Social History Social History: quit 3 months ago Smoking packs per day: 0.25 Smoking cigarettes per day: 5.0 Years smoked: 40 Smoking pack-years: 10.00 Smoking status: Current every day smoker Tobacco type: cigarettes Second hand tobacco smoke exposure: No Smoking end date: 11/20/17 Alcohol intake: never Substance use: never Substance use type: does not use Lack of Transportation: No Lack of Food: Never True Current Housing: I Have Housing Concerned About Future Housing: No Difficulty Paying Gas/Electric Bills: No Difficulty Paying for Meds: No Currently Unemployed: No Education: Bachelor's Degree Difficulty w/ Childcare or Family Care: No Living arrangements: with family Additional living arrangements comments: Lives with sister Occupation/Education: retired Gender identity (if verbalized by the patient): Female Sexual Orientation (if Verbalized by th
== END 2023-12-29 12:01 | disposition home or self-care (01) ==
PROVIDERS: Emergency Provider Nurse Practitioner Family; PCP Family Medicine
DX: S61.402A Unspecified open wound of left hand, initial encounter (principal); W54.8XXA Other contact with dog, initial encounter; J44.9 Chronic obstructive pulmonary disease, unspecified; I10 Essential (primary) hypertension; J84.10 Pulmonary fibrosis, unspecified; Z87.891 Personal history of nicotine dependence
CPT/HCPCS: 99213; G0463

== ENCOUNTER 2024-10-01 14:29 | Outpatient (CLI) | payer MEDICARE, MEDICAID, SELFPAY ==
[2024-10-01 14:51] LABS: Basophils Absolute Auto 0.02 K/mm3 (0.00-0.10); Basophils Percent Auto 0.2 % (0.0-1.0); Eosinophils Percent Auto 0.8 % (1.0-6.0); Hematocrit 43.5 % (35.0-42.0); Hemoglobin 14.1 g/dL (11.7-13.8); Immature Granulocyte Absolute 0.04 K/mm3 (0.00-0.00); Immature Granulocyte Percent A 0.3 % (0.0-0.0); Lymphocytes Absolute Auto 2.42 K/mm3 (1.10-4.50); Lymphocytes Percent Auto 18.4 % (18.0-42.0); Mean Corpuscular HGB Conc 32.4 g/dL (32-36); Mean Corpuscular Hemoglobin 34.2 pg (27.0-31.0); Mean Corpuscular Volume 105.6 fL (78.0-102.0); Mean Platelet Volume 9.7 fl (9.2-11.8); Monocytes Absolute Auto 0.78 K/mm3 (0.10-0.90); Monocytes Percent Auto 5.9 % (2.0-11.0); Neutrophils Absolute Auto 9.77 K/mm3 (1.70-7.20); Neutrophils Percent Auto 74.4 % (50.0-70.0); Platelet Count Result 256 K/mm3 (150-420); Red Blood Count 4.12 M/mm3 (4.20-5.40); Red Cell Distribution Width 13.2 % (11.6-14.4); White Blood Count 13.1 K/mm3 (4.8-10.8)
[2024-10-01 15:32] LABS: Alanine Aminotransferase 16 U/L (14-59); Albumin Level 3.6 g/dL (3.4-5.0); Alkaline Phosphatase 102 U/L (46-116); Anion Gap 9 mmol/L (4-12); Aspartate Amino Transferase 15 U/L (15-37); Bilirubin,Total 0.3 mg/dL (0.00-1.00); Blood Urea Nitrogen 10 mg/dL (7-18); Calcium 9.6 mg/dL (8.5-10.1); Carbon Dioxide 29 mmol/L (21-32); Chloride 103 mmol/L (98-108); Cholesterol 187 mg/dL (0-200); Estimated Glomerular Filt Rate > 60; Glucose 122 mg/dL (70-99); HDL Direct 63 mg/dL (40-60); LDL Cholesterol Calculated 93 mg/dL (<130); Osmolality Calculated 292 mOsm/kg (285-295); Potassium 3.7 mmol/L (3.5-5.1); Sodium 141 mmol/L (136-145); Total Protein 6.8 g/dL (6.4-8.2); Triglycerides 153 mg/dL (0-150)
[2024-10-01 15:47] LABS: Thyroid Stimulating Hormone Reflex 0.82 u/IU/mL (0.36-3.74)
== END 2024-10-01 14:30 | disposition home or self-care (01) ==
PROVIDERS: PCP Family Medicine; Visit Provider Family Medicine
DX: E03.9 Hypothyroidism, unspecified (principal); I10 Essential (primary) hypertension
CPT/HCPCS: 36415; 80053; 80061; 84443; 85025

== ENCOUNTER 2025-06-19 08:21 | Outpatient (CLI) | payer MEDICARE, MEDICAID, SELFPAY ==
--- NOTE | ~2025-06-19 | MR_ITS ---
EXAMINATION: MR brain IAC wo con DATE: 06/19/2025 09:22 INDICATION: Unspecified dementia TECHNIQUE: Magnetic resonance imaging (MRI) of the brain and brainstem was performed without intraven ous contrast. Sequences included sagittal and axial T1-weighted FSE, axial diffusion-weighted FS EPI, axial T2*-weighted GRE, axial T2-weighted FLAIR Propeller, axial T2-weighted Propeller, small field- of-view coronal FIESTA, small dtttj-me-xapw coronal T1-weighted FSE, and small fihqv-us-gvot axial T1 -weighted SPGR. Apparent diffusion coefficient (ADC) maps were created. . COMPARISON: None. FINDINGS: There are no areas of restricted diffusion to suggest acute infarction. No intracranial hemorrhage or abnormal intracranial mass lesion. There are scattered areas of nonspecific increased T2-weighted si gnal intensity in the cerebral white matter, predominantly involving the deep and periventricular whi te matter which is within normal limits for age and likely sequela of chronic small vessel ischemic d isease. There are no intraparenchymal signal abnormalities seen on the other pulse sequences. Normal seventh/eighth cranial nerve complexes. No cerebellopontine angles masses. No evident fluid in the m iddle ear cavities or right mastoid air cells. Minimal posterior left mastoid effusion. The ventricle s are symmetric and normal in size. There are no abnormal extra-axial fluid collections. Flow voids a re seen in the cerebral arteries on the T2-weighted sequences consistent with their expected patency. Left vertebral artery is dominant. There are patent bilateral posterior communicating arteries, larg er on the left where there is either absent or diminutive left P1 segment. Visualized orbits and soft tissues are unremarkable. IMPRESSION: 1. No acute intracranial process. 2. Moderate scattered periventricular predominant nonspecific white matter T2 hyperintensity which is within normal limits for age and likely sequela of chronic small vessel ischemic disease. 3. Normal bilateral 7th and 8th cranial nerve complexes with no cerebral pontine angle masses. Reviewed, dictated and finalized at location A. IMPRESSION: 1. No acute intracranial process. 2. Moderate scattered periventricular predominant nonspecific white matter T2 h yperintensity which is within normal limits for age and likely sequela of chron ic small vessel ischemic disease. 3. Normal bilateral 7th and 8th cranial nerve complexes with no cerebral pontin e angle masses.
--- OUTSIDE RECORDS SUMMARY | 2025-06-19 08:24 | XMS_ITS | Clinical Summary ---
Author Organization [facility] Address [address] [place] [address] Phone Care Team Providers Care Cork Grinder Name Role Phone Inocente Raya MD Primary Care Provider [phone] Jorje Justice MD Unavailable [phone] Brian Gupta MD Unavailable [phone] Allergies Active Allergy Reactions Criticality Noted Date Comments Butorphanol Hallucinations 08/04/2021 Medications atorvastatin (LIPITOR) 40 MG Tablet Take 40 mg by mouth daily. Active DULoxetine (CYMBALTA) [address] Particles Take 60 mg by mouth daily. Active HYDROcodone-kamlesh taminophen (NORCO) 10-325 MG Tablet Take 1 Tablet by mouth every 4 hours as needed. Active ipratropium-alb uterol (DUO-NEB) 0.5-2.5 (3) MG/3ML Solution by Nebulization route 4 times daily. Active lisinopril (PRINIVIL, ZESTRIL) 10 MG Tablet Take 10 mg by mouth daily. Active montelukast (SINGULAIR) 10 MG Tablet Take 10 mg by mouth every evening. Active traZODone (DESYREL) 150 MG Tablet Take 450 mg by mouth nightly. Active Brimonidine Tartrate-Timolo l 0.2-0.5 % Solution Place 1 Drop in affected eye(s) in the morning and at bedtime. Active busPIRone (BUSPAR) 10 MG Tablet Take 1 Tablet by mouth 3 times daily as needed (anxiety). 270 Tablet 2 Active albuterol (PROVENTIL, VENTOLIN) (2.5 MG/3ML) 0.083% Nebulizer SolnIndications :COPD (chronic obstructive pulmonary disease) (HCC) 3 mL by Nebulization route every 6 hours as needed for Wheezing or Shortness of Breath. 360 mL 2 Active albuterol 108 (90 Base) MCG/ACT Aerosol Solution take 1 Puff by inhalation as needed (Rescue inhaler). Active Fluticasone-Ume clidin-Vilant (Trelegy Ellipta) 200-62.5-25 MCG/ACT AEROSOL POWDER, BREATH ACTIVATED take 1 Puff by inhalation daily. Active ondansetron (ZOFRAN) 8 MG Tablet Take by mouth. 8 Active pregabalin (LYRICA) 150 MG Capsule Take 150 mg by mouth nightly. 3 Active tiZANidine (ZANAFLEX) 2 MG Tablet TAKE 1 TABLET BY MOUTH 3 TIMES A DAY NEEDED FOR MUSCLE SPASMS. Active carbidopa-levod opa (SINEMET) 25-100 MG Tablet Take 2 Tablets by mouth 3 times daily. 1/2 hour before eating 180 Tablet 11 4 Active carbidopa-levod opa CR (SINEMET CR) 50-200 MG Tablet Controlled Release TAKE ONE TABLET EVERY NIGHT 90 Tablet 11 5 Active Active Problems Problem Noted Date Diagnosed Date Community acquired pneumonia of right lung, unspecified part of lung 04/22/2023 Pneumonia due to COVID-19 virus 03/29/2023 Chronic pain syndrome 03/29/2023 Asthma 03/29/2023 Physical deconditioning 12/19/2022 Chronic pain syndrome 12/19/2022 Anxiety and depression 12/19/2022 Tobacco dependence 12/19/2022 COPD (chronic obstructive pulmonary disease) Tremors of nervous system 11/10/2022 Repeated falls 11/10/2022 Parkinson's disease 11/10/2022 Hypertension 11/10/2022 Glaucoma 11/10/2022 Disturbances of salivary secretion 11/10/2022 Blindness of right eye 11/10/2022 COPD (chronic obstructive pulmonary disease) Major depressive disorder, r ecurrent episode, moderate with anxious distress 09/22/2020 Resolved Problems Problem Noted Date Diagnosed Date Resolved Date Community acquired pneumonia 12/19/2022 12/21/2022 Influenza A 12/19/2022 12/21/2022 Acute metabolic encephalopathy 12/19/2022 12/21/2022 Hyponatremia 12/19/2022 12/21/2022 Fall 12/19/2022 12/21/2022 Encounters Date Type Department Care Team Description 06/09/[address] [facility] Neurology [facility] [address] [place] [address] Brian Gupta MD 05/15/2025 Results Follow-Up [facility] [address] [place] [address] Brian Gupta MD EMG 05/08/2025 2:30 PM CDT EMG [facility] [address] [place] [address] Brian Gupta MD Numbness and tingling Discharge Disposition: Discharged to home or Selfcare 05/08/2025 Travel from Last 3 Months Immunizations Immunization Administration Dates Next Due Influenza, High-dose, Quadrivalent 08/24/2022 Influenza, Quadrivalent, Adjuvanted 09/02/2023,1 Influenza, Seasonal, Injectable, Undefined 08/31 Influenza, high-dose, trivalent, PF 10/29/2019,0 08/17/2016 Pneumococcal Vaccine - 13 Valent 10/05/2021,10/0 11/2016,08/17/2016 Zoster Vaccine Recombinant 09/02/2023 Family History Medical History Relation Name Comments Heart Attack Father Alzheimer's Disease Mother Relation Name Status Comments Brother Alive Father Mother Sister Alive Social History Tobacco Use Types Packs/Day Years Used Date Smoking Tobacco: Every Day Cigarettes 0.3 30 Smokeless Tobacco: Never Tobacco Cessation:Ready to Q uit: Not Asked; Counseling Given: Not Answered Comments:8 per day Alcohol Use Standard Drinks/Week Comments Never 0 (1 standard drink = 0.6 oz pur e alcohol) AUDIT-C Answer Date Recorded Q1: How often do you have a drink containing alc ohol? Never 09/22/2020 Average Number of Drinks Not on file 020 Frequency of Binge Drinking Not on file 01/2020 PHQ-2 Answer Date Recorded Total Score - Questions 1-9 6 01/2020 Sexually Active Control Partners Comments Not Currently Comments No Sex and Gender Information Value Date Recorded Sex Assigned at Female 06/03/2024 5:08 PM CDT Legal Sex Female 4:43 PM CDT Gender Identity Female 06/03/2024 5:08 PM CDT Sexual Orientation Not on file Occupation Industry Job Start Date Job End Date Not on file Not on file Not on file Not on file Last Filed Vital Signs Vital Sign Reading Time Taken Comments Blood Pressure 102/70 02/18/2025 12:56 PM CDT Pulse 61 02/18/2025 12:56 PM CDT Temperature 36.6 C (97.8 F) 02/18/2025 12:56 PM CDT Respiratory Rate 16 02/18/2025 12:56 PM CDT Oxygen Saturation 90% 02/18/2025 12:56 PM CDT Inhaled Oxygen Concentration - - Weight 60.3 kg (133 lb) 02/18/2025 12:56 PM CDT Height 165.1 cm (5' 5) 02/18/2025 12:56 PM CDT Body Mass Index 22.13 02/18/2025 12:56 PM CDT Plan of Treatment Upcoming Encounters Date Type Department Care Team (Late st Contact Info) Description 08/21/2025 1:00 PM CDT Office Visit [facility] - Neurology [facility] [address] [place] [address] Brian Gupat MD [address] [place] [address] Health Maintenance Due Date Last Done Comments DEXA Bone Density 1950 Hepatitis C Virus (HCV) Screening 1950 TdaP Immunization 1950 Cologuard 1996 Colonoscopy 1996 Colorectal Cancer Screening 1996 Immunochemical Fecal Occult Blood 1996 Respiratory Syncytial Virus (RSV) Immunization (Adult) (1 - Risk 60-74 years 1-dose series) 2011 Pneumococcal Immunization (50+ years) (2 of 2 - PPSV23) 11/30/2021 10/05/2021, 08/20/2017, 08/17/2016 Mammogram 11/04/2023 11/04/2022 SARS-COV-2 Immunization ( season) 2024 10/10/2023, 08/24/2022, 09/30/2021, Additional history exists Influenza Immunization (#1) 07/21/202502/2024, 09/02/2023, 08/24/2022, Additional history exists Pneumococcal Immunization Combined Discontinued 10/05/2021, 08/20/2017, 08/17/2016 Zoster Immunization Completed 12/28/2023, Hepatitis B Immunization Aged Out No longer eligible based on patient's age to complete this topic Human Papillomavirus (HPV) Immunization Aged Out No longer eligible based on patient's age to complete this topic Meningococcal Immunization (ACWY) Aged Out No longer eligible based on patient's age to complete this topic Rotavirus Immunization Aged Out No lo nger eligible based on patient's age to complete this topic Goals Goal Patient Goal Type Associated Problems Recent Progress Patient-Stated? Author Behavioral Health Behavioral Health Yes Chiara Renee LCSW Note: I just want to feel like I can handle all of this. Goal Reviewed with: patient Readiness to change: Thinking about making a change Department associated with goal: [facility] Steps to achieve goal: will attend counseling/psychotherapy sessions at least twice monthly, utilizing sessions to express thoughts and feelings. will verbalize understanding of depression and anxiety, ex: causes/contributing and risk factors, prevalence of conditions in the general population. will identify two or more skills to gain peace and relieve stress. Behavioral Health Behavioral Health No Chiara Renee CENTRAL PROCESSING TECH Note: Clari will manage grief more effectively Goal Reviewed with: patient Readiness to change: Thinking about making a change Department associated with goal: [facility] Steps to achieve goal: 1. will attend at least four counseling sessions, engaging in each session by verbalizing and processing thoughts and feelings related to grief and loss. 2. will report reduced feelings of guilt and resentment. 3. will identify and implement at least two outlets for grief and or coping skills to aid in managing problematic responses to grief. Medical Devices Implanted Type Area Warehouse Operator Device Identifier Shelf Expiration Date Model / Serial / Lot Lead Neurostimulation Interstim Ssmri 4.32mm Eman Us Full Body - [id number] Implanted:Qty: 1 on 10/27/2023 by Jorje Justice MD at [facility] IMPLANT Medtronic Neuromodulation 03/14/2025 [id number] / [id number] / [id number] Neurostimulator Sacral Interstim X Non Rechargeable Surescan Mri - [id number] Implanted:Qty: 1 on 11/03/2023 by Jorje Justice MD at [facility] IMPLANT N/A: Back Medtronic Neuromodulation 01/31/2025 [id number] / [id number] / [id number] Neuro Absorbable Antibacterial Envelope Implanted:Qty: 1 on 11/03/2023 by Jorje Justice MD at [facility] N/A: Back 05/21/2024 [id number] / [id number] / [id number] Implanted - Out of Service Type Area Warehouse Operator Device Identifier Shelf Expi ration Date Model / Serial / Lot None Procedures Procedure Name Priority Date/Time Associated Diagnosis Comments EMG Routine 05/08/2025 12:00 AM CDT Numbness and tingling JUMANA SCREENING BILATERAL DIGITAL W CAD W JAZIEL Routine 11/04/2022 3:30 PM BARREL MARKER Encounter for screening mammogram for malignant neoplasm of breast from Last 3 Months or Most Recently Relevant to Health Maintenance Results * EMG (05/08/2025 12:00 AM CDT) 05/08/2025 Narrative SCAN - 05/08/2025 12:00 AM CDT Brian Gupta MD 05/12/2025 9:23 AM Electromyogram Procedure Note Date of Procedure: 05/08/2025 Pre-operative Diagnosis: bilateral upper extremity numbness, tingling and pain. Post-operative Diagnosis: Indications: Diagnostic Procedure Details Motor Nerve Conduction Studies: The bilateral median motor nerve shows normal distal motor latency, normal motor amplitude and normal conduction velocity. The left ulnar motor nerve shows normal distal motor latency, normal motor amplitude and normal conduction velocity. The right ulnar motor nerve shows normal distal motor latency, decreased motor amplitude and decreased conduction velocity. Inching test of the right ulnar motor nerve shows ten successive traces of one centimeter increments across the medial epicondyle with a conduction block at medial epicondyle. Sensory Nerve Conduction Studies: The bilateral radial sensory nerve shows normal sensory nerve peak latency and normal sensory amplitude. Median ulnar comparisons were normal, bilaterally. Median radial comparisons were normal, bilaterally. The bilateral median sensory nerve shows normal sensory nerve peak latency and normal sensory amplitude. The bilateral ulnar sensory nerve shows normal sensory nerve peak latency and normal sensory amplitude. F waves: F wave latencies for the bilateral median nerve were normal. F wave latencies for the bilateral ulnar nerve were normal. EMG: Needle EMG of the FDI shows chronic neurogenic changes were reduced recruitment. Needle EMG of the deltoid, biceps, triceps and APB were normal. 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 Based on the inching test of the right ulnar motor nerve there was focal slowing at the medial epicondyle. Clinical correlation is recommended. us Brian Gupta MD NEUROLOGY ORDERABLES V2 Britany l Result SCAN * JUMANA SCREENING BILATERAL DIGITAL W CAD W JAZIEL (11/04/2022 3:30 PM BARREL MARKER) Anatomical Region Laterality Modality breast Bilateral Mammography 11/04/2022 4:35 PM BARREL MARKER Narrative 11/07/2022 6:43 AM BARREL MARKER - JUMANA SCREENING BILATERAL DIGITAL W CAD W JAZIEL BILATERAL DIGITAL SCREENING MAMMOGRAM 3D/2D WITH CAD WITH MEDIOLATERAL OBLIQUE CRANIOCAUDAL: 11/04/2022 The study was acquired using digital technology and interpreted from soft copy. Current study was also evaluated with ICAD version 7.2. 2D digital mammographic views, as well as 3D digital tomosynthesis were performed in the CC and MLO projections. CLINICAL: New baseline. Patient has no complaints. She has reduced range of motion. Exam performed in a wheelchair. No personal history of cancer. No family history of breast cancer. COMPARISONS: No prior exams were available for comparison. BREAST TISSUE:The tissue of both breasts is heterogeneously dense. This may lower the sensitivity of mammography. FINDINGS: The study is limited due to the patient's inability to fully coorperate with positioning. No significant masses, calcifications, or other findings are seen in either breast. IMPRESSION: BI-RAD 2 BENIGN The study is limited due to the patient's inability to fully coorperate with positioning. There is no mammographic evidence of malignancy. A 1 year screening mammogram is recommended. A letter will be sent to the patient with these results. The patient will be entered into a reminder system with a target due date of 1 year for her next screening exam. Electronically signed by: Justine alarcon/carly:11/06/2022 07:53:45 Dining Room Hostess(s): RT Carmine(R)(M), [facility] letter sent: Normal Exam Reading location: [facility] BI-RADS: 2 Benign Procedure Note Justine Leija MD - 11/07/2022 - JUMANA SCREENING BILATERAL DIGITAL W CAD W JAZIEL BILATERAL DIGITAL SCREENING MAMMOGRAM 3D/2D WITH CAD WITH MEDIOLATERAL OBLIQUE CRANIOCAUDAL: 11/04/2022 The study was acquired using digital technology and interpreted from soft copy. Current study was also evaluated with ICAD version 7.2. 2D digital mammographic views, as well as 3D digital tomosynthesis were performed in the CC and MLO projections. CLINICAL: New baseline. Patient has no complaints. She has reduced range of motion. Exam performed in a wheelchair. No personal history of cancer. No family history of breast cancer. COMPARISONS: No prior exams were available for comparison. BREAST TISSUE:The tissue of both breasts is heterogeneously dense. This may lower the sensitivity of mammography. FINDINGS: The study is limited due to the patient's inability to fully coorperate with positioning. No significant masses, calcifications, or other findings are seen in either breast. IMPRESSION: BI-RAD 2 BENIGN The study is limited due to the patient's inability to fully coorperate with positioning. There is no mammographic evidence of malignancy. A 1 year screening mammogram is recommended. A letter will be sent to the patient with these results. The patient will be entered into a reminder system with a target due date of 1 year for her next screening exam. Electronically signed by: Justine alarcon/carly:11/06/2022 07:53:45 Dining Room Hostess(s): RT Carmine(R)(M), [facility] letter sent: Normal Exam Reading location: [facility] BI-RADS: 2 Benign us Inocente Raya MD IMG MAMMO ORDERABLES Final Res ult from Last 3 Months or Most Recently Relevant to Health Maintenance Insurance MEDICAID [place] MEDICARE C [employer] [place] Advance Directives Documents on File Type Date Recorded Patient Ornamenter Hand Expl anation POLST/POST/[place] DNR 11/10/2022 12:[address], 04/19/2021 POLST/POST/[place] DNR 06/06/2022 4:06 PM POLST , 06/06/2022, 04/19/2021 POLST/POST/[place] DNR 11/16/2021 7:37 PM POLS T, 04/19/2002 * Full Code (Latest Code Status on File) Date Activated Date Inactivated Comments 04/22/2023 2:55 PM 04/23/2023 4:08 PM CPR-Full Treat ment: FULL ARREST: Attempt Resuscitation/CPR wit intubation and mechanical ventilation. PRE-ARREST: Use entire range of life support measures to stabilize the patient. * Full Code Date Activated Date Inactivated Comments 03/29/2023 2:27 PM 04/01/2023 3:31 PM CPR-Full Kris atment: FULL ARREST: Attempt Resuscitation/CPR wit intubation and mechanical ventilation. PRE-ARREST: Use entire range of life support measures to stabilize the patient. * Full Code Date Activated Date Inactivated Comments 12/19/2022 4:55 PM 12/21/2022 5:36 PM CPR-Full Sarah tment: FULL ARREST: Attempt Resuscitation/CPR wit intubation and mechanical ventilation. PRE-ARREST: Use entire range of life support measures to stabilize the patient. * Full Code Date Activated Date Inactivated Comments 11/25/2022 7:40 AM 12/19/2022 11:49 AM * Full Code Date Activated Date Inactivated Comments 11/10/2022 3:00 PM 11/11/2022 3:31 PM CPR-Full T reatment: FULL ARREST: Attempt Resuscitation/CPR wit intubation and mechanical ventilation. PRE-ARREST: Use entire range of life support measures to stabilize the patient. Care Teams Cork Grinder Relationship Specialty Start Date End Date Inocente Raya MD [address] [place] [id number] PCP - General Family Medicine 09/09/20 Jorje Justice MD [address] [address] Consulting Physician Urology 02/10/23 Brian Gupta MD [address] [place] [phone] Consulting Physician Neurology 10/02/23
--- OUTSIDE RECORDS SUMMARY | 2025-06-19 08:24 | XMS_ITS | Encounter Summary ---
Author Organization [facility] Address [address] [place] [address] Phone Care Team Providers Care Radio Talk Show Host Name Role Phone Inocente Raya MD Primary Care Provider [phone] Jorje Justice MD Unavailable [phone] Brian Gupta MD Unavailable [phone] Encounter Details Date Type Department Care Team (Late st Contact Info) Description 12/21/2022 Home Health Resumpti on of Care Planning [facility] [address] [place], [place] [id number] Social History Tobacco Use Types Packs/Day Years Used Date Smoking Tobacco: Every Day Cigarettes 0.5 30 Smokeless Tobacco: Never Alcohol Use Standard Drinks/Week Comments Never 0 [...] file Not on file Not on file COVID-19 Exposure Response Date Recorded In the last 10 days, have yo u been in contact with someone who was confirmed or suspected to have Coronavirus/COVID-19? No / Unsure 12/19/2022 11:59 AM BOOK MENDER documented as of this encounter Plan of Treatment Upcoming Encounters Date Type Department Care Team (Late st Contact Info) Description 08/21/2025 1:00 PM CDT Office Visit [facility] - Neurology [facility] [address] [place] [address] Brian Gupta MD [address] [place] [address] documented as of this encounter Goals Goal Patient Goal Type Associated Problems Recent Progress Patient-Stated? Author Behavioral Health Behavioral Health Yes Chiara Renee LCSW Note: I just want to feel like I can handle all of this. Goal Reviewed with: patient Readiness to change: Thinking about making a change Department associated with goal: [facility]AVIORAL HE[facility] SERVICES Steps to achieve goal: will attend counseling/psychotherapy sessions at least twice monthly, utilizing sessions to express thoughts and feelings. will verbalize understanding of depression and anxiety, ex: causes/contributing and risk factors, prevalence of conditions in the general population. will identify two or more skills to gain peace and relieve stress. Behavioral Health Behavioral Health No Chiara Renee, MERLENE Note: Clari will manage grief more effectively Goal Reviewed with: patient Readiness to change: Thinking about making a change Department associated with goal: [facility] Steps to achieve [...] aid in managing problematic responses to grief. documented as of this encounter Visit Diagnoses Not on filedocumented in this encounter Additional Health Concerns Infection Onset Date Last Indicated Resolved Time Influenza 12/19/2022 12/19/2022 12/26/2022 12:1 8 AM BOOK MENDER MRSA 12/19/2022 12/19/2022 03/30/2023 4:54 PM CDT COVID - 19 03/29/2023 03/29/2023 03/29/2023 12:0 5 PM CDT COVID - 19 Confirmed 03/29/2023 03/29/2023 023 12:16 AM CDT COVID - 19 12/05/2023 12/05/2023 12/15/2023 12:1 6 AM BOOK MENDER COVID - 19 12/22/2023 12/22/2023 01/01/2024 12:1 6 AM BOOK MENDER Respiratory Rule Out - RPA 12/22/2023 12/22/2023 0 12/22/2023 8:17 PM BOOK MENDER COVID - 19 06/03/2024 06/03/2024 06/03/2024 8:10 PM CDT Assessment Noted Time PHQ-9 Depression Total Score: 6 09/22/20 20 4:00 PM BOOK MENDER documented as of this encounter Care Teams Radio Talk Show Host Relationship Specialty Start Date End Date Inocente Raya MD [address] [place] [address] PCP - General Family Medicine 09/09/20 Jorje Justice MD [address] [address] Consulting Physician Urology 02/10/23 Brian Gupta MD [address] [place] [phone] Consulting Physician Neurology 10/02/23 documented as of this encounter
--- OUTSIDE RECORDS SUMMARY | 2025-06-19 08:24 | XMS_ITS | Encounter Summary ---
Author Organization [facility] Address [address] [facility] [place] [address] Phone Care Team Providers Care Material Assembler Name Role Phone Inocente Raya MD Primary Care Provider Jorje Justice MD Unavailable [phone] Brian Gupta MD Unavailable [phone] Reason for Visit * Reason Comments Medication Refill Encounter Details Date Type Department Care Team (Late st Contact Info) Description 03/08/2024 Refill [facility] [address] [place] [phone] Brian Gupta MD [address] [place] [address] Medication Refill Social History Tobacco Use Types Packs/Day Years Used Date Smoking Tobacco: Every Day Cigarettes 0.3 30 Smokeless Tobacco: Never Comments:8 per day Alcohol Use Standard Drinks/Week [...] file Not on file Not on file documented as of this encounter Miscellaneous Notes * Telephone Encounter - Rohini Choe RN - 03/08/2024 10:50 AM CDT Medication(s) refilled and signed per [facility] Chronic Medication Refill Standing Order for Pediatricand Adult Patients. Requested Prescriptions Pending Prescriptions Disp Refills carbidopa-levodopa CR (SINEMET CR) 50-200 MG Tablet Controlled Release [Pharmacy Med Name: CARBIDOPA/LEVODOPA ER 50-200MG TABLET ER] 90 Tablet 11 Sig: TAKE 1 TABLET BY MOUTH NIGHTLY Antiparkinson Dopaminergics and COMT Protocol Passed - 03/08/2024 10:34 AM Passed - Visit with relevant provider in the past 9 months or upcoming 90 days Recent Visits Date Type Provider Dept 01/25/24 Office Visit Brian Gupta MD [facility] Neurology [facility] 10/02/23 Office Visit Brian Gupta MD [facility] Neurology [facility] Showing recent visits within past 270 days and meeting all other requirements Future Appointments No visits were found meeting these conditions. Showing future appointments within next 90 days and meeting all other requirements Passed - Blood pressure on record in past 12 months Clinician-entered: BP Readings from Last 3 Encounters: 01/25/24 120/70 12/22/23 135/64 12/05/23 105/42 Patient-entered: No data recorded carbidopa-levodopa (SINEMET) 25-100 MG Tablet [Pharmacy Med Name: CARBIDOPA/LEVODOPA 25-100MG TABLET] 90 Tablet 11 Sig: TAKE 1 TABLET BY MOUTH 3 TIMES DAILY. 1/2 HOUR BEFORE EATING Antiparkinson Dopaminergics and COMT Protocol Passed - 03/08/2024 10:34 AM Passed - Visit with relevant provider in the past 9 months or upcoming 90 days Recent Visits Date Type Provider Dept 01/25/24 Office Visit Brian Gupta MD [facility] Neurology [facility] 10/02/23 Office Visit Brian Gupta MD [facility] Neurology [facility] Showing recent visits within past 270 days and meeting all other requirements Future Appointments No visits were found meeting these conditions. Showing future appointments within next 90 days and meeting all other requirements Passed - Blood pressure on record in past 12 months Clinician-entered: BP Readings from Last 3 Encounters: 01/25/24 120/70 12/22/23 135/64 12/05/23 105/42 Patient-entered: No data recorded documented in this encounter Plan of Treatment Upcoming Encounters Date Type Department Care Team (Late st Contact Info) Description 08/21/2025 1:00 PM CDT Office Visit [facility] [address] [place] [address] Brian Gupta MD [address] [place] [address] documented as of this encounter Goals Goal Patient Goal Type Associated Problems Recent Progress Patient-Stated? Author Behavioral Health Behavioral Health Yes Chiara Renee LCSW Note: I just want to feel like I can handle all of this. Goal Reviewed with: patient Readiness to change: Thinking about making a change Department associated with goal: [facility] Steps to achieve goal: will attend counseling/psychotherapy sessions at least twice monthly, utilizing sessions to express thoughts and feelings. will verbalize understanding of depression and anxiety, ex: causes/contributing and risk factors, prevalence of conditions in the general population. will identify two or more skills to gain peace and relieve stress. Behavioral Health Behavioral Health No Chiara Renee LCSW Note: Clari will manage grief more effectively Goal Reviewed with: patient Readiness to change: Thinking about making a change Department associated with goal: [facility] Steps to achieve [...] Infection Onset Date Last Indicated Resolved Time COVID - 19 06/03/2024 06/03/2024 06/03/2024 8:10 PM CDT Assessment Noted Time PHQ-9 Depression Total Score: 6 09/22/20 20 4:00 PM BUSINESS REPRESENTATIVE documented as of this encounter Care Teams Material Assembler Relationship Specialty Start Date End Date Inocente Raya MD [address] [place] [id number] PCP - General Family Medicine 09/09/20 Jorje Justice MD [address] [address] Consulting Physician Urology 02/10/23 Brian Gupta MD [address] [place] [address] Consulting Physician Neurology 10/02/23 documented as of this encounter
--- OUTSIDE RECORDS SUMMARY | 2025-06-19 08:24 | XMS_ITS | Encounter Summary ---
Author Organization [facility] Address [address] [facility] [place] [address] Phone Care Team Providers Care Commercial Real Estate Sales Manager Name Role Phone Inocente Raya MD Primary Care Provider Jorje Justice MD Unavailable [phone] Brian Gupta MD Unavailable [phone] Reason for Visit * Reason Comments Medication Refill Encounter Details Date Type Department Care Team (Late st Contact Info) Description 04/11/2023 Refill [facility] [address] [place] [phone] Brian Gupta MD [address] [place] [address] Medication Refill Social History Tobacco [...] suspected to have Coronavirus/COVID-19? No / Unsure 03/29/2023 10:29 AM CDT documented as of this encounter Plan of Treatment Upcoming Encounters Date Type Department Care Team (Late st Contact Info) Description 08/21/2025 1:00 PM CDT [facility] Visit [facility] [address] [place] [address] Brian Gupta MD [address] [place] [address] documented as of this encounter Goals Goal Patient Goal Type Associated Problems Recent Progress Patient-Stated? Author Behavioral Health Behavioral Health Yes Chiara Renee LCSW Note: I just want to feel like I can handle all of this. Goal Reviewed with: patient Readiness to change: Thinking about making a change Department associated with goal: [facility] Steps to achieve [...] making a change Department associated with goal: [facility] Steps to achieve [...] Last Indicated Resolved Time COVID - 19 Confirmed 03/29/2023 03/29/2023 023 12:16 AM CDT COVID - 19 12/05/2023 12/05/2023 12/15/2023 12:1 6 AM HEALTH CARE ANALYST COVID - 19 12/22/2023 12/22/2023 01/01/2024 12:1 6 AM HEALTH CARE ANALYST Respiratory Rule Out - RPA 12/22/2023 12/22/2023 0 12/22/2023 8:17 PM HEALTH CARE ANALYST COVID - 19 06/03/2024 06/03/2024 06/03/2024 8:10 PM CDT Assessment Noted Time PHQ-9 Depression Total Score: 6 09/22/20 20 4:00 PM HEALTH CARE ANALYST documented as of this encounter Care Teams Commercial Real Estate Sales Manager Relationship Specialty Start Date End Date Inocente Raya MD [address] [place] [address] PCP - General Family Medicine 09/09/20 Jorje Justice MD [address] [address] Consulting Physician Urology 02/10/23 Brian Gupta MD [address] [place] [phone] Consulting Physician Neurology 10/02/23 documented as of this encounter
--- OUTSIDE RECORDS SUMMARY | 2025-06-19 08:24 | XMS_ITS | Encounter Summary ---
Author Organization [facility] Address [address] [facility] [place] [address] Phone Care Team Providers Care Test Specialist Name Role Phone Inocente Raya MD Primary Care Provider [phone] Jorje Justice MD Unavailable [phone] Brian Gupta MD Unavailable [phone] Reason for Visit * Reason Comments Medication Refill Encounter Details Date Type Department Care Team (Late st Contact Info) Description 01/21/2022 Refill [facility] [address] [place] [phone] Brian Gupta MD [address] [place] [address] Medication Refill Social History Tobacco Use Types Packs/Day Years Used Date Smoking Tobacco: Former Cigarettes 0.3 30 Smokeless Tobacco: Never Alcohol Use Standard [...] on file documented as of this encounter Plan of Treatment Upcoming Encounters Date Type Department Care Team (Late st Contact Info) Description 08/21/2025 1:00 PM CDT Office Visit [facility] - [facility] [address] [place] [address] Brian Gupta MD [address] [place] [address] documented as of this encounter Goals Goal Patient Goal Type Associated Problems Recent Progress Patient-Stated? Author Behavioral Health Behavioral Health Yes Chiara Renee LCSW Note: I just want to feel like I can handle all of this. Goal Reviewed with: patient Readiness to change: Thinking about making a change Department associated with goal: [facility] Steps to achieve goal: [...] making a change Department associated with goal: [facility] Steps to achieve goal: [...] Indicated Resolved Time COVID - 19 Confirmed 06/06/2022 06/06/2022 022 12:16 AM CDT COVID - 19 11/10/2022 11/10/2022 11/10/2022 2:55 PM PRINTING PRESS OPERATOR Respiratory Rule Out - RPA 11/10/2022 11/10/2022 1 01/12/2022 10:09 PM PRINTING PRESS OPERATOR COVID - 19 12/19/2022 12/19/2022 12/20/2022 8:26 AM PRINTING PRESS OPERATOR Respiratory Rule-Out 12/19/2022 12/19/2022 023 1:17 PM PRINTING PRESS OPERATOR Influenza 12/19/2022 12/19/2022 12/26/2022 12:1 8 AM PRINTING PRESS OPERATOR MRSA 12/19/2022 12/19/2022 03/30/2023 4:54 PM CDT COVID - 19 03/29/2023 03/29/2023 03/29/2023 12:0 5 PM CDT COVID - 19 Confirmed 03/29/2023 03/29/2023 023 12:16 AM CDT COVID - 19 12/05/2023 12/05/2023 12/15/2023 12:1 6 AM PRINTING PRESS OPERATOR COVID - 19 12/22/2023 12/22/2023 01/01/2024 12:1 6 AM PRINTING PRESS OPERATOR Respiratory Rule Out - RPA 12/22/2023 12/22/2023 0 12/22/2023 8:17 PM PRINTING PRESS OPERATOR COVID - 19 06/03/2024 06/03/2024 06/03/2024 8:10 PM CDT Assessment Noted Time PHQ-9 Depression Total Score: 6 09/22/20 20 4:00 PM PRINTING PRESS OPERATOR documented as of this encounter Care Teams Test Specialist Relationship Specialty Start Date End Date Inocente Raya MD [address] [place] [phone] PCP - General Family Medicine 09/09/20 Jorje Justice MD [address] [address] Consulting Physician Urology 02/10/23 Brian Gupta MD [address] [place] [address] Consulting Physician Neurology 10/02/23 documented as of this encounter
== END 2025-06-19 08:22 | disposition home or self-care (01) ==
LOC: CHSIMG 08:21
PROVIDERS: PCP Family Medicine; Visit Provider Family Medicine
DX: F03.90 Unspecified dementia, unspecified severity, without behavioral disturbance, psychotic disturbance, mood disturbance, and anxiety (principal)
CPT/HCPCS: 70551

== ENCOUNTER 2025-09-17 12:32 | Emergency (ER) | payer MEDICARE, MEDICAID, SELFPAY ==
[2025-09-17] VITALS (46 sets, daily range): BP systolic 85–148; BP diastolic 37–86; PULSE 64–78; RESP 16–22; TEMP 36.7–37.1; O2SAT 83–100
--- NOTE | ~2025-09-17 | CT_ITS ---
EXAMINATION: CT chest abdomen pelvis w con DATE: 09/17/2025 14:38 INDICATION: Sepsis TECHNIQUE: Computed tomography (CT) of the chest, abdomen, and pelvis was performed with 100 mL Omnipaque-350 intravenous contrast. Automated exposure control and iterative reconstruction technique were employed. The dose-length product was 341.77 mGy-cm. COMPARISON: Chest CT dated 12/27/[address] abdomen and pelvis dated 01/19/2021 FINDINGS: CHEST CT: Right internal jugular central venous port catheter with distal tip near the superior cavoatrial junction. Mild emphysema. Surgical clips and suture line line suggestive of prior partial pneumonectomy along the anterior margin of the right upper and middle lobes. There are new tree-in-bud opacities with numerous tiny centrilobular nodules in the right upper, right middle and right lower lobes consistent with and pneumonia with endobronchial spread of disease. Left lung is clear. No pulmonary edema or pleural effusion. Heart size is normal. Small amount of atherosclerotic coronary artery calcium. No pericardial effusion. Thoracic aorta is normal in caliber with no dissection. No pathologically enlarged thoracic lymphadenopathy. ABDOMEN/PELVIS CT: Cholecystectomy clips the gallbladder fossa. Liver, spleen, pancreas, bilateral adrenal glands and kidneys are normal. Mild diverticulosis with sigmoid colon predominance. There is mild stranding surrounding a diverticulum along the posterior aspect of the distal descending colon consistent with diverticulitis. No bowel obstruction. The appendix is not visualized. No pericecal inflammatory change to suggest acute appendicitis. Bladder is normal. The uterus is not identified and has likely been surgically resected. No abscess or free intraperitoneal gas or fluid. No pathologically enlarged abdominal or pelvic lymphadenopathy. Instrumented posterior spinal fusion with bilateral vertical lizzie and pedicle screw fixation at L2-L4 and at the lower cervical and upper thoracic spine beginning caudally at T2 and extending cephalad beyond the superior margin of the field of imaging. Moderate thoracic and severe lumbar spondylosis. Sacral nerve root stimulator extending through the right S3 neural foramen. IMPRESSION: 1. New tree-in-bud opacities in the right upper, middle and lower lobes consistent with atelectasis versus disease and age-indeterminate pneumonia. 2. Radiographically uncomplicated diverticulitis at the distal descending colon. Reviewed, dictated and finalized at location A. IMPRESSION: 1. New tree-in-bud opacities in the right upper, middle and lower lobes consist ent with atelectasis versus disease and age-indeterminate pneumonia. 2. Radiographically uncomplicated diverticulitis at the distal descending colon .
--- NOTE | ~2025-09-17 | XR_ITS ---
EXAMINATION: XR chest 1V portable COMPARISON: No comparisons available. HISTORY: Shortness of breath FINDINGS: The lungs are clear, no effusion. No pneumothorax. Heart is normal size. Mediastinal and hilar contours are within normal limits. Bony thorax no acute abnormality. Miscellaneous: Right Mediport terminates in the SVC. Impression: No acute cardiopulmonary abnormality. Reviewed, dictated and finalized at location P. Impression: No acute cardiopulmonary abnormality.
--- NOTE | 2025-09-17 12:34 | ED_ITS ---
HPI - Weakness General Chief complaint: Dizziness Stated complaint: low blood pressure Time Seen by Provider: 09/17/25 12:34 Source: patient Mode of arrival: wheelchair Limitations: no limitations History of Present Illness HPI Narrative: 75-year-old female with a history of parkinsonism, hypertension, glaucoma, COPD was recently admitted at [facility] from 09/01/2020 [id number] for septic shock secondary to pneumonia Today she presented to her primary care physician's office where she was noted to be hypotensive with a blood pressure of 80/50. Patient is afebrile. She presents with --generalized weakness. Unable to stand up. --lightheaded No fever or chills. No chest pain or shortness of breath Patient had been on tapering dose of steroids which was discontinued 2 days ago. MD Complaint: generalized weakness Onset (ago): day(s) (1 day) Duration: constant Location: generalized Migration: none Severity: moderate Relieving factors: none Exacerbating factors: none Associated symptoms: denies other symptoms Related Data Home Medications ?Medication ?Instructions ?Recorded ?Confirmed ?Last Taken ?Type brimonidine 0.2 %-timolol 0.5 % 1 drp ophthalmic (eye) DAILY 09/14/20 05/28/25 04/24/22 History eye drops (Combigan) dorzolamide 2 % eye drops 1 drp ophthalmic (eye) DAILY 09/14/20 05/28/25 04/24/22 History pregabalin 150 mg capsule (Lyrica) 150 mg PO DAILY 01/1205/28/25 Unknown History carbidopa 25 mg-levodopa 100 mg See Rx Instructions .R oute .COMPLEX 10/01/24 05/28/25 Unknown History tablet Allergies Allergy/AdvReac Type Severity Reaction Status Date / Time butorphanol (From Stadol) AdvReac Hallucinati Verified 05/28/25 09:22 ng Review of Systems 2 Review of Systems: All systems reviewed & are unremarkable except as noted in HPI and below Constitutional: Constitutional: Reports as per HPI, Reports no additional constitutional complaints and Reports weakness Eyes: Eyes: Reports as per HPI and Reports no additional eye complaints ENT: Reports system reviewed and no additional complaints, except as documented and Reports as per HPI Cardiovascular: Cardiovascular: Reports as per HPI and Reports no additional cardiovascular complaints Respiratory: Respiratory: Reports as per HPI and Reports no additional respiratory complaints Gastrointestinal: Gastrointestinal: Reports as per HPI, Reports no additional gastrointestinal complaints and Reports abdominal pain Comments: Complains of abdominal pain. Genitourinary: Genitourinary: Reports no additional female genitourinary complaints and Reports as per HPI Comments: No dysuria hematuria Musculoskeletal: Musculoskeletal: Reports no additional musculoskeletal complaints and Reports as per HPI Integumentary/Breasts: Skin/Breast: Reports system reviewed and no additional complaints, except as docu and Reports as per HPI Neurologic: Reports system reviewed and no additional complaints, except as documented, Reports as per HPI and Reports weakness Psychiatric: Psychiatric: Reports no additional psychiatric complaints and Reports as per HPI Endocrine: Endocrine: Reports no additional endocrine complaints and Reports as per HPI Hematologic/Lymphatic: Hematologic/Lymphatic: Reports no additional hematologic/lymphatic complaints and Reports as per HPI Allergic/Immunologic: Allergic/Immunologic: Reports no additional allergic/immunologic complaints and Reports as per HPI PMFSH Past Medical History Medical History Diarrhea Depression COPD (chronic obstructive pulmonary disease) Anemia COPD with acute exacerbation Interstitial pulmonary fibrosis Steroid-dependent COPD Multiple lung nodules on CT There is a 7 mm right lower lobe nodule. There is an 8 mm right lower lobe nodule Solid nodule of lung greater than 8 mm in diameter There is a 7 mm right lower lobe nodule. There is an 8 mm right lower lobe nodule Lumbar spondylosis Nicotine dependence in remission quit in 2019 Hypertension Surgical History Surgical History History of excision of mass 01/08/21 Excision of 9 cm left upper quadrant subcutaneous abdominal wall mass, Layered closure Port-A-Cath in place Hx of fusion of cervical spine H/O: hysterectomy H/O abdominoplasty Hx of lumbosacral spine surgery H/O cervical spine surgery S/P appendectomy Hx of cholecystectomy Family History Family History Father Acute myocardial infarction Smoker Mother Alzheimer's dementia Social History Social History Social History: quit 3 months ago Smoking packs per day: 0.25 Smoking cigarettes per day: 5.0 Years smoked: 40 Smoking pack-years: 10.00 Smoking status: Current every day smoker Tobacco type: cigarettes Second hand tobacco smoke exposure: No Smoking end date: 11/20/17 Alcohol intake: never Substance use: never Substance use type: does not use Lack of Transportation: No Lack of Food: Never True Current Housing: I Have Housing Concerned About Future Housing: No Difficulty Paying Gas/Electric Bills: No Difficulty Paying for Meds: No Currently Unemployed: No Education: Bachelor's Degree Difficulty w/ Childcare or Family Care: No Living arrangements: with family Additional living arrangements comments: Lives with sister Occupation/Education: retired Gender identity (if verbalized by the patient): Female Sexual Orientation (if Verbalized by the Patient): Straight or Heterosexual Spiritual care concerns: No Agree to blood products: Yes Exam 2 Narrative: Blood pressure 88/34. Pulse of 70. Oxygen saturation of 97% on room. Const: General: healthy appearing and no acute distress Nutritional Appearance: well nourished Orientation/consciousness: patient oriented x3 Limitations: no limitations HENMT: Ears: external ears normal Face/Nose/Sinus: Normal external nose present Face and sinus: normal facial exam Mouth: Yes Normal oral and palatal mucosa present Teeth and gingiva: dentition normal Throat: p osterior oropharynx normal Eyes: Conjunctivae: conjunctivae normal Pupils: Equal, round and reactive pupils present EOM: EOMs intact bilaterally Direct Ophthalmoscopy: no photophobia Neck: Neck: normal visual inspection, no lymphadenopathy and no meningeal signs Chest: Chest palpation & inspection: normal inspection of the chest Resp: Effort & Inspection: normal respiratory effort Other: Few basilar rales. Cardio: Rate: regular rate Rhythm: regular rhythm Heart sounds: Murmur heart sound present GI: Inspection: distended GI Palp: Yes Soft to palpation Auscultation: n ormal bowel sounds Other: Nonspecific tenderness. No rigidity/rebound. : General: Yes no CVA tenderness Back/Spine/Pelvis: Back: no CVA tenderness Cervical Spine: collar present Skin: General skin exam: normal color Rashes: no rashes Wounds: no wounds Neuro: General: patient oriented x3, moves all extremities, no meningeal signs, no focal motor deficits and CN's II-XI intact bilaterally Cranial nerves: Yes Nystagmus not present Speech: normal speech Extrem: General: normal to inspection and no clubbing, cyanosis or edema Psych: Mental Status: mental status grossly normal Affect: normal affect Attitude: cooperative Course Course Emergency Course: Generalized weakness Hypotension--blood pressure fluctuates between 69/42 to 114/63. Acute renal failure Sepsis--CT of the abdomen revealed right upper right middle and right lower lobe tree-in-bud appearance suggestive of pneumonia. In addition the patient has distal descending colon diverticulitis Patient received vancomycin, cefepime and Flagyl Vital Signs Vital signs: Vital Signs Temperature 36.7 C 09/17/25 12:32 Pulse Rate 78 09/17/25 12:32 Respiratory Rate 20 09/17/25 12:32 Blood Pressure 86/37 L 09/17/25 12:32 Pulse Oximetry 95 09/17/25 12:32 Oxygen Delivery Room Air 09/17/25 12:32 Temperature 36.7 C 09/17/25 12:32 Pulse Rate 64 09/17/25 14:45 Respiratory Rate 20 09/17/25 14:01 Blood Pressure 124/56 L 09/17/25 15:16 Pulse Oximetry 97 09/17/25 15:01 Oxygen Delivery Room Air 09/17/25 14:45 MDM - Weakness MDM Narrative Medical decision making narrative: Septic Shock diverticulitis Pneumonia Differential Diagnosis Differential diagnosis: Likely anemia Medical Records Attestation: I reviewed the patient's medical records. Lab Data Attestation: I reviewed the patient's lab results. 09/17/25 12:49 09/17/25 12:49 Labs: Lab Results 09/17/25 09/17/25 09/17/25 Range/Units 12:49 12:50 12:53 WBC 18.2 H (4.8-10.8) K/mm3 RBC 3.30 L (4.20-5.40) M/mm3 Hgb 11.2 L (11.7-13.8) g/dL Hct 35.4 (35.0-42.0) % MCV 107.3 H (78.0-102.0) fL MCH 33.9 H (27.0-31.0) pg MCHC 31.6 L (32-36) g/dL RDW 14.3 (11.6-14.4) % Plt Count 281 (150-420) K/mm3 MPV 9.5 (9.2-11.8) fl Immature Gran % (Auto) 0.5 H (0.0-0.0) % Neut % (Auto) 77.4 H (50.0-70.0) % Lymph % (Auto) 11.5 L (18.0-42.0) % Rob[place] % (Auto) 10.4 (2.0-11.0) % Eos % (Auto) 0.1 L (1.0-6.0) % Baso % (Auto) 0.1 (0.0-1.0) % Lymph # (Auto) 2.09 (1.10-4.50) K/mm3 Robeson # (Auto) 1.89 H (0.10-0.90) K/mm3 Eos # (Auto) 0.02 (0.02-0.50) K/mm3 Baso # (Auto) 0.02 (0.00-0.10) K/mm3 Abs Immat Gran (auto) 0.09 H (0.00-0.00) K/mm3 Absolute Neuts (auto) 14.12 H (1.70-7.20) K/mm3 Absolute Nucleated RBC 0.00 (0.00-0.00) K/mm3 Nucleated RBC % 0.0 (0-0.0) % PT 10.2 (9.50-12.1) Seconds INR 0.9 Sodium 136 L (137-145) mmol/L Potassium 5.0 (3.4-5.0) mmol/L Chloride 102 (98-107) mmol/L Carbon Dioxide 29 (22-30) mmol/L Anion Gap 5 (4-12) mmol/L BUN 27 H D (7-17) mg/dL Creatinine 1.27 H (0.7-1.0) mg/dL Estim Creat Clear Calc 31 ml/min Estimated GFR 41 L (59 - ) Glucose 93 (65-110) mg/dL Calculated Osmolality 287 (285-295) mOsm/kg Lactic Acid 1.3 (0.4-2.0) mmol/L Calcium 9.6 (8.4-10.2) mg/dL Total Bilirubin 0.7 (0.2-1.3) mg/dL AST 18 (14-36) U/L ALT 7 (6-35) U/L Alkaline Phosphatase 72 (38-126) U/L Total Creatine Kinase 22 L (30-135) U/L Troponin I < 0.012 (0.000-0.034) ng/mL NT-Pro-B Natriuret Pep 133 H (19.9-100) pg/mL Total Protein 6.3 (6.3-8.2) g/dL Albumin 3.8 (3.5-5.1) g/dL Lipase 152 (23-300) U/L Urine Color (Yellow) Urine Appearance (Clear) Urine pH (5.0-8.0) Ur Specific [place] (1.010-1.020) Urine Protein (Negative) Urine Glucose (UA) (Negative) Urine Ketones (Negative) Ur Blood (Man) (Negative) Urine Nitrate (Negative) Urine Bilirubin (Negative) Urine Urobilinogen (0.2-1.0) mg/dL Leukocyte Esterase Rfl (Negative) MYA/UL Urine RBC (0-2) /hpf Urine WBC (0-3) /hpf Ur Squamous Epith Cells (Few) /hpf Urine Bacteria (None) /hpf Influenza A (RT-PCR) (Negative) Influenza B (RT-PCR) (Negative) RSV (RT-PCR) (Negative) SARS-CoV-2 RNA (RT-PCR) (Negative) 09/17/25 09/17/25 Range/Units 13:11 13:41 WBC (4.8-10.8) K/mm3 RBC (4.20-5.40) M/mm3 Hgb (11.7-13.8) g/dL Hct (35.0-42.0) % MCV (78.0-102.0) fL MCH (27.0-31.0) pg MCHC (32-36) g/dL RDW (11.6-14.4) % Plt Count (150-420) K/mm3 MPV (9.2-11.8) fl Immature Gran % (Auto) (0.0-0.0) % Neut % (Auto) (50.0-70.0) % Lymph % (Auto) (18.0-42.0) % Robeson % (Auto) (2.0-11.0) % Eos % (Auto) (1.0-6.0) % Baso % (Auto) (0.0-1.0) % Lymph # (Auto) (1.10-4.50) K/mm3 Robeson # (Auto) (0.10-0.90) K/mm3 Eos # (Auto) (0.02-0.50) K/mm3 Baso # (Auto) (0.00-0.10) K/mm3 Abs Immat Gran (auto) (0.00-0.00) K/mm3 Absolute Neuts (auto) (1.70-7.20) K/mm3 Absolute Nucleated RBC (0.00-0.00) K/mm3 Nucleated RBC % (0-0.0) % PT (9.50-12.1) Seconds INR Sodium (137-145) mmol/L Potassium (3.4-5.0) mmol/L Chloride (98-107) mmol/L Carbon Dioxide (22-30) mmol/L Anion Gap (4-12) mmol/L BUN (7-17) mg/dL Creatinine (0.7-1.0) mg/dL Estim Creat Clear Calc ml/min Estimated GFR (59 - ) Glucose (65-110) mg/dL Calculated Osmolality (285-295) mOsm/kg Lactic Acid (0.4-2.0) mmol/L Calcium (8.4-10.2) mg/dL Total Bilirubin (0.2-1.3) mg/dL AST (14-36) U/L ALT (6-35) U/L Alkaline Phosphatase (38-126) U/L Total Creatine Kinase (30-135) U/L Troponin I (0.000-0.034) ng/mL NT-Pro-B Natriuret Pep (19.9-100) pg/mL Total Protein (6.3-8.2) g/dL Albumin (3.5-5.1) g/dL Lipase (23-300) U/L Urine Color Yellow (Yellow) Urine Appearance Clear (Clear) Urine pH 5.5 (5.0-8.0) Ur Specific [place] >= 1.030 H (1.010-1.020) Urine Protein Negative (Negative) Urine Glucose (UA) Negative (Negative) Urine Ketones 1+ H (Negative) Ur Blood (Man) Negative (Negative) Urine Nitrate Negative (Negative) Urine Bilirubin 1+ H (Negative) Urine Urobilinogen 0.2 (0.2-1.0) mg/dL Leukocyte Esterase Rfl Trace H (Negative) MYA/UL Urine RBC None seen (0-2) /hpf Urine WBC 4-6 H (0-3) /hpf Ur Squamous Epith Cells Moderate H (Few) /hpf Urine Bacteria Trace (None) /hpf Influenza A (RT-PCR) Negative (Negative) Influenza B (RT-PCR) Negative (Negative) RSV (RT-PCR) Negative (Negative) SARS-CoV-2 RNA (RT-PCR) Negative (Negative) ECG Data EKG #1: ECG completion date: 09/17/25 ECG completion time: 13:15 Interpretation: Normal sinus rhythm. Normal axis. Nonspecific T-wave changes. No ST elevation. Critical Care Time Critical Care Time Critical Care Time: Yes Total Critical Care Time: 40 Discharge Plan Discharge Clinical Impression: Septic shock, Diverticulitis, Pneumonia Patient Disposition: Still a Patient Condition: Improved Additional Instructions: Transfer the patient to [facility] in [place]. Patient has been accepted by Patient Language: Tristanian Prescriptions: No Action dorzolamide 2 % drops 1 drp ophthalmic (eye) DAILY brimonidine-timolol [Combigan] 0.2-0.5 % drops 1 drp ophthalmic (eye) DAILY carbidopa-levodopa 25-100 mg tablet See Rx Instructions .ROUTE .COMPLEX Dose Instruction: TAKE 1 TABLET BY MOUTH 3 TIMES DAILY. 1/2 HOUR BEFORE EATING Rx Instructions: TAKE 2 TABLET BY MOUTH 3 TIMES DAILY. 1/2 HOUR BEFORE EATING escitalopram oxalate [Lexapro] 20 mg tablet 20 mg PO DAILY Qty: 90 3RF prednisone 50 mg tablet 50 mg PO DAILY Qty: 5 0RF buspirone 10 mg tablet See Rx Instructions .ROUTE .COMPLEX PRN (Reason: anxiety) Qty: 90 11RF Dose Instruction: TAKE 1 TABLET BY MOUTH THREE (3) TIMES DAILY Rx Instructions: TAKE 1 TABLET BY MOUTH THREE (3) TIMES DAILY PRN; pregabalin [Lyrica] 150 mg capsule 150 mg PO DAILY Movantik 25 mg tablet See Rx Instructions .ROUTE .COMPLEX Qty: 90 9RF Dose Instruction: TAKE 1 TABLET BY MOUTH IN THE MORNING ON AN EMPTY STOMACH. NO FOOD 1 HOUR AFTER OR 2-3 HOURS BEFORE DOSE Rx Instructions: TAKE 1 TABLET BY MOUTH IN THE MORNING ON AN EMPTY STOMACH. NO FOOD 1 HOUR AFTER OR 2-3 HOURS BEFORE DOSE trazodone 150 mg tablet See Rx Instructions .ROUTE .COMPLEX Qty: 270 11RF Dose Instruction: TAKE 3 TABLETS AT BEDTIME FOR INSOMNIA Rx Instructions: TAKE 3 TABLETS AT BEDTIME FOR INSOMNIA lisinopril 10 mg tablet See Rx Instructions .ROUTE .COMPLEX Qty: 90 11RF Dose Instruction: TAKE ONE TABLET EVERY DAY Rx Instructions: TAKE ONE TABLET EVERY DAY montelukast 10 mg tablet See Rx Instructions .ROUTE .COMPLEX Qty: 90 11RF Dose Instruction: TAKE ONE TABLET EVERY DAY Rx Instructions: TAKE ONE TABLET EVERY DAY atorvastatin 40 mg tablet See Rx Instructions .ROUTE .COMPLEX Qty: 90 2RF Dose Instruction: TAKE ONE TABLET EVERY DAY Rx Instructions: TAKE ONE TABLET EVERY DAY tobramycin 0.3 % drops 1 drp ophthalmic (eye) Q4H Qty: 5 0RF Rx Instructions: Place one drop in affected eye every 4 hours. albuterol sulfate 90 mcg/actuation HFA aerosol inhaler See Rx Instructions .ROUTE .COMPLEX Qty: 8.5 5RF Dose Instruction: INHALE 1 PUFF INTO LUNGS EVERY FOUR (4) HOURS NEEDED FOR SHORTNESS OF BREATH OR WHEEZING Rx Instructions: INHALE 1 PUFF INTO LUNGS EVERY FOUR (4) HOURS NEEDED FOR SHORTNESS OF BREATH OR WHEEZING benzonatate 200 mg capsule See Rx Instructions .ROUTE .COMPLEX Qty: 20 9RF Dose Instruction: TAKE ONE CAPSULE BY MOUTH TWICE DAILY NEEDED FOR COUGH Rx Instructions: TAKE ONE CAPSULE BY MOUTH TWICE DAILY NEEDED FOR COUGH hydrocodone-acetaminophen 10-325 mg tablet 1 tablet PO Q4H PRN (Reason: Pain) Qty: 18 0RF Rx Instructions: Comes from pain management Dr. Cervantes in [place]. donepezil 10 mg tablet See Rx Instructions .ROUTE .COMPLEX Qty: 90 5RF Dose Instruction: TAKE ONE TABLET BY MOUTH AT BEDTIME Rx Instructions: TAKE ONE TABLET BY MOUTH AT BEDTIME baclofen 10 mg tablet See Rx Instructions .ROUTE .COMPLEX Qty: 90 1RF Dose Instruction: TAKE 1 TABLET BY MOUTH THREE (3) TIMES DAILY NEEDED FOR MUSCLE SPASMS Rx Instructions: TAKE 1 TABLET BY MOUTH THREE (3) TIMES DAILY NEEDED FOR MUSCLE SPASMS alprazolam 0.5 mg tablet 0.5 mg PO BID Qty: 60 2RF ondansetron HCl 4 mg tablet See Rx Instructions .ROUTE .COMPLEX Qty: 30 6RF Dose Instruction: TAKE 1 TABLET BY MOUTH EVERY SIX (6) HOURS NEEDED NAUSEA & VOMITING Rx Instructions: TAKE 1 TABLET BY MOUTH EVERY SIX (6) HOURS NEEDED NAUSEA & VOMITING amoxicillin-pot clavulanate 875-125 mg tablet 1 tablet PO BID Qty: 20 0RF Trelegy Ellipta 200-62.5-25 mcg blister with device See Rx Instructions .ROUTE .COMPLEX Qty: 60 5RF Dose Instruction: USE 1 PUFF INTO LUNGS EVERY DAY Rx Instructions: USE 1 PUFF INTO LUNGS EVERY DAY albuterol sulfate 2.5 mg /3 mL (0.083 %) solution for nebulization See Rx Instructions .ROUTE .COMPLEX Qty: 360 7RF Dose Instruction: INHALE 3 ML BY NEBULIZATION ROUTE EVERY 6 HOURS NEEDED FOR WHEEZING OR SHORTNESS OF BREATH. Rx Instructions: INHALE 3 ML BY NEBULIZATION ROUTE EVERY 6 HOURS NEEDED FOR WHEEZING OR SHORTNESS OF BREATH. Follow-up/Referrals: Inocente Raya DO [Primary Care Provider, [facility]] Time of Disposition: 15:51
--- NOTE | 2025-09-17 12:49 | ECG_ITS ---
Test Date: 2025-09-17 13:15:25 Measurements Intervals Hoffman Rate: 69 P: 67 SD: 134 QRS: 84 QRSD: 83 T: 83 QT: 392 QTc: 420 Interpretive Statements SINUS RHYTHM WITH MARKED SINUS ARRHYTHMIA NONSPECIFIC T-WAVE ABNORMALITY- LAT/HIGH LAT LEADS BASELINE ARTIFACT- II, III, AVR, AVL, AVF, V1 BORDERLINE ECG No previous ECG available for comparison Electronically Signed On 09-17-2025 13:20:22 CDT by Rick Bautista D.O.
[2025-09-17 12:58] LABS: Hematocrit 35.4 % (35.0-42.0); Hemoglobin 11.2 g/dL (11.7-13.8); Immature Granulocyte Percent A 0.5 % (0.0-0.0); Lymphocytes Absolute Auto 2.09 K/mm3 (1.10-4.50); Mean Corpuscular HGB Conc 31.6 g/dL (32-36); Mean Corpuscular Hemoglobin 33.9 pg (27.0-31.0); Mean Corpuscular Volume 107.3 fL (78.0-102.0); Nucleated Red Blood Cells Absolute Auto 0.00 K/mm3 (0.00-0.00); Nucleated Red Blood Cells Perc 0.0 % (0-0.0); Platelet Count Result 281 K/mm3 (150-420); Red Blood Count 3.30 M/mm3 (4.20-5.40); White Blood Count 18.2 K/mm3 (4.8-10.8)
[2025-09-17 13:12] LABS: INR 0.9; Prothrombin Time 10.2 Seconds (9.50-12.1)
--- NOTE | 2025-09-17 13:16 | PC.NURSE ---
covid culture sent to lab
[2025-09-17 13:19] LABS: Alanine Aminotransferase 7 U/L (6-35); Albumin Level 3.8 g/dL (3.5-5.1); Alkaline Phosphatase 72 U/L (38-126); Anion Gap 5 mmol/L (4-12); Aspartate Amino Transferase 18 U/L (14-36); Bilirubin,Total 0.7 mg/dL (0.2-1.3); Blood Urea Nitrogen 27 mg/dL (7-17); Calcium 9.6 mg/dL (8.4-10.2); Carbon Dioxide 29 mmol/L (22-30); Chloride 102 mmol/L (98-107); Estimated CRCL calculation 31 ml/min; Estimated Glomerular Filt Rate 41; Glucose 93 mg/dL (65-110); Osmolality Calculated 287 mOsm/kg (285-295); Potassium 5.0 mmol/L (3.4-5.0); Sodium 136 mmol/L (137-145); Total Protein 6.3 g/dL (6.3-8.2)
[2025-09-17 13:20] LABS: Creatine Kinase 22 U/L (30-135); Lipase 152 U/L (23-300)
[2025-09-17] MEDS: LACTATED RINGERS 1,000 ML 250 ML IV CONT (13:24)
[2025-09-17 13:28] LABS: NT Pro B Type Natriuretic Pept 133 pg/mL (19.9-100)
[2025-09-17 13:32] LABS: Troponin I < 0.012 ng/mL (0.000-0.034)
[2025-09-17 13:48] LABS: Add Urine Microscopic? YES; Appearance Urine Clear (Clear); Glucose Urine UA Negative (Negative); Leukocyte Esterase Ur Trace LEU/UL (Negative); Nitrate Urine Negative (Negative); Specific Grav Ur >= 1.030 (1.010-1.020)
[2025-09-17 13:53] LABS: Influenza A QL RT-PCR Negative (Negative); Influenza B QL RT-PCR Negative (Negative); RSV RNA, RT-PCR Negative (Negative); SARS-CoV-2 RNA PCR Negative (Negative)
--- OUTSIDE RECORDS SUMMARY | 2025-09-17 14:29 | XMS_ITS | Clinical Summary ---
Author Organization [facility] Address [address] [place] [address] Phone Care Team Providers Care Foam Gun Operator Name Role Phone Inocente Raya MD Primary Care Provider [phone] Jorje Justice MD Unavailable [phone] Brian Gupta MD Unavailable [phone] Allergies Active Allergy Reactions Criticality Noted Date Comments Butorphanol Hallucinations 08/04/2021 Medications atorvastatin (LIPITOR) 40 MG Tablet Take 40 mg by mouth nightly. Active HYDROcodone-ac etaminophen (NORCO) 10-325 MG Tablet Take 1 Tablet by mouth every 4 hours as needed for Mild or more severe pain. Active montelukast (SINGULAIR) 10 MG Tablet Take 10 mg by mouth every evening. Active Brimonidine Tartrate-Timol ol 0.2-0.5 % Solution Place 1 Drop in affected eye(s) in the morning and at bedtime. Active albuterol (PROVENTIL, VENTOLIN) (2.5 MG/3ML) 0.083% Nebulizer SolnIndication s:COPD (chronic obstructive pulmonary disease) 3 mL by Nebulization route every 6 hours as needed for Wheezing or Shortness of Breath. 360 mL 11/11/20 22 Active albuterol 108 (90 Base) MCG/ACT Aerosol Solution take 1 Puff by inhalation as needed (Rescue inhaler). Active Fluticasone-Um eclidin-Vilant (Trelegy Ellipta) 200-62.5-25 MCG/ACT AEROSOL POWDER, BREATH ACTIVATED take 1 Puff by inhalation daily. Active carbidopa-levo dopa (SINEMET) 25-100 MG Tablet Take 2 Tablets by mouth 4 times daily. 720 Tablet 08/21/20 Active lisinopril-hyd roCHLOROthiazi de (PRINZIDE, ZESTORETIC) 20-12.5 MG Tablet Take 1 Tablet by mouth daily. Active donepezil (ARICEPT) 10 MG Tablet Take 10 mg by mouth nightly. Active escitalopram (LEXAPRO) 20 MG Tablet Take 20 mg by mouth daily. Active naloxone HCl (Narcan) 4 MG/0.1ML Liquid 1 [place] by Nasal route as needed for Opioid Reversal. Administer in one nostril for symptoms of overdose (severe sleepiness, breathing problems, not responsive). Call 911. May repeat 1 spray in alternate nostril in 2-3 minutes if needed. Active pregabalin (LYRICA) 150 MG CapsuleIndicat ions:Sepsis,Co mmunity acquired pneumonia Take 1 Capsule by mouth 2 times daily for 30 days. 60 Capsule 09/06/20 25 2024 Active predniSONE (DELTASONE) 10 MG Tablet Start with 3 tablets by mouth daily x 3 days, then decrease to 2 tabs daily x 2 days, then 1 tab x 1 day and stop 14 Tablet 09/06/20 Active carbidopa-levo dopa CR (SINEMET CR) 50-200 MG Tablet Controlled Release Take 1 Tablet by mouth nightly. Active lisinopril (PRINIVIL, ZESTRIL) 10 MG Tablet Take 10 mg by mouth daily. Active traZODone (DESYREL) 150 MG Tablet Take 450 mg by mouth every evening. Active ALPRAZolam (XANAX) 0.5 MG Tablet Take 0.5 mg by mouth 2 times daily. Active amoxicillin-cl avulanate (AUGMENTIN) 875-125 MG Tablet Take 1 Tablet by mouth 2 times daily. 09/12/20 25 2024 Active ondansetron (ZOFRAN-ODT) 4 MG TABLET DISPERSIBLE Take 4 mg by mouth every 6 hours as needed for Nausea - 1st line. Active baclofen (LIORESAL) 10 MG Tablet Take 10 mg by mouth 3 times daily as needed for Muscle spasms. Active DULoxetine (CYMBALTA) [address] Particles Take 60 mg by mouth daily. 2024 Discontinued(M ed List Clean Up) ipratropium-al buterol (DUO-NEB) 0.5-2.5 (3) MG/3ML Solution 3 mL by Nebulization route every 4 hours. 2024 Discontinued(T herapy completed) lisinopril (PRINIVIL, ZESTRIL) 10 MG Tablet Take 10 mg by mouth daily. 2024 Discontinued(T herapy completed) traZODone (DESYREL) 150 MG Tablet Take 450 mg by mouth nightly. 2024 Discontinued(F ormulary change) busPIRone (BUSPAR) 10 MG Tablet Take 1 Tablet by mouth 3 times daily as needed (anxiety). 270 Tablet 11/11/202024 Discontinued(M ed List Clean Up) ondansetron (ZOFRAN) 8 MG Tablet Take 8 mg by mouth every 8 hours as needed for Nausea - 1st line. 08/30/20 18 2024 Discontinued(F ormulary change) pregabalin (LYRICA) 150 MG Capsule Take 150 mg by mouth nightly. 12/02/192024 Discontinued tiZANidine (ZANAFLEX) 2 MG Tablet TAKE 1 TABLET BY MOUTH 3 TIMES A DAY NEEDED FOR MUSCLE SPASMS. 2024 Discontinued(T herapy completed) carbidopa-levo dopa CR (SINEMET CR) 50-200 MG Tablet Controlled Release TAKE ONE TABLET EVERY NIGHT 90 Tablet 02/27/202024 Discontinued(M ed List Clean Up) carbidopa-levo dopa (SINEMET) 25-100 MG Tablet TAKE TWO TABLETS THREE TIMES DAILY 1/2 HOUR BEFORE EATING 180 Tablet 07/18/202024 Discontinued(D ose adjustment) ALPRAZolam (XANAX) 0.5 MG Tablet take 1 tablet by mouht nightly as needed for anxiety 07/18/20 25 2024 Discontinued(F ormulary change) sertraline (ZOLOFT) 25 MG Tablet Take 1 Tablet by mouth daily. 90 Tablet 08/21/20 25 2024 Discontinued(M ed List Clean Up) omeprazole (PRILOSEC) 20 MG Tablet Delayed Response Take 40 mg by mouth daily. 2024 Discontinued(T herapy completed) traZODone (DESYREL) 100 MG Tablet Take 300 mg by mouth nightly. 2024 Discontinued(T herapy completed) baclofen (LIORESAL) 10 MG Tablet Take 10 mg by mouth 2 times daily. 2024 Discontinued(F ormulary change) budesonide-for moterol fumarate (SYMBICORT) 160-4.5 MCG/ACT Aerosol take 2 Puffs by inhalation 2 times daily. Rinse mouth with water after use. DO NOT swallow. 2024 Discontinued(D iscontinued by another clinician) benzonatate (TESSALON) 100 MG Capsule Take 1 Capsule by mouth 3 times daily as needed for Cough for up to 10 days. 30 Capsule 09/06/20 25 2024 Active Problems Problem Noted Date Diagnosed Date Septic shock 09/02/2025 COPD exacerbation 09/02/2025 Dehydration 09/02/2025 Acute on chronic respiratory failure with hypoxi a 08/21/2025 Community acquired pneumonia of right lung, unspecified part of lung 04/22/2023 Pneumonia due to COVID-19 virus 03/29/2023 Chronic pain syndrome 03/29/2023 Asthma 03/29/2023 Community acquired pneumonia 12/19/2022 Physical deconditioning 12/19/2022 Chronic pain syndrome 12/19/2022 [...] Problem Noted Date Diagnosed Date Resolved Date Influenza A 12/19/2022 12/21/2022 Acute metabolic encephalopathy 12/19/2022 12/21/2022 Hyponatremia 12/19/2022 12/21/2022 Fall 12/19/2022 12/21/2022 Encounters Date Type Department Care Team Description 09/15/2025 1:30 PM CDT Home Care Visit [address] [address] aLnny Garcia, PT PT - [facility] RESUMPTION OF CARE Discharge Disposition: Discharged to home or Selfcare 09/15/[address] [address] Lanny Garcia, PT Medication Management 09/15/2025 Plan of Care Documentation [address] [address] 09/09/2025 Home Care Visit [address] [address] Lanny Garcia, PT TELEPHONE ENCOUNTER 09/08/2025 2:00 PM CDT - 09/08/2025 11:59 PM CDT Hospital Encounter [facility] Cardiology Services [address] [place] [address] Lima Bloom MD Discharge Disposition: Discharged to home or Selfcare 09/08/2025 Home Care Visit [address] [address] Lanny Garcia, PT TELEPHONE ENCOUNTER 09/08/2025 Travel 09/03/2025 Home Care Visit [address] [address] Lanny Garcia, PT PT - [facility] TRANSFER W/OUT DC 09/01/2025 6:11 PM CDT - 09/06/2025 12:13 PM CDT Hospital Encounter [facility] Med Surg [address] [place] [phone] Patrick Parker MD Dianati, Behfar, MD Carmicheal, Crystal Marie, MD Septic shock Discharge Disposition: Discharged to home or Selfcare 09/01/2025 Travel 08/27/2025 Home Care Visit [address] [address] Uma Herron, ACCOUNT FINANCIAL MANAGER TELEPHONE ENCOUNTER 08/25/2025 9:30 AM CDT Home Care Visit [address] [address] Lanny Garcia, PT PT - [facility] START OF CARE 08/25/2025 Home Care Visit [address] [address] Lanny Garcia, PT CARE CONFERENCE 08/25/[address] [address] Lanny Garcia, PT 08/25/2025 Plan of Care Documentation [address] [address] 08/22/2025 Home Care Visit [address] [address] Lanny Garcia, PT TELEPHONE ENCOUNTER 08/21/2025 1:00 PM CDT Office Visit [facility] Neurology [facility] [address] [place] [address] Brian Gupta MD Acute on chronic respiratory failure with hypoxia (Primary Dx); COPD exacerbation; Parkinson's disease without dyskinesia, with fluctuating manifestations Discharge Disposition: Discharged to home or Selfcare 08/21/2025 Travel 08/03/2025 Results Follow-Up [facility] UROLOGY [address] [place] [phone] Jorje Justice MD CULTURE, URINE 08/01/2025 1:00 PM CDT Office Visit [facility] UROLOGY [address] [place] [phone] Jorje Justice MD OAB (overactive bladder) (Primary Dx); Microscopic hematuria Discharge Disposition: Discharged to home or Selfcare 08/01/2025 Travel 07/18/2025 Refill [facility] [address] [place] [address] Brian Gupta MD Medication Refill from Last 3 Months Immunizations Immunization Administration Dates Next Due Influenza, High-dose, Quadrivalent 08/24/2022 Influenza, Quadrivalent, Adjuvanted 09/02/2023,1 Influenza, Seasonal, Injectable, Undefined 08/31 Influenza, high-dose, trivalent, PF 10/29/2019,0 08/17/2016 Pneumococcal Vaccine - 13 Valent 10/05/2021,11/2016,08/17/2016 Zoster Vaccine Recombinant 09/02/2023 Family History Medical [...] Total Score - Questions 1-9 6 01/2020 Social Connection and Isolation Panel Answer Date Recorded In a typical week, how many times do you talk on the phone with family, friends, or neighbors? More than three times a week 09/02/2025 How often do you get togethe r with friends or relatives? More than three times a week 09/02/2025 How often do you attend chur ch or jainism services? More than 4 times per year 09/02/2025 Do you belong to any clubs o r organizations such as buddhism groups, unions, fraternal or athletic groups, or school groups? No 09/02/2025 How often do you attend meet ings of the clubs or organizations you belong to? More than 4 times per year 09/02/2025 Are you , , di vorced, , never , or living with a partner? 09/02/2025 AUDIT-C Answer Date Recorded Q1: How often do you have a drink containing alcohol? Never 09/02/2025 Q2: How many drinks containi ng alcohol do you have on a typical day when you are drinking? Patient does not drink Q3: How often do you have si x or more drinks on one occasion? Never 09/02/2025 Overall Financial Resource Strain (CARDIA) Answe r Date Recorded How hard is it for you to pa y for the very basics like food, housing, medical care, and heating? Not hard at all 09/02/2025 [facility] - Occupational Stress Questionnaire Answer Date Recorded Do you feel stress - tense, restless, nervous, or anxious, or unable to sleep at night because your mind is troubled all the time - these days? Not at all 09/02/2025 Exercise Vital Sign Answer Date Recorde d On average, how many days pe r week do you engage in moderate to strenuous exercise (like a brisk walk)? 0 days 09/02/2025 On average, how many minutes do you engage in exercise at this level? 0 min 09/02/2025 Hunger Vital Sign Answer Date Recorded Within the past 12 months, y ou worried that your food would run out before you got the money to buy more. Never true 09/02/20 25 Within the past 12 months, t he food you bought just didn't last and you didn't have money to get more. Never true 09/02/2025 PRAPARE - Transportation Answer Date Re corded In the past 12 months, has l ack of transportation kept you from medical appointments or from getting medications? No 08/20 In the past 12 months, has l ack of transportation kept you from meetings, work, or from getting things needed for daily living? No 09/02/2025 Housing Stability Vital Sign Answer Kyle e Recorded In the last 12 months, was t here a time when you were not able to pay the mortgage or rent on time? No 09/02/2025 In the past 12 months, how m any times have you moved where you were living? 0 09/02/2025 At any time in the past 12 m [facility], were you homeless or living in a penitentiary (including now)? No 09/02/2025 [facility] Utilities Answer Date Recorded In the past 12 months has e electric, gas, oil, or water company threatened to shut off services in your home? No 09/02/2025 Sexually Active Control Partners Comments Not Currently [...] Sign Reading Time Taken Comments Blood Pressure 132/70 09/15/2025 2:04 PM CDT Pulse 62 09/15/2025 2:04 PM CDT Temperature 35.8 C (96.4 F) 09/15/2025 2:04 PM CDT Respiratory Rate 16 09/15/2025 2:04 PM CDT Oxygen Saturation 97% 09/15/2025 2:04 PM CDT Inhaled Oxygen Concentration - - Weight 76.2 kg (168 lb 1 oz) 09/06/2025 5:09 AM CDT Height 167.6 cm (5' 6) 09/04/2025 12:55 AM CDT Body Mass Index 27.13 09/04/2025 12:55 AM CDT Plan of Treatment Upcoming Encounters Date Type Department Care Team (Late st Contact Info) Description 09/18/2025 10:30 AM CDT Appointment [address] [address] Uma Herron, ACCOUNT FINANCIAL MANAGER 09/24/2025 9:30 AM SPRAY BOOTH OPERATOR Appointment [address] [address] Uma Herron, ACCOUNT FINANCIAL MANAGER 09/26/2025 9:30 AM SPRAY BOOTH OPERATOR Appointment [address] [address] Uma Herron, ACCOUNT FINANCIAL MANAGER 09/29/2025 1:00 AM SPRAY BOOTH OPERATOR [address]ointment [address] [place] [address] Uma Herron, ACCOUNT FINANCIAL MANAGER 10/01/2025 1:00 AM SPRAY BOOTH OPERATOR [facility] [address] [place] [address] Lanny Garcia, PT 10/20/2025 11:30 AM SPRAY BOOTH OPERATOR Office Visit [facility] - Cardiology - [place] [address] [place] [address] Estella Downs, DIVERSITY INTERN, RENAL TECHNICIAN 2 [facility] [address] [place] [address] 11/07/2025 1:30 PM SPRAY BOOTH OPERATOR Office Visit [facility] [address] [place] [address] Jorje Justice MD [address] [address] 12/23/2025 11:30 AM SPRAY BOOTH OPERATOR [facility] - [facility] - [place] [address] [place] [phone] Brian Gupta MD [address] [place] [address] Health Maintenance Due Date Last Done Comments DEXA Bone Density 1950 Hepatitis C Virus (HCV) Screening 1950 TdaP Immunization 1950 Cologuard 1996 Colonoscopy 1996 Colorectal Cancer Screening 1996 Immunochemical Fecal Occult Blood 1996 Respiratory Syncytial Virus (RSV) Immunization (Adult) (1 - Risk 50-74 years 1-dose series) 2001 Medicare Initial AWV G0438 06/20/2017 Pneumococcal Immunization (50+ years) (2 of 2 - PPSV23, PCV20, or PCV21) 11/30/2021 10/05/2021, 08/20/2017, 08/17/2016 Mammogram 11/04/2023 11/04/2022 Influenza Immunization (#1) 2025 1002/2024, 09/02/2023, 08/24/2022, Additional history exists SARS-COV-2 Immunization ( season) 2025 10/10/2023, 08/24/2022, 09/30/2021, Additional history exists Pneumococcal Immunization Combined Discontinued [...] making a change Department associated with goal: [facility] Steps to [...] making a change Department associated with goal: [facility] Steps to [...] to grief. Medical Devices Implanted Type Area Pocket Creaser Device Identifier Shelf Expiration Date Model / Serial / Lot Lead Neurostimulation Interstim Ssmri 4.32mm Eman Us Full Body - [id number] Implanted:Qty: 1 on 10/27/2023 by Jorje Justice MD at [facility] IMPLANT Medtronic Neuromodulation 03/14/2025 [id number] / [id number] / [id number] Neurostimulator Sacral Interstim X Non Rechargeable Surescan Mri - [id number] Implanted:Qty: 1 on 11/03/2023 by Jorje Justice MD at [facility] IMPLANT N/A: Back Medtronic Neuromodulation 01/31/2025 [id number] / [id number] Tyrx Neuro Absorbable Antibacterial Envelope Implanted:Qty: 1 on 11/03/2023 by Jorje Justice MD at [facility] N/A: Back 05/21/2024 [id number] / [id number] / [id number] Implanted - Out of Service Type Area Pocket Creaser Device Identifier Shelf Expi ration Date Model / Serial / Lot None Procedures Procedure Name Priority Date/Time Associated Diagnosis Comments CBC WITH AUTO DIFFERENTIAL Routine 09/06/2025 4:22 AM CDT COMPLETE BLOOD COUNT (CBC) WITH DIFF Routine 09/06/2025 4:22 AM CDT BASIC METABOLIC PANEL W/ CALCIUM TOTAL Routine 09/06/2025 4:22 AM CDT RHYTHM STRIP 09/06/2025 12:00 AM CDT RHYTHM STRIP 09/06/2025 12:00 AM CDT RHYTHM STRIP 09/06/2025 12:00 AM CDT CBC WITH AUTO DIFFERENTIAL Routine 09/05/2025 8:02 AM CDT MAGNESIUM (MG) Routine 09/05/2025 8:02 AM CDT THYROID STIMULATING HORMONE (TSH) Routine 09/05/2025 8:02 AM CDT BASIC METABOLIC PANEL W/ CALCIUM TOTAL Routine 09/05/2025 8:02 AM CDT COMPLETE BLOOD COUNT (CBC) WITH DIFF Routine 09/05/2025 8:02 AM CDT RHYTHM STRIP 09/05/2025 12:00 AM CDT RHYTHM STRIP 09/05/2025 12:00 AM CDT RHYTHM STRIP 09/05/2025 12:00 AM CDT ADULT TRANS THORACIC ECHO 2D COMPLETE Routine 09/04/2025 9:29 AM CDT CBC WITH AUTO DIFFERENTIAL Routine 09/04/2025 5:30 AM CDT BASIC METABOLIC PANEL W/ CALCIUM TOTAL Routine 09/04/2025 5:30 AM CDT COMPLETE BLOOD COUNT (CBC) WITH DIFF Routine 09/04/2025 5:30 AM CDT RHYTHM STRIP 09/04/2025 12:00 AM CDT RHYTHM STRIP 09/04/2025 12:00 AM CDT RHYTHM STRIP 09/04/2025 12:00 AM CDT CBC WITH AUTO DIFFERENTIAL Routine 09/03/2025 4:23 AM CDT COMPLETE BLOOD COUNT (CBC) WITH DIFF Routine 09/03/2025 4:23 AM CDT BASIC METABOLIC PANEL W/ CALCIUM TOTAL Routine 09/03/2025 4:23 AM CDT RHYTHM STRIP 09/03/2025 12:00 AM CDT RHYTHM STRIP 09/03/2025 12:00 AM CDT RHYTHM STRIP 09/03/2025 12:00 AM CDT STREPTOCOCCUS PNEUMONIAE ANTIGEN, URINE STAT 09/02/2025 10:45 AM CDT MDI TREATMENT RT-INITIAL Routine 09/02/2025 9:15 AM CDT AEROSOL NEBULIZER-INITIAL Routine 09/02/2025 8:02 AM CDT EKG 12 LEAD STAT 09/02/2025 6:06 AM CDT CBC WITH AUTO DIFFERENTIAL STAT 09/02/2025 5:36 AM CDT URINALYSIS REFLEX IF INDICATED BY ABNORMAL RESULTS STAT 09/02/2025 5:36 AM CDT UR LEGIONELLA ANTIGEN Routine 09/02/2025 5:36 AM CDT PHOSPHORUS (PO4) STAT 09/02/2025 5:36 AM CDT MAGNESIUM (MG) STAT 09/02/2025 5:36 AM CDT COMPLETE BLOOD COUNT (CBC) WITH DIFF STAT 09/02/2025 5:36 AM CDT BASIC METABOLIC PANEL W/ CALCIUM TOTAL STAT 09/02/2025 5:36 AM CDT MRSA NASAL PCR STAT 09/02/2025 5:05 AM CDT MRSA NASAL BY PCR STAT 09/02/2025 5:0 5 AM CDT RHYTHM STRIP 09/02/2025 12:00 AM CDT RHYTHM STRIP 09/02/2025 12:00 AM CDT RHYTHM STRIP 09/02/2025 12:00 AM CDT EKG SCAN 09/02/2025 12:00 AM CDT RHYTHM STRIP 09/02/2025 12:00 AM CDT RHYTHM STRIP 09/02/2025 12:00 AM CDT RHYTHM STRIP 09/02/2025 12:00 AM CDT N-TERMINAL- PRO B TYPE NATRIURETIC PEPTIDE STAT 09/01/2025 7:10 PM CDT TROPONIN I, HIGH SENSITIVITY (HSTRP) STAT 09/01/2025 7:10 PM CDT CULTURE, BLOOD STAT 09/01/2025 7:00 PM CDT XR CHEST SINGLE VIEW PORTABLE STAT 09/01/2025 6:49 PM CDT CRITICAL CARE Routine 09/01/2025 6:42 PM CDT CULTURE, BLOOD STAT 09/01/2025 6:35 PM CDT CBC WITH AUTO DIFFERENTIAL STAT 09/01/2025 6:25 PM CDT LACTIC ACID (LACTATE) STAT 09/01/2025 6:25 PM CDT CMP (COMPREHENSIVE METABOLIC PANEL) STAT 09/01/2025 6:25 PM CDT COMPLETE BLOOD COUNT (CBC) WITH DIFF STAT 09/01/2025 6:25 PM CDT EKG 12 LEAD STAT 09/01/2025 6:18 PM CDT EKG SCAN 09/01/2025 12:00 AM CDT EKG SCAN 09/01/2025 12:00 AM CDT POCT UA AUTOMATED W/O MICRO Routine 08/01/2025 1:27 PM CDT OAB (overactive bladder) Microscopic hematuria CULTURE, URINE Routine 08/01/2025 1:26 PM CDT OAB (overactive bladder) Microscopic hematuria RAKAN,POST-VOID RES,US,NON-IMAGING Routine 08/01/2025 1:00 PM CDT OAB (overactive bladder) Microscopic hematuria JUMANA SCREENING BILATERAL DIGITAL W CAD W JAZIEL Routine 11/04/2022 3:30 PM SPRAY BOOTH OPERATOR Encounter for screening mammogram for malignant neoplasm of breast from Last 3 Months or Most Recently Relevant to Health Maintenance Results * (ABNORMAL) CBC with Auto Differential (09/06/2025 4:22 AM CDT) Only the most recent of6 resultswithin the time period is included. WBC 8.82 4.00 - 12.00 10(3)/mcL 09/06/2025 5:48 AM CDT [facility] RBC 2.88(L) 3.80 - 5.30 10(6)/mcL 09/06/2025 5:48 AM CDT [facility] HEMOGLOBIN (HGB) 9.8(L) 12.0 - 15.8 g/dL 09/06/2025 5:48 AM CDT [facility] HEMATOCRIT (HCT) 30.7(L) 36.0 - 47.0 % 09/06/2025 5:48 AM CDT [facility] MCV 106.6(H) 82.0 - 96.0 fL 09/06/2025 5:48 AM CDT [facility] MCH 34.0 26.0 - 34.0 pg 09/06/2025 5:48 AM CDT [facility] MCHC 31.9 31.0 - 36.0 g/dL 09/06/2025 5:48 AM CDT [facility] PLATELET COUNT 239 140 - 440 10(3)/mcL 09/06/2025 5:48 AM CDT [facility] RDW 13.4 11.8 - 15.5 % 09/06/2025 5:48 AM CDT [facility] MPV 9.7 9.7 - 12.4 fL 09/06/2025 5:48 AM CDT [facility] NEUTROPHILS 64.4 47.0 - 73.0 % 09/06/2025 5:48 AM CDT [facility] LYMPHOCYTES 23.9 18.0 - 42.0 % 09/06/2025 5:48 AM CDT [facility] MONOCYTES 11.2 4.0 - 12.0 % 09/06/2025 5:48 AM CDT [facility] EOSINOPHILS 0.1 0.0 - 5.0 % 09/06/2025 5:48 AM CDT [facility] BASOPHILS 0.1 0.0 - 1.0 % 09/06/2025 5:48 AM CDT [facility] IMMATURE GRANULOCYTE 0.3 0.0 - 0.4 % 09/06/2025 5:48 AM CDT [facility] ABSOLUTE NEUTROPHILS 5.67 1.60 - 7.70 10(3)/mcL 09/06/2025 5:48 AM CDT [facility] ABSOLUTE LYMPHOCYTES 2.11 1.30 - 3.20 10(3)/mcL 09/06/2025 5:48 AM CDT [facility] ABSOLUTE MONOCYTES 0.99 0.20 - 1.00 10(3)/mcL 09/06/2025 5:48 AM CDT [facility] ABSOLUTE EOSINOPHIL 0.01 0.00 - 0.40 10(3)/mcL 09/06/2025 5:48 AM CDT [facility] ABSOLUTE BASOPHILS 0.01 0.00 - 0.10 10(3)/mcL 09/06/2025 5:48 AM CDT [facility] ABSOLUTE IMMATURE GRANULOCYTE 0.03 0.00 - 0.03 10 (3) mcL. 09/06/2025 5:48 AM CDT [facility] NRBC PER 100 WBC 0 09/06/20 25 5:48 AM CDT [facility] RESULTS ARE CONSISTENT WITH PERIPHERAL SMEAR REVIEW Yes 09/06/2025 5:48 AM CDT [facility] RBC MORPHOLOGY CONSISTENT WITH INDICES Yes 09/06/2025 5:48 AM CDT [facility] POLYCHROMASIA 1+ 09/06/2025 5:48 AM CDT [facility] Blood Venipuncture / Unknown 09/06/2025 4:22 AM CDT 09/06/2025 4:48 AM CDT Narrative [facility] - 09/06/2025 5:48 AM CDT Macrocytosis us Cheri Wiley DIVERSITY INTERN, RENAL TECHNICIAN HEMATOLOGY ORDERABLES Fin al Result [facility] [address] [place] [address] * (ABNORMAL) BMP with Ca, Total (09/06/2025 4:22 AM CDT) Only the most recent of5 resultswithin the time period is included. SODIUM 144 136 - 145 mmol/L 09/06/2025 5:13 AM CDT [facility] POTASSIUM 3.6 3.5 - 5.1 mmol/L 09/06/2025 5:13 AM CDT [facility] CHLORIDE 114(H) 98 - 107 mmol/L 09/06/2025 5:13 AM CDT [facility] CO2, VENOUS 24 22 - 30 mmol/L 09/06/2025 5:13 AM CDT [facility] ANION GAP 9.6 <18.0 mmol/L 09/06/2025 5:13 AM CDT [facility] GLUCOSE 104(H) 70 - 99 mg/dL 09/06/2025 5:13 AM CDT [facility] BUN 12 10 - 20 mg/dL 09/06/2025 5:13 AM CDT [facility] CREATININE, BLOOD 0.60 0.60 - 1.00 mg/dL 09/06/2025 5:13 AM CDT [facility] BUN/CREATININE RATIO 20 12 - 20 ratio 09/06/2025 5:13 AM CDT [facility] CALCIUM 8.8 8.7 - 10.5 mg/dL 09/06/2025 5:13 AM CDT [facility] GFR, ESTIMATED >60 >=60 09/06/2025 5:13 AM CDT [facility] Comment: Creatinine Clearance is the preferred criteria for selecting drug dose adjustments in renally impaired patients. The GFR is provided as additional pertinent clinical information. GFR is reported in mL/min/1.73 sq m. Calculation based on the 2020 Chronic Kidney Disease Epidemiology Collaboration (CKD-EPI) equation refit without adjustment for race. GFR, EST. >60 >=60 09/06/ 025 5:13 AM CDT [facility] Comment: Creatinine Clearance is the preferred criteria for selecting drug dose adjustments in renally impaired patients. The GFR is provided as additional pertinent clinical information. GFR is reported in mL/min/1.73 sq m. Calculation based on the 2009 Chronic Kidney Disease Epidemiology Collaboration (CKD-EPI). GFR, EST. NONAFRICAN >60 >=60 09/06/2025 5:13 AM CDT [facility] Comment: Creatinine Clearance is the preferred criteria for selecting drug dose adjustments in renally impaired patients. The GFR is provided as additional pertinent clinical information. GFR is reported in mL/min/1.73 sq m. Calculation based on the 2009 Chronic Kidney Disease Epidemiology Collaboration (CKD-EPI). Blood Venipuncture / Unknown 09/06/2025 4:22 AM CDT 09/06/2025 4:48 AM CDT us Cheri Wiley DIVERSITY INTERN, RENAL TECHNICIAN CHEMISTRY ORDERABLES Britany l Result Performing Organization Address City/[facility] Co de Phone Number [facility] [address] [place] [address] * RHYTHM STRIP (09/06/2025 12:00 AM CDT) Only the most recent of18 resultswithin the time period is included. 09/06/2025 us Provider Scan IMG ECG ORDERABLES Final Result Performing Organization Address City/[facility] Co de Phone Number RESULTING AGENCY * Thyroid Stimulating Hormone (TSH) (09/05/2025 8:02 AM CDT) TSH 2.151 0.300 - 5.000 mIU/L 09/05/2025 10:06 AM CDT [facility] Blood Venipuncture / Unknown 09/05/2025 8:02 AM CDT 09/05/2025 8:03 AM CDT us Katia Pike DIVERSITY INTERN, RENAL TECHNICIAN CHEMISTRY ORDE JOSE MIGUEL Final Result [facility] [address] [place] [address] * MAGNESIUM (MG) (09/05/2025 8:02 AM CDT) Only the most recent of2 resultswithin the time period is included. MAGNESIUM 1.6 1.6 - 2.6 mg/dL 09/05/2025 9:51 AM CDT [facility] Blood Venipuncture / Unknown 09/05/2025 8:02 AM CDT 09/05/2025 8:03 AM CDT Katia Pike APRN, RENAL TECHNICIAN CHEMISTRY EJ GILLESPIE Final Result Performing Organization Address [facility] Co de Phone Number [facility] [address] [place] [address] * ADULT TRANS THORACIC ECHO 2D COMPLETE (09/04/2025 9:29 AM CDT) AV Peak Grad mmHg 8.76 mmHg RESULTING AGENCY Mean Aortic Valve Gradient (MAVG) 5 mmHg RESULTING AGENCY LV end ansley diam cm 5 cm RESULTING AGENCY LV end sys diam cm 3.8 cm RESULTING AGENCY Aortic Root Diam cm 2.9 cm RESULTING AGENCY LA vol index ml/m2 37 ml/m2 RESULTING AGENCY LVOT Peak Clem m/sec 1.09 m/sec RESULTING AGENCY AV Peak Clem m/sec 1.48 m/sec RESULTING AGENCY MV Mean Grad mmHg 1 mmHg RESULTING AGENCY E/A Ratio 1.24 RESULTING AGENCY TR Clem m/sec 2.82 m/sec RESULTI NG AGENCY E/E' 9.4 RESULTING AGENCY AV Area (VTI) cm2 2.49 cm2 RESULTING AGENCY SEPTUM DIASTOLIC CM 0.9 cm RESULTING AGENCY PW DIASTOLIC CM 1.1 cm RESU LTING AGENCY LA VOLUME 67.4 ml RESULTING AGENCY LV EF(estimated)% 63 RESULTING AGENCY Anatomical Region Laterality Modality CARDIO N/A Ultrasound Narrative 09/04/2025 7:42 PM CDT Transthoracic Echocardiography Report (TTE) Patient name WANDY Cedillo 1950 Patient ID (UPI) [id number] Indications: Abnormal ECG. Study Date09/04/2025 Technical quality: Adequate Limitation Reason: COPD/Emphysema Type of Study: TTE procedure: Adult Trans Thoracic Echo 2D Complete. Priority:RoutineHR: 56 bpmBP: 128/69 mmHg Conclusions Summary The left ventricle is normal in size. Wall thickness is normal. LV function is normal. There are no regional wall motion abnormalities. LV EF of 60-65%. Normal LV diastolic function. Left atrium is mildly dilated. IVC dilated with normal respiratory variation. RAP estimate is 8 mmHg. Findings Mitral Valve The mitral valve is normal. No evidence of mitral stenosis. No significant mitral regurgitation. Aortic Valve The aortic valve is trileaflet with normal leaflet excursion. There is no evidence of aortic valve stenosis. There is no significant aortic valve insufficiency. Tricuspid Valve The tricuspid valve is normal. There is no evidence of tricuspid stenosis. Trace tricuspid valve regurgitation. Insufficient TR jet to estimate PASP. Pulmonic Valve The pulmonic valve structure appears normal. There is no evidence of pulmonic stenosis. There is no significant pulmonic valve regurgitation. Left Atrium Left atrium is mildly dilated. Left Ventricle The left ventricle is normal in size. Wall thickness is normal. LV function is normal. There are no regional wall motion abnormalities. LV EF of 60-65%. Normal LV diastolic function. Right Atrium The right atrium size is normal. Right Ventricle Normal right ventricular cavity size and normal systolic function. Pericardial Effusion The pericardium is normal. There is no pericardial effusion visualized. Miscellaneous Aortic root and proximal ascending aorta are normal in size. Atrial septum appears intact. IVC dilated with normal respiratory variation. RAP estimate is 8 mmHg. Valves Mitral Valve Peak E-Wave: 1.03 m/s Area (continuity): 2.57 cm^2 Peak A-Wave: 0.83 m/s Mean Velocity: 0.53 m/s Peak Gradient: 4.24 mmHg Mean Gradient: 1 mmHg Deceleration Time: 187 msec Tissue Doppler E' Velocity: 0.09 m/s E/E':9.4 E/A Ratio: 1.24 E/Lat E': 9.4 E/Med E':10.8 Aortic Valve Area (continuity): 2.49 cm^2 Mean Velocity: 0.98 m/s Area (VTI):2.5 cm^2 Mean Gradient: 5 mmHg Peak Velocity: 1.48 m/s AV VTI: 35.1 cm Peak Gradient: 8.76 mmHg Tricuspid Valve Peak E-Wave: 0.69 m/s Peak Gradient: 1.93 mmHg TR Velocity: 2.82 m/s TR Gradient: 31.81 mmHg Pulmonic Valve Peak Velocity: 1.01 m/s Mean Velocity: 0.72 m/s Peak Gradient: 4.08 mmHg Mean Gradient: 2 mmHg LVOT Peak Velocity: 1.09 m/s Mean Velocity: 0.68 m/s Peak Gradient: 5 mmHg Mean Gradient: 2 mmHg LVOT Diameter: 2.1 cm LVOT VTI: 25.3 cm Stroke Volume: 88 ml Stroke Volume Index: 47.83 ml/m^2 Structures Left Ventricle Diastolic Dimension: 5 cm Systolic Dimension: 3.8 cm Septum Diastolic: 0.9 cm Septum Systolic: 1.1 cm PW Diastolic: 1.1 cm PW Systolic: 1 cm Diastolic Length: 30.4 cm Systolic Length: 19.7 cm CO: 4.9 l/min CI: 2.66 l/min*m^2 RWT: 0.44 FS: 24 % LV Length: 7.36 cm LVOT Diameter: 2.1 cm Right Ventricle RVOT (PLAX) diameter:3 cm Tissue Doppler RV S': 14.4 TAPSE: 2.72 cm Left Atrium LA Systolic Pressure: 13.7 mmHg LA Area: 22.3 cm^2 LA Volume: 67.4 ml LA Index: 37ml/m^2 Right Atrium RA Area: 15 cm^2 Great Vessels Aorta Ascending Aorta: 2.9 cm Aorta Root:2.9 cm Ascending Aorta Index:1.58 cm/m^2 Contractility Score LV regional wall motion: (0-Not visualized 1-Normal 1'-Hyperkinesis 2-Hypokinesis 3-Akinesis 4-Dyskinesis 5-Aneurysm) Demographics Age 75 Gender Female Race Height 65.98 in. Weight 164.38 lbs. BMI (BSA) 26.54 kg/m^2 (1.84 m^2) Packer Insulation Tong Bailey R Room 229-01 Interpreting Kathie Referring Physician Luis Physician Procedure Note Luis Vázquez MD - 09/04/2025 Transthoracic Echocardiography Report (TTE) Patient name WANDY Boyd Nguyen 1950 Patient ID (UPI) [id number] Indications: Abnormal ECG. Study Date09/04/2025 Technical quality: Adequate Limitation Reason: COPD/Emphysema Type of Study: TTE procedure: Adult Trans Thoracic Echo 2D Complete. Priority:RoutineHR: 56 bpmBP: 128/69 mmHg Conclusions Summary The left ventricle is normal in size. Wall thickness is normal. LV function is normal. There are no regional wall motion abnormalities. LV EF of 60-65%. Normal LV diastolic function. Left atrium is mildly dilated. IVC dilated with normal respiratory variation. RAP estimate is 8 mmHg. Findings Mitral Valve The mitral valve is normal. No evidence of mitral stenosis. No significant mitral regurgitation. Aortic Valve The aortic valve is trileaflet with normal leaflet excursion. There is no evidence of aortic valve stenosis. There is no significant aortic valve insufficiency. Tricuspid Valve The tricuspid valve is normal. There is no evidence of tricuspid stenosis. Trace tricuspid valve regurgitation. Insufficient TR jet to estimate PASP. Pulmonic Valve The pulmonic valve structure appears normal. There is no evidence of pulmonic stenosis. There is no significant pulmonic valve regurgitation. Left Atrium Left atrium is mildly dilated. Left Ventricle The left ventricle is normal in size. Wall thickness is normal. LV function is normal. There are no regional wall motion abnormalities. LV EF of 60-65%. Normal LV diastolic function. Right Atrium The right atrium size is normal. Right Ventricle Normal right ventricular cavity size and normal systolic function. Pericardial Effusion The pericardium is normal. There is no pericardial effusion visualized. Miscellaneous Aortic root and proximal ascending aorta are normal in size. Atrial septum appears intact. IVC dilated with normal respiratory variation. RAP estimate is 8 mmHg. Valves Mitral Valve Peak E-Wave: 1.03 m/s Area (continuity): 2.57 cm^2 Peak A-Wave: 0.83 m/s Mean Velocity: 0.53 m/s Peak Gradient: 4.24 mmHg Mean Gradient: 1 mmHg Deceleration Time: 187 msec Tissue Doppler E' Velocity: 0.09 m/s E/E':9.4 E/A Ratio: 1.24 E/Lat E': 9.4 E/Med E':10.8 Aortic Valve Area (continuity): 2.49 cm^2 Mean Velocity: 0.98 m/s Area (VTI):2.5 cm^2 Mean Gradient: 5 mmHg Peak Velocity: 1.48 m/s AV VTI: 35.1 cm Peak Gradient: 8.76 mmHg Tricuspid Valve Peak E-Wave: 0.69 m/s Peak Gradient: 1.93 mmHg TR Velocity: 2.82 m/s TR Gradient: 31.81 mmHg Pulmonic Valve Peak Velocity: 1.01 m/s Mean Velocity: 0.72 m/s Peak Gradient: 4.08 mmHg Mean Gradient: 2 mmHg LVOT Peak Velocity: 1.09 m/s Mean Velocity: 0.68 m/s Peak Gradient: 5 mmHg Mean Gradient: 2 mmHg LVOT Diameter: 2.1 cm LVOT VTI: 25.3 cm Stroke Volume: 88 ml Stroke Volume Index: 47.83 ml/m^2 Structures Left Ventricle Diastolic Dimension: 5 cm Systolic Dimension: 3.8 cm Septum Diastolic: 0.9 cm Septum Systolic: 1.1 cm PW Diastolic: 1.1 cm PW Systolic: 1 cm Diastolic Length: 30.4 cm Systolic Length: 19.7 cm CO: 4.9 l/min CI: 2.66 l/min*m^2 RWT: 0.44 FS: 24 % LV Length: 7.36 cm LVOT Diameter: 2.1 cm Right Ventricle RVOT (PLAX) diameter:3 cm Tissue Doppler RV S': 14.4 TAPSE: 2.72 cm Left Atrium LA Systolic Pressure: 13.7 mmHg LA Area: 22.3 cm^2 LA Volume: 67.4 ml LA Index: 37ml/m^2 Right Atrium RA Area: 15 cm^2 Great Vessels Aorta Ascending Aorta: 2.9 cm Aorta Root:2.9 cm Ascending Aorta Index:1.58 cm/m^2 Contractility Score LV regional wall motion: (0-Not visualized 1-Normal 1'-Hyperkinesis 2-Hypokinesis 3-Akinesis 4-Dyskinesis 5-Aneurysm) Demographics Age 75 Gender Female Race Height 65.98 in. Weight 164.38 lbs. BMI (BSA) 26.54 kg/m^2 (1.84 m^2) Packer Insulation Tong Bailey R Room 229-01 Interpreting Vázquez Referring Physician Luis Physician Katia Pike APRN, CNP IMG ECHO ORDER BEN Edited Result - Final * Streptococcus Pneumoniae Antigen, Urine (09/02/2025 10:45 AM CDT) STREP PNEUMO ANTIGEN Negative Negative 09/02/2025 8:55 PM CDT [facility] Comment:Negative result sugg ests no current or recent pneumococcal infection. Infection due to S. pneumoniae cannot be ruled out since the antigen present in the sample may be below the detection limit of the test. Other URINE SPECIMEN / Unknown Non-Phlebotomy Collection / Unknown 09/02/2025 10:45 AM CDT 09/02/2025 11:14 AM CDT Marlee Lora APRN, RENAL TECHNICIAN URINE ORDERABLES Britany l Result [facility] [address] [place] [address], [place] * EKG 12 LEAD (09/02/2025 6:06 AM CDT) Only the most recent of2 resultswithin the time period is included. Ventricular Rate 57 BPM EXTERNAL EKG Atrial Rate 57 BPM EXTERNAL EKG P-R Interval 276 ms EXTERNAL EKG QRS Duration 88 ms EXTERNAL EKG Q-T Duration 418 ms EXTERNAL EKG QTC CALCULATION 406 ms EXTERNAL EKG P Rawlings 77 degrees EXTERNAL EKG R Rawlings 90 degrees EXTERNAL EKG T Rawlings 73 degrees EXTERNAL EKG 09/02/2025 6:06 AM CDT Impressions EXTERNAL EKG - 09/04/2025 8:43 PM CDT AV dual-paced rhythm with prolonged AV conduction Artifacts noted. Abnormal ECG When compared with ECG of 01-SEP-2025 18:18, (Unconfirmed) Electronic ventricular pacemaker has replaced Electronic atrial pacemaker Confirmed by LUIS VÁZQUEZ ([id number]) on 09/04/2025 8:43:22 PM Narrative Procedure Note Luis Vázquez MD - 09/04/2025 IMPRESSION: AV dual-paced rhythm with prolonged AV conduction Artifacts noted. Abnormal ECG When compared with ECG of 01-SEP-2025 18:18, (Unconfirmed) Electronic ventricular pacemaker has replaced Electronic atrialpacemaker Confirmed by LUIS VÁZQUEZ ([id number]) on 09/04/2025 8:43:22 PM us Marlee Lora DIVERSITY INTERN, HECTOR IMG ECG ORDERABLES Fi nal Result EXTERNAL EKG * (ABNORMAL) Urinalysis with Reflex (09/02/2025 5:36 AM CDT) SPECIFIC GRAVITY 1.020 1.003 - 1.030 09/02/2025 6:21 AM CDT [facility] URINE PH 6.0 5.0 - 9.0 09/02/2025 6:21 AM CDT [facility] WBC ESTERASE Negative Negative 09/02/2025 6:21 AM CDT [facility] NITRITE Negative Negative 09/02/2025 6:21 AM CDT [facility] PROTEIN, RANDOM URINE 30 mg/dL(A) Negative 09/02/2025 6:21 AM CDT [facility] URINE GLUCOSE, QUAL Negative Negative 09/02/2025 6:21 AM CDT [facility] URINE KETONES 5 mg/dL(A) Negative 09/02/2025 6:21 AM CDT [facility] UROBILINOGEN Normal Normal mg/dL 09/02/2025 6:21 AM CDT [facility] URINE BLOOD Negative Negative prabhu/ul 09/02/2025 6:21 AM CDT [facility] URINALYSIS COLOR Yellow 09/02/20 6:21 AM CDT [facility] URINALYSIS CLARITY Clear 09/02/2025 6:21 AM CDT [facility] WBC (Urine) 0-5 Negative, 0-5 /hpf 09/02/2025 6:21 AM CDT [facility] URINE RBC'S 0-2 Negative, 0-2 /hpf 09/02/2025 6:21 AM CDT [facility] EPITHELIAL CELLS Small amount /lpf 2024 6:21 AM CDT [facility] BACTERIA, URINE Negative Negative /hpf 09/02/2025 6:21 AM CDT [facility] Urine URINE SPECIMEN / Unknown Non-Phlebotomy Collection / Unknown 09/02/2025 5:36 AM CDT 09/02/2025 6:03 AM CDT us Marlee Lora DIVERSITY INTERN, RENAL TECHNICIAN URINE ORDERABLES Britany l Result [facility] [address] [place] [address] * Ur Legionella Antigen (09/02/2025 5:36 AM CDT) [facility] LEGIONELLA URINE AG Negative Negative 09/02/2025 3:56 PM CDT [facility] Comment:Presumptive Negative for Legionella Pneumophila Serogroup 1 Antigen in urine, suggesting no recent or current infection. Infection due to Legionella cannot be ruled out since other serogroups and species may cause disease. Antigen may not be present in urine in early infection, and the level of antigen present in the urine may be below the detection limit of the test. Other Non-Phlebotomy Collection / Unknown 09/02/2025 5:36 AM CDT 09/02/2025 6:03 AM CDT Marlee Lora APRN, CNP URINE ORDERABLES Britany l Result Performing Organization Address City/[facility]/ZIP Co de Phone Number [facility] [address] [place] [address], * PHOSPHORUS (PO4) (09/02/2025 5:36 AM CDT) [facility] PHOSPHORUS 3.4 2.5 - 4.5 mg/dL 09/02/2025 6:37 AM CDT [facility] Blood Venipuncture / Unknown 09/02/2025 5:36 AM CDT 09/02/2025 6:04 AM CDT Marlee Lora APRN, CNP CHEMISTRY ORDERABLES Final Result [facility] [address] [place] [address] * (ABNORMAL) MRSA NASAL PCR (09/02/2025 5:05 AM CDT) [facility] MRSA PCR RESULT Positive(A ) Negative, Invalid 09/02/2025 7:33 AM CDT [facility] Other NASOPHARYNGEAL SWAB / Unknown Non-Phlebotomy Collection / Unknown 09/02/2025 5:05 AM CDT 09/02/2025 6:04 AM CDT us Marlee Hali Lora DIVERSITY INTERN, RENAL TECHNICIAN MICROBIOLOGY - GENERA L ORDERABLES Final Result [facility] [address] [place] [address] * EKG SCAN (09/02/2025 12:00 AM CDT) Only the most recent of3 resultswithin the time period is included. 09/02/2025 us Provider Scan IMG ECG ORDERABLES Final Result Performing Organization Address [facility] Co de Phone Number RESULTING AGENCY * (ABNORMAL) NT-proBNP (09/01/2025 7:10 PM CDT) NT PROBNP 487.7(H) <450.0 pg/mL 09/01/2025 8:12 PM CDT [facility] Comment: AGE pg/mL INTERPRETATION All <300 Negative: HF (Heart Failure) unlikely 18 to <50 >=300.0 to <450.0 Indeterminate. Consider other causes of NT-proBNP elevation 50 to 75 >=300.0 to <900.0 Indeterminate. Consider other causes of NT-proBNP elevation >75 >=300.0 to <1800.0 Indeterminate. Consider other causes of NT-proBNP elevation 18 to <50 >=450.0 Positive: HF likely 50 to 75 >=900.0 Positive: HF likely >75 >=1800.0 Positive: HF likely Total protein levels at or above 12.6 mg/dl may falsely decrease NT-proBNP values. Blood Venipuncture / Unknown 09/01/2025 7:10 PM CDT 09/01/2025 7:26 PM CDT us Patrick Parker MD CHEMISTRY ORDERABLES Britany l Result Performing Organization Address City/[facility]/ZIP Co de Phone Number [facility] [address] [place] [address] * TROPONIN I, HIGH SENSITIVITY (HSTRP) (09/01/2025 7:10 PM CDT) TROPONIN I, HIGH SENSITIVITY- [place] <2.7 <=14.0 ng/L 09/01/2025 8:12 PM CDT [facility] Comment: High-sensitivity troponin I results are reported in ng/L making the result appear to be 1,000 times higher than the contemporary troponin I value which is reported in ng/ml. Results from [facility]. Blood Venipuncture / Unknown 09/01/2025 7:10 PM CDT 09/01/2025 7:26 PM CDT Patrick Parker MD CHEMISTRY ORDERABLES Britany l Result Performing Organization Address City/[facility]/ZIP Co de Phone Number [facility] [address] [place] [address] * Blood Culture #1 (09/01/2025 7:00 PM CDT) Only the most recent of2 resultswithin the time period is included. CULTURE RESULTS NO GROWTH WITHIN 5 DAYS, FINAL RESULT 09/06/2025 8:00 PM CDT [facility] Culture BLOOD SPECIMEN / Unknown Venipuncture / Unknown 09/01/2025 7:00 PM CDT 09/01/2025 7:26 PM CDT Patrick Parker MD MICROBIOLOGY - GENERAL OR DERABLES Final Result [facility] [address] [place] [address], [place] * XR CHEST SINGLE VIEW PORTABLE (09/01/2025 6:49 PM CDT) Anatomical Region Laterality Modality Chest N/A Digital Radiogra phy 09/02/2025 2:33 PM CDT Impressions 09/02/2025 2:33 PM CDT IMPRESSION: Patchy bibasilar alveolar opacities concerning for early versus resolving airspace disease/pneumonia. Superimposed right basilar atelectasis and/or small right pleural effusion is not excluded. Follow-up chest radiograph is recommended to confirm resolution. Narrative 09/02/2025 2:33 PM CDT EXAM: XR CHEST SINGLE VIEW PORTABLE 09/01/2025 6:49 PM COMPARISON: Chest radiograph 06/03/2024 HISTORY: sepsis protocol, productive cough, concern for pneumonia FINDINGS: The patient is rotated to the right. Heart and mediastinal contour are within normal limits. The right anterior chest wall port via a right tib-fib in appropriate terminate at the lower activity and stable. Unremarkable pulmonary interstitial and vascular markings. Subtle patchy right infrahilar pulmonary opacities are noted. There is concurrent mild blunting of the right costophrenic sulcus with partial obturator and of the lateral right diaphragm margin. No pneumothorax. Procedure Note Guille Alvarez DO - 09/02/2025 EXAM: XR CHEST SINGLE VIEW PORTABLE 09/01/2025 6:49 PM COMPARISON: Chest radiograph 06/03/2024 HISTORY: sepsis protocol, productive cough, concern for pneumonia FINDINGS: The patient is rotated to the right. Heart and mediastinal contour arewithin normal limits. The right anterior chest wall port via a righttib-fib in appropriate terminate at the lower activity and stable.Unremarkable pulmonary interstitial and vascular markings. Subtle patchyright infrahilar pulmonary opacities are noted. There is concurrent mildblunting of the right costophrenic sulcus with partial obturator and ofthe lateral right diaphragm margin. No pneumothorax. IMPRESSION: Patchy bibasilar alveolar opacities concerning for early versus resolvingairspace disease/pneumonia. Superimposed right basilar atelectasis and/orsmall right pleural effusion is not excluded. Follow-up chest radiographis recommended to confirm resolution. us Patrick Parker MD IMG DIAGNOSTIC ORDERABLES Final Result * Critical Care (09/01/2025 6:42 PM CDT) Narrative Patrick Parker MD - 09/01/2025 6:42 PM CDT Patrick Parker MD 09/02/2025 3:00 AM Critical Care Performed by: Patrick Parker MD Authorized by: Patrick Parker MD Critical care provider statement: Critical care time (minutes): 45 Critical care time was exclusive of: Separately billable procedures and treating other patients Critical care was necessary to treat or prevent imminent or life-threatening deterioration of the following conditions: Sepsis and shock (Pneumonia) Critical care was time spent personally by me on the following activities: Development of treatment plan with patient or surrogate, ordering and performing treatments and interventions, ordering and review of laboratory studies, ordering and review of radiographic studies, pulse oximetry, re-evaluation of patient's condition, review of old charts, obtaining history from patient or surrogate, examination of patient and evaluation of patient's response to treatment I assumed direction of critical care for this patient from another provider in my specialty: no Care discussed with: admitting provider Patrick Parker MD PROCEDURE/MINOR SURGICAL ORDERABLES Final Result * Lactic Acid (Lactate) (09/01/2025 6:25 PM CDT) LACTIC ACID 0.8 0.7 - 2.0 mmol/L 09/01/2025 8:03 PM CDT [facility] Blood Venipuncture / Unknown 09/01/2025 6:25 PM CDT 09/01/2025 6:35 PM CDT Result [facility] Patrick Parker MD CHEMISTRY ORDERABLES Britany l Result [facility] [address] [place] [address] * (ABNORMAL) CMP (Comprehensive Metabolic Panel) (09/01/2025 6:25 PM CDT) SODIUM 137 136 - 145 mmol/L 09/01/2025 8:08 PM CDT [facility] POTASSIUM 4.3 3.5 - 5.1 mmol/L 09/01/2025 8:08 PM CDT [facility] CHLORIDE 105 98 - 107 mmol/L 09/01/2025 8:08 PM CDT [facility] CO2, VENOUS 24 22 - 30 mmol/L 09/01/2025 8:08 PM CDT [facility] ANION GAP 12.3 <18.0 mmol/L 09/01/2025 8:08 PM CDT [facility] GLUCOSE 94 70 - 99 mg/dL 09/01/2025 8:08 PM T [facility] BUN 24(H) 10 - 20 mg/dL 09/01/2025 8:08 PM T [facility] CREATININE, BLOOD 0.81 0.60 - 1.00 mg/dL 09/01/2025 8:08 PM T [facility] BUN/CREATININE RATIO 30(H) 12 - 20 ratio 09/01/2025 8:08 PM T [facility] TOTAL PROTEIN 6.5 6.0 - 8.0 g/dL 09/01/2025 8:08 PM T [facility] ALBUMIN 3.6 3.5 - 5.0 g/dL 09/01/2025 8:08 PM T [facility] A/G RATIO 1.2 1.0 - 2.2 09/01/2025 8:08 PM T [facility] CALCIUM 9.3 8.7 - 10.5 mg/dL 09/01/2025 8:08 PM T [facility] T BILI 0.3 0.2 - 1.2 mg/dL 09/01/2025 8:08 PM T [facility] SGOT (AST) 23 <43 U/L 09/01/2025 8:08 PM T [facility] SGPT (ALT) 10 <56 U/L 09/01/2025 8:08 PM T [facility] ALKALINE PHOSPHATASE 78 40 - 150 U/L 09/01/2025 8:08 PM T [facility] GFR, ESTIMATED >60 >=60 09/01/2025 8:08 PM [facility] Comment: Creatinine Clearance is the preferred criteria for selecting drug dose adjustments in renally impaired patients. The GFR is provided as additional pertinent clinical information. GFR is reported in mL/min/1.73 sq m. Calculation based on the 2020 Chronic Kidney Disease Epidemiology Collaboration (CKD-EPI) equation refit without adjustment for race. GFR, EST. >60 >=60 025 8:08 PM CDT [facility] Comment: Creatinine Clearance is the preferred criteria for selecting drug dose adjustments in renally impaired patients. The GFR is provided as additional pertinent clinical information. GFR is reported in mL/min/1.73 sq m. Calculation based on the 2009 Chronic Kidney Disease Epidemiology Collaboration (CKD-EPI). GFR, EST. NONAFRICAN >60 >=60 09/01/2025 8:08 PM CDT [facility] Comment: Creatinine Clearance is the preferred criteria for selecting drug dose adjustments in renally impaired patients. The GFR is provided as additional pertinent clinical information. GFR is reported in mL/min/1.73 sq m. Calculation based on the 2009 Chronic Kidney Disease Epidemiology Collaboration (CKD-EPI). Blood Venipuncture / Unknown 09/01/2025 6:25 PM CDT 09/01/2025 6:35 PM CDT us Patrick Parker MD CHEMISTRY ORDERABLES Britany boyd Result [facility] [address] [place] [address] * (ABNORMAL) POCT UA AUTOMATED W/O MICRO (08/01/2025 1:27 PM CDT) POC UA SPECIFIC GRAVITY 1.025 URINE PH 5.0 5.0 - 9.0 POC URINE LEUKOCYTES 25 /ul(A) Negative Sanket/uL POC URINE NITRITE Negative Negative POC URINE PROTEIN Negative Negative mg/dL POC URINE GLUCOSE Norm Negative, Norm mg/dL POC URINE KETONE 15 mg/dL(A) Negative mg/dL POC URINE UROBILINOGEN 1 E.U./dL (mg/dL) Norm, 0.2 E.U./dL (mg/dL), 1 E.U./dL (mg/dL) POC URINE BILIRUBIN 1 mg/dL(A) Negative mg/dL POC URINE BLOOD INSTRUMENT Negative Negative Prabhu/uL POC URINE COLOR Yellow POC URINE CLARITY Cloudy Urine 08/01/2025 1:27 PM CDT Jorje Orlando MD POINT OF CARE TESTING (MANUAL) Final Result * CULTURE, URINE (08/01/2025 1:26 PM CDT) CULTURE RESULTS STAPHYLOCOCCUS EPIDERMIDIS 08/02/2025 10:09 PM CDT [facility] Comment:SENSITIVITY NOT PERF ORMED CULTURE RESULTS Also mixed growth of distal urethral contaminants 08/02/2025 10:09 PM CDT [facility] Culture URINE SPECIMEN OBTAINED BY CLEAN CATCH PROCEDURE / Unknown Non-Phlebotomy Collection / Unknown 08/01/2025 1:26 PM CDT 08/01/2025 1:26 PM CDT Jorje Orlando MD MICROBIOLOGY - GENERAL ORDERAB LES Final Result [facility] [address] [place] [address], [place] * RAKAN,POST-VOID RES,US,NON-IMAGING (08/01/2025 1:00 PM CDT) Narrative Sylvie Parks - 08/01/2025 1:00 PM CDT Sylvie Parks 08/01/2025 4:00 PM POCT Bladder Scan collected per standing order of Dr. Justice on 08/01/2025 PVR= 42 ML Jorje Orlando MD NM - SURGERY Final Result * JUMANA SCREENING BILATERAL DIGITAL W CAD W JAZIEL (11/04/2022 3:30 PM SPRAY BOOTH OPERATOR) Anatomical Region Laterality Modality breast Bilateral Mammography 11/04/2022 4:35 PM SPRAY BOOTH OPERATOR Narrative 11/07/2022 6:43 AM SPRAY BOOTH OPERATOR - JUMANA SCREENING BILATERAL DIGITAL W CAD [...] exam. Electronically signed by: Justine alarcon/carly:11/06/2022 07:53:45 Hangar Attendant(s): RT Carmine(R)(M), [facility] letter sent: Normal Exam Reading location: [facility] BI-RADS: 2 Benign Procedure Note [...] next screening exam. Electronically signed by: Justine Leija M.D. ab/carly:11/06/2022 07:53:45 Hangar Attendant(s): RT Carmine(R)(M), [facility] letter sent: Normal Exam Reading location: [facility] BI-RADS: 2 Benign Inocente Raya MD IMG MAMMO ORDERABLES Final Res ult from Last 3 Months or Most Recently Relevant to Health Maintenance Additional Health Concerns Infection Onset Date Last Indicated MRSA 09/02/2025 09/02/2025 Insurance MEDICARE C [facility] Advance Directives Documents on File Type Date Recorded Patient Senior Communications Specialist Expl anation POLST/POST/DE DNR 11/10/2022 12:[address], 04/19/2021 POLST/POST/DE DNR 06/06/2022 4:06 PM POLST , 06/06/2022, 04/19/2021 POLST/POST/DE DNR 11/16/2021 7:37 PM POLS T, 04/19/2002 * Full Code (Latest Code Status on File) Date Activated Date Inactivated Comments 09/02/2025 3:06 AM CPR-Full Sarah tment: FULL ARREST: Attempt Resuscitation/CPR wit intubation and mechanical ventilation. PRE-ARREST: Use entire range of life support measures to stabilize the patient. * Full Code Date Activated Date Inactivated Comments 08/25/2025 10:29 AM 09/02/2025 3:06 AM * Full Code Date Activated Date Inactivated Comments 04/22/2023 2:55 [...] measures to stabilize the patient. Care Teams Foam Gun Operator Relationship Specialty Start Date End Date Inocente Raya MD [address] [place] [address] PCP - General Family Medicine 09/09/20 Jorje Justice MD #[address] [address] Consulting Physician Urology 02/10/23 Brian Gupta MD #2 [place] [address] Consulting Physician Neurology 10/02/23
--- OUTSIDE RECORDS SUMMARY | 2025-09-17 14:29 | XMS_ITS | Encounter Summary ---
Author Organization [facility] Address [address] [place] [place] [address] Phone Care Team Providers Care Pump Operator Name Role Phone Inocente Raya MD Primary Care Provider [phone] Jorje Justice MD Unavailable [phone] Brian Gupta MD Unavailable [phone] Encounter Details Date Type Department Care Team (Late st Contact Info) Description 12/21/2022 Home Health Resumpti on of Care Planning [facility] [address] [place], [place] [id number] Social History Tobacco Use Types Packs/Day Years [...] Coronavirus/COVID-19? No / Unsure 12/19/2022 11:59 AM SPECIAL PROJECTS COORDINATOR documented as of this encounter Plan of Treatment Upcoming Encounters Date Type Department Care Team (Late st Contact Info) Description 09/18/2025 10:30 AM CDT Appointment [address] [address] Uma Herron, ASSET PROTECTION ASSOCIATE 09/24/2025 9:30 AM SPECIAL PROJECTS COORDINATOR Appointment [address] [address] Uma Herron, ASSET PROTECTION ASSOCIATE 09/26/2025 9:30 AM SPECIAL PROJECTS COORDINATOR Appointment [address] [address] Uma Herron, ASSET PROTECTION ASSOCIATE 09/29/2025 1:00 AM SPECIAL PROJECTS COORDINATOR Appointment [address] [address] Uma Herron, ASSET PROTECTION ASSOCIATE 10/01/2025 1:00 AM SPECIAL PROJECTS COORDINATOR Appointment [address] [address] Lanny Garcia, PT 10/20/2025 11:30 AM SPECIAL PROJECTS COORDINATOR [facility] [place] [address] [place] [phone] Estella Downs, PARTS SALES REPRESENTATIVE, BREAKFAST BAR ATTENDANT 2 [facility] [address] [place] [address] 11/07/2025 1:30 PM SPECIAL PROJECTS COORDINATOR Office Visit [facility] #2 [place] [phone] Jorje Justice MD #2 [facility] [address] [place] [address] 12/23/2025 11:30 AM SPECIAL PROJECTS COORDINATOR Office Visit [facility] - Neurology - [place] [address] [place] [phone] Brian Gupta MD #2 [place] [address] documented as of this encounter Goals Goal Patient Goal Type Associated Problems Recent Progress Patient-Stated? Author Behavioral Health Behavioral Health Yes Chiara Renee, MERLENE Note: I just want to feel like I can handle all of this. Goal Reviewed with: patient Readiness to change: Thinking about making a change Department associated with goal: [facility] Steps to achieve goal: will attend counseling/psychotherapy sessions at least twice monthly, utilizing sessions to express thoughts and feelings. will verbalize understanding of depression and anxiety, ex: causes/contributing and risk factors, prevalence of conditions in the general population. will identify two or more skills to gain peace and relieve stress. Behavioral Health Behavioral Health No Chiara Renee, POWERBUILDER Note: Clari will manage grief more effectively Goal Reviewed with: patient Readiness to change: Thinking about making a change Department associated with goal: [facility] Steps to achieve goal: [...] Influenza 12/19/2022 12/19/2022 12/26/2022 12:1 8 AM SPECIAL PROJECTS COORDINATOR MRSA 12/19/2022 12/19/2022 03/30/2023 4:54 PM CDT COVID - 19 03/29/2023 03/29/2023 03/29/2023 12:0 5 PM CDT COVID - 19 Confirmed 03/29/2023 03/29/2023 023 12:16 AM CDT COVID - 19 12/05/2023 12/05/2023 12/15/2023 12:1 6 AM SPECIAL PROJECTS COORDINATOR COVID - 19 12/22/2023 12/22/2023 01/01/2024 12:1 6 AM SPECIAL PROJECTS COORDINATOR Respiratory Rule Out - RPA 12/22/2023 12/22/2023 0 12/22/2023 8:17 PM SPECIAL PROJECTS COORDINATOR COVID - 19 06/03/2024 06/03/2024 06/03/2024 8:10 PM CDT MRSA 09/02/2025 09/02/2025 Assessment Noted Time PHQ-9 Depression Total Score: 6 09/22/20 20 4:00 PM SPECIAL PROJECTS COORDINATOR documented as of this encounter Care Teams Pump Operator Relationship Specialty Start Date End Date Inocente Raya MD [address] [place] [address] PCP - General Family Medicine 09/09/20 Jorje Justice MD #[address] [address] Consulting Physician Urology 02/10/23 Brian Gupta MD #[address] [place] [address] Consulting Physician Neurology 10/02/23 documented as of this encounter
--- OUTSIDE RECORDS SUMMARY | 2025-09-17 14:29 | XMS_ITS | Encounter Summary ---
Author Organization [facility] Address [address] [facility] [address] Phone Care Team Providers Care Pharmacy Technician Inpatient Name Role Phone Inocente Raya MD Primary Care Provider Jorje Justice MD Unavailable [phone] Brian Gupta MD Unavailable [phone] Encounter Details Date Type Department Care Team (Late st Contact Info) Description 08/03/2025 Results [facility] [place] [address] Jorje Justice MD #[address] [address] CULTURE, URINE Social History Tobacco Use Types Packs/Day Years [...] on file documented as of this encounter Progress Notes * Jorje Justice MD - 08/03/2025 3:02 PM CDT Can you please let the patient know her UCX has bacteria that may be a vaginal contaminant- can we have her come in for a microgen PCR. Thank you, Jorje Justice documented in this encounter Plan of Treatment Upcoming Encounters Date Type Department Care Team (Late st Contact Info) Description 09/18/2025 10:30 AM CDT Appointment [address] [address] Uma Herron, HYDROGENATION OPERATOR 09/24/2025 9:30 AM METAL BALER Appointment [address] [address] Uma Herron, HYDROGENATION OPERATOR 09/26/2025 9:30 AM METAL BALER Appointment [address] [address] Uma Herron, HYDROGENATION OPERATOR 09/29/2025 1:00 AM METAL BALER Appointment [address] [address] Uma Herron, HYDROGENATION OPERATOR 10/01/2025 1:00 AM METAL BALER Appointment [address] [address] Lanny Garcia, PT 10/20/2025 11:30 AM METAL BALER [facility] Visit [facility] [place] [address]2 [place] [address] Estella Downs, FOOD AND BEVERAGE SERVER, CAUSTIC STRENGTH INSPECTOR 2 [facility] [address] [place] [address] 11/07/2025 1:30 PM METAL BALER Office Visit [facility] UR[facility]Y #2 [place] [phone] Jorje Justice MD #2 [facility] [address] [place] [address] 12/23/2025 11:30 AM METAL BALER Office Visit [facility] - Neurology - [place] #2 [place] [address] Brian Gupta MD #2 [place] [address] documented as of this encounter Goals Goal Patient Goal Type Associated Problems Recent Progress Patient-Stated? Author Behavioral Health Behavioral Health Yes Chiara Renee, MACHINE MAINTENANCE SERVICER Note: I just want to feel like I can handle all of this. Goal Reviewed with: patient Readiness to change: Thinking about making a change Department associated with goal: [facility] Steps to achieve goal: will attend counseling/psychotherapy sessions at least twice monthly, utilizing sessions to express thoughts and feelings. will verbalize understanding of depression and anxiety, ex: causes/contributing and risk factors, prevalence of conditions in the general population. will identify two or more skills to gain peace and relieve stress. Behavioral Health Behavioral Health No Chiara Renee, MACHINE MAINTENANCE SERVICER Note: Clari will manage grief more effectively Goal Reviewed with: patient Readiness to change: Thinking about making a change Department associated with goal: [facility] Steps to [...] Infection Onset Date Last Indicated Resolved Time MRSA 09/02/2025 09/02/2025 Assessment Noted Time PHQ-9 Depression Total Score: 6 09/22/20 20 4:00 PM METAL BALER documented as of this encounter Care Teams Pharmacy Technician Inpatient Relationship Specialty Start Date End Date Inocente Raya MD [address] [place] [address] PCP - General Family Medicine 09/09/20 Jorje Justice MD #[address] [address] Consulting Physician Urology 02/10/23 Brian Gupta MD #2 [place] [address] Consulting Physician Neurology 10/02/23 documented as of this encounter
--- OUTSIDE RECORDS SUMMARY | 2025-09-17 14:29 | XMS_ITS | Encounter Summary ---
Author Organization [facility] Address [address] [facility] [address] Phone Care Team Providers Care Stream Control Officer Name Role Phone Inocente Raya MD Primary Care Provider [phone] Jorje Justice MD Unavailable [phone] Brian Gupta MD Unavailable Reason for Visit * Reason Comments Medication Refill Encounter Details Date Type Department Care Team (Late st Contact Info) Description 01/21/2022 Refill [facility] #2 [place] [phone] Brian Gupta MD #2 [place] [address] Medication Refill Social History Tobacco [...] Info) Description 09/18/2025 10:30 AM CDT Appointment [address] [address] Uma Herron, GLASS CHECKER 09/24/2025 9:30 AM DIRECTORY COMPILER Appointment [address] [address] Uma Herron, GLASS CHECKER 09/26/2025 9:30 AM DIRECTORY COMPILER Appointment [address] [address] Uma Herron, GLASS CHECKER 09/29/2025 1:00 AM DIRECTORY COMPILER Appointment [address] [address] Uma Herron, GLASS CHECKER 10/01/2025 1:00 AM DIRECTORY COMPILER Appointment [address] [address] Lanny Garcia, PT 10/20/2025 11:30 AM DIRECTORY COMPILER [facility] [place] #2 [place] [phone] Estella Downs APRN, PANTOGRAPH II ENGRAVER 2 [facility] [address] [place] [address] 11/07/2025 1:30 PM DIRECTORY COMPILER Office Visit [facility] UR[facility]Y #2 [place] [phone] Jorje Justice MD #2 [facility] [address] [place] [address] 12/23/2025 11:30 AM DIRECTORY COMPILER Office Visit [facility] - Neurology - [place] #[address] [place] [address] Brian Gupta MD #2 [place] [address] documented as of this encounter Goals Goal Patient Goal Type Associated Problems Recent Progress Patient-Stated? Author Behavioral Health Behavioral Health Yes Chiara Renee, PET CAREGIVER Note: I just want to feel like [...] Behavioral Health Behavioral Health No Chiara Renee, PET CAREGIVER Note: Clari will manage grief more effectively [...] - 19 11/10/2022 11/10/2022 11/10/2022 2:55 PM DIRECTORY COMPILER Respiratory Rule Out - RPA 11/10/2022 11/10/2022 1 01/12/2022 10:09 PM DIRECTORY COMPILER COVID - 19 12/19/2022 12/19/2022 12/20/2022 8:26 AM DIRECTORY COMPILER Respiratory Rule-Out 12/19/2022 12/19/2022 023 1:17 PM DIRECTORY COMPILER Influenza 12/19/2022 12/19/2022 12/26/2022 12:1 8 AM DIRECTORY COMPILER MRSA 12/19/2022 12/19/2022 03/30/2023 4:54 PM CDT COVID - 19 03/29/2023 03/29/2023 03/29/2023 12:0 5 PM CDT COVID - 19 Confirmed 03/29/2023 03/29/2023 023 12:16 AM CDT COVID - 19 12/05/2023 12/05/2023 12/15/2023 12:1 6 AM DIRECTORY COMPILER COVID - 19 12/22/2023 12/22/2023 01/01/2024 12:1 6 AM DIRECTORY COMPILER Respiratory Rule Out - RPA 12/22/2023 12/22/2023 0 12/22/2023 8:17 PM DIRECTORY COMPILER COVID - 19 06/03/2024 06/03/2024 06/03/2024 8:10 PM CDT MRSA 09/02/2025 09/02/2025 Assessment Noted Time PHQ-9 Depression Total Score: 6 09/22/20 20 4:00 PM DIRECTORY COMPILER documented as of this encounter Care Teams Stream Control Officer Relationship Specialty Start Date End Date Inocente Raya MD [address] [place] [address] PCP - General Family Medicine 09/09/20 Jorje Justice MD #[address] [address] Consulting Physician Urology 02/10/23 Brian Gupta MD #2 [place] [address] Consulting Physician Neurology 10/02/23 documented as of this encounter
--- OUTSIDE RECORDS SUMMARY | 2025-09-17 14:29 | XMS_ITS | Encounter Summary ---
Author Organization [facility] Address [address] [place] [address] Phone Care Team Providers Care Applications Chemist Name Role Phone Inocente Raya MD Primary Care Provider [phone] Jorje Justice MD Unavailable [phone] Brian Gupta MD Unavailable [phone] Encounter Details Date Type Department Care Team (Late st Contact Info) Description 08/25/2025 Telephone [facility] [address] [place] [address] Lanny Garcia, PT Social History Tobacco Use Types Packs/Day Years [...] encounter Miscellaneous Notes * Telephone Encounter - Lanny Garcia, PT - 08/25/2025 3:42 PM CDT Clinical Support - please fax the following to Inocente Raya MD. Please respond to each line item below: Patient admitted to [facility] on 08-25-25 for Therapy services. Current Medications[1] Medication review completed with patient on 08-25-25. Patient reports: They are no longer taking the following med(s): Provider, can we remove from the [facility] medication list. She no longer takes Buspar 10 mg 3x daily prn, she also did not meat pickler the sertraline because she is on another antidepressant already They are asymptomatic to the potential major drug/drug or drug/allergy interaction: Provider, do you recommend patient continues the same, or recommend changes? Drug-Drug: Trelegy Ellipta, albuterol, ipratropium-albuterol and Brimonidine Tartrate-Timolol Pharmacologic effects of beta-2 agonists (eg, Trelegy Ellipta, albuterol, ipratropium-albuterol) may be decreased by beta-adrenergic blockers (eg, Brimonidine Tartrate-Timolol). Untoward physiologic effects, characterized by bronchospasm, may occur. Drug-Drug: escitalopram, sertraline and traZODone Additive serotonergic effects may occur during coadministration of selective serotonin reuptake inhibitors (SSRIs) and traZODone, and the risk of developing serotonin syndrome may be increased. Please review the above med discrepancies and respond by calling [facility] with orders at [place] [phone] Option 4, or by fax at [place] - [phone]. [1] Current Outpatient Medications: albuterol (PROVENTIL, VENTOLIN) (2.5 MG/3ML) 0.083% Nebulizer Soln, 3 mL by Nebulization route every 6 hours as needed for Wheezing or Shortness of Breath., Disp: 360 mL, Rfl: 0 albuterol 108 (90 Base) MCG/ACT Aerosol Solution, take 1 Puff by inhalation as needed (Rescue inhaler)., Disp: , Rfl: ALPRAZolam (XANAX) 0.5 MG Tablet, take 1 tablet by mouht nightly as needed for anxiety, Disp: , Rfl: atorvastatin (LIPITOR) 40 MG Tablet, Take 40 mg by mouth nightly., Disp: , Rfl: Brimonidine Tartrate-Timolol 0.2-0.5 % Solution, Place 1 Drop in affected eye(s) in the morning andat bedtime., Disp: , Rfl: busPIRone (BUSPAR) 10 MG Tablet, Take 1 Tablet by mouth 3 times daily as needed (anxiety)., Disp: 270 Tablet, Rfl: 0 carbidopa-levodopa (SINEMET) 25-100 MG Tablet, Take 2 Tablets by mouth 4 times daily., Disp: 720 Tablet, Rfl: 0 carbidopa-levodopa CR (SINEMET CR) 50-200 MG Tablet Controlled Release, TAKE ONE TABLET EVERY NIGHT, Disp: 90 Tablet, Rfl: 11 donepezil (ARICEPT) 10 MG Tablet, Take 10 mg by mouth nightly., Disp: , Rfl: escitalopram (LEXAPRO) 20 MG Tablet, Take 20 mg by mouth daily., Disp: , Rfl: Gevqsdlxoau-Jszuwinao-Pkppvb (Trelegy Ellipta) 200-62.5-25 MCG/ACT AEROSOL POWDER, BREATH ACTIVATED, take 1 Puff by inhalation daily., Disp: , Rfl: HYDROcodone-acetaminophen (NORCO) 10-325 MG Tablet, Take 1 Tablet by mouth every 4 hours as needed for Mild or more severe pain., Disp: , Rfl: ipratropium-albuterol (DUO-NEB) 0.5-2.5 (3) MG/3ML Solution, 3 mL by Nebulization route every 4 hours., Disp: , Rfl: lisinopril-hydroCHLOROthiazide (PRINZIDE, ZESTORETIC) 20-12.5 MG Tablet, Take 1 Tablet by mouth daily., Disp: , Rfl: montelukast (SINGULAIR) 10 MG Tablet, Take 10 mg by mouth every evening., Disp: , Rfl: omeprazole (PRILOSEC) 20 MG Tablet Delayed Response, Take 40 mg by mouth daily., Disp: , Rfl: ondansetron (ZOFRAN) 8 MG Tablet, Take 8 mg by mouth every 8 hours as needed for Nausea - 1st line., Disp: , Rfl: pregabalin (LYRICA) 150 MG Capsule, Take 150 mg by mouth nightly. (Patient taking differently: [id number] mg by mouth 2 times daily.), Disp: , Rfl: sertraline (ZOLOFT) 25 MG Tablet, Take 1 Tablet by mouth daily., Disp: 90 Tablet, Rfl: 0 traZODone (DESYREL) 100 MG Tablet, Take 300 mg by mouth nightly., Disp: , Rfl: documented in this encounter Plan of Treatment Upcoming Encounters Date Type Department Care Team (Late st Contact Info) Description 09/18/2025 10:30 AM CDT Appointment [address] [address] Uma Herron, PREPRESS OPERATOR 09/24/2025 9:30 AM HEALTH THERAPIST Appointment [address] [address] Uma Herron, PREPRESS OPERATOR 09/26/2025 9:30 AM HEALTH THERAPIST Appointment [address] [address] Uma Herron, PREPRESS OPERATOR 09/29/2025 1:00 AM HEALTH THERAPIST Appointment [address] [address] Uma Herron, PREPRESS OPERATOR 10/01/2025 1:00 AM HEALTH THERAPIST Appointment [address] [address] Lanny Garcia, PT 10/20/2025 11:30 AM HEALTH THERAPIST [facility] Visit [facility] [place] #2 [place] [address] Estella Downs APRN, LASER BEAM COLOR SCANNER OPERATOR [address] [address] 11/07/2025 1:30 PM HEALTH THERAPIST Office Visit [facility] [place] [address] Jorje Justice MD #[address] [address] 12/23/2025 11:30 AM HEALTH THERAPIST Office Visit [facility] - [facility] - [place] #2 [facility] [place] [address] Brian Gupta MD #2 [place] [address] documented as of this encounter Goals Goal Patient Goal Type Associated Problems Recent Progress Patient-Stated? Author Behavioral Health Behavioral Health Yes Chiara Renee, SOFTBALL CORE MOLDER Note: I just want to feel like I can handle all of this. Goal Reviewed with: patient Readiness to change: Thinking about making a change Department associated with goal: [facility] Steps to achieve goal: will attend counseling/psychotherapy sessions at least twice monthly, utilizing sessions to express thoughts and feelings. will verbalize understanding of depression and anxiety, ex: causes/contributing and risk factors, prevalence of conditions in the general population. will identify two or more skills to gain peace and relieve stress. Behavioral Health Behavioral Health No Chiara Renee, SOFTBALL CORE MOLDER Note: Clari will manage grief more effectively Goal Reviewed with: patient Readiness to change: Thinking about making a change Department associated with goal: [facility] Steps to [...] Score: 6 09/22/20 20 4:00 PM HEALTH THERAPIST documented as of this encounter Care Teams Applications Chemist Relationship Specialty Start Date End Date Inocente Raya MD [address] [place] [address] PCP - General Family Medicine 09/09/20 Jorje Justice MD #[address] [address] Consulting Physician Urology 02/10/23 Brian Gupta MD #2 [place] [address] Consulting Physician Neurology 10/02/23 documented as of this encounter
--- OUTSIDE RECORDS SUMMARY | 2025-09-17 14:29 | XMS_ITS | Encounter Summary ---
Author Organization [facility] Address [address] [place] [address] Phone Care Team Providers Care Chop Saw Operator Name Role Phone Inocente Raya MD Primary Care Provider oJrje Justice MD Unavailable [phone] Brian Gupta MD Unavailable [phone] Reason for Visit * Reason Comments Medication Refill Encounter Details Date Type Department Care Team (Late st Contact Info) Description 04/11/2023 Refill [facility] Emergency Department #2 [place] [phone] Brian Gupta MD [address]2 [place] [address] Medication Refill Social History Tobacco [...] Info) Description 09/18/2025 10:30 AM CDT Appointment [address] [address] Uma Herron, COMMODITIES REQUIREMENTS ANALYST 09/24/2025 9:30 AM SOLID WASTE ENGINEER Appointment [address] [address] Uma Herron, COMMODITIES REQUIREMENTS ANALYST 09/26/2025 9:30 AM SOLID WASTE ENGINEER Appointment [address] [address] Uma Herron, COMMODITIES REQUIREMENTS ANALYST 09/29/2025 1:00 AM SOLID WASTE ENGINEER Appointment [address] [address] Uma Herron, COMMODITIES REQUIREMENTS ANALYST 10/01/2025 1:00 AM SOLID WASTE ENGINEER Appointment [address] [address] Lanny Garcia, PT 10/20/2025 11:30 AM SOLID WASTE ENGINEER [facility] [place] #2 [place] [address] Estella Downs APRN, ROSS FURNACE OPERATOR [address] [address] 11/07/2025 1:30 PM SOLID WASTE ENGINEER Office Visit [facility] #2 [place] [address] Jorje Justice MD [address] [address] 12/23/2025 11:30 AM SOLID WASTE ENGINEER Office Visit [facility] - Neurology [facility] #[address] [place] [address] Brian Gupta MD #[address] [place] [address] documented as of this encounter Goals Goal Patient Goal Type Associated Problems Recent Progress Patient-Stated? Author Behavioral Health Behavioral Health Yes Chiara Renee, MERLENE Note: I just want to feel like I can handle all of this. Goal Reviewed with: patient Readiness to change: Thinking about making a change Department associated with goal: [facility] Steps to achieve goal: will attend counseling/psychotherapy sessions at least twice monthly, utilizing sessions to express thoughts and feelings. will verbalize understanding of depression and anxiety, ex: causes/contributing and risk factors, prevalence of conditions in the general population. will identify two or more skills to gain peace and relieve stress. Behavioral Health Behavioral Health No Chiara Renee, DIRECTOR TELEHEALTH Note: Clari will manage grief more effectively Goal Reviewed with: patient Readiness to change: Thinking about making a change Department associated with goal: [facility] Steps to achieve [...] 19 12/05/2023 12/05/2023 12/15/2023 12:1 6 AM SOLID WASTE ENGINEER COVID - 19 12/22/2023 12/22/2023 01/01/2024 12:1 6 AM SOLID WASTE ENGINEER Respiratory Rule Out - RPA 12/22/2023 12/22/2023 0 12/22/2023 8:17 PM SOLID WASTE ENGINEER COVID - 19 06/03/2024 06/03/2024 06/03/2024 8:10 PM CDT MRSA 09/02/2025 09/02/2025 Assessment Noted Time PHQ-9 Depression Total Score: 6 09/22/20 20 4:00 PM SOLID WASTE ENGINEER documented as of this encounter Care Teams Chop Saw Operator Relationship Specialty Start Date End Date Inocente Raya MD [address] [place] [address] PCP - General Family Medicine 09/09/20 Jorje Justice MD #[address] [address] Consulting Physician Urology 02/10/23 Brian Gupta MD [address] [place] [address] Consulting Physician Neurology 10/02/23 documented as of this encounter
--- OUTSIDE RECORDS SUMMARY | 2025-09-17 14:29 | XMS_ITS | Encounter Summary ---
Author Organization [facility] Address [address] [place] [address] Phone Care Team Providers Care Scalp Treatment Specialist Name Role Phone Inocente Raya MD Primary Care Provider [phone] Jorje Justice MD Unavailable [phone] Brian Gupta MD Unavailable [phone] Reason for Visit * Reason Onset Date Comments Medication Management 09/15/2025 Encounter Details Date Type Department Care Team (Late st Contact Info) Description 09/15/20[facility] [address] [place] [address] Lanny Garcia, PT Medication Management Social History Tobacco Use Types Packs/Day Years [...] 09/02/2025 How often do you attend chur or sikh services? More than 4 times per year 09/02/2025 Do you belong to any clubs o r organizations such as zoroastrianism groups, unions, fraternal or athletic groups, or [...] and heating? Not hard at all 09/02/2025 [facility] [place] [facility] Occupat ional Health - Occupational Stress [...] any time in the past [facility], were you homeless or living in a custodial (including now)? No 09/02/2025 [facility] Utilities Answer Date Recorded In the past 12 months has th e [employer], gas, oil, or water company threatened to [...] Telephone Encounter - Lanny Garcia, PT - 09/15/2025 9:16 PM CDT Clinical Support - please fax the following to Dr. Inocente Raya. Please respond to each line item below: Patient's Home Health Care resumed on 09-15-25 for Therapy services. Current Medications[1] Medication review completed with patient on 09-15-25. Patient reports: They are no longer taking the following med(s): Provider, can we remove from the [facility] medication list. prednisone has been completed and can be removed from the med list, lisinopril-hydrochlorothiazide is 'paused' - follows up with PCP tomorrow and will discuss if this med needs updated or not They have started taking the following med(s): Provider, may we add this medication to the medication list. movantik tab 25mg - take 1 tab by mouth daily in the morning on an empty stomach rx : [id number] They have started taking the following OTC med(s): Provider, may we add these to the [facility] medicationlist? Or do you recommend changes? diphenhydramine hcl 25 mg 1-2 capsules every 4-6 hours prn They are asymptomatic to the potential major drug/drug or drug/allergy interaction: Provider, do you recommend patient continues the same, or recommend changes? Drug-Drug: Trelegy Ellipta, albuterol and Brimonidine Tartrate-Timolol Pharmacologic effects of beta-2 agonists (eg, Trelegy Ellipta, albuterol) may be decreased by beta-adrenergic blockers (eg, Brimonidine Tartrate-Timolol). Untoward physiologic effects, characterized by bronchospasm, may occur. Drug-Drug: escitalopram and traZODone Additive serotonergic effects may occur during coadministration of selective serotonin reuptake inhibitors (SSRIs) and traZODone, and the risk of developing serotonin syndrome may be increased. Please review the above med discrepancies and respond by calling [facility] with orders at [place] [phone] Option 4, or by fax at [place] - [phone]. [1] Current Outpatient Medications: albuterol (PROVENTIL, VENTOLIN) (2.5 MG/3ML) 0.083% Nebulizer Soln, 3 mL by Nebulization route every 6 hours as needed for Wheezing or Shortness of Breath., Disp: 360 mL, Rfl: 0 albuterol 108 (90 Base) MCG/ACT Aerosol Solution, take 1 Puff by inhalation as needed (Rescue inhaler)., Disp: , Rfl: ALPRAZolam (XANAX) 0.5 MG Tablet, Take 0.5 mg by mouth 2 times daily., Disp: , Rfl: amoxicillin-clavulanate (AUGMENTIN) 875-125 MG Tablet, Take 1 Tablet by mouth 2 times daily., Disp:, Rfl: atorvastatin (LIPITOR) 40 MG Tablet, Take 40 mg by mouth nightly., Disp: , Rfl: baclofen (LIORESAL) 10 MG Tablet, Take 10 mg by mouth 3 times daily as needed for Muscle spasms., Disp: , Rfl: benzonatate (TESSALON) 100 MG Capsule, Take 1 Capsule by mouth 3 times daily as needed for Cough for up to 10 days., Disp: 30 Capsule, Rfl: 0 Brimonidine Tartrate-Timolol 0.2-0.5 % Solution, Place 1 Drop in affected eye(s) in the morning andat bedtime., Disp: , Rfl: carbidopa-levodopa (SINEMET) 25-100 MG Tablet, Take 2 Tablets by mouth 4 times daily., Disp: 720 Tablet, Rfl: 0 carbidopa-levodopa CR (SINEMET CR) 50-200 MG Tablet Controlled Release, Take 1 Tablet by mouth nightly., Disp: , Rfl: donepezil (ARICEPT) 10 MG Tablet, Take 10 mg by mouth nightly., Disp: , Rfl: escitalopram (LEXAPRO) 20 MG Tablet, Take 20 mg by mouth daily., Disp: , Rfl: Wrxluwikatg-Uvonqynfn-Bzoozb (Trelegy Ellipta) 200-62.5-25 MCG/ACT AEROSOL POWDER, BREATH ACTIVATED, take 1 Puff by inhalation daily., Disp: , Rfl: HYDROcodone-acetaminophen (NORCO) 10-325 MG Tablet, Take 1 Tablet by mouth every 4 hours as needed for Mild or more severe pain., Disp: , Rfl: lisinopril (PRINIVIL, ZESTRIL) 10 MG Tablet, Take 10 mg by mouth daily., Disp: , Rfl: [Paused] lisinopril-hydroCHLOROthiazide (PRINZIDE, ZESTORETIC) 20-12.5 MG Tablet, Take 1 Tablet by mouth daily., Disp: , Rfl: montelukast (SINGULAIR) 10 MG Tablet, Take 10 mg by mouth every evening., Disp: , Rfl: naloxone HCl (Narcan) 4 MG/0.1ML Liquid, 1 [place] by Nasal route as needed for Opioid Reversal. Administer in one nostril for symptoms of overdose (severe sleepiness, breathing problems, not responsive). Call 911. May repeat 1 spray in alternate nostril in 2-3 minutes if needed., Disp: , Rfl: ondansetron (ZOFRAN-ODT) 4 MG TABLET DISPERSIBLE, Take 4 mg by mouth every 6 hours as needed for Nausea - 1st line., Disp: , Rfl: predniSONE (DELTASONE) 10 MG Tablet, Start with 3 tablets by mouth daily x 3 days, then decrease to2 tabs daily x 2 days, then 1 tab x 1 day and stop, Disp: 14 Tablet, Rfl: 0 pregabalin (LYRICA) 150 MG Capsule, Take 1 Capsule by mouth 2 times daily for 30 days., Disp: 60 Capsule, Rfl: 0 traZODone (DESYREL) 150 MG Tablet, Take 450 mg by mouth every evening., Disp: , Rfl: documented in this encounter Plan of Treatment Upcoming Encounters Date Type Department Care Team (Late st Contact Info) Description 09/18/2025 10:30 AM CDT Appointment [address] [address] Uma Herron, PHARMACEUTICAL BOTANIST 09/24/2025 9:30 AM PANTRY GOODS WORKER Appointment [address] [address] Uma Herron, PHARMACEUTICAL BOTANIST 09/26/2025 9:30 AM PANTRY GOODS WORKER Appointment [address] [address] Uma Herron, PHARMACEUTICAL BOTANIST 09/29/2025 1:00 AM PANTRY GOODS WORKER Appointment [address] [address] Uma Herron, PHARMACEUTICAL BOTANIST 10/01/2025 1:00 AM PANTRY GOODS WORKER Appointment [address] [address] Lanny Garcia, PT 10/20/2025 11:30 AM PANTRY GOODS WORKER Office Visit [facility] - [place] #2 [place] [address] Estella Downs APRN, CHIEF ENGINEER [address] [address] 11/07/2025 1:30 PM PANTRY GOODS WORKER Office Visit [facility] #2 [place] [address] Jorje Justice MD [address] [address] 12/23/2025 11:30 AM PANTRY GOODS WORKER Office Visit [facility] - [place] [address] [place] [address] Brian Gupta MD #[address] [place] [address] documented as of this encounter Goals Goal Patient Goal Type Associated Problems Recent Progress Patient-Stated? Author Behavioral Health Behavioral Health Yes Chiara Renee, MERLENE Note: I just want to feel like I can handle all of this. Goal Reviewed with: patient Readiness to change: Thinking about making a change Department associated with goal: [facility] Steps to achieve [...] making a change Department associated with goal: [facility] Steps to achieve [...] Total Score: 6 09/22/20 20 4:00 PM PANTRY GOODS WORKER documented as of this encounter Care Teams Scalp Treatment Specialist Relationship Specialty Start Date End Date Inocente Raya MD [address] [place] [address] PCP - General Family Medicine 09/09/20 Jorje Justice MD #[address] [address] Consulting Physician Urology 02/10/23 Brian Gupta MD #2 [place] [address] Consulting Physician Neurology 10/02/23 documented as of this encounter
--- OUTSIDE RECORDS SUMMARY | 2025-09-17 14:29 | XMS_ITS | Encounter Summary ---
Author Organization [facility] Address [address] [place] [address] Phone Care Team Providers Care Motorcycle Mechanic Apprentice Name Role Phone Inocente Raya MD Primary Care Provider Jorje Justice MD Unavailable [phone] Brian Gupta MD Unavailable [phone] Reason for Visit * Reason Comments Medication Refill Encounter Details Date Type Department Care Team (Late st Contact Info) Description 03/08/2024 Refill [facility] #2 [place] [phone] Brian Gupta MD #2 [place] [address] Medication Refill Social History Tobacco [...] AM CDT Medication(s) refilled and signed per [facility] Chronic Medication Refill Standing Order for Pediatricand [...] Dept 01/25/24 Office Visit Brian Gupta MD [facility] Neurology [facility] 10/02/23 Office Visit Brian Gupta MD [facility] Neurology [facility] Showing recent visits within past 270 days [...] Dept 01/25/24 Office Visit Brian Gupta MD [facility] Neurology [facility] 10/02/23 Office Visit Brian Gupta MD [facility] Neurology [facility] Showing recent visits within past 270 days [...] Info) Description 09/18/2025 10:30 AM CDT Appointment [address] [address] Uma Herron, KAPOK MACHINE OPERATOR 09/24/2025 9:30 AM APPAREL MERCHANDISER Appointment [address] [address] Uma Herron, KAPOK MACHINE OPERATOR 09/26/2025 9:30 AM APPAREL MERCHANDISER Appointment [address] [address] Uma Herron, KAPOK MACHINE OPERATOR 09/29/2025 1:00 AM APPAREL MERCHANDISER Appointment [address] [address] Uma Herron, KAPOK MACHINE OPERATOR 10/01/2025 1:00 AM APPAREL MERCHANDISER Appointment [address] [address] Lanny Garcia, PT 10/20/2025 11:30 AM APPAREL MERCHANDISER [facility] #2 [place] [address] Estella Downs APRN, METAL FABRICATING INSPECTOR 2 [facility] [address] [place] [address] 11/07/2025 1:30 PM APPAREL MERCHANDISER Office Visit [facility] #2 [facility] [address] Jorje Justice MD #2 [address] [facility], [address] [address] 12/23/2025 11:30 AM APPAREL MERCHANDISER Office Visit [facility] - Neurology - [place] #[address] [facility] [place] [address] Brian Gupta MD #2 [place] [address] documented as of this encounter Goals Goal Patient Goal Type Associated Problems Recent Progress Patient-Stated? Author Behavioral Health Behavioral Health Yes Chiara Renee, MERLENE Note: I just want to feel like I can handle all of this. Goal Reviewed with: patient Readiness to change: Thinking about making a change Department associated with goal: [facility] Steps to achieve goal: will attend counseling/psychotherapy sessions at least twice monthly, utilizing sessions to express thoughts and feelings. will verbalize understanding of depression and anxiety, ex: causes/contributing and risk factors, prevalence of conditions in the general population. will identify two or more skills to gain peace and relieve stress. Behavioral Health Behavioral Health No Chiara Renee, DATABASE SPECIALIST Note: Clari will manage grief more effectively Goal Reviewed with: patient Readiness to change: Thinking about making a change Department associated with goal: [facility] Steps to achieve goal: [...] Total Score: 6 09/22/20 20 4:00 PM APPAREL MERCHANDISER documented as of this encounter Care Teams Motorcycle Mechanic Apprentice Relationship Specialty Start Date End Date Inocente Raya MD [address] [place] [address] PCP - General Family Medicine 09/09/20 Jorje Justice MD #[address] [address] Consulting Physician Urology 02/10/23 Brian Gupta MD #2 [place] [address] Consulting Physician Neurology 10/02/23 documented as of this encounter
[2025-09-17] MEDS: CEFEPIME 2 GM in SODIUM CHLORIDE 0.9% IV 50 ML 100 ML IVPB (14:43)
[2025-09-17] MEDS: MORPHINE SULFATE (*CRX) 2 MG/ML INJ IV PUSH ×2 (14:46→15:39)
[2025-09-17] MEDS: ONDANSETRON INJ 4 MG/2 ML VIAL IV PUSH (14:46)
[2025-09-17] MEDS: VANCOMYCIN 1,500 MG/NS 500 ML 1,500 MG/500 ML BAG 250 MG IVPB (15:19)
--- NOTE | 2025-09-17 15:33 | PC.NURSE ---
dr lazcano in with pt. informed pt will need to sign ama if wanting to go home 1st. pt refused. agrees with going by ambulance .
[2025-09-17] MEDS: SODIUM CHLORIDE 0.9% IV 1,000 ML 999 ML IV CONT (15:35)
[2025-09-17] MEDS: metroNIDAZOLE 500 MG/ISO 100ML 500 MG/100 ML BAG 100 MG IVPB (17:29)
--- NOTE | 2025-09-17 17:33 | PC.NURSE ---
1730 dr lazcano informed pt request for pain medication. pt yelling at staff in regards of why do i have to wait for ambulance , im going to [facility], i should be 1st. explained. ambulance will come when available. 1735 dr lazcano ordered pain medication and in with pt. explained dosing and availablity of giving pain medications.
[2025-09-17] MEDS: HYDROmorphone HCL INJ (*CRX) 2 MG/ML VIAL 0.5 MG IV PUSH (17:38)
--- NOTE | 2025-09-20 16:50 | PC.NURSE ---
preliminary blood cultures x2 reviewed. no growth in 24 hours
--- NOTE | 2025-09-21 20:40 | PC.NURSE ---
Prelim blood cx report Rt arm: No growth in 48 hrs.
--- NOTE | 2025-09-24 13:43 | PC.NURSE ---
final blood culture reports x2 reviewed. no growth in 5 days. no change in plan of care.
== END 2025-09-17 18:54 | disposition short-term general hospital (02) ==
PROVIDERS: Emergency Provider Internal Medicine Critical Care Medicine; PCP Family Medicine
DX: A41.9 Sepsis, unspecified organism (principal); J18.9 Pneumonia, unspecified organism; R65.21 Severe sepsis with septic shock; K57.92 Diverticulitis of intestine, part unspecified, without perforation or abscess without bleeding; G20.C Parkinsonism, unspecified; J44.9 Chronic obstructive pulmonary disease, unspecified; I10 Essential (primary) hypertension; F17.210 Nicotine dependence, cigarettes, uncomplicated; Z20.822 Contact with and (suspected) exposure to COVID-19
CPT/HCPCS: 36415; 71045; 71260; 74177; 80053; 81001; 82550; 83605; 83690; 83880; 84484; 85025; 85610; 87040; 87637; 93005; 96361; 96365; 96366; 96367; 96375; 96376; 99285; J0692; J1171; J1836; J2270; J2405; J3373; J7030; J7120; Q9967